=== PATIENT | female | born 1980 | race Caucasian/White ===

== ENCOUNTER 2017-02-03 23:40 | Inpatient (IN) | payer OTHER ==
--- NOTE | 2017-02-04 01:34 | PDOC ---
History of Present Illness - General Chief Complaint: Pain Stated Complaint: UPPER ABDOMINAL PAIN Time Seen by Provider: 02/04/17 01:31 History Source: Patient Exam Limitations: Intoxication - History of Present Illness Initial Comments: 02/04/17 02:02 Patient is a 36 yo female with history of multiple abdominal surgeries including gastric bypass, appendicitis and presenting with acute intoxication, nausea, vomiting and abdominal pain for an unknown length of time. Patient is a poor historian and endorses drinking multiple drinks this evening. She is c/o diffuse abdominal pain primarily in the epigastric and right upper and lower quadrants. Patient denies fever, chills, diarrhea, constipation. Last BM was yesterday. PCP: Dr. Manny Santacruz Past History - Past Medical History Allergies/Adverse Reactions: Allergies Allergy/AdvReac Type Severity Reaction Status Date / Time No Known Allergies Allergy Verified 02/03/17 23:44 Home Medications: Ambulatory Orders Multivitamin [One Daily] 1 each PO DAILY 02/04/17 Docusate Sodium [Colace -] 100 mg PO TID #60 tab 02/08/17 Folic Acid - 1 mg PO DAILY #30 tablet 02/08/17 Oxycodone HCl 5 mg PO BID #10 tablet MDD 2 tabls 02/08/17 Oxycodone HCl [Roxicodone -] 5 mg PO Q4H PRN #7 tablet MDD 2 tablets 02/08/17 Pantoprazole Sodium [Protonix -] 40 mg PO DAILY #30 tab 02/08/17 Thiamine HCl [Vitamin B1 -] 100 mg PO DAILY #30 tablet 02/08/17 GI Disorders: Yes (ACID REFLUX) - Surgical History Abdominal Surgery: Yes (GASTIC BYPASS-02/22/13) Appendectomy: Yes - Reproductive History (#): 7 Para: 8 Spontaneous : 0 - Suicide/Smoking/Psychosocial Hx Smoking Status: No Smoking History: Current every day smoker Have you smoked in the past 12 months: Yes Number of Cigarettes Smoked Daily: 2 Information on smoking cessation initiated: No Hx Alcohol Use: No Review of Systems - Review of Systems Able to Perform ROS?: Yes (Limited d/t intoxication) Comments:: 02/04/17 02:23 Denies fever, chills Denies shortness of breath Denies chest pain Endorses abdominal pain, nausea, vomiting; denies diarrhea constipation Is the patient limited Spanish proficient: No *Physical Exam - Vital Signs Last Vital Signs Temp Pulse Resp BP Pulse Ox 97.9 F 92 H 18 140/104 99 02/03/17 23:41 02/03/17 23:41 02/03/17 23:41 02/03/17 23:41 02/03/17 23:41 - Physical Exam Comments: 02/04/17 02:28 GENERAL: AAOx3, obese, intoxicates and smelling of EtOH, NAD HEAD: NCAT EYES: PERRLA, EOMI, conjunctiva injected ENT: hearing grossly normal, nares patent, no nasal discharge, no congestion, dry oral mucosa NECK: supple, normal ROM, no LAD RESP: speaking in full sentences, symmetrical chest expansion, no respiratory distress, lungs CTAB HEART: RRR, normal S1-S2, no MRG ABDOMEN: soft, ttp epigastric/RUQ/RLQ, no guarding, no rebound. EXTREMITIES: Moving all extremities, normal ROM, strength 5/5, normal sensation intact. NEUROLOGICAL: CN II-XII grossly intact, slurred speech, normal gait, no focal sensorimotor deficits SKIN: warm, dry, normal turgor, no rashes or lesions noted. ED Treatment Course - LABORATORY CBC & Chemistry Diagram: 02/08/17 06:05 02/08/17 06:05 - RADIOLOGY Radiograph Interpretation: CT/ABDOMEN PELVIS CT WITH CONTR HISTORY PROVIDED: Abdominal pain and vomiting. Sequential axial images were obtained from the domes of the diaphragms through the symphysis pubis following the administration of both oral and intravenous contrast material. The lung bases are clear. The patient is S/P gastric sleeve procedure. The liver is normal size. It is markedly hypodense in texture consistent with diffuse fatty infiltration. No mass lesions are noted within the liver. The spleen, pancreas and adrenal glands demonstrate no significant abnormalities. There is prominence of the renal pelves and proximal ureters bilaterally with no obvious obstruction identified. There is no evidence of bowel obstruction, however, there are mild edematous changes within the central mesentery with clumping of small bowel loops anteriorly. A surgical suture line is also noted in this location and these changes could be postoperative in nature. Clinical correlation and follow-up is advised. There is no evidence of intra-abdominal or retroperitoneal lymphadenopathy or fluid collections. Examination of the pelvis demonstrates changes within the left adnexa. There is trace amount of free pelvic fluid noted as well. No pelvic masses are identified. There is no evidence of acute bony abnormalities. IMPRESSION: 1. Extensive diffuse fatty infiltration of the liver. 2. Prominent renal pelves and proximal ureters without obvious obstruction. 3. S/P gastric sleeve procedure with small bowel anastomosis also noted. Mild mesenteric edema is seen with clumping of small bowel loops anteriorly. No obvious bowel obstruction is present. Clinical correlation and follow-up recommended. 4. Cystic changes left adnexa with free pelvic fluid. Please see above discussion. Medical Decision Making - Medical Decision Making 02/04/17 02:11 36 yo F with history of gastric bypass surgery and abdominal pain Ddx is pancreatitis, biliary colic, cholecystitis, gastritis, abdominal strictures, bowel obstruction Plan: Pain management Fluids Evaluate with basic labs, Mg, lipase, HCG Consider CT to r.o obstruction 02/04/17 03:49 Labs reviewed. Significant for for elevated lipase and LFT's consistent with pancreatitis CMP Sodium 144 mmol/L (136-145) 02/04/17 02:08 Potassium 3.2 mmol/L (3.5-5.1) L 02/04/17 02:08 Chloride 108 mmol/L (98-107) H 02/04/17 02:08 Carbon Dioxide 25 mmol/L (21-32) 02/04/17 02:08 Anion Gap 11 (8-16) 02/04/17 02:08 BUN 7 mg/dL (7-18) 02/04/17 02:08 Creatinine 0.7 mg/dL (0.55-1.02) D 02/04/17 02:08 Creat Clearance w eGFR > 60 (>60) 02/04/17 02:08 Random Glucose 84 mg/dL (74-106) 02/04/17 02:08 Calcium 7.9 mg/dL (8.5-10.1) L 02/04/17 02:08 Total Bilirubin 0.9 mg/dL (0.2-1.0) D 02/04/17 02:08 AST 284 U/L (15-37) H D 02/04/17 02:08 ALT 179 U/L (12-78) H D 02/04/17 02:08 Alkaline Phosphatase 231 U/L (45-117) H D 02/04/17 02:08 Total Protein 6.9 g/dl (6.4-8.2) 02/04/17 02:08 Albumin 3.4 g/dl (3.4-5.0) 02/04/17 02:08 Lipase 487 U/L (73-393) H 02/04/17 02:08 02/04/17 05:14 CT Abdomen/Pelvic shows fatty liver and moderate degree of nonspecific mesenteric edema without evidence of venous thrombosis or bowel inflammation. No obvious obstruction. Patient with mild pancreatitis, nausea and vomiting and intoxication, needs obs admission 02/04/17 05:[address] Khan who admits for Dr. Manny Santacruz. She requested patient be admitted to hospitalist. 02/04/17 06:02 Per hospitalist, admitted to [facility] under [facility] *DC/Admit/Observation/Transfer Diagnosis at time of Disposition: Intoxication Pancreatitis Qualifiers: Chronicity: acute Pancreatitis type: alcohol induced Acute pancreatitis complication: unspecified Qualified Code(s): K85.20 - Alcohol induced acute pancreatitis without necrosis or infection Vomiting Qualifiers: Vomiting type: unspecified Vomiting Intractability: unspecified Nausea presence : with nausea Qualified Code(s): R11.2 - Nausea with vomiting, unspecified - Discharge Dispostion Disposition: HOME Condition at time of disposition: Improved Admit: Yes - Prescriptions - Referrals
[2017-02-04] MEDS ORDERED: ONDANSETRON 4 MG/2 ML VIAL IVPUSH ONE (01:54)
[2017-02-04] MEDS ORDERED: FAMOTIDINE 20 MG/50 ML IVPB 50 ML IVPB ONE ×2 (01:54→02:16)
[2017-02-04] MEDS ORDERED: SODIUM CHLORIDE 0.9% 1000 ML INFUS.BAG IV ONE ×2 (01:55→03:48)
[2017-02-04] MEDS ORDERED: ONDANSETRON 4 MG/2 ML VIAL ONE (02:16)
[2017-02-04 02:37] LABS: BASOPHIL 0.5 % (0-2.0); EOSINOPHIL 1.3 % (0-4.5); MCHC 30.2 g/dl (32.0-36.0); MEAN CELL VOLUME 66.3 fl (80-96); MEAN PLT VOLUME 9.1 fl (7.5-11.1); NEUTROPHILS 65.9 % (42.8-82.8); PLATELET COUNT 251 K/MM3 (134-434); RDW 20.5 % (11.6-15.6); WHITE BLOOD COUNT 5.3 K/mm3 (4.0-10.0)
[2017-02-04 03:01] LABS: URINE APPEARANCE CLEAR; URINE BILIRUBIN NEGATIVE (NEGATIVE); URINE BLOOD NEGATIVE (NEGATIVE); URINE COLOR LTYELLOW; URINE GLUCOSE (UA) NEGATIVE (NEGATIVE); URINE KETONE NEGATIVE (NEGATIVE); URINE LEUK ESTERASE NEGATIVE (NEGATIVE); URINE NITRITE NEGATIVE (NEGATIVE); URINE PROTEIN NEGATIVE (NEGATIVE); URINE UROBILINOGEN NEGATIVE mg/dL (0.2-1.0)
[2017-02-04 03:15] LABS: ALBUMIN 3.4 g/dl (3.4-5.0); ALK PHOS 231 U/L (45-117); ANION GAP 11 (8-16); BILIRUBIN,TOTAL 0.9 mg/dL (0.2-1.0); CALCIUM 7.9 mg/dL (8.5-10.1); CO2 25 mmol/L (21-32); CREATININE 0.7 mg/dL (0.55-1.02); GLUCOSE,RANDOM 84 mg/dL (74-106); SGOT/AST 284 U/L (15-37); SGPT/ALT 179 U/L (12-78); TOT PROT 6.9 g/dl (6.4-8.2)
[2017-02-04 03:16] LABS: URINE MARIJUANA THC NEGATIVE ng/ml (CUTOFF=50)
[2017-02-04 05:17] LABS: PLATELET ESTIMATE ADEQUATE (NORMAL)
[2017-02-04 05:18] LABS: ANISOCYTOSIS 1+; HYPOCHROMIA 2+; MACROCYTOSIS 1+; MICROCYTOSIS 1+
[2017-02-04] MEDS ORDERED: morphine CARPU-JECT 2 MG/1 ML DISP.SYRIN IVPUSH ONE (05:33)
[2017-02-04] MEDS ORDERED: SODIUM CHLORIDE 1,000 ML IV STA (05:58)
--- NOTE | 2017-02-04 06:05 | PDOC ---
Attending Attestation - Resident Resident Name: Wilfrid Ruiz - ED Attending Attestation I have performed the following: I have examined & evaluated the patient, The case was reviewed & discussed with the resident, I agree w/resident's findings & plan, Exceptions are as noted - HPI HPI: 02/04/17 06:02 36 yo F with h/o gastric bypass, here wtih c/o etoh intox, vague abd pain n/v. states pain epigastric no radiation. has had two episodes nonbloody nonbilious emesis. no mod factors. reports etoh today drinnking bicardi. denies daily etoh use or other drug use. no change to stool. no urinary complaints. - Physicial Exam PE: 02/04/17 06:02 awake, intoxicated. perrl. dry mucous membranes. lungs clear bilat. heart rrr no mrg. abd soft mild epigastric, ruq ttp. no revound or guarding. no cva tendernss. nuero awake but drowsy, slurred speech. - Medical Decision Making 02/04/17 06:03 differential etoh intox, gastritis pancreatitis cholelithiaisis cholecystitis. plan ivf labs antiemetics. pain control ct a/p r/o obstruciton due to gastric surgery in past. 02/04/17 06:04 d/w kg ( covering for [facility]), hasn't seen pt in over year. told to admit to hospitalist. noted mild pancreatitis. ct a/p unremarkable.
[2017-02-04] MEDS ORDERED: morphine CARPU-JECT 2 MG/1 ML DISP.SYRIN ONE ×3 (06:47→14:10)
[2017-02-04] MEDS ORDERED: POTASSIUM CHLORIDE TABS 20 MEQ TABLET.ER (FP) PO ONE (07:00)
[2017-02-04 10:18] LABS: BASOPHIL 0.8 % (0-2.0); EOSINOPHIL 1.8 % (0-4.5); MCHC 29.3 g/dl (32.0-36.0); MEAN PLT VOLUME 8.7 fl (7.5-11.1); NEUTROPHILS 53.1 % (42.8-82.8); PLATELET COUNT 221 K/MM3 (134-434); RDW 21.2 % (11.6-15.6); WHITE BLOOD COUNT 4.8 K/mm3 (4.0-10.0)
[2017-02-04 10:20] LABS: MCH 19.6 pg (25.7-33.7)
[2017-02-04] MEDS ORDERED: FOLIC ACID INJECTION - 1 MG, THIAMINE HCL 100 MG, MULTIVIT INJECTION ADULT 10 ML in SOD... IVPB ONE (10:45)
[2017-02-04 10:47] LABS: ALBUMIN 2.8 g/dl (3.4-5.0); ANION GAP 5 (8-16); CALCIUM 7.4 mg/dL (8.5-10.1); CO2 27 mmol/L (21-32); GLUCOSE,RANDOM 64 mg/dL (74-106)
[2017-02-04 10:52] LABS: ALK PHOS 198 U/L (45-117); BILIRUBIN,TOTAL 0.7 mg/dL (0.2-1.0); CREATININE 0.5 mg/dL (0.55-1.02); SGPT/ALT 212 U/L (12-78); TOT PROT 6.1 g/dl (6.4-8.2)
[2017-02-04 10:57] VITALS: BMI 27.7
[2017-02-04 11:00] LABS: SGOT/AST 507 U/L (15-37)
[2017-02-04] MEDS: morphine CARPU-JECT 2 MG/1 ML DISP.SYRIN IVPUSH PRN ×4 (11:13→21:46)
--- NOTE | 2017-02-04 12:17 | HP ---
CHIEF COMPLAINT: abdominal pain/nausea/vomiting PCP: Manny Santacruz MD HISTORY OF PRESENT ILLNESS: Patient is a 36 year old female with a significant past medical history of gastric bypass (in 2013 @ [place]), appendicitis and . She presented to the ED with complaints of acute alcohol intoxication, abdominal pain, nausea and vomiting for a few days (unable to quantify when symptoms started). Patient is a poor historian and endorses drinking multiple drinks this evening. She is c/o diffuse abdominal pain primarily in the epigastric and right upper and lower quadrants. States the pain is a 8/10 and and describes the pain as "stabbing, cramping" pain. Patient denies fever, chills, diarrhea, constipation. Last BM was yesterday. She appears intoxicated and withdrawn on my exam. States she drinks every other day but could not quantify the amount she drinks but drinks Vodka often. She denies any symptoms of withdrawal, denies any anxiety, agitation, headache, tremors denies hx of seizures. Denies suicidal ideation or hallucinations. ER course was notable for: (1) appears intoxicated on exam, +alcohol odor (2) hmg 7.7/26.2, vitals stable (3) ast 505 alt 212, Lipase 487 (4) ETOH tox 290.2 (5) CIWA score 4, low score: continue to monitor CIWA q6 and PRN Recent Travel: denies PAST MEDICAL HISTORY: gastric bypass, appendicitis, c section PAST SURGICAL HISTORY: Social History: Smoking: denies Alcohol: Patient states she drinks vodka every other day. Drugs: denies Family History: Allergies No Known Allergies Allergy (Verified 02/03/17 23:44) HOME MEDICATIONS: Home Medications Medication Instructions Recorded Multivitamin [One Daily] 1 each PO DAILY 02/04/17 REVIEW OF SYSTEMS CONSTITUTIONAL: Absent: fever, chills, diaphoresis, generalized weakness, malaise, loss of appetite, weight change HEENT: Absent: rhinorrhea, nasal congestion, throat pain, throat swelling, difficulty swallowing, mouth swelling, ear pain, eye pain, visual changes CARDIOVASCULAR: Absent: chest pain, syncope, palpitations, irregular heart rate, lightheadedness , peripheral edema RESPIRATORY: Absent: cough, shortness of breath, dyspnea with exertion, orthopnea, wheezing, stridor, hemoptysis GASTROINTESTINAL: Absent: abdominal pain, abdominal distension, nausea, vomiting, diarrhea, constipation, melena, hematochezia GENITOURINARY: Absent: dysuria, frequency, urgency, hesitancy, hematuria, flank pain, genital pain MUSCULOSKELETAL: Absent: myalgia, arthralgia, joint swelling, back pain, neck pain SKIN: Absent: rash, itching, pallor HEMATOLOGIC/IMMUNOLOGIC: Absent: easy bleeding, easy bruising, lymphadenopathy, frequent infections ENDOCRINE: Absent: unexplained weight gain, unexplained weight loss, heat intolerance, cold intolerance NEUROLOGIC: Absent: headache, focal weakness or paresthesias, dizziness, unsteady gait, seizure, mental status changes, bladder or bowel incontinence PSYCHIATRIC: Absent: suicidal or homicidal ideation, hallucinations. PHYSICAL EXAMINATION Vital Signs - 24 hr 02/04/17 02/04/17 07:02 09:31 Pulse Rate [ 98 H 54 L Apical] Respiratory 18 18 Rate Blood Pressure 158/84 134/73 [Left Arm] O2 Sat by Pulse 100 100 Oximetry (%) GENERAL: Awake, alert, and fully oriented, in no acute distress. HEAD: Normal with no signs of trauma. EYES: Pupils equal, round and reactive to light, extraocular movements intact, sclera anicteric, conjunctiva clear. No lid lag. EARS, NOSE, THROAT: Ears normal, nares patent, oropharynx clear without exudates. Moist mucous membranes. NECK: Normal range of motion, supple without lymphadenopathy, JVD, or masses. LUNGS: Breath sounds equal, clear to auscultation bilaterally. No wheezes, and no crackles. No accessory muscle use. HEART: Regular rate and rhythm, normal S1 and S2 without murmur, rub or gallop. ABDOMEN: Soft, +tender on ruq, not distended, normoactive bowel sounds, + RUQ guarding, no rebound, no masses, last BM yesterday MUSCULOSKELETAL: Normal range of motion at all joints. No bony deformities or tenderness. No CVA tenderness. UPPER EXTREMITIES: 2+ pulses, warm, well-perfused. No cyanosis. No clubbing. No peripheral edema. LOWER EXTREMITIES: 2+ pulses, warm, well-perfused. No calf tenderness. No peripheral edema. NEUROLOGICAL: Cranial nerves II-XII intact. Normal speech. Normal gait. PSYCHIATRIC: Appears acutely intoxicated, withdrawn, guarded SKIN: Bilteral lower ext scattered bruising, unclear etiology, denies trauma, no edema Laboratory Results - last 24 hr 02/04/17 02/04/17 02/04/17 10:10 10:10 10:10 WBC 4.8 RBC 3.91 Hgb 7.7 L Hct 26.2 L MCV 67.0 L MCH 19.6 L MCHC 29.3 L RDW 21.2 H Plt Count 221 MPV 8.7 Neutrophils % 53.1 Lymphocytes % 38.9 D Monocytes % 5.4 Eosinophils % 1.8 Basophils % 0.8 Sodium 145 Potassium 3.7 Chloride 113 H Carbon Dioxide 27 Anion Gap 5 L BUN 5 L D Creatinine 0.5 L D Creat Clearance w eGFR > 60 Random Glucose 64 L D Calcium 7.4 L Magnesium 1.8 Total Bilirubin 0.7 D AST 507 H D ALT 212 H Alkaline Phosphatase 198 H Total Protein 6.1 L Albumin 2.8 L ASSESSMENT/PLAN: Patient is a 36 year old female with a significant past medical history of gastric bypass (2013 @ [place]), appendicitis and . She presented to the ED with complaints of acute alcohol intoxication, abdominal pain, nausea and vomiting for a few days (unable to quantify when symptoms started). Patient is a poor historian and endorses drinking multiple drinks this evening. She is c/o diffuse abdominal pain primarily in the epigastric and right upper and lower quadrants. States the pain is a 8/10 and and describes the pain as "stabbing, cramping" pain. Patient denies fever, chills, diarrhea, constipation. Last BM was yesterday. She appears intoxicated and withdrawn on my exam. States she drinks every other day but could not quantify the amount she drinks but drinks Vodka often. She denies any symptoms of withdrawal, denies any anxiety, agitation, headache, tremors denies hx of seizures. Denies suicidal ideation or hallucinations. GI: Abdominal Pain/Nausea/Vomiting - acute A/P: Abdominal CT/Pelvis with contrast shows: (1) extensive diffuse fatty infiltration of the liver, (2) Prominent renal pelves andproximal ureters without obvious obstruction (3) s/p gastric sleeve procedure with small bowel anastomosis also noted. Mild mesenteric edema is seen with clumping of small bowel loops anteriorly. No obvious bowel obstruction is present. (4) cystic changes left adnexa with free pelvic fluid. Will give IVF/clear liquid diet and monitor n/v Zofran SL as needed for nausea/vomiting Consider GI consult if worsening liver enzymes or worsening abdominal pain Elevated AST/ALT - acute A/P: Ast 505 alt @12, Lipase 487 AST/ALT not this elevated on previously admissions She is also intoxicated in the ED with etoh tox 290 Will give IVF, banana bag x 1 repeat labs in a.m. Abdominal CT shows extensive diffuse fatty inf. of liver Psyche: Acute alcohol intoxication/ETOH tox 290 A/P: Low CIWA score on my exam Monitor for signs of withdrawal and may need Libirum Will give PRN dose now Hematology: Acute anemia A/P: Likely secondary to ETOH abuse Monitor in the abstinence of alcohol F.E.N. Fluids: NS @ 100 x 24 hours Electrolytes: monitor in a.m. Nutrition: clears Disposition: Monitor patient on OBS. Full code. Visit type - Emergency Visit Emergency Visit: Yes ED Registration Date: 02/04/17 Care time: The patient presented to the Emergency Department on the above date and was hospitalized for further evaluation of their emergent condition. - New Patient This patient is new to me today: Yes Date on this admission: 02/04/17 - Critical Care Critical Care patient: No
[2017-02-04] MEDS ORDERED: ONDANSETRON *ODT* 4 MG TABLET SL PRN (14:47)
[2017-02-04] MEDS: SODIUM CHLORIDE 1,000 ML IV SCH (16:45)
[2017-02-04] MEDS ORDERED: chlordiazePOXIDE HCL 25 MG CAPSULE PO PRN (20:59)
--- NOTE | 2017-02-04 21:09 | CONSULT ---
Consult Detox [facility] Reason for Current Admission/Consult: Alcohol detox Referred by:: Ewa Wells NP - History History of Present Illness: 36 y/o woman with a long hx. of alcoholism is admitted because of diffuse abdominal pain resulting from pancreatitis lipase 487 & BAL 290.2. - History Source History Provided By: Medical Record - Alcohol/Substance Use Hx Alcohol Use: Yes - Current Drug/Alcohol Use Alcohol Route: Oral Frequency: Daily Amount used: Vodka 1/2- 1 pint Age of first use: 19 Date of Last Use: 02/04/17 - Past Medical History ...LMP: 12/27/16 - Significant Medical Findings: Laboratory Tests 02/04/17 02/04/17 02/04/17 02:08 02:08 02:08 WBC 5.3 D RBC 4.07 D Hgb 8.1 L D Hct 26.9 L D MCV 66.3 L MCH 20.0 L MCHC 30.2 L RDW 20.5 H D Plt Count 251 MPV 9.1 Neutrophils % 65.9 Lymphocytes % 27.2 Monocytes % 5.1 Eosinophils % 1.3 Basophils % 0.5 Hypochromia 2+ Platelet Estimate Adequate Anisocytosis 1+ Microcytosis 1+ Macrocytosis 1+ Sodium 144 Potassium 3.2 L Chloride 108 H Carbon Dioxide 25 Anion Gap 11 BUN 7 Creatinine 0.7 D Creat Clearance w eGFR > 60 Random Glucose 84 Calcium 7.9 L Phosphorus Magnesium Total Bilirubin 0.9 D AST 284 H D ALT 179 H D Alkaline Phosphatase 231 H D Total Protein 6.9 Albumin 3.4 Lipase 487 H Urine Color Urine Appearance Urine pH Ur Specific [place] Urine Protein Urine Glucose (UA) Urine Ketones Urine Blood Urine Nitrite Urine Bilirubin Urine Urobilinogen Urine HCG, Qual Opiates Screen Methadone Screen Barbiturate Screen Phencyclidine Screen Ur Amphetamines Screen MDMA (Ecstasy) Screen Benzodiazepines Screen Cocaine Screen U Marijuana (THC) Screen Alcohol, Quantitative 290.2 H* 02/04/17 02/04/17 02/04/17 02:10 02:10 02:10 WBC RBC Hgb Hct MCV MCH MCHC RDW Plt Count MPV Neutrophils % Lymphocytes % Monocytes % Eosinophils % Basophils % Hypochromia Platelet Estimate Anisocytosis Microcytosis Macrocytosis Sodium Potassium Chloride Carbon Dioxide Anion Gap BUN Creatinine Creat Clearance w eGFR Random Glucose Calcium Phosphorus Magnesium Total Bilirubin AST ALT Alkaline Phosphatase Total Protein Albumin Lipase Urine Color Ltyellow Urine Appearance Clear Urine pH 6.0 Ur Specific [place] 1.010 Urine Protein Negative Urine Glucose (UA) Negative Urine Ketones Negative Urine Blood Negative Urine Nitrite Negative Urine Bilirubin Negative Urine Urobilinogen Negative Urine HCG, Qual Negative Opiates Screen Negative Methadone Screen Negative Barbiturate Screen Negative Phencyclidine Screen Negative Ur Amphetamines Screen Negative MDMA (Ecstasy) Screen Negative Benzodiazepines Screen Negative Cocaine Screen Negative U Marijuana (THC) Screen Negative Alcohol, Quantitative 02/04/17 02/04/17 02/04/17 10:10 10:10 10:10 WBC 4.8 RBC 3.91 Hgb 7.7 L Hct 26.2 L MCV 67.0 L MCH 19.6 L MCHC 29.3 L RDW 21.2 H Plt Count 221 MPV 8.7 Neutrophils % 53.1 Lymphocytes % 38.9 D Monocytes % 5.4 Eosinophils % 1.8 Basophils % 0.8 Hypochromia Platelet Estimate Anisocytosis Microcytosis Macrocytosis Sodium 145 Potassium 3.7 Chloride 113 H Carbon Dioxide 27 Anion Gap 5 L BUN 5 L D Creatinine 0.5 L D Creat Clearance w eGFR > 60 Random Glucose 64 L D Calcium 7.4 L Phosphorus Magnesium 1.8 Total Bilirubin 0.7 D AST 507 H D ALT 212 H Alkaline Phosphatase 198 H Total Protein 6.1 L Albumin 2.8 L Lipase Urine Color Urine Appearance Urine pH Ur Specific [place] Urine Protein Urine Glucose (UA) Urine Ketones Urine Blood Urine Nitrite Urine Bilirubin Urine Urobilinogen Urine HCG, Qual Opiates Screen Methadone Screen Barbiturate Screen Phencyclidine Screen Ur Amphetamines Screen MDMA (Ecstasy) Screen Benzodiazepines Screen Cocaine Screen U Marijuana (THC) Screen Alcohol, Quantitative 02/05/17 02/05/17 02/05/17 06:00 06:00 06:00 WBC 4.4 RBC 3.88 Hgb 7.7 L Hct 26.1 L MCV 67.2 L MCH 19.7 L MCHC 29.3 L RDW 20.7 H Plt Count 184 MPV 8.8 Neutrophils % Lymphocytes % Monocytes % Eosinophils % Basophils % Hypochromia Platelet Estimate Anisocytosis Microcytosis Macrocytosis Sodium 141 Potassium 3.4 L Chloride 110 H Carbon Dioxide 26 Anion Gap 5 L BUN 5 L Creatinine 0.5 L Creat Clearance w eGFR > 60 Random Glucose 57 L Calcium 7.7 L Phosphorus 3.1 Magnesium 1.5 L Total Bilirubin 1.3 H D AST 231 H D ALT 146 H D Alkaline Phosphatase 183 H Total Protein 5.6 L Albumin 2.6 L Lipase 178 Urine Color Urine Appearance Urine pH Ur Specific [place] Urine Protein Urine Glucose (UA) Urine Ketones Urine Blood Urine Nitrite Urine Bilirubin Urine Urobilinogen Urine HCG, Qual Opiates Screen Methadone Screen Barbiturate Screen Phencyclidine Screen Ur Amphetamines Screen MDMA (Ecstasy) Screen Benzodiazepines Screen Cocaine Screen U Marijuana (THC) Screen Alcohol, Quantitative CIWA Score - CIWA Score Nausea/Vomitin Muscle Tremors: 4-Moderate,w/Arms Extend Anxiety: 4-Mod. Anxious/Guarded Agitation: 4-Moderately Restless Paroxysmal Sweats: 3 Orientation: 0-Oriented Tacttile Disturbances: 0-None Auditory Disturbances: 0-None Visual Disturbances: 0-None Headache: 0-None Present CIWA-Ar Total Score: 18 Assessment Plan - Plan Plan: Detox with Librium - Medication Detox Regimen/Protocol: Librium
[2017-02-04] MEDS: chlordiazePOXIDE HCL 25 MG CAPSULE PO SCH (23:06)
[2017-02-05] MEDS: SODIUM CHLORIDE 1,000 ML IV SCH ×2 (01:15→10:23)
[2017-02-05] MEDS: morphine CARPU-JECT 2 MG/1 ML DISP.SYRIN IVPUSH PRN ×4 (02:37→14:56)
[2017-02-05] MEDS: chlordiazePOXIDE HCL 25 MG CAPSULE PO SCH ×4 (06:13→23:06)
[2017-02-05 07:29] LABS: MCHC 29.3 g/dl (32.0-36.0); MEAN CELL VOLUME 67.2 fl (80-96); MEAN PLT VOLUME 8.8 fl (7.5-11.1); PLATELET COUNT 184 K/MM3 (134-434); RDW 20.7 % (11.6-15.6); WHITE BLOOD COUNT 4.4 K/mm3 (4.0-10.0)
[2017-02-05 07:36] LABS: MCH 19.7 pg (25.7-33.7)
[2017-02-05 07:55] LABS: ALBUMIN 2.6 g/dl (3.4-5.0); ANION GAP 5 (8-16); CALCIUM 7.7 mg/dL (8.5-10.1); CO2 26 mmol/L (21-32); GLUCOSE,RANDOM 57 mg/dL (74-106); MAGNESIUM 1.5 mg/dL (1.8-2.4)
[2017-02-05 07:59] LABS: ALK PHOS 183 U/L (45-117); BILIRUBIN,TOTAL 1.3 mg/dL (0.2-1.0); CREATININE 0.5 mg/dL (0.55-1.02); PHOSPHOROUS 3.1 mg/dL (2.5-4.9); SGOT/AST 231 U/L (15-37); SGPT/ALT 146 U/L (12-78); TOT PROT 5.6 g/dl (6.4-8.2)
[2017-02-05] MEDS: FOLIC ACID 1 MG TABLET (FP) PO SCH (10:18)
[2017-02-05] MEDS: THIAMINE HCL 100 MG TABLET (FP) PO SCH (10:18)
[2017-02-05] MEDS ORDERED: LACTATED RINGERS SOLUTION 1,000 ML IV SCH (13:30)
[2017-02-05] MEDS ORDERED: POTASSIUM CHLORIDE ORAL LIQUID 20 MEQ/15 ML PO ONE (14:00)
[2017-02-05] MEDS ORDERED: MAGNESIUM SULF 50% (8.12 MEQ/2 ML-1 GM VIAL) IVPB ONE (14:00)
--- NOTE | 2017-02-05 16:03 | PN ---
Physical Exam: SUBJECTIVE: Patient seen and examined. she reports small yellowish vomitus this AM, none since. She has r sided quadrant pain OBJECTIVE: Vital Signs Period Temp Pulse Resp BP Sys/East Pulse Ox Last 24 Hr 98.2 F 66 20 139/92 PE Neuro: alert, awake, cn 2-12intact Pulm: CTAB CV: s1 s2 rrr no mrg Abd: RUQ tenderness refers to R flank and groin abd soft Ext: no le edema noted, warm Active Medications Generic Name Dose Route Start Last Admin Trade Name Freq PRN Reason Stop Dose Admin Chlordiazepoxide HCl 25 mg 02/04/17 20:59 Librium - PO 02/07/17 20:58 Q4H PRN WITHDRAWAL(CONT SUBST) Chlordiazepoxide HCl 50 mg 02/04/17 23:00 02/05/17 10:19 Librium - PO 02/05/17 17:01 50 mg [id number] LISSY Administration Chlordiazepoxide HCl 25 mg 02/05/17 23:00 Librium - PO 02/06/17 17:01 [id number] Chlordiazepoxide HCl 15 mg 02/06/17 23:00 Librium - PO 02/07/17 17:01 [id number] LISSY Folic Acid 1 mg 02/05/17 10:00 02/05/17 10:18 Folic Acid - PO 1 mg DAILY LISSY Administration Lactated Ringer's 1,000 mls @ 125 mls/hr 02/05/17 13:30 02/05/17 14:54 Lactated Ringers Solution IV 02/05/17 21:29 125 mls/hr ASDIR LISSY Administration Morphine Sulfate 2 mg 02/04/17 10:24 02/05/17 14:56 Morphine Injection - IVPUSH 2 mg Q4H PRN Administration PAIN Ondansetron HCl 4 mg 02/04/17 14:47 Zofran Odt - SL Q8H PRN NAUSEA Thiamine HCl 100 mg 02/05/17 10:00 02/05/17 10:18 Vitamin B1 - PO 100 mg DAILY LISSY Administration Imaging: - CTAP: extensive diffuse fatty infiltration of the liver, (2) Prominent renal pelves and proximal ureters without obvious obstruction (3) s/p gastric sleeve procedure with small bowel anastomosis also noted. Mild mesenteric edema is seen with clumping of small bowel loops anteriorly. No obvious bowel obstruction is present. (4) cystic changes left adnexa with free pelvic fluid. Assessment: 36 year old female with pmhx gastric bypass (2013 @ [facility]), appendicitis and , ETOH abuse admitted with acute abdominal pain, n.v. Plan: 1. Elevated LFT's - Unclear if passing stones, CTAP and abd US negative for stones, or obstruction , however GB is thickened - LFT's down trended today - Advance to full liquids - Surgery consulted 2. ETOH abuse - Librium taper - Folic Acid daily - Thaiamine daily 3. ? pancreatitis - Lipase improved - Give 1L LR today x1 4. Anemia - Likely of chronic disease - Trend CBC Visit type - Emergency Visit Emergency Visit: Yes ED Registration Date: 02/05/17 Care time: The patient presented to the Emergency Department on the above date and was hospitalized for further evaluation of their emergent condition. - New Patient This patient is new to me today: Yes Date on this admission: 02/05/17 - Critical Care Critical Care patient: No
[2017-02-05] MEDS ORDERED: PNEUMOC 13-VAL CONJ-DIP CRM/PF 0.5 ML DISP.SYRIN IM ONE (18:36)
[2017-02-05] MEDS ORDERED: FLU VACCINE QUAD 60 MCG/0.5 ML (MDV 17-18) IM ONE (18:36)
--- NOTE | 2017-02-05 22:50 | CONSULT ---
- Consultation REQUESTING PROVIDER: Lori BLINDMAKER CONSULT REQUEST: We have been asked to surgically evaluate this patient for management of nausea; vomiting; abdominal pain. PCP:Dia Sandoval HISTORY OF PRESENT ILLNESS: CTSP for above c/o's; chart reviewed; previous admissions reviewed; patient admitted w/ ETOH intoxication; she has a h/o GBP; # dilatations; appendectomy among others; she has a h/o MRSA skin infection in the past. She states pain is in her right back; upper right thigh. PMHx: none PSHx: as above Home Medications Medication Instructions Recorded Multivitamin [One Daily] 1 each PO DAILY 02/04/17 Allergies Allergy/AdvReac Type Severity Reaction Status Date / Time No Known Allergies Allergy Verified 02/03/17 23:44 . PHYSICAL EXAM: GENERAL: Awake, alert, and fully oriented, in no acute distress; minimally cooperative HEAD: Normal with no signs of trauma. EYES: sclera anicteric, conjunctiva clear. ABDOMEN: Soft, nontender, not distended, , no guarding, no rebound, no masses. No organomegaly. Healed port sites; no hernias. MUSCULOSKELETAL: Normal ROM at all joints. No bony deformities or tenderness. No CVA tenderness. UPPER EXTREMITIES: 2+ pulses, warm, well-perfused. No cyanosis. Cap refill <2 seconds. No peripheral edema. LOWER EXTREMITIES: 2+ pulses, warm, well-perfused. No calf tenderness. No peripheral edema. NEUROLOGICAL: Normal speech, gait normal. PSYCH: Cooperative. Good eye contact. Appropriate mood and affect. SKIN: Warm, dry, normal turgor, no rashes or lesions noted. Vital Signs Temperature 98.3 F 02/05/17 19:04 Pulse Rate 110 H 02/05/17 19:04 Respiratory Rate 20 02/05/17 21:00 Blood Pressure 129/74 02/05/17 19:04 O2 Sat by Pulse Oximetry (%) 96 02/05/17 21:00 Lab Results WBC 4.4 K/mm3 (4.0-10.0) 02/05/17 06:00 RBC 3.88 M/mm3 (3.60-5.2) 02/05/17 06:00 Hgb 7.7 GM/dL (10.7-15.3) L 02/05/17 06:00 Hct 26.1 % (32.4-45.2) L 02/05/17 06:00 MCV 67.2 fl (80-96) L 02/05/17 06:00 MCHC 29.3 g/dl (32.0-36.0) L 02/05/17 06:00 RDW 20.7 % (11.6-15.6) H 02/05/17 06:00 Plt Count 184 K/MM3 (134-434) 02/05/17 06:00 Sodium 141 mmol/L (136-145) 02/05/17 06:00 Potassium 3.4 mmol/L (3.5-5.1) L 02/05/17 06:00 Chloride 110 mmol/L (98-107) H 02/05/17 06:00 Carbon Dioxide 26 mmol/L (21-32) 02/05/17 06:00 Anion Gap 5 (8-16) L 02/05/17 06:00 BUN 5 mg/dL (7-18) L 02/05/17 06:00 Creatinine 0.5 mg/dL (0.55-1.02) L 02/05/17 06:00 Random Glucose 57 mg/dL (74-106) L 02/05/17 06:00 Calcium 7.7 mg/dL (8.5-10.1) L 02/05/17 06:00 CT; US Labs reviewed IMP: abdominal pain most likely of origin of ETOH intox; previous GBP surgery and not from biliary tract and medical liver disease PLAN: Continue to trend LFT's; GI evaluation. Arnoldo Wallace MD FACS Visit type - Case Type Case Type: ED Admission - Emergency Emergency Visit: Yes ED Registration Date: 02/05/17 Care time: The patient presented to the Emergency Department on the above date and was hospitalized for further evaluation of their emergent condition. - New patient This patient is new to me today: Yes Date on this admission: 02/05/17 - Critical Care Critical Care patient: No
[2017-02-06] MEDS: morphine CARPU-JECT 2 MG/1 ML DISP.SYRIN IVPUSH PRN ×3 (06:46→22:46)
[2017-02-06] MEDS: chlordiazePOXIDE HCL 25 MG CAPSULE PO SCH ×3 (06:46→17:22)
[2017-02-06 07:20] LABS: BASOPHIL 0.8 % (0-2.0); EOSINOPHIL 2.1 % (0-4.5); MCHC 29.7 g/dl (32.0-36.0); MEAN CELL VOLUME 66.8 fl (80-96); MEAN PLT VOLUME 8.7 fl (7.5-11.1); NEUTROPHILS 65.5 % (42.8-82.8); PLATELET COUNT 198 K/MM3 (134-434); RDW 20.9 % (11.6-15.6); WHITE BLOOD COUNT 4.4 K/mm3 (4.0-10.0)
[2017-02-06 07:29] LABS: MCH 19.8 pg (25.7-33.7)
[2017-02-06 07:50] LABS: ALBUMIN 2.4 g/dl (3.4-5.0); ANION GAP 5 (8-16); CO2 28 mmol/L (21-32); GLUCOSE,RANDOM 68 mg/dL (74-106); MAGNESIUM 2.1 mg/dL (1.8-2.4); PHOSPHOROUS 3.2 mg/dL (2.5-4.9); SGOT/AST 217 U/L (15-37)
[2017-02-06 07:52] LABS: ALK PHOS 186 U/L (45-117); BILIRUBIN,TOTAL 1.4 mg/dL (0.2-1.0); CREATININE 0.4 mg/dL (0.55-1.02); SGPT/ALT 128 U/L (12-78); TOT PROT 5.2 g/dl (6.4-8.2)
[2017-02-06 08:00] LABS: INR 1.03 (0.82-1.09); PROTHROMBIN TIME (PATIENT) 11.3 SEC (9.98-11.88)
[2017-02-06] MEDS: FOLIC ACID 1 MG TABLET (FP) PO SCH (09:33)
[2017-02-06] MEDS: THIAMINE HCL 100 MG TABLET (FP) PO SCH (09:33)
--- NOTE | 2017-02-06 14:23 | CONSULT ---
Consultation: REQUESTING PROVIDER: CONSULT REQUEST: We have been asked to medically evaluate this patient for ( specify). HISTORY OF PRESENT ILLNESS: REVIEW OF SYSTEMS: CONSTITUTIONAL: Absent: fever, chills, diaphoresis, generalized weakness, malaise, loss of appetite, weight change HEENT: Absent: rhinorrhea, nasal congestion, throat pain, throat swelling, difficulty swallowing, mouth swelling, ear pain, eye pain, visual changes CARDIOVASCULAR: Absent: chest pain, syncope, palpitations, irregular heart rate, lightheadedness , peripheral edema RESPIRATORY: Absent: cough, shortness of breath, dyspnea with exertion, orthopnea, wheezing, stridor, hemoptysis GASTROINTESTINAL: Absent: abdominal pain, abdominal distension, nausea, vomiting, diarrhea, constipation, melena, hematochezia GENITOURINARY: Absent: dysuria, frequency, urgency, hesitancy, hematuria, flank pain, genital pain MUSCULOSKELETAL: Absent: myalgia, arthralgia, joint swelling, back pain, neck pain SKIN: Absent: rash, itching, pallor HEMATOLOGIC/IMMUNOLOGIC: Absent: easy bleeding, easy bruising, lymphadenopathy, frequent infections ENDOCRINE: Absent: unexplained weight gain, unexplained weight loss, heat intolerance, cold intolerance NEUROLOGIC: Absent: headache, focal weakness or paresthesias, dizziness, unsteady gait, seizure, mental status changes, bladder or bowel incontinence PSYCHIATRIC: Absent: anxiety, depression, suicidal or homicidal ideation, hallucinations. PHYSICAL EXAMINATION Vital Signs - 24 hr 02/05/17 02/05/17 02/05/17 19:04 21:00 23:00 Temperature 98.3 F 98.5 F Pulse Rate 110 H 88 Respiratory 20 20 20 Rate Blood Pressure 129/74 132/70 O2 Sat by Pulse 96 Oximetry (%) 02/06/17 02/06/17 06:00 08:46 Temperature 98 F 98.3 F Pulse Rate 79 72 Respiratory 20 18 Rate Blood Pressure 113/73 119/65 O2 Sat by Pulse Oximetry (%) GENERAL: Awake, alert, and fully oriented, in no acute distress. HEAD: Normal with no signs of trauma. EYES: Pupils equal, round and reactive to light, extraocular movements intact, sclera anicteric, conjunctiva clear. No lid lag. EARS, NOSE, THROAT: Ears normal, nares patent, oropharynx clear without exudates. Moist mucous membranes. NECK: Normal range of motion, supple without lymphadenopathy, JVD, or masses. LUNGS: Breath sounds equal, clear to auscultation bilaterally. No wheezes, and no crackles. No accessory muscle use. HEART: Regular rate and rhythm, normal S1 and S2 without murmur, rub or gallop. ABDOMEN: Soft, nontender, not distended, normoactive bowel sounds, no guarding, no rebound, no masses. No hepatomegaly or splenomegaly. MUSCULOSKELETAL: Normal range of motion at all joints. No bony deformities or tenderness. No CVA tenderness. UPPER EXTREMITIES: 2+ pulses, warm, well-perfused. No cyanosis. No clubbing. Cap refill <2 seconds. No peripheral edema. LOWER EXTREMITIES: 2+ pulses, warm, well-perfused. No calf tenderness. No peripheral edema. NEUROLOGICAL: Cranial nerves II-XII intact. Normal speech. Normal gait. PSYCHIATRIC: Cooperative. Good eye contact. Appropriate mood and affect. SKIN: Warm, dry, normal turgor, no rashes or lesions noted. Laboratory Results - last 24 hr 02/06/17 02/06/17 02/06/17 06:00 06:00 06:00 WBC 4.4 RBC 3.66 Hgb 7.3 L Hct 24.4 L MCV 66.8 L MCH 19.8 L MCHC 29.7 L RDW 20.9 H Plt Count 198 MPV 8.7 Neutrophils % 65.5 D Lymphocytes % 25.8 D Monocytes % 5.8 Eosinophils % 2.1 Basophils % 0.8 PT with INR 11.30 INR 1.03 Sodium 142 Potassium 3.8 Chloride 109 H Carbon Dioxide 28 Anion Gap 5 L BUN 3 L D Creatinine 0.4 L Creat Clearance w eGFR > 60 Random Glucose 68 L Calcium 8.0 L Phosphorus 3.2 Magnesium 2.1 D Total Bilirubin 1.4 H AST 217 H ALT 128 H Alkaline Phosphatase 186 H Total Protein 5.2 L Albumin 2.4 L Active Medications Generic Name Dose Route Start Last Admin Trade Name Freq PRN Reason Stop Dose Admin Chlordiazepoxide HCl 25 mg 02/04/17 20:59 Librium - PO 02/07/17 20:58 Q4H PRN WITHDRAWAL(CONT SUBST) Chlordiazepoxide HCl 25 mg 02/05/17 23:00 02/06/17 11:29 Librium - PO 02/06/17 17:01 25 mg [id number] LISSY Administration Chlordiazepoxide HCl 15 mg 02/06/17 23:00 Librium - PO 02/07/17 17:01 [id number] LISSY Folic Acid 1 mg 02/05/17 10:00 02/06/17 09:33 Folic Acid - PO 1 mg DAILY LISSY Administration Morphine Sulfate 2 mg 02/04/17 10:24 02/06/17 06:46 Morphine Injection - IVPUSH 2 mg Q4H PRN Administration PAIN Ondansetron HCl 4 mg 02/04/17 14:47 Zofran Odt - SL Q8H PRN NAUSEA Oxycodone HCl 5 mg 02/06/17 13:28 Roxicodone - PO Q4H PRN PAIN Thiamine HCl 100 mg 02/05/17 10:00 02/06/17 09:33 Vitamin B1 - PO 100 mg DAILY LISSY Administration ASSESSMENT/PLAN: Dispo: We will continue to follow the patient. Thank you for this consultative opportunity.
[2017-02-06] MEDS: oxyCODONE HCL 5 MG TABLET PO PRN (14:54)
--- NOTE | 2017-02-06 14:59 | CONSULT ---
Consult Consult Specialty:: GI Referred by:: Dia Sandoval Reason for Consultation:: persistent abdominal pain - History of Present Illness Chief Complaint: persistent abdominal pain History of Present Illness: Generalized, with RUQ emphasis, abdominal, 5/10, radiating to the back pain of few weeks duration. Worse in the last few days. Associated with nausea, one episode of non-bilious vomiting. No fever, chils, jaundice, altered bowels, melena, hematochezia. No obvious aggravating, or alleviating factors. Reports lack of appetite. Denies GERD, dysphagia. On admission RUQ US noted to have fatty liver, mild hepatitis with cholestasis with thikened BG, low albumin, however no stone, CBD dilation, or pancreatic abnormality on CT. History recent ETOH. HCG negative. 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 No: Ascites, Cancer, Diverticulitis, Diverticulosis, Esophageal Varices, GI Bleed, Hiatal Hernia, Inflamatory Bowel Disease, Peptic Ulcer Disease Hepatobiliary: Yes: Other (unknown hepaitis status). No: Cirrhosis, Cholelithiasis, Cholecystitis, Choledocholithiasis Renal/: No: Renal Failure, Renal Inusuff, Renal Calculi ...LMP: 12/27/16 ...: No (negative HCG on this admission ) Heme/Onc: Yes: Anemia. No: Bleeding Disorder, Thrombocytopenia Infectious Disease: Yes: MRSA (history of) - Past Surgical History Past Surgical History: Yes: Appendectomy, Bariatric Surgery, - Alcohol/Substance Use Hx Alcohol Use: Yes - Smoking History Smoking history: Current every day smoker Have you smoked in the past 12 months: Yes Aproximately how many cigarettes per day: 2 - Social History ADL: Independent Home Medications - Allergies Allergies/Adverse Reactions: Allergies Allergy/AdvReac Type Severity Reaction Status Date / Time No Known Allergies Allergy Verified 02/03/17 23:44 - Home Medications Home Medications: Ambulatory Orders Multivitamin [One Daily] 1 each PO DAILY 02/04/17 Family Disease History - Family Disease History Family History: Unremarkable Review of Systems Findings/Remarks: Chart reviewed, ROS negative unless indicated - Review of Systems Gastrointestinal: reports: Other (See HPI) Integumentary: reports: Erythema (facial), Pruritis (facial) Physical Exam Vital Signs: Vital Signs Temperature 98.3 F 02/06/17 08:46 Pulse Rate 72 02/06/17 08:46 Respiratory Rate 18 02/06/17 08:46 Blood Pressure 119/65 02/06/17 08:46 O2 Sat by Pulse Oximetry (%) 99 02/06/17 09:00 Constitutional: Yes: Well Nourished, Anxious, Mild Distress Eyes: Yes: Conjunctiva Clear. No: Sclera Icterus HENT: Yes: Atraumatic Neck: Yes: Supple Cardiovascular: Yes: Regular Rate and Rhythm Respiratory: Yes: CTA Bilaterally Gastrointestinal: Yes: Normal Bowel Sounds, Soft, Tenderness, Tenderness, Epigastrium, Vomiting. No: Abdomen, Obese, Ascites, Distention, Palpable Mass, Pulsatile Mass, Tenderness, Rebound Musculoskeletal: No: Joint Stiffness, Joint Swelling Integumentary: Yes: Erythema (facial) Neurological: Yes: Alert, Oriented. No: Aphasia, Asterixis, Confusion, Dysarthria, Lethargy Psychiatric: Yes: Alert, Oriented. No: Agitated Labs: Abnormal Lab Results 02/06/17 02/06/17 06:00 06:00 Hgb 7.3 L Hct 24.4 L MCV 66.8 L MCH 19.8 L MCHC 29.7 L RDW 20.9 H Chloride 109 H Anion Gap 5 L BUN 3 L D Creatinine 0.4 L Random Glucose 68 L Calcium 8.0 L Total Bilirubin 1.4 H AST 217 H ALT 128 H Alkaline Phosphatase 186 H Total Protein 5.2 L Albumin 2.4 L Laboratory Tests 02/04/17 02/04/17 02/04/17 02:08 02:08 02:08 WBC 5.3 D RBC 4.07 D Hgb 8.1 L D Hct 26.9 L D MCV 66.3 L MCH 20.0 L MCHC 30.2 L RDW 20.5 H D Plt Count 251 MPV 9.1 Neutrophils % 65.9 Lymphocytes % 27.2 Monocytes % 5.1 Eosinophils % 1.3 Basophils % 0.5 Hypochromia 2+ Platelet Estimate Adequate Anisocytosis 1+ Microcytosis 1+ Macrocytosis 1+ PT with INR INR Sodium 144 Potassium 3.2 L Chloride 108 H Carbon Dioxide 25 Anion Gap 11 BUN 7 Creatinine 0.7 D Creat Clearance w eGFR > 60 Random Glucose 84 Calcium 7.9 L Phosphorus Magnesium Total Bilirubin 0.9 D AST 284 H D ALT 179 H D Alkaline Phosphatase 231 H D Total Protein 6.9 Albumin 3.4 Lipase 487 H Urine Color Urine Appearance Urine pH Ur Specific [place] Urine Protein Urine Glucose (UA) Urine Ketones Urine Blood Urine Nitrite Urine Bilirubin Urine Urobilinogen Urine HCG, Qual Opiates Screen Methadone Screen Barbiturate Screen Phencyclidine Screen Ur Amphetamines Screen MDMA (Ecstasy) Screen Benzodiazepines Screen Cocaine Screen U Marijuana (THC) Screen Alcohol, Quantitative 290.2 H* 02/04/17 02/04/17 02/04/17 02:10 02:10 02:10 WBC RBC Hgb Hct MCV MCH MCHC RDW Plt Count MPV Neutrophils % Lymphocytes % Monocytes % Eosinophils % Basophils % Hypochromia Platelet Estimate Anisocytosis Microcytosis Macrocytosis PT with INR INR Sodium Potassium Chloride Carbon Dioxide Anion Gap BUN Creatinine Creat Clearance w eGFR Random Glucose Calcium Phosphorus Magnesium Total Bilirubin AST ALT Alkaline Phosphatase Total Protein Albumin Lipase Urine Color Ltyellow Urine Appearance Clear Urine pH 6.0 Ur Specific [place] 1.010 Urine Protein Negative Urine Glucose (UA) Negative Urine Ketones Negative Urine Blood Negative Urine Nitrite Negative Urine Bilirubin Negative Urine Urobilinogen Negative Urine HCG, Qual Negative Opiates Screen Negative Methadone Screen Negative Barbiturate Screen Negative Phencyclidine Screen Negative Ur Amphetamines Screen Negative MDMA (Ecstasy) Screen Negative Benzodiazepines Screen Negative Cocaine Screen Negative U Marijuana (THC) Screen Negative Alcohol, Quantitative 02/04/17 02/04/17 02/04/17 10:10 10:10 10:10 WBC 4.8 RBC 3.91 Hgb 7.7 L Hct 26.2 L MCV 67.0 L MCH 19.6 L MCHC 29.3 L RDW 21.2 H Plt Count 221 MPV 8.7 Neutrophils % 53.1 Lymphocytes % 38.9 D Monocytes % 5.4 Eosinophils % 1.8 Basophils % 0.8 Hypochromia Platelet Estimate Anisocytosis Microcytosis Macrocytosis PT with INR INR Sodium 145 Potassium 3.7 Chloride 113 H Carbon Dioxide 27 Anion Gap 5 L BUN 5 L D Creatinine 0.5 L D Creat Clearance w eGFR > 60 Random Glucose 64 L D Calcium 7.4 L Phosphorus Magnesium 1.8 Total Bilirubin 0.7 D AST 507 H D ALT 212 H Alkaline Phosphatase 198 H Total Protein 6.1 L Albumin 2.8 L Lipase Urine Color Urine Appearance Urine pH Ur Specific [place] Urine Protein Urine Glucose (UA) Urine Ketones Urine Blood Urine Nitrite Urine Bilirubin Urine Urobilinogen Urine HCG, Qual Opiates Screen Methadone Screen Barbiturate Screen Phencyclidine Screen Ur Amphetamines Screen MDMA (Ecstasy) Screen Benzodiazepines Screen Cocaine Screen U Marijuana (THC) Screen Alcohol, Quantitative 02/05/17 02/05/17 02/05/17 06:00 06:00 06:00 WBC 4.4 RBC 3.88 Hgb 7.7 L Hct 26.1 L MCV 67.2 L MCH 19.7 L MCHC 29.3 L RDW 20.7 H Plt Count 184 MPV 8.8 Neutrophils % Lymphocytes % Monocytes % Eosinophils % Basophils % Hypochromia Platelet Estimate Anisocytosis Microcytosis Macrocytosis PT with INR INR Sodium 141 Potassium 3.4 L Chloride 110 H Carbon Dioxide 26 Anion Gap 5 L BUN 5 L Creatinine 0.5 L Creat Clearance w eGFR > 60 Random Glucose 57 L Calcium 7.7 L Phosphorus 3.1 Magnesium 1.5 L Total Bilirubin 1.3 H D AST 231 H D ALT 146 H D Alkaline Phosphatase 183 H Total Protein 5.6 L Albumin 2.6 L Lipase 178 Urine Color Urine Appearance Urine pH Ur Specific [place] Urine Protein Urine Glucose (UA) Urine Ketones Urine Blood Urine Nitrite Urine Bilirubin Urine Urobilinogen Urine HCG, Qual Opiates Screen Methadone Screen Barbiturate Screen Phencyclidine Screen Ur Amphetamines Screen MDMA (Ecstasy) Screen Benzodiazepines Screen Cocaine Screen U Marijuana (THC) Screen Alcohol, Quantitative 02/06/17 02/06/17 02/06/17 06:00 06:00 06:00 WBC 4.4 RBC 3.66 Hgb 7.3 L Hct 24.4 L MCV 66.8 L MCH 19.8 L MCHC 29.7 L RDW 20.9 H Plt Count 198 MPV 8.7 Neutrophils % 65.5 D Lymphocytes % 25.8 D Monocytes % 5.8 Eosinophils % 2.1 Basophils % 0.8 Hypochromia Platelet Estimate Anisocytosis Microcytosis Macrocytosis PT with INR 11.30 INR 1.03 Sodium 142 Potassium 3.8 Chloride 109 H Carbon Dioxide 28 Anion Gap 5 L BUN 3 L D Creatinine 0.4 L Creat Clearance w eGFR > 60 Random Glucose 68 L Calcium 8.0 L Phosphorus 3.2 Magnesium 2.1 D Total Bilirubin 1.4 H AST 217 H ALT 128 H Alkaline Phosphatase 186 H Total Protein 5.2 L Albumin 2.4 L Lipase Urine Color Urine Appearance Urine pH Ur Specific [place] Urine Protein Urine Glucose (UA) Urine Ketones Urine Blood Urine Nitrite Urine Bilirubin Urine Urobilinogen Urine HCG, Qual Opiates Screen Methadone Screen Barbiturate Screen Phencyclidine Screen Ur Amphetamines Screen MDMA (Ecstasy) Screen Benzodiazepines Screen Cocaine Screen U Marijuana (THC) Screen Alcohol, Quantitative Vital Signs (72 hours) 02/03/17 02/04/17 02/04/17 23:41 00:12 03:10 Temperature 97.9 F 98.5 F Pulse Rate 92 H Pulse Rate [ 90 96 H Apical] Respiratory 18 18 15 Rate Blood Pressure 140/104 Blood Pressure 140/104 145/76 [Left Arm] O2 Sat by Pulse 99 99 Oximetry (%) 02/04/17 02/04/17 02/04/17 07:02 09:31 14:31 Temperature Pulse Rate Pulse Rate [ 98 H 54 L 58 L Apical] Respiratory 18 18 18 Rate Blood Pressure Blood Pressure 158/84 134/73 134/89 [Left Arm] O2 Sat by Pulse 100 100 97 Oximetry (%) 02/04/17 02/04/17 02/04/17 16:00 21:00 21:48 Temperature 98.4 F 97.4 F L Pulse Rate 60 82 Pulse Rate [ Apical] Respiratory 20 20 20 Rate Blood Pressure 130/74 123/79 Blood Pressure [Left Arm] O2 Sat by Pulse 97 Oximetry (%) 02/05/17 02/05/17 02/05/17 05:15 06:10 09:09 Temperature 97.5 F L 98.1 F Pulse Rate 61 60 Pulse Rate [ Apical] Respiratory 20 20 16 Rate Blood Pressure 136/83 134/78 Blood Pressure [Left Arm] O2 Sat by Pulse 97 Oximetry (%) 02/05/17 02/05/17 02/05/17 10:45 13:35 19:04 Temperature 98.2 F 98.3 F Pulse Rate 66 110 H Pulse Rate [ Apical] Respiratory 20 20 Rate Blood Pressure 139/92 129/74 Blood Pressure [Left Arm] O2 Sat by Pulse 95 Oximetry (%) 02/05/17 02/05/17 02/06/17 21:00 23:00 06:00 Temperature 98.5 F 98 F Pulse Rate 88 79 Pulse Rate [ Apical] Respiratory 20 20 20 Rate Blood Pressure 132/70 113/73 Blood Pressure [Left Arm] O2 Sat by Pulse 96 Oximetry (%) 02/06/17 02/06/17 08:46 09:00 Temperature 98.3 F Pulse Rate 72 Pulse Rate [ Apical] Respiratory 18 Rate Blood Pressure 119/65 Blood Pressure [Left Arm] O2 Sat by Pulse 99 Oximetry (%) Home Medications Medication Instructions Recorded Multivitamin [One Daily] 1 each PO DAILY 02/04/17 Current Medications Generic Name Dose Route Start Last Admin Trade Name Freq PRN Reason Stop Dose Admin Chlordiazepoxide HCl 25 mg 02/04/17 20:59 Librium - PO 02/07/17 20:58 Q4H PRN WITHDRAWAL(CONT SUBST) Chlordiazepoxide HCl 25 mg 02/05/17 23:00 02/06/17 11:29 Librium - PO 02/06/17 17:01 25 mg [id number] LISSY Administration Chlordiazepoxide HCl 15 mg 02/06/17 23:00 Librium - PO 02/07/17 17:01 [id number] LISSY Folic Acid 1 mg 02/05/17 10:00 02/06/17 09:33 Folic Acid - PO 1 mg DAILY LISSY Administration Morphine Sulfate 2 mg 02/04/17 10:24 02/06/17 06:46 Morphine Injection - IVPUSH 2 mg Q4H PRN Administration PAIN Ondansetron HCl 4 mg 02/04/17 14:47 Zofran Odt - SL Q8H PRN NAUSEA Oxycodone HCl 5 mg 02/06/17 13:28 02/06/17 14:54 Roxicodone - PO 5 mg Q4H PRN Administration PAIN Thiamine HCl 100 mg 02/05/17 10:00 02/06/17 09:33 Vitamin B1 - PO 100 mg DAILY LISSY Administration Vital Signs (72 hours) 02/03/17 02/04/17 02/04/17 23:41 00:12 03:10 Temperature 97.9 F 98.5 F Pulse Rate 92 H Pulse Rate [ 90 96 H Apical] Respiratory 18 18 15 Rate Blood Pressure 140/104 Blood Pressure 140/104 145/76 [Left Arm] O2 Sat by Pulse 99 99 Oximetry (%) 02/04/17 02/04/17 02/04/17 07:02 09:31 14:31 Temperature Pulse Rate Pulse Rate [ 98 H 54 L 58 L Apical] Respiratory 18 18 18 Rate Blood Pressure Blood Pressure 158/84 134/73 134/89 [Left Arm] O2 Sat by Pulse 100 100 97 Oximetry (%) 02/04/17 02/04/17 02/04/17 16:00 21:00 21:48 Temperature 98.4 F 97.4 F L Pulse Rate 60 82 Pulse Rate [ Apical] Respiratory 20 20 20 Rate Blood Pressure 130/74 123/79 Blood Pressure [Left Arm] O2 Sat by Pulse 97 Oximetry (%) 02/05/17 02/05/17 02/05/17 05:15 06:10 09:09 Temperature 97.5 F L 98.1 F Pulse Rate 61 60 Pulse Rate [ Apical] Respiratory 20 20 16 Rate Blood Pressure 136/83 134/78 Blood Pressure [Left Arm] O2 Sat by Pulse 97 Oximetry (%) 02/05/17 02/05/17 02/05/17 10:45 13:35 19:04 Temperature 98.2 F 98.3 F Pulse Rate 66 110 H Pulse Rate [ Apical] Respiratory 20 20 Rate Blood Pressure 139/92 129/74 Blood Pressure [Left Arm] O2 Sat by Pulse 95 Oximetry (%) 02/05/17 02/05/17 02/06/17 21:00 23:00 06:00 Temperature 98.5 F 98 F Pulse Rate 88 79 Pulse Rate [ Apical] Respiratory 20 20 20 Rate Blood Pressure 132/70 113/73 Blood Pressure [Left Arm] O2 Sat by Pulse 96 Oximetry (%) 02/06/17 02/06/17 08:46 09:00 Temperature 98.3 F Pulse Rate 72 Pulse Rate [ Apical] Respiratory 18 Rate Blood Pressure 119/65 Blood Pressure [Left Arm] O2 Sat by Pulse 99 Oximetry (%) All Active Problems Intoxication (Acute) Pancreatitis (Acute) Vomiting (Acute) Knee pain, right (Acute) Sunburn (Acute) Imaging - Results Cat Scan: Report Reviewed (See HPI) Ultrasound: Report Reviewed Problem List - Problems (1) Microcytic hypochromic anemia Code(s): D50.9 - IRON DEFICIENCY ANEMIA, UNSPECIFIED (2) Generalized abdominal pain Code(s): R10.84 - GENERALIZED ABDOMINAL PAIN (3) RUQ abdominal pain Code(s): R10.11 - RIGHT UPPER QUADRANT PAIN (4) Alcoholic liver disorder Code(s): K70.9 - ALCOHOLIC LIVER DISEASE, UNSPECIFIED Assessment/Plan Abdminal pain in setting of recent ETOH use, hepatitis with mild cholestasis and normal lipase. 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 No history of chronic NSADS use PUD. Microcytic, hypochromic anemia, not consistent with chromic ETOH. R/O upper GI blood loss i.e marginal ulcer, ETOH gastritis Agree with current management. Continue to monitor transaminases, ALP, bilirubun while inpatient Clear liquid diet as tolerated Consider a PPI (i.e. pantoprazole 40 mg PO qAM) ETOH effects on liver, pancreas discussed with the patient EGD tomorrow to assess for significant ETOH/other gastritis, marginal ulcer, persistent abdominal pain. if MRSA positive, should be the last case of the day. Above discussed with the patient, referring doctor and covering nurse Visit type - Emergency Visit Emergency Visit: No - New Patient This patient is new to me today: Yes Date on this admission: 02/06/17 (consultation) - Critical Care Critical Care patient: No
--- NOTE | 2017-02-06 16:59 | PN ---
Physical Exam: SUBJECTIVE: Patient seen and examined. RUQ tenderness unchanged, morphine only numbs pain. No vomiting today OBJECTIVE: Vital Signs Period Temp Pulse Resp BP Sys/East Pulse Ox Last 24 Hr 98 F-98.5 F 72-110 18-20 113-139/65-82 96-99 PE Neuro: alert, awake, cn 2-12intact Pulm: CTAB CV: s1 s2 rrr no mrg Abd: RUQ tenderness refers to R flank and groin abd soft Ext: no le edema noted, warm Laboratory Results - last 24 hr 02/06/17 02/06/17 02/06/17 06:00 06:00 06:00 WBC 4.4 RBC 3.66 Hgb 7.3 L Hct 24.4 L MCV 66.8 L MCH 19.8 L MCHC 29.7 L RDW 20.9 H Plt Count 198 MPV 8.7 Neutrophils % 65.5 D Lymphocytes % 25.8 D Monocytes % 5.8 Eosinophils % 2.1 Basophils % 0.8 PT with INR 11.30 INR 1.03 Sodium 142 Potassium 3.8 Chloride 109 H Carbon Dioxide 28 Anion Gap 5 L BUN 3 L D Creatinine 0.4 L Creat Clearance w eGFR > 60 Random Glucose 68 L Calcium 8.0 L Phosphorus 3.2 Magnesium 2.1 D Total Bilirubin 1.4 H AST 217 H ALT 128 H Alkaline Phosphatase 186 H Total Protein 5.2 L Albumin 2.4 L Active Medications Generic Name Dose Route Start Last Admin Trade Name Freq PRN Reason Stop Dose Admin Chlordiazepoxide HCl 25 mg 02/04/17 20:59 Librium - PO 02/07/17 20:58 Q4H PRN WITHDRAWAL(CONT SUBST) Chlordiazepoxide HCl 25 mg 02/05/17 23:00 02/06/17 11:29 Librium - PO 02/06/17 17:01 25 mg [id number] LISSY Administration Chlordiazepoxide HCl 15 mg 02/06/17 23:00 Librium - PO 02/07/17 17:01 [id number] LISSY Folic Acid 1 mg 02/05/17 10:00 02/06/17 09:33 Folic Acid - PO 1 mg DAILY LISSY Administration Sodium Chloride 1,000 mls @ 83 mls/hr 02/06/17 15:45 Normal Saline - IV ASDIR LISSY Morphine Sulfate 2 mg 02/04/17 10:24 02/06/17 06:46 Morphine Injection - IVPUSH 2 mg Q4H PRN Administration PAIN Ondansetron HCl 4 mg 02/04/17 14:47 Zofran Odt - SL Q8H PRN NAUSEA Oxycodone HCl 5 mg 02/06/17 13:28 02/06/17 14:54 Roxicodone - PO 5 mg Q4H PRN Administration PAIN Pantoprazole Sodium 40 mg 02/06/17 15:45 Protonix - PO DAILY LISSY Thiamine HCl 100 mg 02/05/17 10:00 02/06/17 09:33 Vitamin B1 - PO 100 mg DAILY LISSY Administration Imaging: - CTAP: extensive diffuse fatty infiltration of the liver, (2) Prominent renal pelves and proximal ureters without obvious obstruction (3) s/p gastric sleeve procedure with small bowel anastomosis also noted. Mild mesenteric edema is seen with clumping of small bowel loops anteriorly. No obvious bowel obstruction is present. (4) cystic changes left adnexa with free pelvic fluid. Assessment: 36 year old female with pmhx gastric bypass (2013 @ [place]), appendicitis and , ETOH abuse admitted with acute abdominal pain, n.v. Plan: 1. Elevated LFT's/RUQ pain - EGD tomorrow assess for other gastritis, ulcer, d/t persistent abdominal pain and no stones - Protonix 40mg daily - NPO after midnight - Appreciate GI consult 2. ETOH abuse - Librium taper - Folic Acid daily - Thiamine daily 3. ? pancreatitis - Improved - Continue IVF 4. Anemia - Likely of chronic disease - Hgb decrease, if continues will transfuse for hgb <7 Visit type - Emergency Visit Emergency Visit: Yes ED Registration Date: 02/05/17 Care time: The patient presented to the Emergency Department on the above date and was hospitalized for further evaluation of their emergent condition. - New Patient This patient is new to me today: No - Critical Care Critical Care patient: No
[2017-02-06] MEDS: PANTOPRAZOLE 40 MG TABLET (FP) PO SCH (17:24)
[2017-02-06] MEDS: SODIUM CHLORIDE 1,000 ML IV SCH (17:32)
[2017-02-06] MEDS: chlordiazePOXIDE 5 MG CAPSULE PO SCH (22:46)
[2017-02-07] MEDS: oxyCODONE HCL 5 MG TABLET PO PRN ×2 (03:25→22:40)
[2017-02-07] MEDS: morphine CARPU-JECT 2 MG/1 ML DISP.SYRIN IVPUSH PRN ×4 (03:32→19:53)
[2017-02-07] MEDS: chlordiazePOXIDE 5 MG CAPSULE PO SCH ×3 (06:21→17:45)
[2017-02-07] MEDS: SODIUM CHLORIDE 1,000 ML IV SCH ×3 (06:26→19:52)
--- NOTE | 2017-02-07 07:23 | PN ---
Progress Note, Physician - Current Medication List Current Medications: Active Medications Chlordiazepoxide HCl (Librium -) 25 mg PO Q4H PRN PRN Reason: WITHDRAWAL(CONT SUBST) Stop: 02/07/17 20:58 Chlordiazepoxide HCl (Librium -) 15 mg PO [id number] [facility] Stop: 02/07/17 17:01 Last Admin: 02/07/17 06:21 Dose: 15 mg Folic Acid (Folic Acid -) 1 mg PO DAILY [facility] Last Admin: 02/06/17 09:33 Dose: 1 mg Sodium Chloride (Normal Saline -) 1,000 mls @ 83 mls/hr IV ASDIR [facility] Last Admin: 02/07/17 06:26 Dose: 83 mls/hr Morphine Sulfate (Morphine Injection -) 2 mg IVPUSH Q4H PRN PRN Reason: PAIN Last Admin: 02/07/17 03:32 Dose: 2 mg Ondansetron HCl (Zofran Odt -) 4 mg SL Q8H PRN PRN Reason: NAUSEA Oxycodone HCl (Roxicodone -) 5 mg PO Q4H PRN PRN Reason: PAIN Last Admin: 02/06/17 14:54 Dose: 5 mg Pantoprazole Sodium (Protonix -) 40 mg PO DAILY [facility] Last Admin: 02/06/17 17:24 Dose: 40 mg Thiamine HCl (Vitamin B1 -) 100 mg PO DAILY [facility] Last Admin: 02/06/17 09:33 Dose: 100 mg - Objective Vital Signs: Vital Signs Temperature 98.4 F 02/07/17 05:30 Pulse Rate 65 02/07/17 05:30 Respiratory Rate 20 02/07/17 05:30 Blood Pressure 108/60 02/07/17 05:30 O2 Sat by Pulse Oximetry (%) 98 02/06/17 20:53 Constitutional: Yes: No Distress, Calm Eyes: Yes: Conjunctiva Clear Gastrointestinal: Yes: Normal Bowel Sounds, Soft, Tenderness. No: Ascites, Distention, Tenderness, Rebound, Vomiting Labs: CBC, BMP Active Orders 24 hr Category Date Time Status NPO after midnight [DT] Diet 02/07/17 00:01 Active CBC [COMPLETE BLOOD COUNT] Routine Lab 02/07/17 06:00 Ordered COMP METABOLIC PANEL Routine Lab 02/07/17 06:00 Ordered Chlordiazepoxide [Librium -] Medication 02/06/17 23:00 Active 15 mg PO [id number] Oxycodone HCl [Roxicodone -] Medication 02/06/17 13:28 Active 5 mg PO Q4H PRN Pantoprazole Sodium [Protonix -] Medication 02/06/17 15:45 Active 40 mg PO DAILY Sodium Chloride [Normal Saline -] 1,000 ml Medication 02/06/17 15:45 Active IV ASDIR INR, PTT INR 1.03 (0.82-1.09) 02/06/17 06:00 Abnormal Lab Results 02/06/17 02/06/17 06:00 06:00 Hgb 7.3 L Hct 24.4 L MCV 66.8 L MCH 19.8 L MCHC 29.7 L RDW 20.9 H Chloride 109 H Anion Gap 5 L BUN 3 L D Creatinine 0.4 L Random Glucose 68 L Calcium 8.0 L Total Bilirubin 1.4 H AST 217 H ALT 128 H Alkaline Phosphatase 186 H Total Protein 5.2 L Albumin 2.4 L Problem List - Problems (1) Microcytic hypochromic anemia Code(s): D50.9 - IRON DEFICIENCY ANEMIA, UNSPECIFIED (2) Generalized abdominal pain Code(s): R10.84 - GENERALIZED ABDOMINAL PAIN (3) RUQ abdominal pain Code(s): R10.11 - RIGHT UPPER QUADRANT PAIN (4) Alcoholic liver disorder Code(s): K70.9 - ALCOHOLIC LIVER DISEASE, UNSPECIFIED Impression/Plan Impression/Plan: No events overnight. Continues to have the same symptoms. Ambulatory. NPO for EGD today. MRSA lab pending Visit type - Emergency Visit Emergency Visit: No - New Patient This patient is new to me today: No - Critical Care Critical Care patient: No
[2017-02-07 07:33] LABS: MCHC 29.9 g/dl (32.0-36.0); MEAN PLT VOLUME 8.7 fl (7.5-11.1); PLATELET COUNT 190 K/MM3 (134-434); RDW 20.6 % (11.6-15.6); WHITE BLOOD COUNT 4.7 K/mm3 (4.0-10.0)
[2017-02-07 07:52] LABS: ALBUMIN 2.5 g/dl (3.4-5.0); ANION GAP 7 (8-16); CALCIUM 8.1 mg/dL (8.5-10.1); CO2 28 mmol/L (21-32); GLUCOSE,RANDOM 68 mg/dL (74-106)
[2017-02-07 07:58] LABS: ALK PHOS 189 U/L (45-117); BILIRUBIN,TOTAL 1.3 mg/dL (0.2-1.0); CREATININE 0.6 mg/dL (0.55-1.02); SGOT/AST 153 U/L (15-37); SGPT/ALT 115 U/L (12-78); TOT PROT 5.2 g/dl (6.4-8.2)
[2017-02-07] MEDS: PANTOPRAZOLE 40 MG TABLET (FP) PO SCH (09:12)
[2017-02-07] MEDS: FOLIC ACID 1 MG TABLET (FP) PO SCH (09:12)
[2017-02-07] MEDS: THIAMINE HCL 100 MG TABLET (FP) PO SCH (09:13)
--- NOTE | 2017-02-07 10:21 | PN ---
Physical Exam: SUBJECTIVE: Patient seen and examined. Her pain/discomfort is unchanged, shes not having back pain. Instructed pt to get oob and ambulate in room EKG: Sinus ciera OBJECTIVE: Vital Signs Period Temp Pulse Resp BP Sys/East Pulse Ox Last 24 Hr 97.8 F-98.4 F 65-73 20-20 108-139/60-82 98 PE Neuro: alert, awake, cn 2-12intact Pulm: CTAB CV: s1 s2 rrr no mrg Abd: RUQ tenderness refers to R flank and groin Ext: warm, no le edema Laboratory Results - last 24 hr 02/07/17 02/07/17 06:00 06:00 WBC 4.7 RBC 3.64 Hgb 7.3 L Hct 24.4 L MCV 67.0 L MCH 20.0 L MCHC 29.9 L RDW 20.6 H Plt Count 190 MPV 8.7 Sodium 143 Potassium 3.7 Chloride 108 H Carbon Dioxide 28 Anion Gap 7 L BUN 2 L* D Creatinine 0.6 D Creat Clearance w eGFR > 60 Random Glucose 68 L Calcium 8.1 L Total Bilirubin 1.3 H AST 153 H D ALT 115 H Alkaline Phosphatase 189 H Total Protein 5.2 L Albumin 2.5 L Active Medications Generic Name Dose Route Start Last Admin Trade Name Freq PRN Reason Stop Dose Admin Chlordiazepoxide HCl 25 mg 02/04/17 20:59 Librium - PO 02/07/17 20:58 Q4H PRN WITHDRAWAL(CONT SUBST) Chlordiazepoxide HCl 15 mg 02/06/17 23:00 02/07/17 06:21 Librium - PO 02/07/17 17:01 15 mg [id number] LISSY Administration Folic Acid 1 mg 02/05/17 10:00 02/07/17 09:12 Folic Acid - PO Not Given DAILY LISSY Sodium Chloride 1,000 mls @ 83 mls/hr 02/06/17 15:45 02/07/17 06:26 Normal Saline - IV 83 mls/hr ASDIR LISSY Administration Morphine Sulfate 2 mg 02/04/17 10:24 02/07/17 09:32 Morphine Injection - IVPUSH 2 mg Q4H PRN Administration PAIN Ondansetron HCl 4 mg 02/04/17 14:47 Zofran Odt - SL Q8H PRN NAUSEA Oxycodone HCl 5 mg 02/06/17 13:28 02/06/17 14:54 Roxicodone - PO 5 mg Q4H PRN Administration PAIN Pantoprazole Sodium 40 mg 02/06/17 15:45 02/07/17 09:12 Protonix - PO Not Given DAILY LISSY Thiamine HCl 100 mg 02/05/17 10:00 02/07/17 09:13 Vitamin B1 - PO Not Given DAILY LISSY Assessment: 36 year old female with pmhx gastric bypass (2013 @ [place]), appendicitis and , ETOH abuse admitted with acute abdominal pain, n.v. Plan: 1. Elevated LFT's/RUQ pain - EGD today assess for other gastritis, marginal ulcer - Protonix 40mg daily - NPO, resume clears following procedure 2. ETOH abuse - Librium taper completes tomorrow - Folic Acid daily - Thiamine daily 3. ? pancreatitis - Improved - Continue IVF 4. Anemia - Likely of chronic disease - Currently, asymptomatic - Hgb unchanged, if continues will transfuse for hgb <7 Visit type - Emergency Visit Emergency Visit: Yes ED Registration Date: 02/05/17 Care time: The patient presented to the Emergency Department on the above date and was hospitalized for further evaluation of their emergent condition. - New Patient This patient is new to me today: No - Critical Care Critical Care patient: No
[2017-02-07] MEDS ORDERED: PROPOFOL 20 ML ONE ×2 (10:32)
[2017-02-08] MEDS: oxyCODONE HCL 5 MG TABLET PO PRN ×2 (04:00→09:08)
[2017-02-08 06:59] LABS: MCHC 29.3 g/dl (32.0-36.0); MEAN CELL VOLUME 67.6 fl (80-96); MEAN PLT VOLUME 8.5 fl (7.5-11.1); PLATELET COUNT 197 K/MM3 (134-434); RDW 20.7 % (11.6-15.6); WHITE BLOOD COUNT 5.9 K/mm3 (4.0-10.0)
[2017-02-08 07:10] LABS: MCH 19.8 pg (25.7-33.7)
[2017-02-08 07:32] LABS: ALBUMIN 2.4 g/dl (3.4-5.0); ALK PHOS 164 U/L (45-117); ANION GAP 4 (8-16); BILIRUBIN,TOTAL 1.1 mg/dL (0.2-1.0); CO2 30 mmol/L (21-32); CREATININE 0.5 mg/dL (0.55-1.02); GLUCOSE,RANDOM 66 mg/dL (74-106); SGOT/AST 95 U/L (15-37); SGPT/ALT 89 U/L (12-78); TOT PROT 5.2 g/dl (6.4-8.2)
[2017-02-08] MEDS ORDERED: PNEUMOC 13-VAL CONJ-DIP CRM/PF 0.5 ML DISP.SYRIN IM ONE (08:00)
[2017-02-08] MEDS ORDERED: FLU VACCINE QUAD 60 MCG/0.5 ML (MDV 17-18) IM ONE (09:00)
[2017-02-08] MEDS: SODIUM CHLORIDE 1,000 ML IV SCH (09:07)
[2017-02-08] MEDS: FOLIC ACID 1 MG TABLET (FP) PO SCH (09:08)
[2017-02-08] MEDS: THIAMINE HCL 100 MG TABLET (FP) PO SCH (09:08)
[2017-02-08] MEDS: PANTOPRAZOLE 40 MG TABLET (FP) PO SCH (09:09)
--- NOTE | 2017-02-08 09:48 | EKG ---
Test Reason : Blood Pressure : / mmHG Vent. Rate : 050 BPM Atrial Rate : 050 BPM P-R Int : 138 ms QRS Dur : 082 ms QT Int : 480 ms P-R-T Axes : 031 003 022 degrees QTc Int : 437 ms SINUS BRADYCARDIA OTHERWISE NORMAL ECG WHEN COMPARED WITH ECG OF 08-MAR-2013 10:01, NO SIGNIFICANT CHANGE WAS FOUND Confirmed by MD CAM, RACHEL (2012) on 02/08/2017 9:47:51 AM Referred By: Confirmed By:RACHEL LEVY MD
[2017-02-08 10:48] VITALS: BP 102/58; PULSE 82; TEMP 97.7
--- NOTE | 2017-02-08 11:03 | PN ---
Physical Exam: SUBJECTIVE: Patient seen and examined OBJECTIVE: Vital Signs Period Temp Pulse Resp BP Sys/East Pulse Ox Last 24 Hr 97.6 F-98.5 F 54-92 12-20 102-133/58-92 99-100 GENERAL: The patient is awake, alert, and fully oriented, in no acute distress. HEAD: Normal with no signs of trauma. EYES: PERRL, extraocular movements intact, sclera anicteric, conjunctiva clear. No ptosis. ENT: Ears normal, nares patent, oropharynx clear without exudates, moist mucous membranes. NECK: Trachea midline, full range of motion, supple. LUNGS: Breath sounds equal, clear to auscultation bilaterally, no wheezes, no crackles, no accessory muscle use. HEART: Regular rate and rhythm, S1, S2 without murmur, rub or gallop. ABDOMEN: Soft, nontender, nondistended, normoactive bowel sounds, no guarding, no rebound, no hepatosplenomegaly, no masses. EXTREMITIES: 2+ pulses, warm, well-perfused, no edema. NEUROLOGICAL: Cranial nerves II through XII grossly intact. Normal speech, gait not observed. PSYCH: Normal mood, normal affect. SKIN: Warm, dry, normal turgor, no rashes or lesions noted Laboratory Results - last 24 hr 02/08/17 02/08/17 06:05 06:05 WBC 5.9 RBC 3.66 Hgb 7.3 L Hct 24.7 L MCV 67.6 L MCH 19.8 L MCHC 29.3 L RDW 20.7 H Plt Count 197 MPV 8.5 Sodium 142 Potassium 3.5 Chloride 108 H Carbon Dioxide 30 Anion Gap 4 L BUN 3 L D Creatinine 0.5 L Creat Clearance w eGFR > 60 Random Glucose 66 L Calcium 8.0 L Total Bilirubin 1.1 H AST 95 H D ALT 89 H D Alkaline Phosphatase 164 H Total Protein 5.2 L Albumin 2.4 L Active Medications Generic Name Dose Route Start Last Admin Trade Name Freq PRN Reason Stop Dose Admin Folic Acid 1 mg 02/05/17 10:00 02/08/17 09:08 Folic Acid - PO 1 mg DAILY LISSY Administration Sodium Chloride 1,000 mls @ 83 mls/hr 02/06/17 15:45 02/08/17 09:07 Normal Saline - IV 83 mls/hr ASDIR LISSY Administration Morphine Sulfate 2 mg 02/04/17 10:24 02/07/17 19:53 Morphine Injection - IVPUSH 2 mg Q4H PRN Administration PAIN Ondansetron HCl 4 mg 02/04/17 14:47 Zofran Odt - SL Q8H PRN NAUSEA Oxycodone HCl 5 mg 02/06/17 13:28 02/08/17 09:08 Roxicodone - PO 5 mg Q4H PRN Administration PAIN Pantoprazole Sodium 40 mg 02/06/17 15:45 02/08/17 09:09 Protonix - PO 40 mg DAILY LISSY Administration Thiamine HCl 100 mg 02/05/17 10:00 02/08/17 09:08 Vitamin B1 - PO 100 mg DAILY LISSY Administration ASSESSMENT/PLAN:
--- NOTE | 2017-02-08 11:04 | DS ---
Physical Exam: SUBJECTIVE: Patient seen and examined. She has intermittent right sided pain abdominal pain. OBJECTIVE: Outpatient follow up for alcohol abuse, patient thinking about options. Encouraged her to seek abstinence of alcohol. She is an agreement and may consider [facility]. Vital Signs Period Temp Pulse Resp BP Sys/East Pulse Ox Last 24 Hr 97.6 F-98.5 F 54-92 12-20 102-133/58-92 99-100 PHYSICAL EXAM GENERAL: The patient is awake, alert, and fully oriented, in no acute distress. HEAD: Normal with no signs of trauma. EYES: PERRL, extraocular movements intact, sclera anicteric, conjunctiva clear. ENT: Ears normal, nares patent, oropharynx clear without exudates, moist mucous membranes. NECK: Trachea midline, full range of motion, supple. LUNGS: Breath sounds equal, clear to auscultation bilaterally, no wheezes, no crackles, no accessory muscle use. HEART: Regular rate and rhythm, S1, S2 without murmur, rub or gallop. ABDOMEN: Soft, nontender, nondistended, normoactive bowel sounds, no guarding, no rebound, no hepatosplenomegaly, no masses. EXTREMITIES: 2+ pulses, warm, well-perfused, no edema. NEUROLOGICAL: Cranial nerves II through XII grossly intact. Normal speech, gait not observed. PSYCH: Normal mood, normal affect. SKIN: Warm, dry, normal turgor, no rashes or lesions noted. LABS Laboratory Results - last 24 hr 02/08/17 02/08/17 06:05 06:05 WBC 5.9 RBC 3.66 Hgb 7.3 L Hct 24.7 L MCV 67.6 L MCH 19.8 L MCHC 29.3 L RDW 20.7 H Plt Count 197 MPV 8.5 Sodium 142 Potassium 3.5 Chloride 108 H Carbon Dioxide 30 Anion Gap 4 L BUN 3 L D Creatinine 0.5 L Creat Clearance w eGFR > 60 Random Glucose 66 L Calcium 8.0 L Total Bilirubin 1.1 H AST 95 H D ALT 89 H D Alkaline Phosphatase 164 H Total Protein 5.2 L Albumin 2.4 L HOSPITAL COURSE: Date of Admission:02/05/17 Date of Discharge: 02/08/17 Patient is a 36 year old female with a significant past medical history of gastric bypass (in 2013 @ [place]), appendicitis and . She presented to the ED with complaints of acute alcohol intoxication, abdominal pain, nausea and vomiting for a few days (unable to quantify when symptoms started). In ED she c/o of diffuse abdominal pain primarily in the epigastric and right upper and lower quadrants. In the ED she was noted to be intoxicated with an alcohol level of 290. EGD 02/07/2017: Gastroesophageal refuls in distal esophagus and in the gastroesophagel junction, s/p gastric sleeve. GI: Abdominal Pain/Nausea/Vomiting - now resolved A/P: Abdominal CT/Pelvis with contrast shows: (1) extensive diffuse fatty infiltration of the liver, (2) Prominent renal pelves andproximal ureters without obvious obstruction (3) s/p gastric sleeve procedure with small bowel anastomosis also noted. Mild mesenteric edema is seen with clumping of small bowel loops anteriorly. No obvious bowel obstruction is present. (4) cystic changes left adnexa with free pelvic fluid. Tolerating regular diet, has intermittent pain ruq pain relieved with mobility: also constipated, will start stool softner/laxative EGD as noted above Protonix 40mg daily Elevated AST/ALT/RUQ pain - improving A/P: Ast 505 alt @12, Lipase [address] shows extensive diffuse fatty inf. of liver Now trending down to her baseline Psyche: Acute alcohol intoxication/ETOH tox 290 - now resolved A/P: Finished Librium taper today Patient to follow up with either AA or [facility] for continued abstinence. I spoke to patient about the importance of abstinence, she states she has multiple stressors at home, but will seek outside help for alcohol abstinence. Folic and thiamine daily Hematology: Acute anemia A/P: Likely secondary to ETOH abuse Monitor in the abstinence of alcohol Repeat CBC as an outpatient Disposition: Discharge patient home with PCP follow up for CBC/CMP repeat. Full code. Minutes to complete discharge: 60 Discharge Summary Reason For Visit: PANCREATITIS VOMITING INTOX Current Active Problems Alcoholic liver disorder (Acute) Cholestasis (Acute) Generalized abdominal pain (Acute) Intoxication (Acute) Microcytic hypochromic anemia (Acute) Pancreatitis (Acute) RUQ abdominal pain (Acute) Transaminitis (Acute) Vomiting (Acute) Condition: Improved - Instructions Diet, Activity, Other Instructions: Mrs. Ornelas: Please take your new medications as prescribed. You must continue to abstain for consuming alcohol. Please see Dr. Santacruz within 1 week after discharge. You were seen by Dr. Storm Gamboa (Application Chemist) who performed a biopsy. Please see him within 2 weeks after discharge for results of the biopsy. Please take over the counter colace (stool softner) or a laxative if you continue to experience constipation. Consider outpatient alcohol anonymous at [address] [place] [address] as discussed. [facility] [phone] Referrals: Storm Gamboa MD [Staff Physician] - 2 Weeks Manny Santacruz MD [Primary Care Provider] - 1 Week Jarrett Rodney MD [Staff Physician] - Disposition: HOME - Home Medications Comprehensive Discharge Medication List: Ambulatory Orders Multivitamin [One Daily] 1 each PO DAILY 02/04/17 Oxycodone HCl [Roxicodone -] 5 mg PO Q4H PRN #7 tablet MDD 2 tablets 02/08/17 This patient is new to me today: No Emergency Visit: Yes ED Registration Date: 02/05/17 Care time: The patient presented to the Emergency Department on the above date and was hospitalized for further evaluation of their emergent condition. Critical Care patient: No - Discharge Referral Referred to [facility] Med P.[facility].: No
[2017-02-08] MEDS ORDERED: oxyCODONE HCL 5 MG TABLET PO ONE (12:03)
[2017-02-08] MEDS ORDERED: DOCUSATE SODIUM 100 MG CAPSULE (FP) PO SCH (14:00)
--- NOTE | 2017-02-10 12:31 | PATH ---
Surgical Pathology Report Patient Name: PHOEBE STARK [facility]. Rec. #: [id number] /Age/Gender: 1980 (Age: 36) / F Account: [id number] Location: [address] [place] [address]/[facility] Taken: 02/07/2017 Received: 02/07/2017 Reported: 02/10/2017 Physicians: Storm Gamboa M.D. Specimen(s) Received BX GASTRIC BODY Clinical History Abdominal pain, iron deficiency anemia, status post gastric bypass Abdominal pain Final Diagnosis STOMACH, BODY, BIOPSY: GASTRIC FUNDIC MUCOSA WITH FOCAL LAMINA PROPRIA FIBROSIS SUGGESTIVE OF HEALED ULCER, AND MILD CHRONIC GASTRITIS. IMMUNOSTAIN FOR H. PYLORI IS NEGATIVE. Electronically Signed Raul Crain M.D. Gross Description Received in formalin, labeled "biopsy gastric body" are 2 espinoza, irregular portions of soft tissue measuring 0.2 and 0.4 cm. in greatest dimension. The specimens are submitted in toto in one cassette. /02/07/201702/07/2017
--- NOTE | 2017-02-20 16:03 | PROC ---
Endoscopy Procedure Endoscopy procedure completed. Please see scanned procedure report.
== END 2017-02-08 14:45 | disposition home or self-care (01) | DRG 391 ==
LOC: JER 23:40 → JERBED 02-04 06:15 → J7W 02-04 16:22 → OBSVTOIN 02-05 12:20 → J7W 02-07 18:15 → J5S 02-07 21:23
PROVIDERS: ADMIT Internal Medicine; ATTEND Nurse Practitioner Family
PROC: HZ2ZZZZ Detoxification Services for Substance Abuse Treatment (ICD-10-PCS; 2017-02-05)
PROC: 0DB68ZX Excision of Stomach, Via Natural or Artificial Opening Endoscopic, Diagnostic (ICD-10-PCS; principal; 2017-02-07 11:00)
DX: K21.9 Gastro-esophageal reflux disease without esophagitis (principal); K85.90 Acute pancreatitis without necrosis or infection, unspecified; K70.9 Alcoholic liver disease, unspecified; R10.11 Right upper quadrant pain; D50.9 Iron deficiency anemia, unspecified; F10.129 Alcohol abuse with intoxication, unspecified; K76.0 Fatty (change of) liver, not elsewhere classified; F17.210 Nicotine dependence, cigarettes, uncomplicated; E83.42 Hypomagnesemia; E87.6 Hypokalemia; K29.50 Unspecified chronic gastritis without bleeding
CPT/HCPCS: 36415; 74177-TC; 76700-TC; 80053; 80307; 81003; 83690; 83735; 84100; 84703; 85025; 85027; 85610; 87081; 88305-TC; 90670; 90688; 93005; 93010; 99283-25; G0008; G0009; G0378

== ENCOUNTER 2018-06-23 06:25 | Inpatient (IN) | payer OTHER ==
[2018-06-23] MEDS ORDERED: ELECTROLYTE-148 SOLN 500 ML IV ONE (09:59)
[2018-06-23] MEDS ORDERED: CITRIC ACID/SODIUM CITRATE 30 ML UNIT-DOSE CUP PO ONE (09:59)
--- NOTE | 2018-06-23 10:07 | HP ---
Past Medical History - Admission Chief Complaint: Previous in labor History of Present Illness: 37 yo @ 37 weeks gestation, EDC 07/15/18 with previous , presents c/o contractions pain. Upon admission she was 5cm dilated. She opts for repeat and permanent sterilization. History Source: Patient Limitations to Obtaining History: No Limitations - Past Medical History Gastrointestinal: Yes: Constipation, GERD (prio to gastric sleeve in 2012), Pancreatitis. No: Ascites, Cancer, Diverticulitis, Diverticulosis, Esophageal Varices, GI Bleed, Hiatal Hernia, Inflamatory Bowel Disease, Peptic Ulcer Disease Hepatobiliary: Yes: Other (unknown hepaitis status). No: Cirrhosis, Cholelithiasis, Cholecystitis, Choledocholithiasis ...: 8 ...Para: 8 ...Term: 6 ...: 1 ...Spon : 0 ...Induced : 0 ...EDC by [facility]: 07/15/18 Heme/Onc: Yes: Anemia. No: Bleeding Disorder, Thrombocytopenia Infectious Disease: Yes: MRSA (history of) - Past Surgical History Past Surgical History: Yes: Appendectomy, Bariatric Surgery, Hx Myomectomy: No Hx Transabdominal Cerclage: No - Smoking History Smoking history: Current every day smoker Have you smoked in the past 12 months: Yes Aproximately how many cigarettes per day: 2 - Alcohol/Substance Use Hx Alcohol Use: Yes - Social History ADL: Independent History of Recent Travel: No Home Medications - Allergies Allergies/Adverse Reactions: Allergies Allergy/AdvReac Type Severity Reaction Status Date / Time No Known Allergies Allergy Verified 06/23/18 06:37 - Home Medications Home Medications: Ambulatory Orders Vit 108/Iron/Folic AC [ One Tablet] 1 tab PO DAILY 05/25/18 Ferralet 90 Tablet 1 tab PO DAILY 06/20/18 Family Disease History - Family Disease History Family History: Unremarkable Review of Systems - Review of Systems Constitutional: reports: No Symptoms Eyes: reports: No Symptoms HENT: reports: No Symptoms Neck: reports: No Symptoms Cardiovascular: reports: No Symptoms Respiratory: reports: No Symptoms Gastrointestinal: reports: No Symptoms Genitourinary: reports: Pain Breasts: reports: No Symptoms Reported Musculoskeletal: reports: No Symptoms Integumentary: reports: No Symptoms Neurological: reports: No Symptoms Endocrine: reports: No Symptoms Hematology/Lymphatic: reports: No Symptoms Psychiatric: reports: No Symptoms Pain Intensity: 6 Physical Exam - Maternity Vital Signs: Vital Signs Temperature 98.0 F 06/23/18 06:47 Pulse Rate 61 06/23/18 06:47 Respiratory Rate 20 06/23/18 06:47 Blood Pressure 107/66 06/23/18 06:47 O2 Sat by Pulse Oximetry (%) Constitutional: Yes: Well Nourished Eyes: Yes: Conjunctiva Clear HENT: Yes: Atraumatic Neck: Yes: Supple Cardiovascular: Yes: Regular Rate and Rhythm Lungs: Clear to auscultation Breast(s): Yes: WNL - Abdominal Exam/OB Number of Fetuses: Single Presentation: Vertex Contractions: Yes Regularity: Irregular - Vaginal Exam/OB Dilatation (cm): 5 Effacement (%): 80 Station: -1 - Physical Exam ...Motor Strength: WNL Psychiatric: Yes: Alert, Oriented Problem List - Problems (1) Previous section complicating , antepartum condition or complication Code(s): O34.219 - MATERNAL CARE FOR UNSP TYPE SCAR FROM PREVIOUS DEL (2) Multiparity Code(s): Z64.1 - PROBLEMS RELATED TO MULTIPARITY Assessment/Plan Previous in labor Grand multiparity Pre op for repeat and BTL Consent signed Anesthesia to see patient
[2018-06-23 10:11] VITALS: BMI 32.2
[2018-06-23] MEDS ORDERED: ONDANSETRON 4 MG/2 ML VIAL IVPUSH PRN (10:26)
[2018-06-23] MEDS ORDERED: morphine SULFATE/Preservative Free 0.5 MG/ML (1cc Syringe) EP ONE (10:26)
[2018-06-23] MEDS ORDERED: morphine SULFATE/Preservative Free 0.5 MG/ML (1cc Syringe) ONE (10:40)
[2018-06-23] MEDS ORDERED: ceFAZolin SODIUM 1 GM VIAL ONE (10:40)
[2018-06-23 10:59] LABS: BASO % 0.5 % (0-2.0); EOS % 0.3 % (0-4.5); HEMATOCRIT 26.4 % (32.4-45.2); HEMOGLOBIN 8.4 GM/dL (10.7-15.3); LYMPH % 15.4 % (8-40); MCHC 31.9 g/dl (32.0-36.0); MEAN PLT VOLUME 8.4 fl (7.5-11.1); MONO % 5.2 % (3.8-10.2); NEUT % 78.6 % (42.8-82.8); PLATELET COUNT 255 K/MM3 (134-434); RBC 3.82 M/mm3 (3.60-5.2); RDW 20.2 % (11.6-15.6); WHITE BLOOD COUNT 8.6 K/mm3 (4.0-10.0)
[2018-06-23 11:13] LABS: INR 0.84 (0.83-1.09); PROTHROMBIN TIME (PATIENT) 9.9 SEC (9.7-13.0)
[2018-06-23 11:16] LABS: ACTIVATED PTT 26.7 SECONDS (25.2-36.5)
[2018-06-23 11:29] LABS: ANION GAP 5 MMOL/L (8-16); BLOOD UREA NITROGEN 9 mg/dL (7-18); CALCIUM 8.1 mg/dL (8.5-10.1); CHLORIDE 107 mmol/L (98-107); CO2 28 mmol/L (21-32); CREATININE 0.6 mg/dL (0.55-1.3); GLUCOSE,RANDOM 63 mg/dL (74-106); POTASSIUM 3.7 mmol/L (3.5-5.1); SODIUM 139 mmol/L (136-145)
[2018-06-23] MEDS ORDERED: OXYTOCIN 10 UNITS/ML VIAL ONE (11:35)
[2018-06-23] MEDS ORDERED: OXYTOCIN 20 UNITS in 0.9% NS 20 UNIT/1,000 ML INFUS.BAG IV ONE ×2 (11:38→12:49)
[2018-06-23] MEDS ORDERED: MIDAZOLAM HCL 2 MG/2 ML SINGLE DOSE VIAL ONE (11:56)
[2018-06-23 12:11] LABS: ANISOCYTOSIS 1+
[2018-06-23] MEDS ORDERED: IBUPROFEN 600 MG TABLET (FP) PO PRN (12:14)
[2018-06-23] MEDS ORDERED: METHYLERGONOVINE MALEATE 0.2 MG/1 ML AMP IM PRN (12:14)
--- NOTE | 2018-06-23 12:18 | OP ---
Operative Note - Note: Operative Date: 06/23/18 Pre-Operative Diagnosis: Previous in labor/Multiparity Operation: Repeat Low Transverse Findings: SGA baby in vertex position Surgeon: Anum Encinas Paper Cleaner: Clari Espinoza Anesthesia: Spinal Specimens Removed: Placenta / Portion of tubes Estimated Blood Loss (mls): 700
[2018-06-23] MEDS: OXYTOCIN 20 UNITS in 0.9% NS 20 UNIT/1,000 ML INFUS.BAG IV SCH ×2 (14:01→21:45)
[2018-06-23] MEDS ORDERED: IBUPROFEN 800 MG/8 ML IJ IVPB ONE ×2 (14:15→14:43)
[2018-06-23] MEDS ORDERED: ACETAMINOPHEN 1000 MG/100 ML VIAL (NON FORMULARY) IVPB ONE (15:03)
[2018-06-23 17:17] LABS: BASO % 0.3 % (0-2.0); EOS % 0.5 % (0-4.5); HEMATOCRIT 22.7 % (32.4-45.2); LYMPH % 14.4 % (8-40); MCH 21.4 pg (25.7-33.7); MCHC 30.6 g/dl (32.0-36.0); MEAN CELL VOLUME 69.7 fl (80-96); MEAN PLT VOLUME 8.1 fl (7.5-11.1); MONO % 4.6 % (3.8-10.2); NEUT % 80.2 % (42.8-82.8); PLATELET COUNT 229 K/MM3 (134-434); RBC 3.26 M/mm3 (3.60-5.2); RDW 20.4 % (11.6-15.6); WHITE BLOOD COUNT 9.2 K/mm3 (4.0-10.0)
--- NOTE | 2018-06-23 17:39 | SURG ---
Surgery Telecom Specialist Note Telecom Specialist: Clari Espinoza PA-C Date of Service: 06/23/18 Diagnosis: Previous in labor/Multiparity Procedure: Repeat Low Transverse I was present for the entirety of the operative procedure. For further detail, please refer to operative report. Visit type - Case Type Case Type: Scheduled - Emergency Emergency Visit: No - New patient This patient is new to me today: Yes Date on this admission: 06/23/18
[2018-06-23] MEDS: FERROUS SO4 325 MG TABLET (FP) PO SCH (17:55)
[2018-06-23] MEDS: ACETAMINOPHEN 1000 MG/100 ML VIAL (NON FORMULARY) IVPB PRN (20:08)
--- NOTE | 2018-06-24 05:52 | PN ---
Post Note - Post Date of Delivery: 06/23/18 Post Day: 1 Vital Signs: Vital Signs - 24 hr 06/23/18 06/23/18 06/23/18 06:47 09:40 12:45 Temperature 98.0 F 98.4 F 97.4 F L Pulse Rate 57 L 72 Pulse Rate [ 61 Pulse Oximetry] Respiratory 20 18 16 Rate Blood Pressure 110/57 L 99/46 L Blood Pressure 107/66 [Left Upper Arm ] O2 Sat by Pulse 100 Oximetry (%) 06/23/18 06/23/18 06/23/18 13:00 13:15 13:30 Temperature Pulse Rate 67 57 L 59 L Pulse Rate [ Pulse Oximetry] Respiratory 18 18 18 Rate Blood Pressure 96/55 L 101/51 L 98/59 L Blood Pressure [Left Upper Arm ] O2 Sat by Pulse 100 100 100 Oximetry (%) 06/23/18 06/23/18 06/23/18 15:20 16:00 17:55 Temperature 97.4 F L 97.4 F L Pulse Rate 53 L 73 Pulse Rate [ Pulse Oximetry] Respiratory 18 18 20 Rate Blood Pressure 108/65 106/65 Blood Pressure [Left Upper Arm ] O2 Sat by Pulse Oximetry (%) 06/23/18 06/23/18 20:00 21:00 Temperature 97.3 F L Pulse Rate 79 Pulse Rate [ Pulse Oximetry] Respiratory 18 18 Rate Blood Pressure 107/50 L Blood Pressure [Left Upper Arm ] O2 Sat by Pulse Oximetry (%) Labs: Laboratory Results - last 24 hr 06/23/18 06/23/18 06/23/18 10:08 10:08 10:08 WBC 8.6 RBC 3.82 Hgb 8.4 L Hct 26.4 L MCV 69.0 L MCH 22.0 L D MCHC 31.9 L RDW 20.2 H Plt Count 255 D MPV 8.4 Absolute Neuts (auto) 6.8 Neutrophils % 78.6 Lymphocytes % 15.4 D Monocytes % 5.2 Eosinophils % 0.3 D Basophils % 0.5 Nucleated RBC % 0 Hypochromia 1+ Polychromasia 1+ Anisocytosis 1+ Microcytosis 1+ PT with INR 9.90 INR 0.84 PTT (Actin FS) 26.7 Sodium 139 Potassium 3.7 Chloride 107 Carbon Dioxide 28 Anion Gap 5 L BUN 9 Creatinine 0.6 Creat Clearance w eGFR > 60 Random Glucose 63 L Calcium 8.1 L RPR Titer Blood Type Antibody Screen Antibody Identification Antigen Identification Crossmatch 06/23/18 06/23/18 06/23/18 10:08 10:08 16:30 WBC 9.2 RBC 3.26 L Hgb 7.0 L Hct 22.7 L MCV 69.7 L MCH 21.4 L MCHC 30.6 L RDW 20.4 H Plt Count 229 MPV 8.1 Absolute Neuts (auto) 7.4 Neutrophils % 80.2 Lymphocytes % 14.4 Monocytes % 4.6 Eosinophils % 0.5 Basophils % 0.3 Nucleated RBC % 0 Hypochromia Polychromasia Anisocytosis Microcytosis PT with INR INR PTT (Actin FS) Sodium Potassium Chloride Carbon Dioxide Anion Gap BUN Creatinine Creat Clearance w eGFR Random Glucose Calcium RPR Titer Nonreactive Blood Type O NEGATIVE Antibody Screen Positive Antibody Identification Adig Antigen Identification No Result Required. Crossmatch See Detail - Subjective Subjective: No Complaints - Objective Afebrile: Yes Breast: Not engorged Abdomen: Soft, Non-tender, Other (Incision no drainage) Uterus: Fundus firm Vagina: Scant lochia Extremities: Non-tender - Assessment/Plan (1) Status post repeat low transverse section Assessment: Other (POD 1 Repeat CS) Plan: Routine Care
[2018-06-24] MEDS: ACETAMINOPHEN 1000 MG/100 ML VIAL (NON FORMULARY) IVPB PRN (06:00)
[2018-06-24] MEDS: FERROUS SO4 325 MG TABLET (FP) PO SCH ×2 (07:14→17:25)
[2018-06-24 07:39] LABS: BASO % 0.2 % (0-2.0); EOS % 0.5 % (0-4.5); HEMATOCRIT 16.7 % (32.4-45.2); LYMPH % 9.3 % (8-40); MCH 22.3 pg (25.7-33.7); MEAN CELL VOLUME 69.6 fl (80-96); MONO % 5.8 % (3.8-10.2); NEUT % 84.2 % (42.8-82.8); PLATELET COUNT 206 K/MM3 (134-434); RDW 20.2 % (11.6-15.6); WHITE BLOOD COUNT 10.2 K/mm3 (4.0-10.0)
[2018-06-24 07:46] LABS: HEMOGLOBIN 5.4 GM/dL (10.7-15.3)
[2018-06-24] MEDS: PRENATAL VITAMINS W/ FOLIC ACID TABLET (FP) PO SCH (09:49)
[2018-06-24] MEDS ORDERED: DIPHTH,PERTUSS(ACELL),TET 0.5 ML DISP.SYRIN IM ONE (10:00)
[2018-06-24] MEDS ORDERED: FLU VACCINE QUAD 60 MCG/0.5 ML (MDV 18-19) IM ONE (10:00)
[2018-06-24] MEDS ORDERED: BISACODYL 10 MG SUPP.RECT RC PRN (12:14)
[2018-06-24] MEDS: SIMETHICONE 80 MG TAB.CHEW (FP) PO PRN ×3 (13:28→22:19)
[2018-06-24] MEDS: oxyCODONE HCL 5 MG TABLET PO PRN ×3 (13:29→22:19)
[2018-06-24] MEDS: ACETAMINOPHEN 325 MG TABLET (FP) PO PRN ×3 (13:30→22:18)
--- NOTE | 2018-06-24 13:35 | PN ---
Progress Note (short form) - Note Progress Note: Pt day 1 s/p c/section with spinal and duramorph. Pt currently being transfused PRBC for pre-existing anemia. No NICOLE, back pain, incisional pain well tolerated. No anesthetic issues/complications noted.
[2018-06-24] MEDS ORDERED: oxyCODONE HCL 5 MG TABLET PO ONE (16:50)
--- NOTE | 2018-06-24 16:51 | CONSULT ---
Consultation: REQUESTING PROVIDER: Dr. Encinas CONSULT REQUEST: We have been asked to medically evaluate this patient for ( chest pain). HISTORY OF PRESENT ILLNESS: Patient is a 37 year old female, @ 37 weeks gestation came in with contractions. Her NELSON was 07/15/18. Patient underwent yesterday (06/23/18 ). Labs today was significant for symptomatic anemia H/H 5.4/16.7 from 12/07 yesterday. She was given 2 units of PRBC. Since patient was complaining of chest pain since morning hospitalist consult was requested for evaluation of chest pain. As per the patient, she started having chest pain since 10 am this morning, located centrally then diffusely, non radiating, sharp pain, 7/10 in intensity, intermittent, aggravated on deep inspiration and pain on palpation. CP started prior to blood transfusion Denies shortness of breath, palpitations, cough. Also reports to have headache since this morning with dizziness but no tingling , numbness, any focal neurological deficits. No abdominal pain,nausea or vomiting. Minimal per vaginal bleeding. Can walk to the bathroom without shortness of breath. Past Medical History: Hypertension during (pt reports she wasn't given any medication, no hx of preeclampsia or eclampsia), anemia requiring Blood transfusion in the past. Allergies: NKDA Surgical Hx: 1 c-sec 7 yrs ago, Appendectomy 3 yrs ago, Gastric bypass surgery in 9 yrs ago Medications: None Social history: Lives at home with kids. Has 9 children, the smallest one is 7 yrs old. Smoking: Denies. Passive smoking Alcohol: Last drink 9 months ago. Pt states she drinks alcohol occasionally. 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 Travel: Denies REVIEW OF SYSTEMS: CONSTITUTIONAL: Absent: fever, chills, diaphoresis, generalized weakness, malaise, loss of appetite, weight change HEENT: Absent: rhinorrhea, nasal congestion, throat pain, throat swelling, difficulty swallowing, mouth swelling, ear pain, eye pain, visual changes CARDIOVASCULAR: Present: Chest pain Absent: syncope, palpitations, irregular heart rate, lightheadedness, peripheral edema RESPIRATORY: Absent: cough, shortness of breath, dyspnea with exertion, orthopnea, wheezing, stridor, hemoptysis GASTROINTESTINAL: Absent: abdominal pain, abdominal distension, nausea, vomiting, diarrhea, constipation, melena, hematochezia GENITOURINARY: Absent: dysuria, frequency, urgency, hesitancy, hematuria, flank pain, genital pain MUSCULOSKELETAL: Absent: myalgia, arthralgia, joint swelling, back pain, neck pain SKIN: Absent: rash, itching, pallor HEMATOLOGIC/IMMUNOLOGIC: Absent: easy bleeding, easy bruising, lymphadenopathy, frequent infections ENDOCRINE: Absent: unexplained weight gain, unexplained weight loss, heat intolerance, cold intolerance NEUROLOGIC: Absent: headache, focal weakness or paresthesias, dizziness, unsteady gait, seizure, mental status changes, bladder or bowel incontinence PSYCHIATRIC: Absent: anxiety, depression, suicidal or homicidal ideation, hallucinations. PHYSICAL EXAMINATION Vital Signs - 24 hr 06/23/18 06/23/18 06/23/18 17:55 20:00 21:00 Temperature 97.4 F L 97.3 F L Pulse Rate 73 79 Respiratory 20 18 18 Rate Blood Pressure 106/65 107/50 L 06/24/18 06/24/18 06/24/18 00:00 02:00 04:00 Temperature 97.9 F Pulse Rate 80 Respiratory 18 18 18 Rate Blood Pressure 106/60 06/24/18 06/24/18 06/24/18 06:00 08:00 08:33 Temperature 98.0 F Pulse Rate 83 Respiratory 18 20 20 Rate Blood Pressure 106/62 06/24/18 06/24/18 06/24/18 08:36 09:57 12:00 Temperature 97.9 F Pulse Rate 74 Respiratory 20 20 20 Rate Blood Pressure 110/59 L 06/24/18 13:32 Temperature 98.1 F Pulse Rate 81 Respiratory 20 Rate Blood Pressure 141/56 L GENERAL: Young female, lying in bed comfortably, Awake, alert, and fully oriented, in no acute distress. EYES: EOM intact, pallor ++, no icterus. EARS, NOSE, THROAT: Dry mucous membranes. NECK: Supple. No JVD. LUNGS: B/L clear lungs, no added sounds. HEART: Regular rate and rhythm, normal S1 and S2 without murmur. CHEST: Pain on palpation ABDOMEN: Surgical site-no active bleeding, area looks clean and dry, Soft, tenderness around the surgical site, BS +. MUSCULOSKELETAL: Normal range of motion at all joints. No bony deformities or tenderness. No CVA tenderness. LOWER EXTREMITIES: No peripheral edema. NEUROLOGICAL: No facial droop.Normal speech. Gait not observed. PSYCHIATRIC: Cooperative. Good eye contact. Appropriate mood and affect. SKIN: Warm, dry, normal turgor, no rashes or lesions noted. Laboratory Results - last 24 hr 06/23/18 06/23/18 06/23/18 10:08 16:30 16:30 WBC 9.2 RBC 3.26 L Hgb 7.0 L Hct 22.7 L MCV 69.7 L MCH 21.4 L MCHC 30.6 L RDW 20.4 H Plt Count 229 MPV 8.1 Absolute Neuts (auto) 7.4 Neutrophils % 80.2 Lymphocytes % 14.4 Monocytes % 4.6 Eosinophils % 0.5 Basophils % 0.3 Nucleated RBC % 0 Blood Type O NEGATIVE Antibody Screen Positive Antibody Identification Adig Screen Negative Baby's Blood Type O positive Crossmatch See Detail See Detail Unit Expiration Date [id number] 06/24/18 06:30 WBC 10.2 H RBC 2.40 L Hgb 5.4 L* Hct 16.7 L D MCV 69.6 L MCH 22.3 L MCHC 32.0 RDW 20.2 H Plt Count 206 MPV 8.0 Absolute Neuts (auto) 8.6 H Neutrophils % 84.2 H Lymphocytes % 9.3 D Monocytes % 5.8 Eosinophils % 0.5 Basophils % 0.2 Nucleated RBC % 0 Blood Type Antibody Screen Antibody Identification Screen Baby's Blood Type Crossmatch Unit Expiration Date Active Medications Generic Name Dose Route Start Last Admin Trade Name Freq PRN Reason Stop Dose Admin Acetaminophen 650 mg 06/23/18 10:26 06/24/18 13:30 Tylenol - PO 650 mg Q4H PRN Administration PAIN LEVEL 1-3 Acetaminophen 1,000 mg 06/23/18 16:10 06/24/18 06:00 Ofirmev Injection - IVPB 1,000 mg Q6H PRN Administration PAIN LEVEL 1 - 3 Bisacodyl 10 mg 06/24/18 12:14 Dulcolax Suppository - RC PRN PRN CONSTIPATION Diphenhydramine HCl 25 mg 06/23/18 10:26 Benadryl Injection - IVPUSH Q4H PRN Pruritis Diphtheria/Tetanus/Acell Pertussis 0.5 ml 06/25/18 10:00 Boostrix - IM 06/25/18 10:01 .ONCE ONE Ferrous Sulfate 325 mg 06/23/18 17:30 06/24/18 07:14 Feosol - PO Not Given BIDWM LISSY Oxytocin/Sodium Chloride 20 unit in 1,000 mls @ 125 mls/hr 06/23/18 12:15 10/04 21:45 Normal Saline+20 Units Oxytocin - IV 125 mls/hr ASDIR LISSY Administration Influenza Virus Vaccine Quadrival 60 mcg 06/25/18 10:00 Fluarix Quad 0217-1560 Syringe IM 06/25/18 10:01 .ONCE ONE Methylergonovine Maleate 0.2 mg 06/23/18 12:14 Methergine Injection - IM Q4H PRN Excessive Bleeding (L&D) Ondansetron HCl 4 mg 06/23/18 10:26 Zofran Injection IVPUSH Q4H PRN NAUSEA Oxycodone HCl 5 mg 06/23/18 12:14 06/24/18 13:29 Roxicodone - PO 5 mg Q4H PRN Administration PAIN LEVEL 4 - 6 Multivit/Folic Acid/Iron 1 tab 06/24/18 10:00 06/24/18 09:49 Vitamins (Sjr) - PO Not Given DAILY [facility] Simethicone 80 mg 06/23/18 12:14 06/24/18 13:28 Mylicon - PO 80 mg Q4H PRN Administration GAS ASSESSMENT/PLAN: Patient is a 37 year old female, @ 37 weeks gestation, NELSON was 07/15/18, came in with contractions underwent 06/23/18 now complaining of chest pain # Chest pain-likely musculoskeletal c/o sharp chest pain, 7/10 in intensity, non radiating, aggravated on deep inspiration and pain upon palpation. Stat EKG was done: NSR, HR 81 bpm, Qtc 462 Continue tylenol, stat 10mg of oxycodone given. Avoid NSAID in the setting of anemia. D/C Motrin Stat Troponin ordered to r/o ACS. Repeat troponin @ 11:00 pm today. Low suspicion for ACS. Consider CXR if she continues to have chest pain due to concern for TRALI. Low suspicion for TRALI (sat 99 % @ RA) # Symptomatic microcytic anemia H/H 5.4/16.7 from 12/07 (06/23/18) Received 2 units of PRBC today. Stat CBC ordered. If Hb is < 7gm/dl will order another unit of PRBC If she bleeds heavily per vagina, will order stat unit of PRBC. Needs Iron studies as outpatient (it will be not accurate if ordered now as she already received blood transfusion) Will recommend taking Iron supplements with bowel regimen # s/p c section-POD 1 EBL 700 mls. Care as per Ob Pain control # Headache No neurological symptoms Continue tylenol prn. # FEN IV NS + 20 U of oxytocin, as per OB Electrolytes WNL NPO, advance diet as per OB # Prophylaxis For DVT: Early ambulation For GI: not indicated # Code Status: Full Code # Dispo: Continue to monitor in [facility]. Illness, Investigation and plan of care explained to the patient. She verbalized understanding. Case seen and discussed with Dr. Guadarrama. Dispo: We will continue to follow the patient. Thank you for this consultative opportunity. Visit type - Emergency Visit Emergency Visit: Yes ED Registration Date: 06/23/18 Care time: The patient presented to the Emergency Department on the above date and was hospitalized for further evaluation of their emergent condition. - New Patient This patient is new to me today: Yes Date on this admission: 06/23/18 - Critical Care Critical Care patient: No
--- NOTE | 2018-06-24 17:03 | PN ---
Teaching Attending Note Name of Resident: Becca Silva ATTENDING PHYSICIAN STATEMENT I saw and evaluated the patient. I reviewed the resident's note and discussed the case with the resident. I agree with the resident's findings and plan as documented. SUBJECTIVE:consult called for CP 37yo F with PMH ETOH abuse presented to the hospital yesterday in active labor and was performed. pt developed CP at 1000. states its was across the entire chest, exacerbated with inspiration. does not radiate, has some dizzyness on ambulation. some relief with oxycodone. symptoms started prior to blood transfusion being initiated and has persisted all day. has not worsened. only scant vaginal bleeding. last drink was when she found out she was 8 months ago. denies smoking. no significant cardiac disease in the family. denies SOB, fever, chills, N/V/C?D, blurred vision, numbness/tingling. has had multiple transfusions in the past. unknown if iron studies or reason for anemia was worked up. OBJECTIVE: Last Vital Signs Temp Pulse Resp BP Pulse Ox 98.1 F 81 20 141/56 L 100 06/24/18 13:32 06/24/18 13:32 06/24/18 13:32 06/24/18 13:32 06/23/18 13:30 General NAD HEENT pale conjuctiva, dry oral mucosa CV S1 s2 RRR no murmur/rub/gallop +chest wall tenderness Lungs CTA B/L no wheezing/rales/rhonchi abdomen soft. slight tenderness at surgical incision. low tranverse incision with steri-strips. no active bleeding. good approximation. ASSESSMENT AND PLAN: 37yo F with PMH ETOH abuse admitted after repeat with medical consult placed for CP 1. CP- likely symptomatic anemia vs musculoskeltal although can not r/o ACS. low suspicion for TRALI as not hypoxic (98% on RA) and symptoms started prior to transfusion. also would need to consider PE given hypercoag state and likely reduce mobility over the past few months however there is no hemoptysis or tachycardia. will check stat EKG, CBC and troponins Q6H. will give oxycodone for pain. avoid NSAID use with anemia. should have anemia workup done as outpatient patient care to be resumed by primary, Dr Khan, in the morning
[2018-06-24 17:44] LABS: HEMATOCRIT 23.9 % (32.4-45.2); HEMOGLOBIN 7.8 GM/dL (10.7-15.3); MCH 24.7 pg (25.7-33.7); MCHC 32.7 g/dl (32.0-36.0); MEAN CELL VOLUME 75.5 fl (80-96); MEAN PLT VOLUME 8.1 fl (7.5-11.1); PLATELET COUNT 230 K/MM3 (134-434); RBC 3.16 M/mm3 (3.60-5.2); RDW 25.4 % (11.6-15.6); WHITE BLOOD COUNT 11.2 K/mm3 (4.0-10.0)
[2018-06-24 23:26] LABS: HEMATOCRIT 24.9 % (32.4-45.2); HEMOGLOBIN 8.2 GM/dL (10.7-15.3); MCH 24.6 pg (25.7-33.7); MCHC 33.2 g/dl (32.0-36.0); MEAN CELL VOLUME 74.3 fl (80-96); MEAN PLT VOLUME 7.9 fl (7.5-11.1); PLATELET COUNT 275 K/MM3 (134-434); RBC 3.35 M/mm3 (3.60-5.2); RDW 24.8 % (11.6-15.6); WHITE BLOOD COUNT 14.9 K/mm3 (4.0-10.0)
[2018-06-24] MEDS: OXYTOCIN 20 UNITS in 0.9% NS 20 UNIT/1,000 ML INFUS.BAG IV SCH (23:36)
[2018-06-25] MEDS: oxyCODONE HCL 5 MG TABLET PO PRN ×4 (03:02→20:03)
[2018-06-25] MEDS: ACETAMINOPHEN 325 MG TABLET (FP) PO PRN ×4 (03:02→20:02)
[2018-06-25] MEDS: SIMETHICONE 80 MG TAB.CHEW (FP) PO PRN ×4 (03:03→20:02)
--- NOTE | 2018-06-25 05:58 | PN ---
Post Progress Note - Subjective Subjective: Pt see/evaluated, feeling abdominal cramping strong like "contractions." still have right sided shoulder pain. no nausea/vomiting/fever Type of Delivery: Repeat C/S Vital Signs: Vital Signs Temperature 98.5 F 06/24/18 22:00 Pulse Rate 84 06/24/18 22:00 Respiratory Rate 18 06/24/18 22:00 Blood Pressure 120/58 L 06/24/18 22:00 O2 Sat by Pulse Oximetry (%) 100 06/23/18 13:30 Breast Exam: Yes: Soft Uterus: Yes: Fundus Firm, Other (diffused abdominal tenderness upon deep palpation) Incision: Yes: Sutures intact Abdomen/GI: Yes: Abdomen soft, Tender, Passing flatus Lochia, amount: Small Extremities: Yes: Calves non-tender Perineum: Yes: Intact Activity: Ambulating - Labs Labs: CBC WBC 14.9 K/mm3 (4.0-10.0) H 06/24/18 23:15 RBC 3.35 M/mm3 (3.60-5.2) L 06/24/18 23:15 Hgb 8.2 GM/dL (10.7-15.3) L 06/24/18 23:15 Hct 24.9 % (32.4-45.2) L 06/24/18 23:15 MCV 74.3 fl (80-96) L 06/24/18 23:15 MCH 24.6 pg (25.7-33.7) L 06/24/18 23:15 MCHC 33.2 g/dl (32.0-36.0) 06/24/18 23:15 RDW 24.8 % (11.6-15.6) H 06/24/18 23:15 Plt Count 275 K/MM3 (134-434) 06/24/18 23:15 MPV 7.9 fl (7.5-11.1) 06/24/18 23:15 Absolute Neuts (auto) 8.6 K/mm3 (1.5-8.0) H 06/24/18 06:30 Neutrophils % 84.2 % (42.8-82.8) H 06/24/18 06:30 Lymphocytes % 9.3 % (8-40) D 06/24/18 06:30 Monocytes % 5.8 % (3.8-10.2) 06/24/18 06:30 Eosinophils % 0.5 % (0-4.5) 06/24/18 06:30 Basophils % 0.2 % (0-2.0) 06/24/18 06:30 Nucleated RBC % 0 % (0-0) 06/24/18 06:30 Hypochromia 1+ 06/23/18 10:08 Polychromasia 1+ 06/23/18 10:08 Anisocytosis 1+ 06/23/18 10:08 Microcytosis 1+ 06/23/18 10:08 Problem List - Problems (1) delivery delivered Code(s): O82 - ENCOUNTER FOR DELIVERY WITHOUT INDICATION Assessment/Plan 37 y/o POD#2 s/p delivery c/o right sided chest/shoulder pain, stable, seen by medicine, workup so far negative abdominal cramping, no specific fundal tenderness and no fever but will watch out for signs of endometritis - IV caldolor ordered encourage ambulation regular diet
[2018-06-25] MEDS ORDERED: IBUPROFEN 800 MG/8 ML IJ IVPB ONE (06:45)
[2018-06-25] MEDS: FERROUS SO4 325 MG TABLET (FP) PO SCH ×2 (08:20→18:25)
[2018-06-25] MEDS ORDERED: DIPHTH,PERTUSS(ACELL),TET 0.5 ML DISP.SYRIN IM ONE ×2 (10:00→13:30)
[2018-06-25] MEDS: PRENATAL VITAMINS W/ FOLIC ACID TABLET (FP) PO SCH (10:25)
[2018-06-26] MEDS: ACETAMINOPHEN 325 MG TABLET (FP) PO PRN ×5 (00:15→22:46)
[2018-06-26] MEDS: oxyCODONE HCL 5 MG TABLET PO PRN ×5 (00:16→22:47)
[2018-06-26 06:15] LABS: BASO % 0.4 % (0-2.0); EOS % 1.6 % (0-4.5); HEMATOCRIT 22.9 % (32.4-45.2); HEMOGLOBIN 7.7 GM/dL (10.7-15.3); LYMPH % 14.6 % (8-40); MCH 25.9 pg (25.7-33.7); MCHC 33.9 g/dl (32.0-36.0); MEAN CELL VOLUME 76.5 fl (80-96); MEAN PLT VOLUME 7.6 fl (7.5-11.1); NEUT % 76.4 % (42.8-82.8); PLATELET COUNT 245 K/MM3 (134-434); RBC 2.99 M/mm3 (3.60-5.2); RDW 25.7 % (11.6-15.6); WHITE BLOOD COUNT 9.4 K/mm3 (4.0-10.0)
[2018-06-26] MEDS: SIMETHICONE 80 MG TAB.CHEW (FP) PO PRN ×2 (07:06→13:14)
[2018-06-26] MEDS: FERROUS SO4 325 MG TABLET (FP) PO SCH (07:06)
[2018-06-26] MEDS: PRENATAL VITAMINS W/ FOLIC ACID TABLET (FP) PO SCH (10:54)
--- NOTE | 2018-06-26 10:58 | PN ---
Physical Exam: SUBJECTIVE: Patient seen and examined this AM. She states she is overall feeling better. She is still having some chest discomfort worse with movement and deep inspiration which is reproducible to palpation. States the most relief she has gotten was from the IV caldalor. OBJECTIVE: Vital Signs Period Temp Pulse Resp BP Sys/East Pulse Ox Last 24 Hr 98.3 F-98.6 F 78-84 20-20 112-130/78-84 GENERAL: A&O, no acute distress HEAD: Normocephalic, atraumatic. EYES: no scleral icterus EARS, NOSE, THROAT: Moist mucous membranes. LUNGS: CTA b/l, no crackles or wheezes HEART: Regular rate and rhythm, normal S1 and S2 without murmur MUSCULOSKELETAL: Tender to palpation in right shoulder, chest wall, and left shoulder EXTREMITIES: warm, well-perfused. No peripheral edema. NEUROLOGICAL: Cranial nerves II-XII grossly intact. Normal speech. Laboratory Results - last 24 hr 06/23/18 06/23/18 06/26/18 10:08 16:30 05:56 WBC 9.4 RBC 2.99 L Hgb 7.7 L Hct 22.9 L MCV 76.5 L MCH 25.9 MCHC 33.9 RDW 25.7 H Plt Count 245 MPV 7.6 Absolute Neuts (auto) 7.2 Neutrophils % 76.4 Lymphocytes % 14.6 D Monocytes % 7.0 Eosinophils % 1.6 D Basophils % 0.4 Nucleated RBC % 0 Blood Type O NEGATIVE Antibody Screen Positive Antibody Identification Adig Crossmatch See Detail See Detail Active Medications Generic Name Dose Route Start Last Admin Trade Name Freq PRN Reason Stop Dose Admin Acetaminophen 650 mg 06/23/18 10:26 06/26/18 07:05 Tylenol - PO 650 mg Q4H PRN Administration PAIN LEVEL 1-3 Bisacodyl 10 mg 06/24/18 12:14 Dulcolax Suppository - RC PRN PRN CONSTIPATION Diphenhydramine HCl 25 mg 06/23/18 10:26 Benadryl Injection - IVPUSH Q4H PRN Pruritis Ferrous Sulfate 325 mg 06/23/18 17:30 06/26/18 07:06 Feosol - PO 325 mg BIDWM LISSY Administration Oxytocin/Sodium Chloride 20 unit in 1,000 mls @ 125 mls/hr 06/23/18 12:15 11/04 23:36 Normal Saline+20 Units Oxytocin - IV Not Given ASDIR LISSY Methylergonovine Maleate 0.2 mg 06/23/18 12:14 Methergine Injection - IM Q4H PRN Excessive Bleeding (L&D) Oxycodone HCl 5 mg 06/23/18 12:14 06/26/18 07:05 Roxicodone - PO 5 mg Q4H PRN Administration PAIN LEVEL 4 - 6 Multivit/Folic Acid/Iron 1 tab 06/24/18 10:00 06/25/18 10:25 Vitamins (Sjr) - PO 1 tab DAILY LISSY Administration Simethicone 80 mg 06/23/18 12:14 06/26/18 07:06 Mylicon - PO 80 mg Q4H PRN Administration GAS ASSESSMENT/PLAN: 37 year old female, @ 37 weeks gestation, NELSON was 07/15/18, came in with contractions underwent 06/23/18, medicine consulted due to complaining of chest pain with Hgb 5.4 Symptomatic Anemia vs Musculoskeletal chest pain -H/H 5.4/16.7 with hx prior transfusion dependent anemia -s/p 3 units PRBCs, H/H stable -Troponin negative, EKG without any concerning ST/Twave changes -Recommend trend H/H until discharge and CBC within 1 week of discharge -Pain at this point likely MSK in origin as it is reproducible and improves with NSAIDs -Would continue NSAIDs as per OB recs s/p -stable, as per OB DVT Prophylaxis -Early Ambulation FEN -Fluids: NS + 20 units Oxytocin @ 125 cc/hr -Electrolytes: No electrolyte abnormalities, BMP in AM -Nutrition: Regular Diet Disposition Will sign off for now, thank you for this consultative opportunity, please recall Medicine Service as needed Visit type - Emergency Visit Emergency Visit: No - New Patient This patient is new to me today: Yes Date on this admission: 06/26/18 - Critical Care Critical Care patient: No
--- NOTE | 2018-06-26 11:38 | PN ---
Teaching Attending Note Name of Resident: Gui Flynn ATTENDING PHYSICIAN STATEMENT I saw and evaluated the patient. I reviewed the resident's note and discussed the case with the resident. I agree with the resident's findings and plan as documented. SUBJECTIVE:c/o CP worse on inspiration. pain has been constant since it first started on friday. felt warm last night but had her temp taken at that time and no fever. no other assoc symptoms. has not changed in nature at all. denies cough, chills, N/V/C/D, dysuria OBJECTIVE: Last Vital Signs Temp Pulse Resp BP Pulse Ox 98.6 F 78 20 112/84 100 06/25/18 21:34 06/25/18 21:34 06/25/18 21:34 06/25/18 21:34 06/23/18 13:30 General NAD CV S1 s2 RRR no murmur/rub/gallop +chest wall tenderness Lungs CTA B/L no wheezing/rales/rhonchi ASSESSMENT AND PLAN: 37yo F with PMH ETOH abuse admitted after repeat with medical consult placed for CP 1. CP- likely symptomatic anemia vs musculoskeltal although can not r/o ACS. EKG and cardiac markers neg x2. low suspicion for ACS due to persisting for > 48H. pt is concerned that there is no relief at this point. counselled her that that muscular injuries may take some time to improve. will obtain CXR to r/o any developing infiltrate or pathology that can be related to her pain. cont pain management. avoid NSAID use with anemia. 2. microcytic anemia- s/p 4 units PRBC this hospital stay. likely due to previous gastric bypass. likely has poor absorption of oral iron at this time and will give venofer while hospitalized. will need close monitoring of hgb.
[2018-06-26] MEDS ORDERED: IRON SUCROSE INJECTION 200 MG in SODIUM CHLORIDE 90 ML IVPB ONE (12:07)
--- NOTE | 2018-06-26 13:26 | EKG ---
Test Reason : Blood Pressure : / mmHG Vent. Rate : 081 BPM Atrial Rate : 081 BPM P-R Int : 144 ms QRS Dur : 086 ms QT Int : 398 ms P-R-T Axes : 037 -01 030 degrees QTc Int : 462 ms NORMAL SINUS RHYTHM NORMAL ECG WHEN COMPARED WITH ECG OF 07-FEB-2017 10:13, VENT. RATE HAS INCREASED BY 31 BPM Confirmed by ANNIE ORTIZ MD ([id number]) on 06/26/2018 1:26:32 PM Referred By: Confirmed By:ANNIE ORTIZ MD
--- NOTE | 2018-06-26 15:43 | PN ---
Progress Note (short form) - Note Progress Note: Patient seen and evaluated, c/o chest pain. She was seen by hospitalist. She's status post 4 units of blood transfusion. Hgb is still low. Consider neoplasm screening as outpatient. Problem List - Problems (1) Previous section complicating , antepartum condition or complication Code(s): O34.219 - MATERNAL CARE FOR UNSP TYPE SCAR FROM PREVIOUS DEL (2) Multiparity Code(s): Z64.1 - PROBLEMS RELATED TO MULTIPARITY (3) Severe anemia Code(s): D64.9 - ANEMIA, UNSPECIFIED
[2018-06-27] MEDS: oxyCODONE HCL 5 MG TABLET PO PRN ×2 (02:28→09:03)
[2018-06-27] MEDS: ACETAMINOPHEN 325 MG TABLET (FP) PO PRN ×3 (02:28→13:28)
[2018-06-27] MEDS ORDERED: IRON SUCROSE INJECTION 200 MG in SODIUM CHLORIDE 90 ML IVPB ONE (08:00)
[2018-06-27 09:00] LABS: HEMATOCRIT 23.7 % (32.4-45.2); HEMOGLOBIN 7.8 GM/dL (10.7-15.3); MCH 25.6 pg (25.7-33.7); MCHC 33.1 g/dl (32.0-36.0); MEAN CELL VOLUME 77.2 fl (80-96); MEAN PLT VOLUME 7.7 fl (7.5-11.1); PLATELET COUNT 268 K/MM3 (134-434); RBC 3.07 M/mm3 (3.60-5.2); RDW 25.8 % (11.6-15.6); WHITE BLOOD COUNT 6.8 K/mm3 (4.0-10.0)
[2018-06-27 10:09] VITALS: BP 127/78; PULSE 65; TEMP 97.7
--- NOTE | 2018-06-27 10:56 | HOSP ---
Subjective - Review of Symptoms Subjective: pt remains to have chest discomfort worse on movement and deep inspiration. no cough or hemoptysis reveived a total of 4 units PRBC and CBC now stable Recommendations - CP likely muscular and should improve with time if it persists should follow up with PMD for further workup -iron def anemia- received venofer x2 doses here. would cont iron supplementation however unsure how helpful due to previous gastric bypass and ability to absorb. Should follow up with PMD next week for repeat CBC to monitor Hgb and consider further iron IV transfusions as outpatient. should have anemia workup done to determine etiology and exclude malignancy -obesity- lifestyle modifications Thank you for the consult. please re-consult as needed Physical Examination Vital Signs: Vital Signs Temperature 97.7 F 06/27/18 10:00 Pulse Rate 65 06/27/18 10:00 Respiratory Rate 20 06/27/18 10:00 Blood Pressure 127/78 06/27/18 10:00 O2 Sat by Pulse Oximetry (%) 100 06/23/18 13:30 Labs: CBC, BMP 06/27/18 08:00 06/23/18 10:08
--- NOTE | 2018-06-27 11:09 | DS ---
Physical Exam-COURT WORKER Vital Signs: Vital Signs Temperature 97.7 F 06/27/18 10:00 Pulse Rate 65 06/27/18 10:00 Respiratory Rate 20 06/27/18 10:00 Blood Pressure 127/78 06/27/18 10:00 O2 Sat by Pulse Oximetry (%) 100 06/23/18 13:30 Constitutional: Yes: No Distress HENT: Yes: Atraumatic Neck: Yes: Trachea Midline Cardiovascular: Yes: Regular Rate and Rhythm Respiratory: No: Accessory Muscle Use, Rales, SOB, SOB on Exertion, Tachypnea, Wheezes Gastrointestinal: Yes: Normal Bowel Sounds External Genitalia: Yes: Normal Vaginal Exam: Yes: Normal Cervix: Yes: Normal Uterus: Yes: Firm Wound/Incision: Yes: Clean/Dry, Steri Strips (in place) Neurological: Yes: Alert, Oriented ...Motor Strength: WNL Psychiatric: Yes: Alert, Oriented Labs: CBC, BMP 06/27/18 08:00 06/23/18 10:08 Delivery - Delivery Type of Anesthesia: Spinal Episiotomy/Laceration: None EBL (cc): 700 Delivery, Single - Stages of Labor Date 1st Stage Initiatied: 06/23/18 Time 1st Stage Initiated: 01:00 Date of Delivery: 06/23/18 Time of Delivery: 11:35 Time Placenta Delivered: 11:36 - Condition of Mobile Application Architect/Food And Beverage Attendant Present: [place]: Albert Perez Infant Gender: Male Weight: 4 lb 7 oz Position: Left, OT Total Hours ROM (Hrs/Mins): 2MIN - 1 Minute Total Score: 9 5 Minutes Total Score: 9 - Feeding Plan Initial Plan: Elected not to breastfeed exclusively throughout hospitalization Discharge Summary Reason For Visit: Current Active Problems delivery delivered (Acute) Multiparity (Acute) Previous section complicating , antepartum condition or complication (Acute) Severe anemia (Acute) Status post repeat low transverse section (Acute) Procedures: Principal: Repeat Low Transverse / Tubal ligation Hospital Course: Patient admitted for post op care. She received blood transfusion for severe anemia. A CXR showed evidence of a small pneumothorax. Condition: Good - Instructions Diet, Activity, Other Instructions: Regular diet No driving, no lifting x 4 weeks. F/U with MD in one week Disposition: HOME - Home Medications Comprehensive Discharge Medication List: Ambulatory Orders Vit 108/Iron/Folic AC [ One Tablet] 1 tab PO DAILY 05/25/18 Ferralet 90 Tablet 1 tab PO DAILY 06/20/18
--- NOTE | 2018-07-03 17:23 | PATH ---
Surgical Pathology Report Patient Name: [facility]. Rec. #: [id number] /Age/Gender: 1980 (Age: 37) / F Account: [id number] Location: [facility] OBS/ACCOUNTS RECEIVABLE ADMINISTRATOR Taken: 06/23/2018 Received: 06/24/2018 Reported: 07/03/2018 Physicians: Anum Encinas M.D. Specimen(s) Received A: PLACENTA B: PORTION OF RIGHT FALLOPIAN TUBE C: PORTION OF LEFT FALLOPIAN TUBE Clinical History , term 6, 1, living 9 , , 1999 (twins), , 2010 at 28 weeks Final Diagnosis A. PLACENTA, SECTION: 303 G THIRD TRIMESTER PLACENTA WITH TRIVASCULAR UMBILICAL CORD AND UNREMARKABLE PLACENTAL MEMBRANES. B. FALLOPIAN TUBE, RIGHT, PARTIAL EXCISION: FULL LUMINAL PORTION OF UNREMARKABLE FALLOPIAN TUBE. C. FALLOPIAN TUBE, LEFT, PARTIAL EXCISION: FULL LUMINAL PORTION OF UNREMARKABLE FALLOPIAN TUBE. Electronically Signed Mariaa Mckeon M.D. Gross Description A. The specimen is received fresh labeled placenta and is a 303 gram, 12.0 x 12.0 x 2.7 cm. placenta with attached membranes and umbilical cord. The attached membranes are espinoza, translucent with focal opacities and insert marginally. The umbilical cord measures 27 cm. in length and averages 1 cm. in diameter. The cord inserts centrally. No true knots or strictures are identified. Cut surface of the umbilical cord reveals 3 vessels. The surface is mayer blue with moderate fibrin deposition and appropriate caliber vessel. The maternal surface is red-brown with focal defects. Sectioning reveals red-brown, spongy parenchyma. No lesions are identified. Slater Apprentice sections are submitted in three cassettes as follows: 1- membrane rolls and umbilical cord; 2-3- full thickness sections of placenta. B. Received in formalin labeled "right portion of fallopian tube," is a 1.5 cm in length portion of fallopian tube. No fimbria are present. The outer surface is espinoza-cowart and smooth. Sectioning reveals an unremarkable lumen. Slater Apprentice sections are submitted in one cassette. C. Received in formalin labeled "left portion of fallopian tube," is a 1.7 cm in length portion of fallopian tube. No fimbria are present. The outer surface is espinoza-cowart and smooth. Sectioning reveals an unremarkable lumen. Slater Apprentice sections are submitted in one cassette. 07/02/201807/02/2018
== END 2018-06-27 14:30 | disposition home or self-care (01) | DRG 784 ==
LOC: JDEL 06:25 → JLDR 09:40 → J3W 15:21
PROVIDERS: ADMIT Obstetrics & Gynecology; ATTEND Obstetrics & Gynecology
PROC: 10D00Z1 Extraction of Products of Conception, Low, Open Approach (ICD-10-PCS; principal; 2018-06-23)
PROC: 0UB70ZZ Excision of Bilateral Fallopian Tubes, Open Approach (ICD-10-PCS; 2018-06-23)
PROC: 3E0334Z Introduction of Serum, Toxoid and Vaccine into Peripheral Vein, Percutaneous Approach (ICD-10-PCS; 2018-06-24)
PROC: 30233N1 Transfusion of Nonautologous Red Blood Cells into Peripheral Vein, Percutaneous Approach (ICD-10-PCS; 2018-06-24)
DX: O34.211 Maternal care for low transverse scar from previous cesarean delivery (principal); D62 Acute posthemorrhagic anemia; N85.8 Other specified noninflammatory disorders of uterus; O99.02 Anemia complicating childbirth; D64.9 Anemia, unspecified; O26.893 Other specified pregnancy related conditions, third trimester; Z3A.37 37 weeks gestation of pregnancy; R07.9 Chest pain, unspecified; Z30.2 Encounter for sterilization; Z29.13 Encounter for prophylactic Rho(D) immune globulin; Z37.0 Single live birth
CPT/HCPCS: 36415; 36430; 36511; 71046-TC-FY; 80048; 84484; 85025; 85027; 85461; 85610; 85730; 86593; 86850; 86870; 86900; 86901; 86902; 86922; 86999; 88302-TC; 88307-TC; 90686; 90688; 90715; 93005; 93010; 94010; G0008; J0131; J1756; P9038; P9058

== ENCOUNTER 2018-11-11 11:28 | Inpatient (IN) | payer OTHER ==
[2018-11-11 12:46] LABS: BASO % 0.3 % (0-2.0); EOS % 0.2 % (0-4.5); HEMATOCRIT 33.4 % (32.4-45.2); HEMOGLOBIN 11.4 GM/dL (10.7-15.3); LYMPH % 5.3 % (8-40); MCH 36.3 pg (25.7-33.7); MEAN CELL VOLUME 106.8 fl (80-96); MEAN PLT VOLUME 9.4 fl (7.5-11.1); MONO % 4.9 % (3.8-10.2); NEUT % 89.3 % (42.8-82.8); PLATELET COUNT 242 K/MM3 (134-434); RBC 3.13 M/mm3 (3.60-5.2); RDW 14.9 % (11.6-15.6); WHITE BLOOD COUNT 10.6 K/mm3 (4.0-10.0)
[2018-11-11 13:05] LABS: HYALINE CASTS 68 /lpf (0-8); PH,URINE 5.5 (5.0-8.0); URINE APPEARANCE CLOUDY; URINE BACTERIA 6464.4 /hpf (NEGATIVE); URINE BILIRUBIN 3+ (NEGATIVE); URINE COLOR DK YELLOW; URINE GLUCOSE (UA) NEGATIVE (NEGATIVE); URINE KETONE TRACE (NEGATIVE); URINE LEUK ESTERASE 2+ (NEGATIVE); URINE NITRITE POSITIVE (NEGATIVE); URINE PROTEIN 1+ (NEGATIVE); URINE WBC 48 /hpf (0-5)
[2018-11-11 13:06] LABS: HCG,QUALITATIVE URINE Negative
[2018-11-11 13:16] LABS: INR 1.89 (0.83-1.09); PROTHROMBIN TIME (PATIENT) 22.4 SEC (9.7-13.0)
[2018-11-11 13:28] LABS: URINE RBC 36.6 /hpf (0-4); YEAST NONE SEEN (NEGATIVE)
[2018-11-11] MEDS ORDERED: SODIUM CHLORIDE 1,000 ML IV STA ×2 (13:33→19:07)
[2018-11-11] MEDS ORDERED: morphine CARPU-JECT 4 MG/1 ML DISP.SYRIN IVPUSH ONE ×2 (13:33→22:05)
[2018-11-11] MEDS ORDERED: morphine SULFATE 4 MG/ML VIAL ONE ×2 (13:35→22:32)
[2018-11-11 13:38] LABS: ALBUMIN 2.4 g/dl (3.4-5.0); BILIRUBIN,TOTAL 9.5 mg/dL (0.2-1); BLOOD UREA NITROGEN 4.3 mg/dL (7-18); CALCIUM 8.4 mg/dL (8.5-10.1); CREATININE 1.2 mg/dL (0.55-1.3); POTASSIUM 3.3 mmol/L (3.5-5.1); TOT PROT 6.6 g/dl (6.4-8.2)
[2018-11-11 13:39] LABS: ANISOCYTOSIS 1+; MACROCYTOSIS 1+; PLATELET ESTIMATE NORMAL; TARGET CELLS 1+
--- NOTE | 2018-11-11 14:17 | PDOC ---
Documentation entered by Lesvia Perez SCRIBE, acting as scribe for Valeria Flores MD. Valeria Flores MD: This documentation has been prepared by the Ana amaya Adrianna, SCRIBE, under my direction and personally reviewed by me in its entirety. I confirm that the documentation accurately reflects all work, treatment, procedures, and medical decision making performed by me. History of Present Illness - General Chief Complaint: Jaundice Stated Complaint: BODY ACHES / BLOODY STOOL History Source: Patient Exam Limitations: No Limitations - History of Present Illness Initial Comments: The patient is a 38 year old female, with a significant PMH of liver inflammation and kidney infection, gastric bypass, appendicitis, prior admission for EtOH intoxication, acute anemia, and gastroesophageal reflux, who presents to the ED for evaluation of abdominal pain for 3 days. Patient notes that her pain began in the right upper quadrant , and had progressively traveled diffusely throughout her abdomen, bilateral flanks, and right side of the low back. She notes the pain is constant in nature, which she rates as a 10/ 10 and is exacerbated with positional changes. She endorses 2 episodes of NBNB nausea and vomit, with decreased PO intake. Patient additionally notes multiple episodes of bloody, loose stool, and states she sees everything as orange. She reports associated chest pain and shortness of breath. Denies fever, chills, rash, recent travel, or consumption of outside food. Allergies: NKA, NKDA Surgical History: 2 C-sections, appendectomy, gastric bypass Social History: prior admission for EtOH intoxication, former smoker Family history: Colon cancer on both mother and fathers side PCP: Dr. Manny Santacruz 11/11/18 14:00 Past History - Past Medical History Allergies/Adverse Reactions: Allergies Allergy/AdvReac Type Severity Reaction Status Date / Time No Known Allergies Allergy Verified 11/11/18 11:36 Home Medications: Ambulatory Orders NK [No Known Home Medication] 11/11/18 COPD: No - Immunization History Immunization Up to Date: Yes - Suicide/Smoking/Psychosocial Hx Smoking History: Never smoked Information on smoking cessation initiated: No Hx Alcohol Use: No Drug/Substance Use Hx: No Review of Systems - Review of Systems Comments:: GENERAL/CONSTITUTIONAL: No fever or chills. No weakness. HEAD, EYES, EARS, NOSE AND THROAT: +Seeing everything in orange. No ear pain or discharge. No sore throat. CARDIOVASCULAR: +Chest pain. +Shortness of breath. RESPIRATORY: No cough, wheezing, or hemoptysis. GASTROINTESTINAL: +Nausea. +2 episodes of NBNB vomit. +Multiple episodes of loose, bloody stool. +Decreased PO intake. No constipation. GENITOURINARY: No dysuria, frequency, or change in urination. ABDOMINAL: +RUQ pain. +Diffuse abdominal pain. MUSCULOSKELETAL: +Bilateral flank pain. +Right-sided low back pain. No joint or muscle swelling. No neck pain. SKIN: No rash NEUROLOGIC: No headache, vertigo, loss of consciousness, or change in strength/ sensation. ENDOCRINE: No increased thirst. No abnormal weight change. HEMATOLOGIC/LYMPHATIC: No anemia, easy bleeding, or history of blood clots. ALLERGIC/IMMUNOLOGIC: No hives or skin allergy. 11/11/18 14:01 *Physical Exam - Vital Signs Last Vital Signs Temp Pulse Resp BP Pulse Ox 99.8 F H 121 H 19 91/56 L 100 11/11/18 11:36 11/11/18 11:36 11/11/18 11:36 11/11/18 11:36 11/11/18 11:36 - Physical Exam Comments: GENERAL: +Jaundice. Awake, alert, and oriented. HEAD: Normal with no signs of trauma. EYES: +Scleral icterus. PERRLA, EOMI. ENT: +Dry mucous membranes. Ears normal, nares patent, oropharynx clear without exudates. NECK: Normal range of motion, supple without lymphadenopathy, JVD, or masses. LUNGS: Breath sounds equal, clear to auscultation bilaterally. No wheezes, and no crackles. HEART:Regular rate and rhythm, normal S1 and S2 without murmur, rub or gallop. ABDOMEN: +Diffuse abdominal tenderness to palpation with voluntary guarding. Soft, normoactive bowel sounds. No rebound. No masses palpable. No fluid wave palpable. RECTAL: +Greenish, non-bloody stool. No external hemorrhoids. EXTREMITIES: Normal range of motion, no edema. No clubbing or cyanosis. No erythema, or tenderness. NEUROLOGICAL: Cranial nerves II through XII grossly intact. Normal speech. No focal neurological deficits. MUSCULOSKELETAL: Back non-tender to palpation, no CVA tenderness SKIN: +Jaundice. +Erythematous rash on cheeks. Warm, Dry, normal turgor, no lesions noted. 11/11/18 14:18 ED Treatment Course - LABORATORY CBC & Chemistry Diagram: 11/11/18 12:34 11/11/18 12:36 - ADDITIONAL ORDERS Additional order review: Laboratory Results 11/11/18 11/11/18 11/11/18 12:45 12:36 12:34 PT with INR INR Sodium 141 Potassium 3.3 L Chloride 106 Carbon Dioxide 26 Anion Gap 10 BUN 4.3 L Creatinine 1.2 Est GFR (CKD-EPI)AfAm 65.93 Est GFR (CKD-EPI)NonAf 56.88 Random Glucose 50 L Calcium 8.4 L Total Bilirubin 9.5 H AST 111 H ALT 47 Alkaline Phosphatase 152 H Total Protein 6.6 Albumin 2.4 L Lipase 60 L Urine Color Dk yellow Urine Appearance Cloudy Urine pH 5.5 Ur Specific [place] 1.019 Urine Protein 1+ H Urine Glucose (UA) Negative Urine Ketones Trace H Urine Blood 3+ H Urine Nitrite Positive H Urine Bilirubin 3+ H Urine Urobilinogen 2.0 H Ur Leukocyte Esterase 2+ H Urine WBC (Auto) 48 Urine RBC (Auto) 36.6 Urine Casts (Auto) 68 U Pathogenic Cast Auto None seen U Epithel Cells (Auto) 2.0 Urine Bacteria (Auto) 6464.4 Urine Yeast (Auto) None seen Urine HCG, Qual Negative Blood Type O NEGATIVE Antibody Screen Negative 11/11/18 12:34 PT with INR 22.40 H INR 1.89 H Sodium Potassium Chloride Carbon Dioxide Anion Gap BUN Creatinine Est GFR (CKD-EPI)AfAm Est GFR (CKD-EPI)NonAf Random Glucose Calcium Total Bilirubin AST ALT Alkaline Phosphatase Total Protein Albumin Lipase Urine Color Urine Appearance Urine pH Ur Specific [place] Urine Protein Urine Glucose (UA) Urine Ketones Urine Blood Urine Nitrite Urine Bilirubin Urine Urobilinogen Ur Leukocyte Esterase Urine WBC (Auto) Urine RBC (Auto) Urine Casts (Auto) U Pathogenic Cast Auto U Epithel Cells (Auto) Urine Bacteria (Auto) Urine Yeast (Auto) Urine HCG, Qual Blood Type Antibody Screen 11/11/18 12:34 RBC 3.13 L MCV 106.8 H MCHC 34.0 RDW 14.9 MPV 9.4 Neutrophils % 89.3 H Lymphocytes % 5.3 L Monocytes % 4.9 Eosinophils % 0.2 Basophils % 0.3 - RADIOLOGY Radiology Studies Ordered: Category Date Time Status ABDOMEN & PELVIS CT WITH CONTR [CT] Stat CT Scan 11/11/18 13:32 Ordered ABDOMEN US -LIMITED [US] Stat Ultrasound 11/11/18 13:32 Ordered Radiograph Interpretation: EXAM#: TYPE/EXAM: RESULT: [id number] US/ABDOMEN US -LIMITED HISTORY PROVIDED: Right upper quadrant pain and jaundice. IMPRESSION: 1. Thick-walled gallbladder with no evidence of cholelithiasis. If acute cholecystitis is suspected , a follow-up HIDA scan is recommended. 2. Hepatomegaly with diffuse fatty infiltration of the liver. Please see above discussion. Reported By: Kit Amador MD 11/11/18 15:19 11/11/18 16:00 - Medications Given in the ED: ED Medications Discontinued Medications Generic Name Dose Route Start Last Admin Trade Name Freq PRN Reason Stop Dose Admin Morphine Sulfate 4 mg 11/11/18 13:33 11/11/18 13:43 Morphine Injection - IVPUSH 11/11/18 13:34 4 mg ONCE ONE Administration - Consult/PCP Case discussed with consulting physician: Janae Khan (18:51pm- paged Dr. Khan) Consult Reason/Comments: 19:00pm- spoke with Dr. Khan Medical Decision Making - Medical Decision Making 11/11/18 14:16 EKG - NSR rate of 113 bpm, axis nml, intervals nml, no st elevation or depression, t waves flattened 11/11/18 14:53 Laboratory Tests 11/11/18 11/11/18 11/11/18 12:34 12:34 12:36 WBC 10.6 H Hgb 11.4 Hct 33.4 Plt Count 242 INR 1.89 H Sodium 141 Potassium 3.3 L Chloride 106 Carbon Dioxide 26 BUN 4.3 L Creatinine 1.2 Random Glucose 50 L Lactic Acid AST 111 H ALT 47 Lipase 60 L Urine Nitrite Ur Leukocyte Esterase Urine WBC (Auto) Urine RBC (Auto) Urine Bacteria (Auto) Urine HCG, Qual 11/11/18 11/11/18 12:45 13:40 WBC Hgb Hct Plt Count INR Sodium Potassium Chloride Carbon Dioxide BUN Creatinine Random Glucose Lactic Acid 2.9 H* AST ALT Lipase Urine Nitrite Positive H Ur Leukocyte Esterase 2+ H Urine WBC (Auto) 48 Urine RBC (Auto) 36.6 Urine Bacteria (Auto) 6464.4 Urine HCG, Qual Negative Evidence of UTI Slight elevation with AST Awaiting CT abd pelvis Gentle hydration Morphine for pain Given LFTs are wnl, will give Tylenol for fever 11/11/18 16:31 CT still pending because IR procedure 11/11/18 18:27 Pt still has not had her CT scan at this point 11/11/18 18:[address] Rodrigez Pt has diffuse colitis No GB pathology Diffuse fatty infiltration Will add Flagyl Call initially placed to Dr Aguirre It is actually Dr Santacruz patient Will call Dr Khan *DC/Admit/Observation/Transfer Diagnosis at time of Disposition: Biliary colic, Cholecystitis, Colitis - Discharge Dispostion Condition at time of disposition: Stable Decision to Admit order: Yes - Referrals Referrals: Manny Santacruz MD [Primary Care Provider] - - Patient Instructions - Post Discharge Activity
[2018-11-11] MEDS ORDERED: PIPERACILLIN/TAZOB 4.5 GM 4.5 GM in DEXTROSE 5%-WATER 100 ML IVPB ONE (15:53)
--- NOTE | 2018-11-11 21:31 | HP ---
Admitting History and Physical - Admission History of Present Illness: The patient is a 38 year old female, with a significant PMH of etoh abuse(prior admission for EtOH intoxication), anemia, and gastroesophageal reflux. Pt presented to the ER evaluation of abdominal pain for 3 days. Patient notes that her pain began in the right upper quadrant , and had progressively traveled diffusely throughout her abdomen, bilateral flanks, and right side of the low back. She notes the pain is constant in nature, which she rates as a 10/10 and is exacerbated with positional changes. She endorses 2 episodes of NBNB nausea and vomit, with decreased PO intake. Patient additionally notes multiple episodes of bloody, loose stool, and states she sees everything as orange. - Past Medical History Gastrointestinal: Yes: GERD Heme/Onc: Yes: Anemia Psych: Yes: Other (Etoh abuse) - Past Surgical History Past Surgical History: Yes: Appendectomy, Additional Past Surgical History: Gastric sleeve - Smoking History Smoking history: Never smoked - Alcohol/Substance Use Hx Alcohol Use: No Home Medications - Allergies Allergies/Adverse Reactions: Allergies Allergy/AdvReac Type Severity Reaction Status Date / Time No Known Allergies Allergy Verified 06/23/18 10:12 - Home Medications Home Medications: Ambulatory Orders Mv-Mn/Iron/FA/Herbal/Digestive [ One Tablet] 1 tab PO DAILY 05/25/18 Family Disease History - Family Disease History Family History: Unremarkable Review of Systems - Review of Systems Constitutional: reports: Loss of Appetite, Weakness Eyes: reports: Recent Change in Vision HENT: reports: No Symptoms Neck: reports: No Symptoms Cardiovascular: reports: No Symptoms Respiratory: reports: No Symptoms Gastrointestinal: reports: Abdominal Pain, Constipation ( +), Dysphagia Physical Examination Vital Signs: Vital Signs Temperature 98.3 F 11/11/18 19:20 Pulse Rate 111 H 11/11/18 19:20 Respiratory Rate 20 11/11/18 19:20 Blood Pressure 105/65 11/11/18 19:20 O2 Sat by Pulse Oximetry (%) 98 11/11/18 19:20 Labs: CBC, BMP 11/11/18 12:34 11/11/18 12:36 Problem List - Problems (1) Abdominal pain Assessment/Plan: ?Due to colitis vs alcoholic hepatitis IV antribxs Monitor labs Cont IVF GI/surgical consutls Code(s): R10.9 - UNSPECIFIED ABDOMINAL PAIN (2) Anemia Assessment/Plan: Due to chronic dz Follow labs Code(s): D64.9 - ANEMIA, UNSPECIFIED (3) Hyperbilirubinemia Code(s): E80.6 - OTHER DISORDERS OF BILIRUBIN METABOLISM (4) S/P gastric bypass Code(s): Z98.84 - BARIATRIC SURGERY STATUS (5) Alcoholic liver disorder Code(s): K70.9 - ALCOHOLIC LIVER DISEASE, UNSPECIFIED
[2018-11-12] MEDS ORDERED: ONDANSETRON 4 MG/2 ML VIAL IVPUSH PRN (02:26)
[2018-11-12] MEDS ORDERED: DEXTROSE 5%-0.45% SALINE 1,000 ML IV SCH (02:30)
[2018-11-12] MEDS ORDERED: morphine SULFATE 4 MG/ML VIAL ONE (03:12)
[2018-11-12] MEDS: morphine SULFATE 4 MG/ML VIAL IVPUSH PRN ×5 (03:20→22:31)
[2018-11-12 05:51] LABS: BASO % 0.2 % (0-2.0); EOS % 0.4 % (0-4.5); HEMATOCRIT 26.3 % (32.4-45.2); HEMOGLOBIN 8.8 GM/dL (10.7-15.3); LYMPH % 14.4 % (8-40); MCH 35.7 pg (25.7-33.7); MCHC 33.4 g/dl (32.0-36.0); MEAN CELL VOLUME 106.9 fl (80-96); MEAN PLT VOLUME 9.4 fl (7.5-11.1); PLATELET COUNT 173 K/MM3 (134-434); RBC 2.46 M/mm3 (3.60-5.2); RDW 15.5 % (11.6-15.6); WHITE BLOOD COUNT 8.9 K/mm3 (4.0-10.0)
[2018-11-12] MEDS ORDERED: MORPHINE SULFATE 2 MG/ML VIAL ONE (06:05)
[2018-11-12] MEDS ORDERED: morphine CARPU-JECT 2 MG/1 ML DISP.SYRIN IVPUSH ONE (06:07)
[2018-11-12 06:23] LABS: ALBUMIN 1.8 g/dl (3.4-5.0); BILIRUBIN,TOTAL 7.4 mg/dL (0.2-1); BLOOD UREA NITROGEN 4.9 mg/dL (7-18); CALCIUM 7.2 mg/dL (8.5-10.1); CREATININE 1.3 mg/dL (0.55-1.3); TOT PROT 5.3 g/dl (6.4-8.2)
[2018-11-12 06:34] LABS: POTASSIUM 2.9 mmol/L (3.5-5.1)
[2018-11-12] MEDS ORDERED: POTASSIUM CHLORIDE ORAL LIQUID 20 MEQ/15 ML PO ONE (06:36)
[2018-11-12] MEDS ORDERED: POTASSIUM CHLORIDE 20 MEQ PREMIX IVPB 100 ML IVPB ONE (06:38)
[2018-11-12] MEDS ORDERED: SODIUM CHLORIDE 0.9% 500 ML INFUS.BAG IV ONE (06:39)
[2018-11-12] MEDS ORDERED: KCL 10 MEQ IVPB 20 MEQ/200 ML INFUS.BAG IVPB ONE (06:55)
[2018-11-12] MEDS ORDERED: PIPERACILLIN/TAZOBACTAM 3.375 GM VIAL IVPB ONE ×3 (08:56→16:53)
[2018-11-12] MEDS ORDERED: DEXTROSE 5%-WATER - 50 ML IVPB ONE ×2 (08:57→16:53)
--- NOTE | 2018-11-12 09:07 | CON.GI ---
Consult Consult Specialty:: GI Referred by:: Dr Khan Reason for Consultation:: Colitis, Jaundice, elevated bili - History of Present Illness History of Present Illness: Patient is a 38 y/o female that presented with complaints of abdominal pain accompanied with nauasea/vomiting and bloody diarrhea. Patient states that on Friday she developed epigastric pain accompanied with nausea and vomiting. Later in the day she developed bloody diarrhea with night awakening and chills. Denies recent travel or antibiotic use. CT scan shows acute colitis with probable involvement of terminal ileum, small amount of RUQ mesenteric edema, small to moderate amount of lower pelvic free fluid, mild to moderate gallbladder overdistention, marked diffuse hepatic steatosis, splenomegaly. Labs in ER show elevated Bili 7.4 and Stool OB positive. - History Source History Provided By: Patient Limitations to Obtaining History: No Limitations - Past Medical History Gastrointestinal: Yes: GERD - Past Surgical History Past Surgical History: Yes: Bariatric Surgery - Alcohol/Substance Use Hx Alcohol Use: No - Smoking History Smoking history: Never smoked - Social History ADL: Independent History of Recent Travel: No Home Medications - Allergies Allergies/Adverse Reactions: Allergies Allergy/AdvReac Type Severity Reaction Status Date / Time No Known Allergies Allergy Verified 11/11/18 11:36 - Home Medications Home Medications: Ambulatory Orders NK [No Known Home Medication] 11/11/18 Family Disease History - Family Disease History Family Disease History: CA: Grandparent (both grandparents) Review of Systems - Review of Systems Constitutional: reports: Weakness Eyes: reports: No Symptoms HENT: reports: No Symptoms Neck: reports: No Symptoms Cardiovascular: reports: No Symptoms Respiratory: reports: No Symptoms Gastrointestinal: reports: Abdominal Pain, Diarrhea, Dysphagia, Nausea, Rectal Bleeding Genitourinary: reports: No Symptoms Breasts: reports: No Symptoms Reported Musculoskeletal: reports: No Symptoms Integumentary: reports: No Symptoms Neurological: reports: No Symptoms Endocrine: reports: No Symptoms Hematology/Lymphatic: reports: No Symptoms Psychiatric: reports: No Symptoms Physical Exam-GI Vital Signs: Vital Signs Temperature 98.9 F 11/12/18 06:51 Pulse Rate 95 H 11/12/18 06:51 Respiratory Rate 18 11/12/18 06:51 Blood Pressure 101/61 11/12/18 06:51 O2 Sat by Pulse Oximetry (%) 98 11/12/18 06:51 Constitutional: Yes: No Distress, Calm Eyes: Yes: Other (jaundice sclera) HENT: Yes: Atraumatic Cardiovascular: Yes: Regular Rate and Rhythm Respiratory: Yes: Regular, CTA Bilaterally Gastrointestinal Inspection: Yes: WNL. No: Ascites, Distention, Hernia, Scars, Other ...Auscultate: Yes: Normoactive Bowel Sounds. No: Hyperactive Bowel Sounds, Hypoactive Bowel Sounds, No Bowel Sounds, Other ...Palpate: Yes: Soft, Tenderness (diffuse). No: Firm/Rigid, Guarding, Hepatomegaly, Mass, Pulsatile Mass, Splenomegaly, Tenderness, Epigastium, Tenderness, Rebound, Other ...Percussion: Yes: Tympanitic. No: Dullness, Fluid Wave, Other Neurological: Yes: Alert, Oriented Psychiatric: Yes: Alert, Oriented Labs: CBC, BMP 11/12/18 05:00 11/12/18 05:00 INR, PTT INR 1.89 (0.83-1.09) H 11/11/18 12:34 Active Medications Generic Name Dose Route Start Last Admin Trade Name Freq PRN Reason Stop Dose Admin Heparin Sodium (Porcine) 5,000 unit 11/12/18 10:00 Heparin - SQ BID LISSY Dextrose/Sodium Chloride 1,000 mls @ 75 mls/hr 11/12/18 02:30 11/12/18 03:21 D5-1/2ns - IV 75 mls/hr ASDIR LISSY Administration Metronidazole 500 mg in 100 mls @ 100 mls/hr 11/12/18 10:00 Flagyl 500mg Premixed Ivpb - IVPB Q8H-IV LISSY Piperacillin Sod/Tazobactam 50 mls @ 100 mls/hr 11/12/18 10:00 Sod 3.375 gm/ Dextrose IVPB 11/12/18 18:29 Q8H-IV LISSY Protocol Piperacillin Sod/Tazobactam 50 mls @ 100 mls/hr 11/13/18 02:00 Sod 3.375 gm/ Dextrose IVPB Q8H-IV LISSY Protocol Morphine Sulfate 4 mg 11/12/18 02:25 11/12/18 03:20 Morphine Sulfate IVPUSH 4 mg Q6H PRN Administration PAIN LEVEL 6-10 Ondansetron HCl 4 mg 11/12/18 02:26 Zofran Injection IVPUSH Q6H PRN NAUSEA AND/OR VOMITING Imaging - Results Cat Scan: Report Reviewed Ultrasound: Report Reviewed Problem List - Problems (1) Biliary colic Code(s): K80.50 - CALCULUS OF BILE DUCT W/O CHOLANGITIS OR CHOLECYST W/O OBST (2) Cholecystitis Code(s): K81.9 - CHOLECYSTITIS, UNSPECIFIED (3) Colitis Code(s): K52.9 - NONINFECTIVE GASTROENTERITIS AND COLITIS, UNSPECIFIED
[2018-11-12] MEDS ORDERED: PIPERACILLIN/TAZOB 3.375 GM 3.375 GM in DEXTROSE 5%-WATER - 50 ML IVPB SCH (10:00)
[2018-11-12] MEDS ORDERED: HEPARIN NA (PORCINE) 5,000 UNITS/ML 1ML VIAL SQ SCH (10:00)
[2018-11-12 11:29] VITALS: BMI 28.4
--- NOTE | 2018-11-12 12:50 | CON.ID ---
Consult Consult Specialty:: infectious diseases Referred by:: Reason for Consultation:: bloody dirrhoea,uti,abd pain,colitis - History of Present Illness Chief Complaint: abd pain History of Present Illness: 38yo F with h/o morbid obesity s/p lap gastric bypass 2012 ; GERD, endoscopic dilations for stricture after bypass; h/o heavy alcohol use and pancreatitis in past, currently drinks "on weekend," last on Friday, s/p and tubal ligation in Jun 2018; h/o appendectomy, tonsillectomy, also previous c/s; admitted to medicine through ER last night with diffuse abdominal pain beginning over , associated with bloody diarrhea that started Friday ( menses started on Friday after that), nausea and vomiting that occurs intermittently, , Diarrheal blood was bright red with wiping. Now is dark red, but still having bloody diarrhea in hospital. Fecal occult blood was positive in ER. She was noted to be jaundiced with abdominal pain and tenderness. patient currently feels veryweak also on work up patient was found to ahve uti and colitis on the ct scan - History Source History Provided By: Patient Limitations to Obtaining History: No Limitations - Past Medical History Gastrointestinal: Yes: GERD ...LMP: 11/08/18 ...: No - Past Surgical History Past Surgical History: Yes: Bariatric Surgery - Alcohol/Substance Use Hx Alcohol Use: No - Smoking History Smoking history: Never smoked Have you smoked in the past 12 months: No - Social History ADL: Independent History of Recent Travel: No Home Medications - Allergies Allergies/Adverse Reactions: Allergies Allergy/AdvReac Type Severity Reaction Status Date / Time No Known Allergies Allergy Verified 06/23/18 10:12 - Home Medications Home Medications: Ambulatory Orders Mv-Mn/Iron/FA/Herbal/Digestive [ One Tablet] 1 tab PO DAILY 05/25/18 Family Disease History - Family Disease History Family Disease History: CA: Grandparent (both grandparents) Review of Systems - Review of Systems Constitutional: reports: Weakness Eyes: reports: No Symptoms HENT: reports: No Symptoms Neck: reports: No Symptoms Cardiovascular: reports: No Symptoms Respiratory: reports: SOB, SOB on Exertion Gastrointestinal: reports: Abdominal Pain, Nausea, Rectal Bleeding Genitourinary: reports: Dysuria Musculoskeletal: reports: No Symptoms Integumentary: reports: No Symptoms Neurological: reports: No Symptoms Endocrine: reports: No Symptoms Hematology/Lymphatic: reports: No Symptoms Psychiatric: reports: No Symptoms Physical Exam Vital Signs: Vital Signs Temperature 98.9 F 11/12/18 06:51 Pulse Rate 95 H 11/12/18 06:51 Respiratory Rate 18 11/12/18 06:51 Blood Pressure 101/61 11/12/18 06:51 O2 Sat by Pulse Oximetry (%) 98 11/12/18 06:51 Constitutional: Yes: Well Nourished, Mild Distress Eyes: Yes: Conjunctiva Clear HENT: Yes: Atraumatic, Normocephalic Neck: Yes: Supple, Trachea Midline Cardiovascular: Yes: Regular Rate and Rhythm Respiratory: Yes: Regular, CTA Bilaterally Gastrointestinal: Yes: Normal Bowel Sounds, Soft, Tenderness ...Rectal Exam: Yes: Guaiac Positive Renal/: No: CVA Tenderness - Left, CVA Tenderness - Right Musculoskeletal: Yes: WNL Extremities: Yes: WNL Neurological: Yes: Alert, Oriented Psychiatric: Yes: Alert, Oriented Labs: CBC, BMP 11/12/18 05:00 11/12/18 05:00 Imaging - Results Chest X-ray: Report Reviewed, Image Reviewed Cat Scan: Report Reviewed, Image Reviewed Assessment/Plan Problem List - Problems (1) Generalized abdominal pain Code(s): R10.84 - GENERALIZED ABDOMINAL PAIN (2) Rectal bleeding Code(s): K62.5 - HEMORRHAGE OF ANUS AND RECTUM (3) Colitis Code(s): K52.9 - NONINFECTIVE GASTROENTERITIS AND COLITIS, UNSPECIFIED (4) Bloody diarrhea Code(s): R19.7 - DIARRHEA, UNSPECIFIED (5) Hyperbilirubinemia Code(s): E80.6 - OTHER DISORDERS OF BILIRUBIN METABOLISM (6) Alcoholic liver disorder Code(s): K70.9 - ALCOHOLIC LIVER DISEASE, UNSPECIFIED (7) Microcytic hypochromic anemia Code(s): D50.9 - IRON DEFICIENCY ANEMIA, UNSPECIFIED (8) S/P gastric bypass Code(s): Z98.84 - BARIATRIC SURGERY STATUS patients colitis is quite disffuse r/o infectious vs ischemic also uti patients bilirubin high,cause lfts not bad though plan will start on abx hydration surgery gi monitor for blled follow labs
[2018-11-12] MEDS: D5-1/2NS+20 MEQ KCL - 20 MEQ/1,000 ML INFUS.BAG IV SCH ×2 (16:58→22:29)
--- NOTE | 2018-11-12 17:05 | PN ---
Progress Note (short form) - Note Progress Note: patient seen this afternoon, still with abdominal pain despite morphine abd: diffuse tenderness, no masses, no rebound A> abdominal pain r/o acute cholecystitis Alcohol liver disease-- elevated T. bili, normal CBD R> continue antibiotics await surgical consultation Problem List - Problems (1) Biliary colic Code(s): K80.50 - CALCULUS OF BILE DUCT W/O CHOLANGITIS OR CHOLECYST W/O OBST (2) Cholecystitis Code(s): K81.9 - CHOLECYSTITIS, UNSPECIFIED (3) Colitis Code(s): K52.9 - NONINFECTIVE GASTROENTERITIS AND COLITIS, UNSPECIFIED
--- NOTE | 2018-11-12 17:31 | CONSULT ---
Consult Consult Specialty:: General Surgery Referred by:: Trent Khan Reason for Consultation:: colitis, jaundice, abd pain, bloody diarrhea - History of Present Illness Chief Complaint: abdominal pain, bloody diarrhea, N/V, "seeing orange," yellow eyes/skin History of Present Illness: 38yo F with h/o morbid obesity s/p lap gastric bypass 2012 (Dr. Liu, [facility] per old [facility] records), lost 213 lbs; GERD, endoscopic dilations for stricture after bypass; h/o heavy alcohol use and pancreatitis in past, currently drinks "on weekends," last on Friday, vodka; s/p and tubal ligation in Jun 2018; h/o appendectomy, tonsillectomy, also previous c/s; admitted to medicine through ER last night with diffuse abdominal pain beginning over , associated with bloody diarrhea that started Friday ( menses started on Friday after that), nausea and vomiting that occurs intermittently, yellow color to her eyes and skin for about the last week, some dizziness/weakness in the last few days, and an episode few days ago of visual loss lasting about 5 minutes during which she could see only "small balls moving around"/floaters, and since then has been seeing the color orange when she looks at anything. She also notes intermittent headaches (does not treat), chest pain (comes and goes on its own), SOB (feeling like she can't catch her breath or breathe deeply), on ROS. Diarrheal blood was bright red with wiping. Now is dark red, but still having bloody diarrhea in hospital. Fecal occult blood was positive in ER. She was noted to be jaundiced with abdominal pain and tenderness. In the ER, labs were significant for wbc 10.6, bili 9.5 with mildly elevated AST and alk phos, BUN/Cr 4.3/1.2, K 3.3, Hb 11, + UA, INR 1.89, lactate 2.9. US showed no gallstones or ductal dilation. CT showed pancolitis, including terminal ileum, less prominent after splenic flexure but including descending and sigmoid with thickened bowel garcia and some mesenteric edema without obstruction or diverticulitis. Chest CTA showed no PE and mild atelectasis. GI and Surgery were asked to assess. She is seen and examined in bed. She c/o pain, and that the medicine is not lasting well. AM labs showed lactate to 3.2, BUN/Cr up slightly, Hb down to 8.8 , wbc down to normal, bili down to 7.4, and urine culture is growing GN organism. She has had fluids and Zosyn/Flagyl. She is NPO. She reports having been at [facility] for 4 days in August or September, during which she had upper endoscopy, but has never had a colonoscopy. She avoids NSAIDs because of the gastric bypass. She indicates that her menses are not particularly heavy, and she currently has her period. - History Source History Provided By: Patient, Medical Record Limitations to Obtaining History: No Limitations - Past Medical History Gastrointestinal: Yes: GERD, Other (h/o morbid obesity - lost 213 lbs after lap gastric bypass 2012) ...LMP: 11/08/18 (started Friday) ...: No ...: 8 ...Para: 9 Heme/Onc: Yes: Anemia Psych: Yes: Other (heavy weekend EtOH drinker) - Past Surgical History Past Surgical History: Yes: Appendectomy, Bariatric Surgery (laparoscopic gastric bypass [facility] 02/28), (x2, last 07/07), Tonsillectomy, Tubal Ligation (done with last 07/07), Upper Endoscopy (last couple months ago at [facility] as inpatient, has had dilations). No: Colonoscopy - Alcohol/Substance Use Hx Alcohol Use: Yes (drinks on weekends, last on Sat - shared 2 lg bottles vodka with 4 others) History of Substance Use: reports: None - Smoking History Smoking history: Former smoker Have you smoked in the past 12 months: No If you are a former smoker, when did you quit?: none in about a year, was a social smoker only - Social History ADL: Independent History of Recent Travel: No Home Medications - Allergies Allergies/Adverse Reactions: Allergies Allergy/AdvReac Type Severity Reaction Status Date / Time No Known Allergies Allergy Verified 06/23/18 10:12 - Home Medications Home Medications: Ambulatory Orders Mv-Mn/Iron/FA/Herbal/Digestive [ One Tablet] 1 tab PO DAILY 05/25/18 Home Medications (free text): pt avoids NSAIDs because of gastric bypass Family Disease History - Family Disease History Family Disease History: Diabetes: Father (HTN, prostate CA dx 6m ago, he is 61) , Mother (HTN, HLD), CA: Grandparent (both grandparents), Other: Father, Mother Other Family History: mother's side with breast and colon CA; father's side with lupus Review of Systems - Review of Systems Constitutional: reports: Chills, Weakness. denies: Fever Eyes: reports: Floaters, Recent Change in Vision, Other (few days ago - had episode when everything "went black" though eyes were open, for ~5 minutes, except "little balls moving around," and since then she has been seeing orange when looking at things) HENT: denies: Difficult Swallowing, Throat Pain Neck: denies: Swollen Glands, Tenderness Cardiovascular: reports: Chest Pain. denies: Palpitations Respiratory: reports: SOB. denies: Cough Gastrointestinal: reports: Abdominal Pain (with hpi), Diarrhea (bloody since Friday), Nausea, Rectal Bleeding, Vomiting. denies: Constipation, Vomiting Blood Genitourinary: denies: Burning, Dysuria Musculoskeletal: denies: Back Pain, Joint Pain Integumentary: reports: Change in Color (yellow to eyes and skin for about a week). denies: Rash Neurological: reports: Dizziness (last few days), Headache Psychiatric: denies: Anxiety, Depression Physical Exam Vital Signs: Vital Signs Temperature 97.5 F L 11/12/18 13:21 Pulse Rate 93 H 11/12/18 13:21 Respiratory Rate 20 11/12/18 13:21 Blood Pressure 121/60 11/12/18 13:21 O2 Sat by Pulse Oximetry (%) 98 11/12/18 06:51 Constitutional: Yes: Well Nourished, Calm, Mild Distress (in pain) Eyes: Yes: EOM Intact, Sclera Icterus HENT: Yes: Atraumatic, Normocephalic Neck: Yes: Supple, Trachea Midline Cardiovascular: Yes: Tachycardia. No: Pulse Irregular Respiratory: Yes: Regular, CTA Bilaterally, Other (cannot take very deep breath ?secondary to pain, feels like she can't catch her breath well). No: On Nasal O2 Gastrointestinal: Yes: Normal Bowel Sounds, Soft, Tenderness (diffuse), Tenderness, Epigastrium, Other (well-healed Pfannenstiel, short RLQ, and laparoscopic scars). No: Distention, Tenderness, Rebound ...Rectal Exam: Yes: Deferred Renal/: Yes: CVA Tenderness - Left, CVA Tenderness - Right (right more than left), Menses Present (per pt - not excessively heavy per pt) Musculoskeletal: No: Joint Stiffness, Joint Swelling Extremities: No: Cool, Cyanosis Edema: No Peripheral Pulses WNL: Yes Integumentary: Yes: Jaundice (mild - more visible in sclera, subtle in skin), Tattoos, Other (some redness to cheeks/face). No: Rash Neurological: Yes: Alert, Oriented Psychiatric: Yes: Alert, Oriented Labs: CBC, BMP 11/12/18 05:00 11/12/18 05:00 CMP Sodium 140 mmol/L (136-145) 11/12/18 05:00 Potassium 2.9 mmol/L (3.5-5.1) L* 11/12/18 05:00 Chloride 106 mmol/L (98-107) 11/12/18 05:00 Carbon Dioxide 26 mmol/L (21-32) 11/12/18 05:00 Anion Gap 8 MMOL/L (8-16) 11/12/18 05:00 BUN 4.9 mg/dL (7-18) L 11/12/18 05:00 Creatinine 1.3 mg/dL (0.55-1.3) 11/12/18 05:00 Est GFR (CKD-EPI)AfAm 59.85 11/12/18 05:00 Est GFR (CKD-EPI)NonAf 51.64 11/12/18 05:00 Random Glucose 110 mg/dL (74-106) H 11/12/18 05:00 Lactic Acid 3.2 mmol/L (0.4-2.0) H* 11/12/18 06:00 Calcium 7.2 mg/dL (8.5-10.1) L 11/12/18 05:00 Total Bilirubin 7.4 mg/dL (0.2-1) H D 11/12/18 05:00 AST 87 U/L (15-37) H 11/12/18 05:00 ALT 37 U/L (13-61) 11/12/18 05:00 Alkaline Phosphatase 114 U/L (45-117) 11/12/18 05:00 Total Protein 5.3 g/dl (6.4-8.2) L 11/12/18 05:00 Albumin 1.8 g/dl (3.4-5.0) L 11/12/18 05:00 Lipase 60 U/L (73-393) L 11/11/18 12:36 INR, PTT INR 1.89 (0.83-1.09) H 11/11/18 12:34 Urine Test Results Urine Color Dk yellow 11/11/18 12:45 Urine Appearance Cloudy 11/11/18 12:45 Urine pH 5.5 (5.0-8.0) 11/11/18 12:45 Ur Specific [place] 1.019 (1.010-1.035) 11/11/18 12:45 Urine Protein 1+ (NEGATIVE) H 11/11/18 12:45 Urine Glucose (UA) Negative (NEGATIVE) 11/11/18 12:45 Urine Ketones Trace (NEGATIVE) H 11/11/18 12:45 Urine Blood 3+ (NEGATIVE) H 11/11/18 12:45 Urine Nitrite Positive (NEGATIVE) H 11/11/18 12:45 Urine Bilirubin 3+ (NEGATIVE) H 11/11/18 12:45 Ur Leukocyte Esterase 2+ (NEGATIVE) H 11/11/18 12:45 Microbiology 11/11/18 12:45 Urine Culture - Preliminary Urine - Urine Clean Catch Non Lactose Fermenting Gnb bili down from 9.5 in ER, alk phos was 152 BUN/Cr was 4.3/1.2 - up a little H/H dropped from wbc was 10.6 K down from 3.3 INR was normal in Jun 2018 Imaging - Results Cat Scan: Report Reviewed (chest CTA also done - no PE, some basal discoid atelectasis), Image Reviewed (images reviewed - enlarged liver and spleen, gallbladder without stones, wall thickening throughout colon, more prominent from TI to splenic flexure, s/p gastric bypass, no free air, no obstruction) Ultrasound: Report Reviewed (no gallstones, cbd 0.51 cm, mildly distended gallbladder with mild wall thickening, no pericholecystic fluid) Problem List - Problems (1) Generalized abdominal pain Code(s): R10.84 - GENERALIZED ABDOMINAL PAIN (2) Rectal bleeding Code(s): K62.5 - HEMORRHAGE OF ANUS AND RECTUM (3) Colitis Code(s): K52.9 - NONINFECTIVE GASTROENTERITIS AND COLITIS, UNSPECIFIED (4) Bloody diarrhea Code(s): R19.7 - DIARRHEA, UNSPECIFIED (5) Hyperbilirubinemia Code(s): E80.6 - OTHER DISORDERS OF BILIRUBIN METABOLISM (6) Alcoholic liver disorder Code(s): K70.9 - ALCOHOLIC LIVER DISEASE, UNSPECIFIED (7) Microcytic hypochromic anemia Code(s): D50.9 - IRON DEFICIENCY ANEMIA, UNSPECIFIED (8) S/P gastric bypass Code(s): Z98.84 - BARIATRIC SURGERY STATUS Assessment/Plan admitted to medicine NPO/IVF increase IV hydration - will give bolus now and add K+ to fluids trend labs - add hep panel, [facility], FOB was positive will order MRCP with contrast - need to r/o occult malignancy given high bilirubin and anemia alcohol likely contributing to liver abnormalities, but unclear how it would be related to colitis and bloody diarrhea also, anemia changed from microcytic to macrocytic INR elevated ?ischemic colitis related to dehydration? pancolitis from IBD? infectious? appreciate GI input - will need colonoscopy at some point recommend obtaining records from [facility] inpatient stay few months ago and upper endoscopy done then s/p gastric bypass at [facility] 2013 significant weight loss h/o endoscopic dilations no gallstones - not cholecystitis or choledocholithiasis pt does have h/o pancreatitis in past - could have distal cbd stricture/ sclerosis? will f/u MRI imaging pain control prn - increase frequency of meds repeat labs tonight and in am also with UTI, f/u culture antibiotics per ID discussed with Dr. Khan no acute general surgical issues at this time will follow up with you
[2018-11-12] MEDS ORDERED: LACTATED RINGERS SOLUTION 1000 ML INFUS.BAG IV ONE (17:55)
[2018-11-12] MEDS ORDERED: LACTATED RINGERS SOLUTION 1,000 ML IV ONE (18:00)
[2018-11-12] MEDS: PIPERACILLIN/TAZOB 3.375 GM 3.375 GM in DEXTROSE 5%-WATER - 50 ML IVPB SCH (18:09)
[2018-11-12 20:20] LABS: ALBUMIN 1.8 g/dl (3.4-5.0); BILIRUBIN,TOTAL 6.8 mg/dL (0.2-1); BLOOD UREA NITROGEN 4.4 mg/dL (7-18); CALCIUM 7.3 mg/dL (8.5-10.1); POTASSIUM 3.1 mmol/L (3.5-5.1); TOT PROT 5.2 g/dl (6.4-8.2)
[2018-11-12] MEDS: HEPARIN NA (PORCINE) 5,000 UNITS/ML 1ML VIAL SQ SCH (21:53)
--- NOTE | 2018-11-12 22:33 | PN ---
Progress Note, Physician History of Present Illness: Pt still having bloody diarrhea - Current Medication List Current Medications: Active Medications Heparin Sodium (Porcine) (Heparin -) 5,000 unit SQ TID LISSY Last Admin: 11/12/18 21:53 Dose: Not Given Metronidazole (Flagyl 500mg Premixed Ivpb -) 500 mg in 100 mls @ 100 mls/hr IVPB Q8H-IV LISSY Last Admin: 11/12/18 16:59 Dose: 100 mls/hr Piperacillin Sod/Tazobactam (Sod 3.375 gm/ Dextrose) 50 mls @ 100 mls/hr IVPB Q8H-IV LISSY; Protocol Last Admin: 11/12/18 18:09 Dose: 100 mls/hr Potassium Chloride/Dextrose/Sod Cl (D5-1/2ns+20 Meq Kcl -) 20 meq in 1,000 mls @ 100 mls/hr IV ASDIR LISSY Last Admin: 11/12/18 16:58 Dose: 100 mls/hr Morphine Sulfate (Morphine Sulfate) 4 mg IVPUSH Q4H PRN PRN Reason: PAIN LEVEL 6-10 Last Admin: 11/12/18 18:32 Dose: 4 mg Ondansetron HCl (Zofran Injection) 4 mg IVPUSH Q6H PRN PRN Reason: NAUSEA AND/OR VOMITING - Objective Vital Signs: Vital Signs Temperature 98.2 F 11/12/18 18:56 Pulse Rate 95 H 11/12/18 18:56 Respiratory Rate 20 11/12/18 18:56 Blood Pressure 98/60 11/12/18 18:56 O2 Sat by Pulse Oximetry (%) 98 11/12/18 06:51 Eyes: Yes: Sclera Icterus Neck: Yes: WNL, Supple Cardiovascular: Yes: WNL, Regular Rate and Rhythm Respiratory: Yes: WNL, Regular, CTA Bilaterally, Other Gastrointestinal: Yes: Normal Bowel Sounds, Other (Generalized tenderness (-) guarding/rebound) Labs: CBC, BMP 11/12/18 05:00 11/12/18 19:40 INR, PTT INR 1.89 (0.83-1.09) H 11/11/18 12:34 Problem List - Problems (1) Abdominal pain Assessment/Plan: ?Due to colitis vs hepatitis Cont IV antribxs GI/Surgery consults noted Bili is slightly decreasing Cont IVF Replace K+ and monitor NPO Code(s): R10.9 - UNSPECIFIED ABDOMINAL PAIN (2) Colitis Assessment/Plan: Cont IV antibxs Check stool studies Code(s): K52.9 - NONINFECTIVE GASTROENTERITIS AND COLITIS, UNSPECIFIED (3) Hyperbilirubinemia Code(s): E80.6 - OTHER DISORDERS OF BILIRUBIN METABOLISM (4) S/P gastric bypass Code(s): Z98.84 - BARIATRIC SURGERY STATUS (5) Anemia Assessment/Plan: ?Dilutional Monitor H/H Code(s): D64.9 - ANEMIA, UNSPECIFIED
[2018-11-12] MEDS: KCL 10 MEQ IVPB 10 MEQ/100 ML INFUS.BAG IVPB SCH (23:54)
[2018-11-13] MEDS ORDERED: PIPERACILLIN/TAZOBACTAM 3.375 GM VIAL IVPB ONE ×3 (01:11→17:02)
[2018-11-13] MEDS ORDERED: DEXTROSE 5%-WATER - 50 ML IVPB ONE ×3 (01:11→17:03)
[2018-11-13] MEDS: KCL 10 MEQ IVPB 10 MEQ/100 ML INFUS.BAG IVPB SCH ×4 (01:28→20:32)
[2018-11-13] MEDS ORDERED: PIPERACILLIN/TAZOB 3.375 GM 3.375 GM in DEXTROSE 5%-WATER - 50 ML IVPB SCH (02:00)
[2018-11-13] MEDS: morphine SULFATE 4 MG/ML VIAL IVPUSH PRN ×8 (02:27→23:55)
[2018-11-13] MEDS: PIPERACILLIN/TAZOB 3.375 GM 3.375 GM in DEXTROSE 5%-WATER - 50 ML IVPB SCH ×3 (02:28→17:14)
[2018-11-13] MEDS: HEPARIN NA (PORCINE) 5,000 UNITS/ML 1ML VIAL SQ SCH ×3 (05:27→22:13)
--- NOTE | 2018-11-13 07:29 | PN ---
Progress Note, Physician History of Present Illness: GI FOLLOW UP NOTE Patient examined and case discussed with Dr Sosa Patient continue to complain of diffuse abdominal pain. States having 3 episodes of bloody diarrhea and rectal bleeding yesterday. MRCP done and official results pending. AM labs pending including tumor markers and hepatitis panel. - Current Medication List Current Medications: Active Medications Heparin Sodium (Porcine) (Heparin -) 5,000 unit SQ TID LISSY Last Admin: 11/13/18 05:27 Dose: Not Given Metronidazole (Flagyl 500mg Premixed Ivpb -) 500 mg in 100 mls @ 100 mls/hr IVPB Q8H-IV LISSY Last Admin: 11/13/18 02:55 Dose: 100 mls/hr Piperacillin Sod/Tazobactam (Sod 3.375 gm/ Dextrose) 50 mls @ 100 mls/hr IVPB Q8H-IV LISSY; Protocol Last Admin: 11/13/18 02:28 Dose: 100 mls/hr Potassium Chloride/Dextrose/Sod Cl (D5-1/2ns+20 Meq Kcl -) 20 meq in 1,000 mls @ 100 mls/hr IV ASDIR LISSY Last Admin: 11/12/18 22:29 Dose: 100 mls/hr Morphine Sulfate (Morphine Sulfate) 4 mg IVPUSH Q4H PRN PRN Reason: PAIN LEVEL 6-10 Last Admin: 11/13/18 06:07 Dose: 4 mg Ondansetron HCl (Zofran Injection) 4 mg IVPUSH Q6H PRN PRN Reason: NAUSEA AND/OR VOMITING - Objective Vital Signs: Vital Signs Temperature 98.2 F 11/13/18 05:02 Pulse Rate 92 H 11/13/18 05:02 Respiratory Rate 20 11/13/18 05:02 Blood Pressure 109/69 11/13/18 05:02 O2 Sat by Pulse Oximetry (%) 99 11/12/18 21:00 Constitutional: Yes: No Distress, Anxious Eyes: Yes: Conjunctiva Clear HENT: Yes: Atraumatic Cardiovascular: Yes: Regular Rate and Rhythm Respiratory: Yes: Regular, CTA Bilaterally Gastrointestinal: Yes: Normal Bowel Sounds, Soft, Tenderness (diffuse) Neurological: Yes: Alert, Oriented Psychiatric: Yes: Alert, Oriented Labs: CBC, BMP 11/12/18 05:00 11/12/18 19:40 INR, PTT INR 1.89 (0.83-1.09) H 11/11/18 12:34 Microbiology 11/11/18 12:45 Urine - Urine Clean Catch Urine Culture - Preliminary Non Lactose Fermenting Gnb Problem List - Problems (1) Abdominal pain Assessment/Plan: -NPO -IV hydration -Zosyn and Flagyl -MRCP results pending -Surgical recommendations appreciated -tumor markers and Hepatitis panel pending Code(s): R10.9 - UNSPECIFIED ABDOMINAL PAIN (2) Anemia Assessment/Plan: -monitor Hg daily -yesterday Hg 8.8 -transfuse for Hg <8.0 -Stool OB positive Code(s): D64.9 - ANEMIA, UNSPECIFIED (3) Bloody diarrhea Assessment/Plan: -Stool OB positive -monitor Hg daily -transfuse for Hg <8.0 Code(s): R19.7 - DIARRHEA, UNSPECIFIED (4) Hyperbilirubinemia Assessment/Plan: -Bili 6.8 -pending Hepatitis panel Code(s): E80.6 - OTHER DISORDERS OF BILIRUBIN METABOLISM
[2018-11-13 07:58] LABS: BASO % 0.8 % (0-2.0); EOS % 0.6 % (0-4.5); HEMATOCRIT 24.2 % (32.4-45.2); LYMPH % 14.6 % (8-40); MCH 35.3 pg (25.7-33.7); MCHC 33.1 g/dl (32.0-36.0); MEAN CELL VOLUME 106.5 fl (80-96); MEAN PLT VOLUME 9.3 fl (7.5-11.1); MONO % 7.7 % (3.8-10.2); NEUT % 76.3 % (42.8-82.8); RBC 2.27 M/mm3 (3.60-5.2); RDW 15.1 % (11.6-15.6); WHITE BLOOD COUNT 6.4 K/mm3 (4.0-10.0)
[2018-11-13 08:17] LABS: INR 2.19 (0.83-1.09)
[2018-11-13 08:20] LABS: ACTIVATED PTT 46.6 SECONDS (25.2-36.5)
[2018-11-13 08:25] LABS: PLATELET COUNT 148 K/MM3 (134-434)
[2018-11-13 08:33] LABS: ALBUMIN 1.7 g/dl (3.4-5.0); BILIRUBIN,DIRECT 5.1 mg/dL (0.0-0.2); BILIRUBIN,TOTAL 6.7 mg/dL (0.2-1); BLOOD UREA NITROGEN 3.7 mg/dL (7-18); CALCIUM 7.2 mg/dL (8.5-10.1); CREATININE 0.8 mg/dL (0.55-1.3); POTASSIUM 3.4 mmol/L (3.5-5.1)
--- NOTE | 2018-11-13 08:33 | PN ---
Progress Note, Physician History of Present Illness: starting to feel hungry still c/o of abd pain bili on repeat had slightly decreased patient got mrcp done - Current Medication List Current Medications: Active Medications Heparin Sodium (Porcine) (Heparin -) 5,000 unit SQ TID LISSY Last Admin: 11/13/18 05:27 Dose: Not Given Metronidazole (Flagyl 500mg Premixed Ivpb -) 500 mg in 100 mls @ 100 mls/hr IVPB Q8H-IV LISSY Last Admin: 11/13/18 02:55 Dose: 100 mls/hr Piperacillin Sod/Tazobactam (Sod 3.375 gm/ Dextrose) 50 mls @ 100 mls/hr IVPB Q8H-IV LISSY; Protocol Last Admin: 11/13/18 02:28 Dose: 100 mls/hr Potassium Chloride/Dextrose/Sod Cl (D5-1/2ns+20 Meq Kcl -) 20 meq in 1,000 mls @ 100 mls/hr IV ASDIR LISSY Last Admin: 11/12/18 22:29 Dose: 100 mls/hr Morphine Sulfate (Morphine Sulfate) 4 mg IVPUSH Q4H PRN PRN Reason: PAIN LEVEL 6-10 Last Admin: 11/13/18 06:07 Dose: 4 mg Ondansetron HCl (Zofran Injection) 4 mg IVPUSH Q6H PRN PRN Reason: NAUSEA AND/OR VOMITING - Objective Vital Signs: Vital Signs Temperature 98.2 F 11/13/18 05:02 Pulse Rate 92 H 11/13/18 05:02 Respiratory Rate 20 11/13/18 05:02 Blood Pressure 109/69 11/13/18 05:02 O2 Sat by Pulse Oximetry (%) 99 11/12/18 21:00 Constitutional: Yes: Calm, Mild Distress Cardiovascular: Yes: Regular Rate and Rhythm Respiratory: Yes: Regular, CTA Bilaterally Gastrointestinal: Yes: Normal Bowel Sounds, Soft Musculoskeletal: Yes: WNL Extremities: Yes: WNL Neurological: Yes: Alert, Oriented Psychiatric: Yes: Alert, Oriented Labs: CBC, BMP 11/13/18 06:20 INR, PTT INR 2.19 (0.83-1.09) H 11/13/18 06:20 Assessment/Plan Problem List - Problems (1) Generalized abdominal pain Code(s): R10.84 - GENERALIZED ABDOMINAL PAIN (2) Rectal bleeding Code(s): K62.5 - HEMORRHAGE OF ANUS AND RECTUM (3) Colitis Code(s): K52.9 - NONINFECTIVE GASTROENTERITIS AND COLITIS, UNSPECIFIED (4) Bloody diarrhea Code(s): R19.7 - DIARRHEA, UNSPECIFIED (5) Hyperbilirubinemia Code(s): E80.6 - OTHER DISORDERS OF BILIRUBIN METABOLISM (6) Alcoholic liver disorder Code(s): K70.9 - ALCOHOLIC LIVER DISEASE, UNSPECIFIED (7) Microcytic hypochromic anemia Code(s): D50.9 - IRON DEFICIENCY ANEMIA, UNSPECIFIED (8) S/P gastric bypass Code(s): Z98.84 - BARIATRIC SURGERY STATUS patients colitis is quite disffuse r/o infectious vs ischemic also uti patients bilirubin high,cause lfts not bad though plan continue abx await todays labs hydration rest as per the team await for mrcp results await for identification of the bacteria
--- NOTE | 2018-11-13 16:47 | PN.GI ---
GI Progress Note Subjective: still with moderate to severe abdominal pain, MRI--normal CBD, d/w with Dr Brian no evidence acute cholecystitis s/p gastric bypass lost 213 lbs, WBC 5000, - Objective Vital Signs: Vital Signs Temperature 98.1 F 11/13/18 13:30 Pulse Rate 96 H 11/13/18 13:30 Respiratory Rate 18 11/13/18 13:30 Blood Pressure 123/88 11/13/18 13:30 O2 Sat by Pulse Oximetry (%) 99 11/13/18 09:00 Constitutional: Well Nourished Eyes: Yes: Conjunctiva Clear HENT: Yes: Atraumatic, Tonsillar Exudate Cardiovascular: Yes: Regular Rate and Rhythm Respiratory: Yes: CTA Bilaterally ...Palpate: Yes: Soft, Tenderness (--diffuse). No: Firm/Rigid, Guarding, Hepatomegaly, Mass, Pulsatile Mass, Splenomegaly Labs: CBC, BMP 11/13/18 06:20 11/13/18 06:20 INR, PTT INR 2.19 (0.83-1.09) H 11/13/18 06:20 Problem List - Problems (1) Colitis Assessment/Plan: Abdominal pain is persistent doubt if this all from acute colitis,possibly patient has underlying mesenteric ischemia, marginal ulcer R> Pantoprazole 40mg bid IV hydration continue antibiotics surgical follow -up Code(s): K52.9 - NONINFECTIVE GASTROENTERITIS AND COLITIS, UNSPECIFIED
--- NOTE | 2018-11-13 16:48 | PN ---
Progress Note, Physician History of Present Illness: Patient with pancolitis, possibly low-flow state vs infectious or IBD? Also with hyperbilirubinemia, likely secondary to alcoholic liver disease. MRCP done - hepatomegaly and splenomegaly with probably splenorenal shunting LUQ and possible early portal hypertension. No gallstones, no ductal dilation or stones. Pancreas unremarkable with no ductal dilation. She is NPO on fluids with Zosyn/Flagyl for the colitis. She is seen and examined in bed, with Dr. Sosa also present. She reports pain is better enough with morphine to be able to move and get up, but not really better overall - pain is about the same. Still having bloody diarrhea. INR is higher today, PTT also elevated. Bili coming down, mostly direct; BUN/Cr down also. WBC normal. No fevers. Lactate 1.7 last night. - Current Medication List Current Medications: Active Medications Heparin Sodium (Porcine) (Heparin -) 5,000 unit SQ TID LISSY Last Admin: 11/13/18 13:38 Dose: 5,000 unit Metronidazole (Flagyl 500mg Premixed Ivpb -) 500 mg in 100 mls @ 100 mls/hr IVPB Q8H-IV LISSY Last Admin: 11/13/18 09:57 Dose: 100 mls/hr Piperacillin Sod/Tazobactam (Sod 3.375 gm/ Dextrose) 50 mls @ 100 mls/hr IVPB Q8H-IV LISSY; Protocol Last Admin: 11/13/18 09:58 Dose: 100 mls/hr Potassium Chloride/Dextrose/Sod Cl (D5-1/2ns+20 Meq Kcl -) 20 meq in 1,000 mls @ 100 mls/hr IV ASDIR LSISY Last Admin: 11/12/18 22:29 Dose: 100 mls/hr Morphine Sulfate (Morphine Sulfate) 4 mg IVPUSH Q3H PRN PRN Reason: PAIN LEVEL 6-10 Ondansetron HCl (Zofran Injection) 4 mg IVPUSH Q6H PRN PRN Reason: NAUSEA AND/OR VOMITING - Objective Vital Signs: Vital Signs Temperature 98.1 F 11/13/18 13:30 Pulse Rate 96 H 11/13/18 13:30 Respiratory Rate 18 11/13/18 13:30 Blood Pressure 123/88 11/13/18 13:30 O2 Sat by Pulse Oximetry (%) 99 11/13/18 09:00 Constitutional: Yes: Well Nourished, No Distress, Calm Eyes: Yes: EOM Intact, Sclera Icterus HENT: Yes: Atraumatic, Normocephalic Gastrointestinal: Yes: Soft, Hypoactive Bowel Sounds, Tenderness (diffusely, little less at umbilicus, no rebound), Tenderness, Epigastrium. No: Distention Genitourinary: Yes: Menses Present Musculoskeletal: Yes: Back Pain Extremities: No: Cool, Cyanosis Integumentary: Yes: Jaundice (improving), Tattoos. No: Rash Neurological: Yes: Alert, Oriented Labs: CBC, BMP 11/13/18 06:20 11/13/18 06:20 INR, PTT INR 2.19 (0.83-1.09) H 11/13/18 06:20 PTT 46.6 CMP Sodium 141 mmol/L (136-145) 11/13/18 06:20 Potassium 3.4 mmol/L (3.5-5.1) L 11/13/18 06:20 Chloride 110 mmol/L (98-107) H 11/13/18 06:20 Carbon Dioxide 26 mmol/L (21-32) 11/13/18 06:20 Anion Gap 6 MMOL/L (8-16) L 11/13/18 06:20 BUN 3.7 mg/dL (7-18) L 11/13/18 06:20 Creatinine 0.8 mg/dL (0.55-1.3) 11/13/18 06:20 Est GFR (CKD-EPI)AfAm 107.64 11/13/18 06:20 Est GFR (CKD-EPI)NonAf 92.87 11/13/18 06:20 Random Glucose 64 mg/dL (74-106) L 11/13/18 06:20 Lactic Acid 1.7 mmol/L (0.4-2.0) 11/12/18 19:40 Calcium 7.2 mg/dL (8.5-10.1) L 11/13/18 06:20 Total Bilirubin 6.7 mg/dL (0.2-1) H 11/13/18 06:20 Direct Bilirubin 5.1 mg/dL (0.0-0.2) H 11/13/18 06:20 AST 92 U/L (15-37) H 11/13/18 06:20 ALT 35 U/L (13-61) 11/13/18 06:20 Alkaline Phosphatase 102 U/L (45-117) 11/13/18 06:20 Total Protein 5.0 g/dl (6.4-8.2) L 11/13/18 06:20 Albumin 1.7 g/dl (3.4-5.0) L 11/13/18 06:20 Lipase 60 U/L (73-393) L 11/11/18 12:36 Microbiology 11/13/18 01:30 Gram Stain - Final Stool 11/11/18 12:45 Urine Culture - Final Urine - Urine Clean Catch Escherichia Coli stool GS with no PMNs - ....Imaging MRI: Report Reviewed, Image Reviewed (images reviewed - very large liver, large spleen, no gallstones, cbd without stones or dilation) Problem List - Problems (1) Generalized abdominal pain Code(s): R10.84 - GENERALIZED ABDOMINAL PAIN (2) Rectal bleeding Code(s): K62.5 - HEMORRHAGE OF ANUS AND RECTUM (3) Colitis Code(s): K52.9 - NONINFECTIVE GASTROENTERITIS AND COLITIS, UNSPECIFIED (4) Bloody diarrhea Code(s): R19.7 - DIARRHEA, UNSPECIFIED (5) Hyperbilirubinemia Code(s): E80.6 - OTHER DISORDERS OF BILIRUBIN METABOLISM (6) Alcoholic liver disorder Code(s): K70.9 - ALCOHOLIC LIVER DISEASE, UNSPECIFIED (7) Microcytic hypochromic anemia Code(s): D50.9 - IRON DEFICIENCY ANEMIA, UNSPECIFIED (8) S/P gastric bypass Code(s): Z98.84 - BARIATRIC SURGERY STATUS Assessment/Plan admitted to medicine continue NPO/IVF until pain and tenderness resolve maintain good hydration still with bloody diarrhea, no N/V replete lytes prn trend labs INR and PTT elevated - continue to monitor pain control improved with morphine q3h prn encourage OOB, ambulation as able also with UTI, cx with E. coli antibiotics per ID stool studies pending no gallstones - not cholecystitis or choledocholithiasis pt does have h/o pancreatitis in past MRI without evidence of pancreatic or biliary pathology ?ischemic colitis related to low-flow state? pancolitis from IBD? infectious? appreciate GI input - will need colonoscopy at some point after recovery recommend obtaining records from [facility] inpatient stay few months ago and upper endoscopy done then s/p gastric bypass at [facility] 2013 significant weight loss h/o endoscopic dilations discussed with Dr. Sosa no acute general surgical issues at this time will follow along with you
--- NOTE | 2018-11-13 18:16 | PN ---
Progress Note (short form) - Note Progress Note: Patient seen and examined 38 year old presents with diffuse abdominal pain, nausea, emesis, bloody diarrhea, hematest positive stool. CT compatible with colitis ,hepatosplenomegaly with portal hypertension and splenorenal varices. Abnormal LFT's, with elevation of bilirubin and elevation of INR. On antibiotics, NPO. E. coli UTI. Has had gastric bypass 9 years earlier, and has had transfusion therapy in past but denies iron or B-12 therapy. Anemia likely multifactorial Hematest positive stool- component of blood loss Acute and chronic disease (colitis, UTI) H/o week-end binge drinking ? additional component of increased sequestrtion with hypersplenism, portal hypertension s/p gastric bypass with possible B-12 deficiency and /or Fe++ deficiency Elevation of INR - NPO, Liver disease, and antibiotic therapy Plan Vitamin K - low dose to help correct INR Check B-12 Fe++, and folate levels After levels obtained , begin treatment with B-12, and Venofer.
[2018-11-13] MEDS ORDERED: PHYTONADIONE 10 MG/1 ML AMP SQ ONE (18:20)
[2018-11-13] MEDS: D5-1/2NS+20 MEQ KCL - 20 MEQ/1,000 ML INFUS.BAG IV SCH (20:33)
--- NOTE | 2018-11-13 21:13 | PN ---
Progress Note, Physician History of Present Illness: No new complaints - Current Medication List Current Medications: Active Medications Heparin Sodium (Porcine) (Heparin -) 5,000 unit SQ TID LISSY Last Admin: 11/13/18 13:38 Dose: 5,000 unit Metronidazole (Flagyl 500mg Premixed Ivpb -) 500 mg in 100 mls @ 100 mls/hr IVPB Q8H-IV [facility] Last Admin: 11/13/18 17:09 Dose: 100 mls/hr Piperacillin Sod/Tazobactam (Sod 3.375 gm/ Dextrose) 50 mls @ 100 mls/hr IVPB Q8H-IV [facility]; Protocol Last Admin: 11/13/18 17:14 Dose: 100 mls/hr Potassium Chloride/Dextrose/Sod Cl (D5-1/2ns+20 Meq Kcl -) 20 meq in 1,000 mls @ 100 mls/hr IV ASDIR LISSY Last Admin: 11/13/18 20:33 Dose: 100 mls/hr Morphine Sulfate (Morphine Sulfate) 4 mg IVPUSH Q3H PRN PRN Reason: PAIN LEVEL 6-10 Last Admin: 11/13/18 20:27 Dose: 4 mg Ondansetron HCl (Zofran Injection) 4 mg IVPUSH Q6H PRN PRN Reason: NAUSEA AND/OR VOMITING Pantoprazole Sodium (Protonix Iv) 40 mg IVPUSH BID LISSY - Objective Vital Signs: Vital Signs Temperature 97.4 F L 11/13/18 18:25 Pulse Rate 92 H 11/13/18 18:25 Respiratory Rate 18 11/13/18 18:25 Blood Pressure 116/67 11/13/18 18:25 O2 Sat by Pulse Oximetry (%) 99 11/13/18 09:00 Neck: Yes: WNL, Supple Cardiovascular: Yes: WNL, Regular Rate and Rhythm Respiratory: Yes: WNL, Regular, CTA Bilaterally Gastrointestinal: Yes: Normal Bowel Sounds, Soft, Other (Tenderness on palpation ) Labs: CBC, BMP 11/13/18 06:20 11/13/18 06:20 INR, PTT INR 2.19 (0.83-1.09) H 11/13/18 06:20 Problem List - Problems (1) Abdominal pain Code(s): R10.9 - UNSPECIFIED ABDOMINAL PAIN (2) Colitis Code(s): K52.9 - NONINFECTIVE GASTROENTERITIS AND COLITIS, UNSPECIFIED (3) Hyperbilirubinemia Code(s): E80.6 - OTHER DISORDERS OF BILIRUBIN METABOLISM (4) S/P gastric bypass Code(s): Z98.84 - BARIATRIC SURGERY STATUS (5) Anemia Code(s): D64.9 - ANEMIA, UNSPECIFIED
[2018-11-13] MEDS ORDERED: PT OWN MED DRAWER 7, Y5N ONE (21:51)
[2018-11-13] MEDS ORDERED: PANTOPRAZOLE SODIUM 40 MG in SODIUM CHLORIDE 100 ML IVPB SCH (22:00)
[2018-11-13] MEDS: PANTOPRAZOLE SODIUM 40 MG VIAL IVPUSH SCH (22:14)
--- NOTE | 2018-11-14 01:01 | CONS ---
DATE OF CONSULTATION: 11/13/2018 HISTORY OF PRESENT ILLNESS: The patient is a 38-year-old female presented with severe abdominal pain associated with nausea, vomiting, and bloody diarrhea. The patient has been evaluated in the hospital and the question of colitis has been raised. Question of mesenteric ischemia likewise has been erased. Patient has had abnormalities of liver function tests including elevation of bilirubin. Patient is being evaluated for a macrocytic anemia. SOCIAL HISTORY: The patient is not but has 9 children. She is not working. She is a nonsmoker. She is a weekend drinker and will drink several bottles with her friends on the weekends. She will not quantitate it for me. She denies illicit drugs. The patient denies industrial exposures or intoxicants. FAMILY HISTORY: Includes a father with prostate cancer as well as hypertension. Mother with hypertension. MEDICATION: Medicines on admission included multivitamins. No recent travel. ALLERGIES: No known allergies. REVIEW OF SYSTEMS: Patient has bifrontal headaches, blurry vision, no epistaxis, some dysphagia with early satiety, short of breath with difficulty taking deep inspirations. No chest pain. Patient never had a mammogram. Severe abdominal pain, nausea, vomiting, blood diarrhea with Hematest positive stools. Patient with frequent urinary tract infections. Weakness of the lower extremities and a feeling of numbness and sleepiness like when your arms fall asleep; that is the way the patient describes it to her legs. PAST MEDICAL HISTORY: The patient denies hypertension, cholesterolemia, diabetes, hepatitis, gallbladder problems, stroke, [place], thyroid disease, gout, TB. SURGICAL HISTORY: The patient has 2 C-sections, has a history of appendectomy, has a history of gastric bypass surgery 9 years earlier. The patient has never taken B12 or iron therapy. Patient has required transfusions in the past. CURRENT PHYSICAL EXAMINATION: VITAL SIGNS: Blood pressure 123/88, pulse 96, temperature 98.1, respiratory rate 18. HEENT: The patient is icteric. The pupils are small, they are reactive. The oropharynx is without mucositis or pharyngitis. There is a small posterior left neck node, otherwise no cervical, supraclavicular, or axillary nodes. LUNGS: Poor inspiratory effort. CARDIAC: RSR. BREAST: No dominant masses. ABDOMEN: Tender, and patient would not allow any significant examination of her abdomen. EXTREMITIES: No significant edema. SKIN: Multiple tattoos. LABORATORY: Currently 141 sodium, potassium 3.4, chloride 110, CO2 of 26, BUN 3.7, creatinine 0.8. Initial lactate 3.2, calcium 7.2, bilirubin 7.4 to 6.7, direct 5.1, AST 92, ALT 35, alkaline phosphatase 102, albumin 1.7, protein 5.0. Tumor markers pending. INR 2.19, PTT 46. Chemistries: As aforementioned. CBC initially WBC 10.6, currently 6.4. Initial hematocrit 33, currently 24. MCV 106, MCH 36, platelets 242 now down to 148. 76 polycytes, currently 14 lymphocytes. Urine with bilirubin, leukocyte esterase, 1+ proteinuria. Stool for occult blood positive. Serologies pending. E. coli urinary tract infection. CT reviewed MR CT reviewed with hepatosplenomegaly with severe fatty infiltration versus hepatocellular disease with portal hypertension as manifested by splenorenal varices, third spacing suggested by subcutaneous and mesenteric edema and trace perihepatic and perisplenic fluid, distended gallbladder no stones with wall thickening, pericholecystic fluid seen, edema of the right colon. Chest CT scan, no evidence of pulmonary embolism, left basilar discoid atelectasis. Abdominal CT, splenomegaly status post gastric surgery, diffuse hepatic steatosis, mild to moderate gallbladder overdistention, acute colitis with thickening involving the colon from the level of the cecum through the splenic flexure, less involvement of the descending and sigmoid diverticula, small amount of mesenteric edema in the right upper quadrant and lower pelvic areas. CURRENT MEDICINE: Zofran, Flagyl, piperacillin, heparin, morphine, Protonix, IVs. IMPRESSION: A 38-year-old female who presented with abdominal pain, Hemoccult positive stools, picture compatible with colitis, picture compatible with possible mesenteric ischemia. With hepatosplenomegaly and signs of portal hypertension with splenorenal varices. Abnormalities of liver function tests and elevation of bilirubin, elevation of PTT. Anemia likely multifactorial, current chronic disease with colitis. The patient has a history of gastric bypass and has never had B12 or iron therapy. Will obtain levels and based upon the results empiric therapy with both B12 and IV iron therapy. In view of elevation of INR, patient not eating, abnormalities of liver function, will give vitamin K as well. LAUREN DELACRUZ M.D. [id number]
[2018-11-14] MEDS ORDERED: PIPERACILLIN/TAZOBACTAM 3.375 GM VIAL IVPB ONE ×3 (02:11→17:06)
[2018-11-14] MEDS ORDERED: DEXTROSE 5%-WATER - 50 ML IVPB ONE ×3 (02:11→17:06)
[2018-11-14] MEDS: PIPERACILLIN/TAZOB 3.375 GM 3.375 GM in DEXTROSE 5%-WATER - 50 ML IVPB SCH ×3 (02:22→17:17)
[2018-11-14] MEDS ORDERED: PT OWN MED DRAWER 7, Y5N ONE ×4 (03:23→20:46)
[2018-11-14 04:12] LABS: CARCINOEMBRYONIC ANTIGEN 5.5 ng/mL (0.0-4.7)
[2018-11-14] MEDS: HEPARIN NA (PORCINE) 5,000 UNITS/ML 1ML VIAL SQ SCH ×3 (05:41→21:09)
[2018-11-14] MEDS: morphine SULFATE 4 MG/ML VIAL IVPUSH PRN ×4 (05:42→21:08)
[2018-11-14 07:30] LABS: BASO % 0.6 % (0-2.0); EOS % 0.6 % (0-4.5); HEMATOCRIT 25.5 % (32.4-45.2); HEMOGLOBIN 8.5 GM/dL (10.7-15.3); MCH 35.9 pg (25.7-33.7); MCHC 33.4 g/dl (32.0-36.0); MEAN CELL VOLUME 107.6 fl (80-96); MONO % 7.1 % (3.8-10.2); NEUT % 76.7 % (42.8-82.8); PLATELET COUNT 150 K/MM3 (134-434); RBC 2.37 M/mm3 (3.60-5.2); RDW 14.9 % (11.6-15.6); RETICULOCYTES 2.91 % (0.5-1.5); WHITE BLOOD COUNT 5.9 K/mm3 (4.0-10.0)
[2018-11-14 07:53] LABS: INR 2.2 (0.83-1.09); PROTHROMBIN TIME (PATIENT) 26.2 SEC (9.7-13.0)
[2018-11-14 07:56] LABS: ACTIVATED PTT 45.8 SECONDS (25.2-36.5)
[2018-11-14 07:59] LABS: ALBUMIN 1.8 g/dl (3.4-5.0); CALCIUM 7.4 mg/dL (8.5-10.1); CREATININE 0.7 mg/dL (0.55-1.3); MAGNESIUM 1.9 mg/dL (1.8-2.4); POTASSIUM 3.6 mmol/L (3.5-5.1); TOT PROT 5.3 g/dl (6.4-8.2)
[2018-11-14 09:11] LABS: BLOOD UREA NITROGEN 2.4 mg/dL (7-18)
[2018-11-14] MEDS: PANTOPRAZOLE SODIUM 40 MG VIAL IVPUSH SCH ×2 (10:32→21:08)
--- NOTE | 2018-11-14 12:37 | PN ---
Progress Note, Physician History of Present Illness: improving abd pain better - Current Medication List Current Medications: Active Medications Heparin Sodium (Porcine) (Heparin -) 5,000 unit SQ TID LISSY Last Admin: 11/14/18 05:41 Dose: Not Given Metronidazole (Flagyl 500mg Premixed Ivpb -) 500 mg in 100 mls @ 100 mls/hr IVPB Q8H-IV LISSY Last Admin: 11/14/18 10:31 Dose: 100 mls/hr Piperacillin Sod/Tazobactam (Sod 3.375 gm/ Dextrose) 50 mls @ 100 mls/hr IVPB Q8H-IV LISSY; Protocol Last Admin: 11/14/18 10:29 Dose: 100 mls/hr Potassium Chloride/Dextrose/Sod Cl (D5-1/2ns+20 Meq Kcl -) 20 meq in 1,000 mls @ 100 mls/hr IV ASDIR LISSY Last Admin: 11/13/18 20:33 Dose: 100 mls/hr Morphine Sulfate (Morphine Sulfate) 4 mg IVPUSH Q3H PRN PRN Reason: PAIN LEVEL 6-10 Last Admin: 11/14/18 12:05 Dose: 4 mg Ondansetron HCl (Zofran Injection) 4 mg IVPUSH Q6H PRN PRN Reason: NAUSEA AND/OR VOMITING Pantoprazole Sodium (Protonix Iv) 40 mg IVPUSH BID [facility] Last Admin: 11/14/18 10:32 Dose: 40 mg - Objective Vital Signs: Vital Signs Temperature 98.1 F 11/14/18 06:14 Pulse Rate 83 11/14/18 06:14 Respiratory Rate 18 11/14/18 06:14 Blood Pressure 96/45 L 11/14/18 06:14 O2 Sat by Pulse Oximetry (%) 100 11/13/18 21:00 Constitutional: Yes: Calm, Mild Distress Cardiovascular: Yes: S1, S2 Respiratory: Yes: Regular, CTA Bilaterally Musculoskeletal: Yes: WNL Extremities: Yes: WNL Neurological: Yes: Alert, Oriented Psychiatric: Yes: Alert, Oriented Labs: CBC, BMP 11/14/18 05:59 11/14/18 05:59 INR, PTT INR 2.20 (0.83-1.09) H 11/14/18 05:59 Assessment/Plan Problem List - Problems (1) Generalized abdominal pain Code(s): R10.84 - GENERALIZED ABDOMINAL PAIN (2) Rectal bleeding Code(s): K62.5 - HEMORRHAGE OF ANUS AND RECTUM (3) Colitis Code(s): K52.9 - NONINFECTIVE GASTROENTERITIS AND COLITIS, UNSPECIFIED (4) Bloody diarrhea Code(s): R19.7 - DIARRHEA, UNSPECIFIED (5) Hyperbilirubinemia Code(s): E80.6 - OTHER DISORDERS OF BILIRUBIN METABOLISM (6) Alcoholic liver disorder Code(s): K70.9 - ALCOHOLIC LIVER DISEASE, UNSPECIFIED (7) Microcytic hypochromic anemia Code(s): D50.9 - IRON DEFICIENCY ANEMIA, UNSPECIFIED (8) S/P gastric bypass Code(s): Z98.84 - BARIATRIC SURGERY STATUS patients colitis is quite disffuse r/o infectious vs ischemic also uti patients bilirubin high,cause lfts not bad though plan continue current mgmt continue monitoring fn abd pain rest as per the team
--- NOTE | 2018-11-14 13:09 | PN ---
Progress Note, Physician History of Present Illness: Patient with pancolitis, possibly low-flow state vs infectious or IBD? Also with hyperbilirubinemia, likely secondary to alcoholic liver disease. MRCP done - hepatomegaly and splenomegaly with probable splenorenal shunting LUQ and early portal hypertension. No gallstones, no ductal dilation or stones. Pancreas unremarkable with no ductal dilation. She is NPO on fluids with Zosyn/ Flagyl for the colitis and UTI (E. coli). She is seen and examined in bed. She reports pain is about the same. Last BM was watery with few small brown balls, no black, no blood. INR and PTT still elevated. Bili 7 today. Pt c/o headache, low energy, did walk a little bit. Would like something to help sleep. - Current Medication List Current Medications: Active Medications Heparin Sodium (Porcine) (Heparin -) 5,000 unit SQ TID [facility] Last Admin: 11/14/18 05:41 Dose: Not Given Metronidazole (Flagyl 500mg Premixed Ivpb -) 500 mg in 100 mls @ 100 mls/hr IVPB Q8H-IV LISSY Last Admin: 11/14/18 10:31 Dose: 100 mls/hr Piperacillin Sod/Tazobactam (Sod 3.375 gm/ Dextrose) 50 mls @ 100 mls/hr IVPB Q8H-IV LISSY; Protocol Last Admin: 11/14/18 10:29 Dose: 100 mls/hr Potassium Chloride/Dextrose/Sod Cl (D5-1/2ns+20 Meq Kcl -) 20 meq in 1,000 mls @ 100 mls/hr IV ASDIR LISSY Last Admin: 11/13/18 20:33 Dose: 100 mls/hr Morphine Sulfate (Morphine Sulfate) 4 mg IVPUSH Q3H PRN PRN Reason: PAIN LEVEL 6-10 Last Admin: 11/14/18 12:05 Dose: 4 mg Ondansetron HCl (Zofran Injection) 4 mg IVPUSH Q6H PRN PRN Reason: NAUSEA AND/OR VOMITING Pantoprazole Sodium (Protonix Iv) 40 mg IVPUSH BID LISSY Last Admin: 11/14/18 10:32 Dose: 40 mg - Objective Vital Signs: Vital Signs Temperature 98.1 F 11/14/18 06:14 Pulse Rate 83 11/14/18 06:14 Respiratory Rate 18 11/14/18 06:14 Blood Pressure 96/45 L 11/14/18 06:14 O2 Sat by Pulse Oximetry (%) 100 11/13/18 21:00 Constitutional: Yes: Well Nourished, No Distress, Calm Eyes: Yes: EOM Intact, Sclera Icterus HENT: Yes: Atraumatic, Normocephalic Gastrointestinal: Yes: Soft, Distention (mild), Tenderness (diffuse, slightly less in lower aspects), Tenderness, Epigastrium. No: Tenderness, Rebound Extremities: No: Cool, Cyanosis Integumentary: Yes: Jaundice (mild), Tattoos. No: Rash Neurological: Yes: Alert, Oriented Labs: CBC, BMP 11/14/18 05:59 11/14/18 05:59 INR, PTT INR 2.20 (0.83-1.09) H 11/14/18 05:59 PTT 45.8 CMP Sodium 142 mmol/L (136-145) 11/14/18 05:59 Potassium 3.6 mmol/L (3.5-5.1) 11/14/18 05:59 Chloride 109 mmol/L (98-107) H 11/14/18 05:59 Carbon Dioxide 27 mmol/L (21-32) 11/14/18 05:59 Anion Gap 6 MMOL/L (8-16) L 11/14/18 05:59 BUN 2.4 mg/dL (7-18) L* 11/14/18 05:59 Creatinine 0.7 mg/dL (0.55-1.3) 11/14/18 05:59 Est GFR (CKD-EPI)AfAm 126.49 11/14/18 05:59 Est GFR (CKD-EPI)NonAf 109.14 11/14/18 05:59 Random Glucose 78 mg/dL (74-106) 11/14/18 05:59 Lactic Acid 1.7 mmol/L (0.4-2.0) 11/12/18 19:40 Calcium 7.4 mg/dL (8.5-10.1) L 11/14/18 05:59 Phosphorus 2.0 mg/dL (2.5-4.9) L 11/14/18 05:59 Magnesium 1.9 mg/dL (1.8-2.4) 11/14/18 05:59 Ferritin 226.4 ng/ml (8-388) 11/14/18 05:59 Total Bilirubin 7.0 mg/dL (0.2-1) H 11/14/18 05:59 Direct Bilirubin 5.1 mg/dL (0.0-0.2) H 11/13/18 06:20 AST 105 U/L (15-37) H 11/14/18 05:59 ALT 38 U/L (13-61) 11/14/18 05:59 Alkaline Phosphatase 102 U/L (45-117) 11/14/18 05:59 LD Total 136 U/L (84-246) 11/14/18 05:59 Total Protein 5.3 g/dl (6.4-8.2) L 11/14/18 05:59 Albumin 1.8 g/dl (3.4-5.0) L 11/14/18 05:59 Lipase 60 U/L (73-393) L 11/11/18 12:36 Tumor Marker AFP 1.8 ng/ml (0.0-8.3) 11/12/18 19:40 Carcinoembryonic Ag 5.5 ng/mL (0.0-4.7) H 11/12/18 19:40 CA 19-9 Antigen 54 U/mL (0-35) H 11/12/18 19:40 Vitamin B12 3787 pg/ml (193-986) H 11/14/18 05:59 Serum Folate 3 ng/mL (3.1-17.5) L 11/14/18 05:59 CEA, Ca19-9 mildly elevated - could be secondary to acute inflammation K, Phos little low AST still up a bit BUN/Cr normal Hb stable Problem List - Problems (1) Generalized abdominal pain Code(s): R10.84 - GENERALIZED ABDOMINAL PAIN (2) Rectal bleeding Code(s): K62.5 - HEMORRHAGE OF ANUS AND RECTUM (3) Colitis Code(s): K52.9 - NONINFECTIVE GASTROENTERITIS AND COLITIS, UNSPECIFIED (4) Bloody diarrhea Code(s): R19.7 - DIARRHEA, UNSPECIFIED (5) Hyperbilirubinemia Code(s): E80.6 - OTHER DISORDERS OF BILIRUBIN METABOLISM (6) Alcoholic liver disorder Code(s): K70.9 - ALCOHOLIC LIVER DISEASE, UNSPECIFIED (7) Microcytic hypochromic anemia Code(s): D50.9 - IRON DEFICIENCY ANEMIA, UNSPECIFIED (8) S/P gastric bypass Code(s): Z98.84 - BARIATRIC SURGERY STATUS Assessment/Plan admitted to medicine continue NPO/IVF until pain and tenderness resolve maintain good hydration - rechecking VS/BP now - 110/90 bloody diarrhea resolving, tenderness slightly less but still diffusely present replete lytes trend labs INR and PTT elevated, hematology consult noted pain control prn encourage OOB, ambulation as able also with UTI, cx with E. coli antibiotics per ID, discussed with Dr. Herrera on floor stool studies pending - yeast in one culture no gallstones - not cholecystitis or choledocholithiasis pt does have h/o pancreatitis in past MRI without evidence of pancreatic or biliary pathology ?ischemic colitis related to low-flow state? pancolitis from IBD? infectious? GI input noted - will need colonoscopy at some point after recovery recommend obtaining records from [place]'s inpatient stay few months ago and upper endoscopy done then s/p gastric bypass at [facility] 2013 significant weight loss h/o endoscopic dilations no acute general surgical issues no indication for operative intervention will follow peripherally - please call with any questions
--- NOTE | 2018-11-14 15:26 | PN.GI ---
GI Progress Note Subjective: Covering for Dr. Sosa who resumes care 11/16: patient states "feeling the same" States that diarrhea stopped last night Describes her alcohol consumption as from "fri-friday every week". Describes the consumption during thise days as upwards of 10+ drinks - Objective Vital Signs: Vital Signs Temperature 97.8 F 11/14/18 13:56 Pulse Rate 90 11/14/18 13:56 Respiratory Rate 20 11/14/18 13:56 Blood Pressure 131/77 11/14/18 13:56 O2 Sat by Pulse Oximetry (%) 100 11/13/18 21:00 Constitutional: Calm Eyes: Yes: Sclera Icterus Cardiovascular: Yes: Regular Rate and Rhythm. No: Murmur Gastrointestinal Inspection: No: Distention ...Auscultate: Yes: Normoactive Bowel Sounds ...Palpate: Yes: Hepatomegaly, Soft, Tenderness (diffuse TTP) Neurological: Yes: Alert, Oriented. No: Asterixis Labs: CBC, BMP 11/14/18 05:59 11/14/18 05:59 INR, PTT INR 2.20 (0.83-1.09) H 11/14/18 05:59 Laboratory Tests 11/12/18 11/13/18 19:40 01:30 Hepatitis A Ab Total Pending Hep Bs Antigen Pending Hep Bs Antibody Pending Hep B Core Total Ab Pending Hep B Core IgM Ab Pending Hepatitis Be Antibody Pending Hepatitis Be Antigen Pending Hep C Ab Diagnostic <0.1 O & P Permanent Slide Pending Laboratory Tests 11/11/18 11/13/18 11/14/18 12:34 06:20 05:59 INR 1.89 H 2.19 H 2.20 H Microbiology 11/13/18 01:30 Stool Escherichia coli 0157 Culture - Final NO GROWTH OF VIBRIO SPECIES OBTAINED NO GROWTH OF E COLI 0157 OBTAINED 11/13/18 01:30 Stool Salmonella/Shigella Culture - Preliminary 11/13/18 01:30 Stool Yersinia Culture - Preliminary Yeast Like Organism NO ENTERIC PATHOGENS, 24 HOURS, ON PRIMARY PLATES Laboratory Tests 11/14/18 05:59 Serum Folate 3 L Problem List - Problems (1) Jaundice Assessment/Plan: Suspect acute (suspect alcoholic hepatitis) on chronic liver disease.Likely both secondary to alcohol abuse. Alternate etiologies of liver disease still need to be excluded. I have ordered repeat CT scan of the abdomen and pelvis with PO contrast to reassess abnormal appearing bowel. While leukocytosis has improved, she continues to complain of severe, diffuse abdominal pain. Hepatitis serologies are pending Monitor mental status for development of hepatic encephalopathy, daily LFTs / coags Code(s): R17 - UNSPECIFIED JAUNDICE
[2018-11-14] MEDS ORDERED: POTASSIUM PHOSPHATE 15 MM in DEXTROSE 5%-WATER - 250 ML IVPB ONE (16:45)
[2018-11-14] MEDS: D5-1/2NS+20 MEQ KCL - 20 MEQ/1,000 ML INFUS.BAG IV SCH (17:18)
[2018-11-14] MEDS: FOLIC ACID 1 MG TABLET (FP) PO SCH (17:21)
--- NOTE | 2018-11-14 17:27 | PN ---
Progress Note, Physician History of Present Illness: Denies bleeding. Continues to have abdominal pain. - Current Medication List Current Medications: Active Medications Folic Acid (Folic Acid -) 1 mg PO DAILY [facility] Last Admin: 11/14/18 17:21 Dose: 1 mg Heparin Sodium (Porcine) (Heparin -) 5,000 unit SQ TID [facility] Last Admin: 11/14/18 15:35 Dose: Not Given Metronidazole (Flagyl 500mg Premixed Ivpb -) 500 mg in 100 mls @ 100 mls/hr IVPB Q8H-IV [facility] Last Admin: 11/14/18 17:16 Dose: 100 mls/hr Piperacillin Sod/Tazobactam (Sod 3.375 gm/ Dextrose) 50 mls @ 100 mls/hr IVPB Q8H-IV [facility]; Protocol Last Admin: 11/14/18 17:17 Dose: 100 mls/hr Potassium Chloride/Dextrose/Sod Cl (D5-1/2ns+20 Meq Kcl -) 20 meq in 1,000 mls @ 100 mls/hr IV ASDIR [facility] Last Admin: 11/14/18 17:18 Dose: Not Given Potassium Phosphate 15 mm/ (Dextrose) 255 mls @ 62.5 mls/hr IVPB ONCE ONE Stop: 11/14/18 20:49 Morphine Sulfate (Morphine Sulfate) 4 mg IVPUSH Q3H PRN PRN Reason: PAIN LEVEL 6-10 Last Admin: 11/14/18 12:05 Dose: 4 mg Ondansetron HCl (Zofran Injection) 4 mg IVPUSH Q6H PRN PRN Reason: NAUSEA AND/OR VOMITING Pantoprazole Sodium (Protonix Iv) 40 mg IVPUSH BID [facility] Last Admin: 11/14/18 10:32 Dose: 40 mg - Objective Vital Signs: Vital Signs Temperature 97.8 F 11/14/18 13:56 Pulse Rate 90 11/14/18 13:56 Respiratory Rate 20 11/14/18 13:56 Blood Pressure 131/77 11/14/18 13:56 O2 Sat by Pulse Oximetry (%) 100 11/14/18 09:00 Constitutional: Yes: No Distress Eyes: Yes: Sclera Icterus Cardiovascular: Yes: Regular Rate and Rhythm Respiratory: Yes: Regular, CTA Bilaterally Gastrointestinal: Yes: Other (declines abd exam due to pain) Edema: No Labs: CBC, BMP 11/14/18 05:59 11/14/18 05:59 INR, PTT INR 2.20 (0.83-1.09) H 11/14/18 05:59 Assessment/Plan 38F with hx gastric bypass 9 years ago and heavy etoh use presented with diffuse abdominal pain, vomiting, and bloody diarrhea. Found to have colitis, HSM with portal hypertension and splenorenal varices, direct bilirubinemia. Hematology consulted for macrocytic anemia. Rest of CBC normal. Also with prolonged PT/PTT. W/u so far with high b12, normal ferritin (other iron studies pending) low folate, LDH normal. Anemia likely 2/2 acute blood loss. Also with folate deficiency. Awaiting rest of iron studies Please start folic acid 1 mg daily. Vit K 5 mg IV for possible component of vit K deficiency though coagulopathy is probably primarily of liver disease.
--- NOTE | 2018-11-14 23:39 | PN ---
Progress Note, Physician History of Present Illness: Pt still complains of pain but denies any further bloody diarrhea - Current Medication List Current Medications: Active Medications Folic Acid (Folic Acid -) 1 mg PO DAILY [facility] Last Admin: 11/14/18 17:21 Dose: 1 mg Heparin Sodium (Porcine) (Heparin -) 5,000 unit SQ TID [facility] Last Admin: 11/14/18 21:09 Dose: 5,000 unit Metronidazole (Flagyl 500mg Premixed Ivpb -) 500 mg in 100 mls @ 100 mls/hr IVPB Q8H-IV [facility] Last Admin: 11/14/18 17:16 Dose: 100 mls/hr Piperacillin Sod/Tazobactam (Sod 3.375 gm/ Dextrose) 50 mls @ 100 mls/hr IVPB Q8H-IV [facility]; Protocol Last Admin: 11/14/18 17:17 Dose: 100 mls/hr Potassium Chloride/Dextrose/Sod Cl (D5-1/2ns+20 Meq Kcl -) 20 meq in 1,000 mls @ 100 mls/hr IV ASDIR [facility] Last Admin: 11/14/18 17:18 Dose: Not Given Morphine Sulfate (Morphine Sulfate) 4 mg IVPUSH Q3H PRN PRN Reason: PAIN LEVEL 6-10 Last Admin: 11/14/18 21:08 Dose: 4 mg Ondansetron HCl (Zofran Injection) 4 mg IVPUSH Q6H PRN PRN Reason: NAUSEA AND/OR VOMITING Pantoprazole Sodium (Protonix Iv) 40 mg IVPUSH BID [facility] Last Admin: 11/14/18 21:08 Dose: 40 mg - Objective Vital Signs: Vital Signs Temperature 98.2 F 11/14/18 22:00 Pulse Rate 85 11/14/18 22:00 Respiratory Rate 17 11/14/18 22:00 Blood Pressure 99/70 11/14/18 22:00 O2 Sat by Pulse Oximetry (%) 100 11/14/18 09:00 Neck: Yes: WNL, Supple Cardiovascular: Yes: WNL, Regular Rate and Rhythm Respiratory: Yes: WNL, Regular, CTA Bilaterally Gastrointestinal: Yes: Normal Bowel Sounds, Soft, Other (Generalized tenderness (-) guarding/rebound) Labs: CBC, BMP 11/14/18 05:59 11/14/18 05:59 INR, PTT INR 2.20 (0.83-1.09) H 11/14/18 05:59 Problem List - Problems (1) Abdominal pain Code(s): R10.9 - UNSPECIFIED ABDOMINAL PAIN (2) Colitis Code(s): K52.9 - NONINFECTIVE GASTROENTERITIS AND COLITIS, UNSPECIFIED (3) Hyperbilirubinemia Code(s): E80.6 - OTHER DISORDERS OF BILIRUBIN METABOLISM (4) S/P gastric bypass Code(s): Z98.84 - BARIATRIC SURGERY STATUS (5) Anemia Code(s): D64.9 - ANEMIA, UNSPECIFIED
[2018-11-15] MEDS ORDERED: DEXTROSE 5%-WATER - 50 ML IVPB ONE ×3 (00:33→16:41)
[2018-11-15] MEDS ORDERED: PIPERACILLIN/TAZOBACTAM 3.375 GM VIAL IVPB ONE ×3 (00:33→16:40)
[2018-11-15] MEDS: morphine SULFATE 4 MG/ML VIAL IVPUSH PRN ×6 (00:47→20:42)
[2018-11-15] MEDS: PIPERACILLIN/TAZOB 3.375 GM 3.375 GM in DEXTROSE 5%-WATER - 50 ML IVPB SCH ×3 (01:05→17:26)
[2018-11-15] MEDS: HEPARIN NA (PORCINE) 5,000 UNITS/ML 1ML VIAL SQ SCH ×3 (06:07→21:02)
[2018-11-15 07:08] LABS: SERUM IRON SATURATION 64 % (15-55); TOTAL IRON BINDING CAPACITY 74 ug/dL (250-450)
[2018-11-15 11:06] LABS: HEP B CORE AB, TOT Positive (Negative)
[2018-11-15] MEDS: PANTOPRAZOLE SODIUM 40 MG VIAL IVPUSH SCH ×2 (11:29→21:02)
[2018-11-15] MEDS: FOLIC ACID 1 MG TABLET (FP) PO SCH (11:30)
--- NOTE | 2018-11-15 19:50 | PN ---
Progress Note, Physician History of Present Illness: Endorses continued abdominal pain. No bleeding. Brown loose BM today. - Current Medication List Current Medications: Active Medications Folic Acid (Folic Acid -) 1 mg PO DAILY [facility] Last Admin: 11/15/18 11:30 Dose: 1 mg Heparin Sodium (Porcine) (Heparin -) 5,000 unit SQ TID [facility] Last Admin: 11/15/18 16:22 Dose: 5,000 unit Metronidazole (Flagyl 500mg Premixed Ivpb -) 500 mg in 100 mls @ 100 mls/hr IVPB Q8H-IV [facility] Last Admin: 11/15/18 17:27 Dose: 100 mls/hr Piperacillin Sod/Tazobactam (Sod 3.375 gm/ Dextrose) 50 mls @ 100 mls/hr IVPB Q8H-IV [facility]; Protocol Last Admin: 11/15/18 17:26 Dose: 100 mls/hr Potassium Chloride/Dextrose/Sod Cl (D5-1/2ns+20 Meq Kcl -) 20 meq in 1,000 mls @ 100 mls/hr IV ASDIR [facility] Last Admin: 11/14/18 17:18 Dose: Not Given Morphine Sulfate (Morphine Sulfate) 4 mg IVPUSH Q3H PRN PRN Reason: PAIN LEVEL 6-10 Last Admin: 11/15/18 16:26 Dose: 4 mg Ondansetron HCl (Zofran Injection) 4 mg IVPUSH Q6H PRN PRN Reason: NAUSEA AND/OR VOMITING Pantoprazole Sodium (Protonix Iv) 40 mg IVPUSH BID [facility] Last Admin: 11/15/18 11:29 Dose: 40 mg - Objective Vital Signs: Vital Signs Temperature 98.9 F 11/15/18 17:28 Pulse Rate 87 11/15/18 17:28 Respiratory Rate 18 11/15/18 17:28 Blood Pressure 104/56 L 11/15/18 17:28 O2 Sat by Pulse Oximetry (%) 100 11/15/18 09:00 Constitutional: Yes: No Distress, Calm Eyes: Yes: Sclera Icterus Cardiovascular: Yes: Regular Rate and Rhythm Respiratory: Yes: Regular, CTA Bilaterally Gastrointestinal: Yes: Other (declines) Peripheral Pulses WNL: No Labs: CBC, BMP 11/14/18 05:59 11/14/18 05:59 INR, PTT INR 2.20 (0.83-1.09) H 11/14/18 05:59 Assessment/Plan 38F with hx gastric bypass 9 years ago and heavy etoh use presented with diffuse abdominal pain, vomiting, and bloody diarrhea. Found to have colitis, HSM with portal hypertension and splenorenal varices, direct bilirubinemia. Hematology consulted for macrocytic anemia. Rest of CBC normal. Also with prolonged PT/PTT. W/u so far with high b12, normal ferritin (other iron studies pending) low folate, LDH normal. Anemia likely 2/2 acute blood loss. Also with folate deficiency. Started on folic acid s/p Vit K 5 mg on 11/13 with no improvement in coags so far, likely primarily liver disese
[2018-11-15] MEDS: D5-1/2NS+20 MEQ KCL - 20 MEQ/1,000 ML INFUS.BAG IV SCH (21:01)
--- NOTE | 2018-11-15 22:27 | PN ---
Progress Note, Physician History of Present Illness: Pt still complains of pain but denies any further bloody diarrhea - Current Medication List Current Medications: Active Medications Folic Acid (Folic Acid -) 1 mg PO DAILY [facility] Last Admin: 11/15/18 11:30 Dose: 1 mg Heparin Sodium (Porcine) (Heparin -) 5,000 unit SQ TID [facility] Last Admin: 11/15/18 21:02 Dose: 5,000 unit Metronidazole (Flagyl 500mg Premixed Ivpb -) 500 mg in 100 mls @ 100 mls/hr IVPB Q8H-IV [facility] Last Admin: 11/15/18 17:27 Dose: 100 mls/hr Piperacillin Sod/Tazobactam (Sod 3.375 gm/ Dextrose) 50 mls @ 100 mls/hr IVPB Q8H-IV [facility]; Protocol Last Admin: 11/15/18 17:26 Dose: 100 mls/hr Potassium Chloride/Dextrose/Sod Cl (D5-1/2ns+20 Meq Kcl -) 20 meq in 1,000 mls @ 100 mls/hr IV ASDIR [facility] Last Admin: 11/15/18 21:01 Dose: 100 mls/hr Morphine Sulfate (Morphine Sulfate) 4 mg IVPUSH Q3H PRN PRN Reason: PAIN LEVEL 6-10 Last Admin: 11/15/18 20:42 Dose: 4 mg Ondansetron HCl (Zofran Injection) 4 mg IVPUSH Q6H PRN PRN Reason: NAUSEA AND/OR VOMITING Pantoprazole Sodium (Protonix Iv) 40 mg IVPUSH BID [facility] Last Admin: 11/15/18 21:02 Dose: 40 mg - Objective Vital Signs: Vital Signs Temperature 98.9 F 11/15/18 17:28 Pulse Rate 87 11/15/18 17:28 Respiratory Rate 18 11/15/18 17:28 Blood Pressure 104/56 L 11/15/18 17:28 O2 Sat by Pulse Oximetry (%) 100 11/15/18 09:00 Cardiovascular: Yes: WNL, Regular Rate and Rhythm Respiratory: Yes: WNL, Regular, CTA Bilaterally Gastrointestinal: Yes: Normal Bowel Sounds, Soft, Other (minimal generalized tenderness (-) guarding/rebound) Extremities: Yes: WNL Edema: No Labs: CBC, BMP 11/14/18 05:59 11/14/18 05:59 INR, PTT INR 2.20 (0.83-1.09) H 11/14/18 05:59 Problem List - Problems (1) Abdominal pain Assessment/Plan: ?Due to colitis vs alcoholic hepatitis Repeat ct scan abd continues to show colitis/ascites/hepatomegaly Slight increase in Bili to 7 Cont clear liquid diet Cont IV antribxs Monitor labs Cont IVF Code(s): R10.9 - UNSPECIFIED ABDOMINAL PAIN (2) Colitis Assessment/Plan: Cont IV antibxs Stool studies remain negative Code(s): K52.9 - NONINFECTIVE GASTROENTERITIS AND COLITIS, UNSPECIFIED (3) Hyperbilirubinemia Code(s): E80.6 - OTHER DISORDERS OF BILIRUBIN METABOLISM (4) Anemia Assessment/Plan: ?Dilutional Monitor H/H Code(s): D64.9 - ANEMIA, UNSPECIFIED (5) S/P gastric bypass Code(s): Z98.84 - BARIATRIC SURGERY STATUS
[2018-11-16] MEDS ORDERED: PIPERACILLIN/TAZOBACTAM 3.375 GM VIAL IVPB ONE ×3 (00:51→17:03)
[2018-11-16] MEDS ORDERED: DEXTROSE 5%-WATER - 50 ML IVPB ONE ×3 (00:51→17:03)
[2018-11-16] MEDS: morphine SULFATE 4 MG/ML VIAL IVPUSH PRN ×6 (00:53→22:21)
[2018-11-16] MEDS: PIPERACILLIN/TAZOB 3.375 GM 3.375 GM in DEXTROSE 5%-WATER - 50 ML IVPB SCH ×3 (01:10→18:28)
[2018-11-16] MEDS: HEPARIN NA (PORCINE) 5,000 UNITS/ML 1ML VIAL SQ SCH ×3 (05:15→21:27)
[2018-11-16 07:55] LABS: BASO % 0.8 % (0-2.0); EOS % 0.4 % (0-4.5); HEMATOCRIT 24.5 % (32.4-45.2); HEMOGLOBIN 8.2 GM/dL (10.7-15.3); LYMPH % 13.3 % (8-40); MCH 36.2 pg (25.7-33.7); MCHC 33.6 g/dl (32.0-36.0); MEAN CELL VOLUME 107.8 fl (80-96); MEAN PLT VOLUME 8.6 fl (7.5-11.1); MONO % 8.6 % (3.8-10.2); NEUT % 76.9 % (42.8-82.8); PLATELET COUNT 164 K/MM3 (134-434); RBC 2.28 M/mm3 (3.60-5.2); RDW 15.3 % (11.6-15.6)
--- NOTE | 2018-11-16 08:17 | PN ---
Progress Note, Physician History of Present Illness: abd pain main issues no blood - Current Medication List Current Medications: Active Medications Folic Acid (Folic Acid -) 1 mg PO DAILY [facility] Last Admin: 11/15/18 11:30 Dose: 1 mg Heparin Sodium (Porcine) (Heparin -) 5,000 unit SQ TID [facility] Last Admin: 11/16/18 05:15 Dose: 5,000 unit Metronidazole (Flagyl 500mg Premixed Ivpb -) 500 mg in 100 mls @ 100 mls/hr IVPB Q8H-IV [facility] Last Admin: 11/16/18 02:01 Dose: 100 mls/hr Piperacillin Sod/Tazobactam (Sod 3.375 gm/ Dextrose) 50 mls @ 100 mls/hr IVPB Q8H-IV [facility]; Protocol Last Admin: 11/16/18 01:10 Dose: 100 mls/hr Potassium Chloride/Dextrose/Sod Cl (D5-1/2ns+20 Meq Kcl -) 20 meq in 1,000 mls @ 100 mls/hr IV ASDIR [facility] Last Admin: 11/15/18 21:01 Dose: 100 mls/hr Morphine Sulfate (Morphine Sulfate) 4 mg IVPUSH Q4H PRN PRN Reason: pain Last Admin: 11/16/18 05:15 Dose: 4 mg Ondansetron HCl (Zofran Injection) 4 mg IVPUSH Q6H PRN PRN Reason: NAUSEA AND/OR VOMITING Pantoprazole Sodium (Protonix Iv) 40 mg IVPUSH BID [facility] Last Admin: 11/15/18 21:02 Dose: 40 mg - Objective Vital Signs: Vital Signs Temperature 98.1 F 11/16/18 05:07 Pulse Rate 100 H 11/16/18 05:07 Respiratory Rate 18 11/16/18 05:07 Blood Pressure 107/65 11/16/18 05:07 O2 Sat by Pulse Oximetry (%) 100 11/15/18 21:00 Constitutional: Yes: Calm, Mild Distress Cardiovascular: Yes: Regular Rate and Rhythm Respiratory: Yes: Regular, CTA Bilaterally Gastrointestinal: Yes: Normal Bowel Sounds, Soft, Tenderness Musculoskeletal: Yes: WNL Extremities: Yes: WNL Neurological: Yes: Alert, Oriented Psychiatric: Yes: Alert, Oriented Labs: INR, PTT INR 2.20 (0.83-1.09) H 11/14/18 05:59 - ....Imaging Cat Scan: Report Reviewed, Image Reviewed MRI: Report Reviewed, Image Reviewed Assessment/Plan Problem List - Problems (1) Generalized abdominal pain Code(s): R10.84 - GENERALIZED ABDOMINAL PAIN (2) Rectal bleeding Code(s): K62.5 - HEMORRHAGE OF ANUS AND RECTUM (3) Colitis Code(s): K52.9 - NONINFECTIVE GASTROENTERITIS AND COLITIS, UNSPECIFIED (4) Bloody diarrhea Code(s): R19.7 - DIARRHEA, UNSPECIFIED (5) Hyperbilirubinemia Code(s): E80.6 - OTHER DISORDERS OF BILIRUBIN METABOLISM (6) Alcoholic liver disorder Code(s): K70.9 - ALCOHOLIC LIVER DISEASE, UNSPECIFIED (7) Microcytic hypochromic anemia Code(s): D50.9 - IRON DEFICIENCY ANEMIA, UNSPECIFIED (8) S/P gastric bypass Code(s): Z98.84 - BARIATRIC SURGERY STATUS patients colitis is quite disffuse r/o infectious vs ischemic also uti patients bilirubin high,cause lfts not bad though plan continue abx final plan awaited mrcp and repeat ct scan result noted
[2018-11-16 08:41] LABS: ALBUMIN 1.7 g/dl (3.4-5.0); BILIRUBIN,TOTAL 8.2 mg/dL (0.2-1); CALCIUM 7.5 mg/dL (8.5-10.1); CREATININE 0.8 mg/dL (0.55-1.3); POTASSIUM 3.7 mmol/L (3.5-5.1); TOT PROT 5.4 g/dl (6.4-8.2)
[2018-11-16 08:52] LABS: BLOOD UREA NITROGEN 1.1 mg/dL (7-18)
[2018-11-16] MEDS: FOLIC ACID 1 MG TABLET (FP) PO SCH (09:24)
[2018-11-16] MEDS: PANTOPRAZOLE SODIUM 40 MG VIAL IVPUSH SCH ×2 (09:25→21:27)
--- NOTE | 2018-11-16 09:34 | PN ---
Progress Note, Physician History of Present Illness: GI FOLLOW UP NOTE Patient examined and case discussed with Dr Sosa Patient continue to complain of diffuse abdominal pain. She states diarrhea has resolved, denies rectal bleeding, blood in stool or melena. CT scan shows abnormal transverse and right colon compatible with colitis, enlarged liver with fatty infiltrates and or diffuse hepatocellular disease. Noted with elevated tumor markers, CEA 5.5 and CA 19-9 54. Patient states last endoscopy was 8-9 years ago at [facility], she reports no findings polyps or ulcers. She says it was done after her Bariatric surgery due to post-op complications which she described as her "stomach closing up". Bariatric surgery done by Dr Cm [phone] at [facility]. Family history of colon CA with her paternal grandmother, denies having colonoscopy performed before. - Current Medication List Current Medications: Active Medications Folic Acid (Folic Acid -) 1 mg PO DAILY [facility] Last Admin: 11/15/18 11:30 Dose: 1 mg Heparin Sodium (Porcine) (Heparin -) 5,000 unit SQ TID [facility] Last Admin: 11/16/18 05:15 Dose: 5,000 unit Metronidazole (Flagyl 500mg Premixed Ivpb -) 500 mg in 100 mls @ 100 mls/hr IVPB Q8H-IV [facility] Last Admin: 11/16/18 02:01 Dose: 100 mls/hr Piperacillin Sod/Tazobactam (Sod 3.375 gm/ Dextrose) 50 mls @ 100 mls/hr IVPB Q8H-IV [facility]; Protocol Last Admin: 11/16/18 01:10 Dose: 100 mls/hr Potassium Chloride/Dextrose/Sod Cl (D5-1/2ns+20 Meq Kcl -) 20 meq in 1,000 mls @ 100 mls/hr IV ASDIR [facility] Last Admin: 11/15/18 21:01 Dose: 100 mls/hr Morphine Sulfate (Morphine Sulfate) 4 mg IVPUSH Q4H PRN PRN Reason: pain Last Admin: 11/16/18 05:15 Dose: 4 mg Ondansetron HCl (Zofran Injection) 4 mg IVPUSH Q6H PRN PRN Reason: NAUSEA AND/OR VOMITING Pantoprazole Sodium (Protonix Iv) 40 mg IVPUSH BID [facility] Last Admin: 11/15/18 21:02 Dose: 40 mg - Objective Vital Signs: Vital Signs Temperature 98.1 F 11/16/18 05:07 Pulse Rate 100 H 11/16/18 05:07 Respiratory Rate 18 11/16/18 05:07 Blood Pressure 107/65 11/16/18 05:07 O2 Sat by Pulse Oximetry (%) 100 11/15/18 21:00 Constitutional: Yes: No Distress, Calm Eyes: Yes: Other (jaundice sclera) HENT: Yes: Atraumatic Cardiovascular: Yes: Regular Rate and Rhythm Respiratory: Yes: Regular, CTA Bilaterally Gastrointestinal: Yes: Soft, Hypoactive Bowel Sounds, Tenderness (diffuse) Neurological: Yes: Alert, Oriented Psychiatric: Yes: Alert, Oriented Labs: CBC, BMP 11/16/18 07:06 11/16/18 07:06 INR, PTT INR 2.20 (0.83-1.09) H 11/14/18 05:59 Problem List - Problems (1) Abdominal pain Assessment/Plan: -2/2 Mesenteric ischemia -IV hydration -Zosyn and Flagyl -MRCP results show hepatospenomegaly with severe fatty infiltration vs hepatocellular disease with signs of portal hypertension suggested by early splenorenal varices, 3rd spacing suggests subcutaneous and mesenteric edema and trace perihepatic and perisplenic free fluid -Surgical recommendations appreciated -tumor markers elevated -Colonoscopy to be done when abdominal pain resolves -chronic liver work up as outpatient Code(s): R10.9 - UNSPECIFIED ABDOMINAL PAIN (2) Anemia Assessment/Plan: -monitor Hg daily -yesterday Hg 8.8 -transfuse for Hg <8.0 -Stool OB positive Code(s): D64.9 - ANEMIA, UNSPECIFIED (3) Bloody diarrhea Assessment/Plan: -Stool OB positive -monitor Hg daily -transfuse for Hg <8.0 Code(s): R19.7 - DIARRHEA, UNSPECIFIED (4) Hyperbilirubinemia Assessment/Plan: -Bili 7.0 -Hepatitis panel reviewed Code(s): E80.6 - OTHER DISORDERS OF BILIRUBIN METABOLISM
[2018-11-16 10:19] LABS: ANISOCYTOSIS 1+; MACROCYTOSIS 1+; PLATELET ESTIMATE NORMAL
--- NOTE | 2018-11-16 17:19 | PN ---
Physical Exam: SUBJECTIVE: Patient seen and examined. Still complains of abdominal pain. CT with abnormal transverse and right colon compatible with colitis, enlarged liver with fatty infiltrates and or diffuse hepatocellular disease. OBJECTIVE: Vital Signs Period Temp Pulse Resp BP Sys/East Pulse Ox Last 24 Hr 97.9 F-98.9 F 87-138 18-18 104-117/56-78 99-100 Constitutional: Yes: No Distress, Calm Eyes: Yes: Other (jaundice sclera) HENT: Yes: Atraumatic Cardiovascular: Yes: Regular Rate and Rhythm Respiratory: Yes: Regular, CTA Bilaterally Gastrointestinal: Yes: Soft, Hypoactive Bowel Sounds, Tenderness (diffuse) Neurological: Yes: Alert, Oriented Psychiatric: Yes: Alert, Oriented Laboratory Results - last 24 hr 11/16/18 11/16/18 07:06 07:06 WBC 7.0 RBC 2.28 L Hgb 8.2 L Hct 24.5 L MCV 107.8 H MCH 36.2 H MCHC 33.6 RDW 15.3 Plt Count 164 MPV 8.6 Absolute Neuts (auto) 5.4 Neutrophils % 76.9 Lymphocytes % 13.3 Monocytes % 8.6 Eosinophils % 0.4 Basophils % 0.8 Nucleated RBC % 0 Hypochromia 0 Platelet Estimate Normal Polychromasia 1+ Poikilocytosis 0 Anisocytosis 1+ Microcytosis 0 Macrocytosis 1+ Sodium 138 Potassium 3.7 Chloride 106 Carbon Dioxide 27 Anion Gap 6 L BUN 1.1 L* Creatinine 0.8 Est GFR (CKD-EPI)AfAm 107.64 Est GFR (CKD-EPI)NonAf 92.87 Random Glucose 85 Calcium 7.5 L Ferritin 256.4 Total Bilirubin 8.2 H AST 99 H ALT 40 Alkaline Phosphatase 97 Total Protein 5.4 L Albumin 1.7 L Active Medications Generic Name Dose Route Start Last Admin Trade Name Freq PRN Reason Stop Dose Admin Folic Acid 1 mg 11/14/18 15:45 11/16/18 09:24 Folic Acid - PO 1 mg DAILY [facility] Administration Heparin Sodium (Porcine) 5,000 unit 11/12/18 22:00 11/16/18 13:39 Heparin - SQ 5,000 unit TID [facility] Administration Metronidazole 500 mg in 100 mls @ 100 mls/hr 11/12/18 10:00 11/16/18 11:14 Flagyl 500mg Premixed Ivpb - IVPB 100 mls/hr Q8H-IV [facility] Administration Piperacillin Sod/Tazobactam 50 mls @ 100 mls/hr 11/12/18 18:00 11/16/18 09:24 Sod 3.375 gm/ Dextrose IVPB 100 mls/hr Q8H-IV [facility] Administration Protocol Morphine Sulfate 4 mg 11/15/18 22:35 11/16/18 13:39 Morphine Sulfate IVPUSH 4 mg Q4H PRN Administration pain Ondansetron HCl 4 mg 11/12/18 02:26 Zofran Injection IVPUSH Q6H PRN NAUSEA AND/OR VOMITING Pantoprazole Sodium 40 mg 11/13/18 22:00 11/16/18 09:25 Protonix Iv IVPUSH 40 mg BID [facility] Administration Phytonadione 5 mg 11/16/18 17:15 Aqua Mephyton Injection - SQ 11/18/18 10:01 DAILY [facility] ASSESSMENT/PLAN: Anemia 2/2 Acute blood loss FOBT + Folate Deficiency -S/p Vit K on 11/13 with no improvement in coags likely from liver dz -Give 3 more days of Vit K 5mg sq. -Cont. Folic acid -FU GI reccs Visit type - Emergency Visit Emergency Visit: Yes ED Registration Date: 11/11/18 Care time: The patient presented to the Emergency Department on the above date and was hospitalized for further evaluation of their emergent condition. - New Patient This patient is new to me today: Yes Date on this admission: 11/16/18 - Critical Care Critical Care patient: No
[2018-11-16] MEDS: PHYTONADIONE 10 MG/1 ML AMP SQ SCH (17:42)
--- NOTE | 2018-11-16 18:04 | PN ---
Teaching Attending Note Name of Resident: Hamzah Gomez Case discussed with -- coagulaopathy due to ongoing acute liver disease -- but since patient on broad spectrum antibiotics will give trial of vitamin K Marginally elevated CEA/CA19.9 due to ongoing inflammation of the liver MRCP findings noted -- fatty liver/splenorenal varices/ hepatocellular disease will follow
--- NOTE | 2018-11-16 23:12 | PN ---
Progress Note, Physician History of Present Illness: No new complaints Pt has no appetite and not eating - Current Medication List Current Medications: Active Medications Folic Acid (Folic Acid -) 1 mg PO DAILY [facility] Last Admin: 11/16/18 09:24 Dose: 1 mg Heparin Sodium (Porcine) (Heparin -) 5,000 unit SQ TID [facility] Last Admin: 11/16/18 21:27 Dose: 5,000 unit Metronidazole (Flagyl 500mg Premixed Ivpb -) 500 mg in 100 mls @ 100 mls/hr IVPB Q8H-IV [facility] Last Admin: 11/16/18 17:18 Dose: 100 mls/hr Piperacillin Sod/Tazobactam (Sod 3.375 gm/ Dextrose) 50 mls @ 100 mls/hr IVPB Q8H-IV [facility]; Protocol Last Admin: 11/16/18 18:28 Dose: 100 mls/hr Morphine Sulfate (Morphine Sulfate) 4 mg IVPUSH Q4H PRN PRN Reason: pain Last Admin: 11/16/18 22:21 Dose: 4 mg Ondansetron HCl (Zofran Injection) 4 mg IVPUSH Q6H PRN PRN Reason: NAUSEA AND/OR VOMITING Pantoprazole Sodium (Protonix Iv) 40 mg IVPUSH BID [facility] Last Admin: 11/16/18 21:27 Dose: 40 mg Phytonadione (Aqua Mephyton Injection -) 5 mg SQ DAILY [facility] Stop: 11/18/18 10:01 Last Admin: 11/16/18 17:42 Dose: 5 mg - Objective Vital Signs: Vital Signs Temperature 81 F L 11/16/18 18:00 Pulse Rate 93 H 11/16/18 18:00 Respiratory Rate 18 11/16/18 18:00 Blood Pressure 111/62 11/16/18 18:00 O2 Sat by Pulse Oximetry (%) 99 11/16/18 09:00 Eyes: Yes: Sclera Icterus Neck: Yes: WNL, Supple Cardiovascular: Yes: WNL, Regular Rate and Rhythm Respiratory: Yes: WNL, Regular, CTA Bilaterally Gastrointestinal: Yes: Normal Bowel Sounds, Soft, Other (generalized tenderness (-) guarding/rebound) Labs: CBC, BMP 11/16/18 07:06 11/16/18 07:06 INR, PTT INR 2.20 (0.83-1.09) H 11/14/18 05:59 Problem List - Problems (1) Abdominal pain Assessment/Plan: ?Due to colitis vs alcoholic hepatitis IV antribxs Monitor labs Cont IVF Cont IV antibxs Bili has increased MRI showed hepatomegaly/ascites/hepatocellular dz Code(s): R10.9 - UNSPECIFIED ABDOMINAL PAIN (2) Colitis Assessment/Plan: Cont IV antibxs Stool studies remain negative Code(s): K52.9 - NONINFECTIVE GASTROENTERITIS AND COLITIS, UNSPECIFIED (3) Hyperbilirubinemia Code(s): E80.6 - OTHER DISORDERS OF BILIRUBIN METABOLISM (4) S/P gastric bypass Code(s): Z98.84 - BARIATRIC SURGERY STATUS (5) Anemia Assessment/Plan: ?Dilutional Monitor H/H Code(s): D64.9 - ANEMIA, UNSPECIFIED
[2018-11-17] MEDS ORDERED: PIPERACILLIN/TAZOBACTAM 3.375 GM VIAL IVPB ONE ×3 (00:42→16:28)
[2018-11-17] MEDS ORDERED: DEXTROSE 5%-WATER - 50 ML IVPB ONE ×3 (00:42→16:28)
[2018-11-17] MEDS: PIPERACILLIN/TAZOB 3.375 GM 3.375 GM in DEXTROSE 5%-WATER - 50 ML IVPB SCH ×3 (02:30→17:32)
[2018-11-17] MEDS: morphine SULFATE 4 MG/ML VIAL IVPUSH PRN ×5 (02:30→20:20)
[2018-11-17] MEDS: HEPARIN NA (PORCINE) 5,000 UNITS/ML 1ML VIAL SQ SCH ×3 (06:30→21:40)
[2018-11-17] MEDS ORDERED: ONDANSETRON 4 MG TABLET PO PRN (08:17)
--- NOTE | 2018-11-17 08:28 | PN ---
Progress Note, Physician History of Present Illness: GI FOLLOW UP NOTE Patient examined and case discussed with Dr Sosa Patient continue to complain of diffuse abdominal pain and now RUQ pain is radiating to back. She states haing one episode of loose stool, denies rectal bleeding, blood in stool or melena. Patient had endoscopy performed at [facility] on 09/2015 which showed LA grade A mild reflux esophagitis at [place]. Labs are showing elevated INR and elevated total bili 8.2. Patient states that now she is developing lower extremity edema also. - Current Medication List Current Medications: Active Medications Folic Acid (Folic Acid -) 1 mg PO DAILY [facility] Last Admin: 11/16/18 09:24 Dose: 1 mg Heparin Sodium (Porcine) (Heparin -) 5,000 unit SQ TID [facility] Last Admin: 11/17/18 06:30 Dose: 5,000 unit Metronidazole (Flagyl 500mg Premixed Ivpb -) 500 mg in 100 mls @ 100 mls/hr IVPB Q8H-IV [facility] Last Admin: 11/17/18 03:00 Dose: 100 mls/hr Piperacillin Sod/Tazobactam (Sod 3.375 gm/ Dextrose) 50 mls @ 100 mls/hr IVPB Q8H-IV [facility]; Protocol Last Admin: 11/17/18 02:30 Dose: 100 mls/hr Morphine Sulfate (Morphine Sulfate) 4 mg IVPUSH Q4H PRN PRN Reason: pain Last Admin: 11/17/18 06:29 Dose: 4 mg Ondansetron HCl (Zofran -) 4 mg PO Q8H PRN PRN Reason: NAUSEA AND/OR VOMITING Pantoprazole Sodium (Protonix -) 40 mg PO BID [facility] Phytonadione (Aqua Mephyton Injection -) 5 mg SQ DAILY [facility] Stop: 11/18/18 10:01 Last Admin: 11/16/18 17:42 Dose: 5 mg Spironolactone (Aldactone -) 50 mg PO DAILY [facility] - Objective Vital Signs: Vital Signs Temperature 98 F 11/17/18 05:49 Pulse Rate 80 11/17/18 05:49 Respiratory Rate 18 11/17/18 05:49 Blood Pressure 99/64 11/17/18 05:49 O2 Sat by Pulse Oximetry (%) 99 11/16/18 21:00 Constitutional: Yes: No Distress, Calm Eyes: Yes: Other (jaundice sclera) HENT: Yes: Atraumatic Cardiovascular: Yes: Regular Rate and Rhythm Respiratory: Yes: Regular, CTA Bilaterally Gastrointestinal: Yes: Normal Bowel Sounds, Soft, Tenderness (diffuse but noted to be more tender in upper quadrants) Edema: Yes (B/L lower extremity) Neurological: Yes: Alert, Oriented Psychiatric: Yes: Alert, Oriented Labs: CBC, BMP 11/16/18 07:06 11/16/18 07:06 INR, PTT INR 2.20 (0.83-1.09) H 11/14/18 05:59 Problem List - Problems (1) Abdominal pain Assessment/Plan: -2/2 Mesenteric ischemia -IV hydration -Zosyn and Flagyl -MRCP results show hepatospenomegaly with severe fatty infiltration vs hepatocellular disease with signs of portal hypertension suggested by early splenorenal varices, 3rd spacing suggests subcutaneous and mesenteric edema and trace perihepatic and perisplenic free fluid -Surgical recommendations appreciated -tumor markers elevated -Colonoscopy to be done when abdominal pain resolves -chronic liver work up as outpatient -repeat Abdomen and Pelvic CT scan without contrast Code(s): R10.9 - UNSPECIFIED ABDOMINAL PAIN (2) Anemia Assessment/Plan: -monitor Hg daily -yesterday Hg 8.8 -transfuse for Hg <8.0 -Stool OB positive Code(s): D64.9 - ANEMIA, UNSPECIFIED (3) Bloody diarrhea Assessment/Plan: -Stool OB positive -monitor Hg daily -transfuse for Hg <8.0 Code(s): R19.7 - DIARRHEA, UNSPECIFIED (4) Hyperbilirubinemia Assessment/Plan: -Bili 8.2 -Hepatitis panel reviewed Code(s): E80.6 - OTHER DISORDERS OF BILIRUBIN METABOLISM (5) Alcoholic liver disorder Assessment/Plan: -start on Aldactone 50mg daily -daily weights -ammonia level -AFP 1.8 -ARNIE and Anti-smooth muscle result pending Code(s): K70.9 - ALCOHOLIC LIVER DISEASE, UNSPECIFIED
[2018-11-17 08:40] LABS: INR 2.09 (0.83-1.09); PROTHROMBIN TIME (PATIENT) 24.9 SEC (9.7-13.0)
[2018-11-17 08:42] LABS: BASO % 0.8 % (0-2.0); EOS % 0.2 % (0-4.5); HEMATOCRIT 28.9 % (32.4-45.2); HEMOGLOBIN 9.5 GM/dL (10.7-15.3); LYMPH % 10.6 % (8-40); MCH 35.9 pg (25.7-33.7); MCHC 32.9 g/dl (32.0-36.0); MEAN CELL VOLUME 109.1 fl (80-96); MEAN PLT VOLUME 8.6 fl (7.5-11.1); MONO % 7.9 % (3.8-10.2); NEUT % 80.5 % (42.8-82.8); RBC 2.65 M/mm3 (3.60-5.2); RDW 15.7 % (11.6-15.6); WHITE BLOOD COUNT 8.9 K/mm3 (4.0-10.0)
[2018-11-17 08:43] LABS: ACTIVATED PTT 49.5 SECONDS (25.2-36.5)
[2018-11-17 09:10] LABS: BILIRUBIN,TOTAL 9.9 mg/dL (0.2-1); POTASSIUM 3.6 mmol/L (3.5-5.1); TOT PROT 6.3 g/dl (6.4-8.2)
[2018-11-17 09:20] LABS: BLOOD UREA NITROGEN 1.6 mg/dL (7-18)
[2018-11-17] MEDS: PHYTONADIONE 10 MG/1 ML AMP SQ SCH (09:54)
[2018-11-17] MEDS: FOLIC ACID 1 MG TABLET (FP) PO SCH (09:54)
[2018-11-17] MEDS: PANTOPRAZOLE 40 MG TABLET (FP) PO SCH ×2 (09:54→21:40)
[2018-11-17] MEDS ORDERED: SPIRONOLACTONE 25 MG TABLET (FP) PO SCH (10:00)
[2018-11-17 10:59] LABS: PLATELET ESTIMATE NORMAL
[2018-11-17 11:26] LABS: PLATELET COUNT 186 K/MM3 (134-434)
--- NOTE | 2018-11-17 11:37 | PN ---
Progress Note, Physician History of Present Illness: still with abd pain loose bm - Current Medication List Current Medications: Active Medications Folic Acid (Folic Acid -) 1 mg PO DAILY [facility] Last Admin: 11/17/18 09:54 Dose: 1 mg Heparin Sodium (Porcine) (Heparin -) 5,000 unit SQ TID [facility] Last Admin: 11/17/18 06:30 Dose: 5,000 unit Metronidazole (Flagyl 500mg Premixed Ivpb -) 500 mg in 100 mls @ 100 mls/hr IVPB Q8H-IV [facility] Last Admin: 11/17/18 10:39 Dose: 100 mls/hr Piperacillin Sod/Tazobactam (Sod 3.375 gm/ Dextrose) 50 mls @ 100 mls/hr IVPB Q8H-IV [facility]; Protocol Last Admin: 11/17/18 09:54 Dose: 100 mls/hr Morphine Sulfate (Morphine Sulfate) 4 mg IVPUSH Q4H PRN PRN Reason: pain Last Admin: 11/17/18 11:19 Dose: 4 mg Ondansetron HCl (Zofran -) 4 mg PO Q8H PRN PRN Reason: NAUSEA AND/OR VOMITING Pantoprazole Sodium (Protonix -) 40 mg PO BID [facility] Last Admin: 11/17/18 09:54 Dose: 40 mg Phytonadione (Aqua Mephyton Injection -) 5 mg SQ DAILY [facility] Stop: 11/18/18 10:01 Last Admin: 11/17/18 09:54 Dose: 5 mg Spironolactone (Aldactone -) 50 mg PO DAILY [facility] Last Admin: 11/17/18 09:54 Dose: 50 mg - Objective Vital Signs: Vital Signs Temperature 97.7 F 11/17/18 10:00 Pulse Rate 100 H 11/17/18 10:00 Respiratory Rate 20 11/17/18 10:00 Blood Pressure 114/81 11/17/18 10:00 O2 Sat by Pulse Oximetry (%) 100 11/17/18 09:00 Constitutional: Yes: Calm, Mild Distress Cardiovascular: Yes: Regular Rate and Rhythm Respiratory: Yes: Regular, CTA Bilaterally Gastrointestinal: Yes: Normal Bowel Sounds, Soft Musculoskeletal: Yes: WNL Extremities: Yes: WNL Neurological: Yes: Alert, Oriented Psychiatric: Yes: Alert, Oriented Labs: CBC, BMP 11/17/18 08:10 11/17/18 08:10 INR, PTT INR 2.09 (0.83-1.09) H 11/17/18 08:10 Fibrinogen 175.0 mg/dL (238-498) L 11/17/18 08:10 Assessment/Plan Problem List - Problems (1) Generalized abdominal pain Code(s): R10.84 - GENERALIZED ABDOMINAL PAIN (2) Rectal bleeding Code(s): K62.5 - HEMORRHAGE OF ANUS AND RECTUM (3) Colitis Code(s): K52.9 - NONINFECTIVE GASTROENTERITIS AND COLITIS, UNSPECIFIED (4) Bloody diarrhea Code(s): R19.7 - DIARRHEA, UNSPECIFIED (5) Hyperbilirubinemia Code(s): E80.6 - OTHER DISORDERS OF BILIRUBIN METABOLISM (6) Alcoholic liver disorder Code(s): K70.9 - ALCOHOLIC LIVER DISEASE, UNSPECIFIED (7) Microcytic hypochromic anemia Code(s): D50.9 - IRON DEFICIENCY ANEMIA, UNSPECIFIED (8) S/P gastric bypass Code(s): Z98.84 - BARIATRIC SURGERY STATUS patients colitis is quite disffuse r/o infectious vs ischemic also uti patients bilirubin high,cause lfts not bad though plan continue abx final plan awaited mrcp and repeat ct scan result noted rest as per the team
[2018-11-17] MEDS: PENTOXIFYLLINE 400 MG TABLET.ER PO SCH ×2 (13:43→17:59)
--- NOTE | 2018-11-17 16:01 | CONSULT ---
Consult Consult Specialty:: Nephrology Reason for Consultation:: low bun - History of Present Illness Chief Complaint: abd pain History of Present Illness: Pt is a 38 year old female with pmhx of gastric bypass and liver disease who presents to the ER with abdominal pain. She was found to have colitis. She was also found to have elevated bili. I was called to evaluate her for low bun. She has not been eating and has been on fluids. She complains of lower ext edema. SHe denies dysuria or hematuria. She denies shortness of breath. She is awake and alert. She complains of abd pain. - History Source History Provided By: Patient, Medical Record - Past Medical History Gastrointestinal: Yes: GERD ...LMP: 11/08/18 ...: No Psych: Yes: Other (Etoh abuse) - Past Surgical History Past Surgical History: Yes: Appendectomy, Additional Surgical History: gastric bypass - Alcohol/Substance Use Hx Alcohol Use: No History of Substance Use: reports: None - Smoking History Smoking history: Never smoked Have you smoked in the past 12 months: No If you are a former smoker, when did you quit?: none in about a year, was a social smoker only - Social History ADL: Independent History of Recent Travel: No Home Medications - Allergies Allergies/Adverse Reactions: Allergies Allergy/AdvReac Type Severity Reaction Status Date / Time No Known Allergies Allergy Verified 06/23/18 10:12 - Home Medications Home Medications: Ambulatory Orders Mv-Mn/Iron/FA/Herbal/Digestive [ One Tablet] 1 tab PO DAILY 05/25/18 Family Disease History - Family Disease History Family Disease History: Diabetes: Father (HTN, prostate CA dx 6m ago, he is 61) , Mother (HTN, HLD), CA: Grandparent (both grandparents), Other: Father, Mother Other Family History: mother's side with breast and colon CA; father's side with lupus Review of Systems - Review of Systems Constitutional: reports: Malaise Eyes: reports: No Symptoms HENT: reports: No Symptoms Neck: reports: No Symptoms Cardiovascular: reports: No Symptoms Respiratory: reports: No Symptoms Gastrointestinal: reports: Abdominal Pain Genitourinary: reports: No Symptoms Musculoskeletal: reports: No Symptoms Integumentary: reports: No Symptoms Neurological: reports: No Symptoms Endocrine: reports: No Symptoms Hematology/Lymphatic: reports: No Symptoms Psychiatric: reports: No Symptoms Physical Exam Vital Signs: Vital Signs Temperature 97.7 F 11/17/18 14:48 Pulse Rate 86 11/17/18 14:48 Respiratory Rate 20 11/17/18 14:48 Blood Pressure 96/48 L 11/17/18 14:48 O2 Sat by Pulse Oximetry (%) 100 11/17/18 09:00 Constitutional: Yes: Calm Eyes: Yes: Conjunctiva Clear HENT: Yes: Atraumatic Neck: Yes: Supple Cardiovascular: Yes: S1, S2 Respiratory: Yes: CTA Bilaterally Gastrointestinal: Yes: Normal Bowel Sounds, Soft Renal/: Yes: WNL Musculoskeletal: Yes: WNL Edema: Yes Edema: LLE: 1+, RLE: 1+ Neurological: Yes: Oriented Psychiatric: Yes: Oriented Labs: CBC, BMP 11/17/18 08:10 11/17/18 08:10 Imaging - Results Cat Scan: Report Reviewed Problem List - Problems (1) Malnutrition Code(s): E46 - UNSPECIFIED PROTEIN-CALORIE MALNUTRITION (2) Abdominal pain Code(s): R10.9 - UNSPECIFIED ABDOMINAL PAIN (3) Anemia Code(s): D64.9 - ANEMIA, UNSPECIFIED (4) Colitis Code(s): K52.9 - NONINFECTIVE GASTROENTERITIS AND COLITIS, UNSPECIFIED Assessment/Plan Current Medications Generic Name Dose Route Start Last Admin Trade Name Freq PRN Reason Stop Dose Admin Folic Acid 1 mg 11/14/18 15:45 11/17/18 09:54 Folic Acid - PO 1 mg DAILY [facility] Administration Heparin Sodium (Porcine) 5,000 unit 11/12/18 22:00 11/17/18 13:43 Heparin - SQ 5,000 unit TID [facility] Administration Metronidazole 500 mg in 100 mls @ 100 mls/hr 11/12/18 10:00 11/17/18 10:39 Flagyl 500mg Premixed Ivpb - IVPB 100 mls/hr Q8H-IV [facility] Administration Piperacillin Sod/Tazobactam 50 mls @ 100 mls/hr 11/12/18 18:00 11/17/18 09:54 Sod 3.375 gm/ Dextrose IVPB 100 mls/hr Q8H-IV [facility] Administration Protocol Morphine Sulfate 4 mg 11/15/18 22:35 11/17/18 11:19 Morphine Sulfate IVPUSH 4 mg Q4H PRN Administration pain Ondansetron HCl 4 mg 11/17/18 08:17 Zofran - PO Q8H PRN NAUSEA AND/OR VOMITING Pantoprazole Sodium 40 mg 11/17/18 10:00 11/17/18 09:54 Protonix - PO 40 mg BID [facility] Administration Pentoxifylline 400 mg 11/17/18 12:15 11/17/18 13:43 Trental - PO 400 mg TIDCM [facility] Administration Phytonadione 5 mg 11/16/18 17:15 11/17/18 09:54 Aqua Mephyton Injection - SQ 11/18/18 10:01 5 mg DAILY [facility] Administration Spironolactone 50 mg 11/17/18 10:00 11/17/18 09:54 Aldactone - PO 50 mg DAILY [facility] Administration Impression 1. low bun/malnutrition 2. colitis 3. hx of gastric bypass 4. abd pain 5. elevated bili 6. anemia 7. etoh abuse Plan - pt started on clear, encourage po intake - cont aldactonne - cont to monitor bun - check ua - GI follow up - d/c all fluids
--- NOTE | 2018-11-17 22:42 | PN ---
Progress Note, Physician - Current Medication List Current Medications: Active Medications Folic Acid (Folic Acid -) 1 mg PO DAILY [facility] Last Admin: 11/17/18 09:54 Dose: 1 mg Heparin Sodium (Porcine) (Heparin -) 5,000 unit SQ TID [facility] Last Admin: 11/17/18 21:40 Dose: 5,000 unit Metronidazole (Flagyl 500mg Premixed Ivpb -) 500 mg in 100 mls @ 100 mls/hr IVPB Q8H-IV [facility] Last Admin: 11/17/18 17:59 Dose: 100 mls/hr Piperacillin Sod/Tazobactam (Sod 3.375 gm/ Dextrose) 50 mls @ 100 mls/hr IVPB Q8H-IV [facility]; Protocol Last Admin: 11/17/18 17:32 Dose: 100 mls/hr Morphine Sulfate (Morphine Sulfate) 4 mg IVPUSH Q4H PRN PRN Reason: pain Last Admin: 11/17/18 20:20 Dose: 4 mg Ondansetron HCl (Zofran -) 4 mg PO Q8H PRN PRN Reason: NAUSEA AND/OR VOMITING Last Admin: 11/17/18 17:41 Dose: 4 mg Pantoprazole Sodium (Protonix -) 40 mg PO BID [facility] Last Admin: 11/17/18 21:40 Dose: 40 mg Pentoxifylline (Trental -) 400 mg PO TIDCM [facility] Last Admin: 11/17/18 17:59 Dose: 400 mg Phytonadione (Aqua Mephyton Injection -) 5 mg SQ DAILY [facility] Stop: 11/18/18 10:01 Last Admin: 11/17/18 09:54 Dose: 5 mg Spironolactone (Aldactone -) 50 mg PO DAILY [facility] Last Admin: 11/17/18 09:54 Dose: 50 mg - Objective Vital Signs: Vital Signs Temperature 98.0 F 11/17/18 21:43 Pulse Rate 91 H 11/17/18 21:43 Respiratory Rate 20 11/17/18 21:43 Blood Pressure 127/78 11/17/18 21:43 O2 Sat by Pulse Oximetry (%) 99 11/17/18 21:00 Labs: CBC, BMP 11/17/18 08:10 11/17/18 08:10 INR, PTT INR 2.09 (0.83-1.09) H 11/17/18 08:10 Fibrinogen 175.0 mg/dL (238-498) L 11/17/18 08:10 Problem List - Problems (1) Abdominal pain Code(s): R10.9 - UNSPECIFIED ABDOMINAL PAIN (2) Colitis Code(s): K52.9 - NONINFECTIVE GASTROENTERITIS AND COLITIS, UNSPECIFIED (3) Hyperbilirubinemia Code(s): E80.6 - OTHER DISORDERS OF BILIRUBIN METABOLISM (4) S/P gastric bypass Code(s): Z98.84 - BARIATRIC SURGERY STATUS (5) Anemia Code(s): D64.9 - ANEMIA, UNSPECIFIED
[2018-11-18] MEDS ORDERED: PIPERACILLIN/TAZOBACTAM 3.375 GM VIAL IVPB ONE ×3 (00:32→17:08)
[2018-11-18] MEDS ORDERED: DEXTROSE 5%-WATER - 50 ML IVPB ONE ×3 (00:33→17:08)
[2018-11-18] MEDS: PIPERACILLIN/TAZOB 3.375 GM 3.375 GM in DEXTROSE 5%-WATER - 50 ML IVPB SCH ×3 (00:58→18:07)
[2018-11-18] MEDS: MORPHINE SULFATE 2 MG/ML VIAL IVPUSH PRN ×3 (00:58→16:49)
[2018-11-18] MEDS: HEPARIN NA (PORCINE) 5,000 UNITS/ML 1ML VIAL SQ SCH ×2 (06:21→15:13)
[2018-11-18 06:56] LABS: BASO % 0.4 % (0-2.0); EOS % 0.2 % (0-4.5); HEMATOCRIT 25.1 % (32.4-45.2); HEMOGLOBIN 8.4 GM/dL (10.7-15.3); MCH 35.9 pg (25.7-33.7); MCHC 33.3 g/dl (32.0-36.0); MEAN PLT VOLUME 8.5 fl (7.5-11.1); NEUT % 77.4 % (42.8-82.8); PLATELET COUNT 169 K/MM3 (134-434); RBC 2.33 M/mm3 (3.60-5.2); RDW 16.3 % (11.6-15.6); WHITE BLOOD COUNT 8.3 K/mm3 (4.0-10.0)
[2018-11-18 07:09] LABS: ALBUMIN 1.6 g/dl (3.4-5.0); BILIRUBIN,TOTAL 7.9 mg/dL (0.2-1); CALCIUM 7.8 mg/dL (8.5-10.1); CREATININE 0.8 mg/dL (0.55-1.3); POTASSIUM 3.8 mmol/L (3.5-5.1); TOT PROT 5.4 g/dl (6.4-8.2)
[2018-11-18 07:12] LABS: BLOOD UREA NITROGEN 1.8 mg/dL (7-18)
--- NOTE | 2018-11-18 07:50 | PN ---
Progress Note, Physician History of Present Illness: GI FOLLOW UP NOTE Patient examined and case discussed with Dr Sosa Patient continue to complain of diffuse abdominal pain. Complain of nausea and had 2 episodes of non-bloody diarrhea yesterday. Labs from today show total bili 7.9, no leukocytosis and afebrile. Denies rectal bleeding or melena. Repeat CT results pending. - Current Medication List Current Medications: Active Medications Folic Acid (Folic Acid -) 1 mg PO DAILY [facility] Last Admin: 11/17/18 09:54 Dose: 1 mg Heparin Sodium (Porcine) (Heparin -) 5,000 unit SQ TID [facility] Last Admin: 11/18/18 06:21 Dose: 5,000 unit Metronidazole (Flagyl 500mg Premixed Ivpb -) 500 mg in 100 mls @ 100 mls/hr IVPB Q8H-IV [facility] Last Admin: 11/18/18 01:47 Dose: 100 mls/hr Piperacillin Sod/Tazobactam (Sod 3.375 gm/ Dextrose) 50 mls @ 100 mls/hr IVPB Q8H-IV [facility]; Protocol Last Admin: 11/18/18 00:58 Dose: 100 mls/hr Morphine Sulfate (Morphine Sulfate) 2 mg IVPUSH Q6H PRN PRN Reason: PAIN SCALE 1-5 Last Admin: 11/18/18 06:21 Dose: 2 mg Ondansetron HCl (Zofran -) 4 mg PO Q8H PRN PRN Reason: NAUSEA AND/OR VOMITING Last Admin: 11/17/18 17:41 Dose: 4 mg Pantoprazole Sodium (Protonix -) 40 mg PO BID [facility] Last Admin: 11/17/18 21:40 Dose: 40 mg Pentoxifylline (Trental -) 400 mg PO TIDCM [facility] Last Admin: 11/17/18 17:59 Dose: 400 mg Phytonadione (Aqua Mephyton Injection -) 5 mg SQ DAILY [facility] Stop: 11/18/18 10:01 Last Admin: 11/17/18 09:54 Dose: 5 mg Spironolactone (Aldactone -) 50 mg PO DAILY [facility] Last Admin: 11/17/18 09:54 Dose: 50 mg - Objective Vital Signs: Vital Signs Temperature 97.6 F 11/18/18 05:22 Pulse Rate 70 11/18/18 05:22 Respiratory Rate 20 07/03/19 05:22 Blood Pressure 125/44 L 11/18/18 05:22 O2 Sat by Pulse Oximetry (%) 99 11/17/18 21:00 Constitutional: Yes: No Distress, Calm HENT: Yes: Atraumatic Cardiovascular: Yes: Regular Rate and Rhythm Respiratory: Yes: Regular, CTA Bilaterally Gastrointestinal: Yes: Normal Bowel Sounds, Soft, Hyperactive Bowel Sounds, Tenderness (diffuse) Musculoskeletal: Yes: WNL Extremities: Yes: WNL Edema: Yes Edema: LLE: 1+, RLE: Trace Neurological: Yes: Alert, Oriented Psychiatric: Yes: Alert, Oriented Labs: CBC, BMP 11/18/18 06:20 INR, PTT INR 2.09 (0.83-1.09) H 11/17/18 08:10 Fibrinogen 175.0 mg/dL (238-498) L 11/17/18 08:10 Problem List - Problems (1) Abdominal pain Assessment/Plan: -2/2 Mesenteric ischemia -IV hydration -Zosyn and Flagyl -MRCP results show hepatospenomegaly with severe fatty infiltration vs hepatocellular disease with signs of portal hypertension suggested by early splenorenal varices, 3rd spacing suggests subcutaneous and mesenteric edema and trace perihepatic and perisplenic free fluid -Surgical recommendations appreciated--will reconsult since abdominal pain has not subsided -tumor markers elevated -chronic liver work up as outpatient -repeat Abdomen and Pelvic CT scan without contrast -started on Trental Code(s): R10.9 - UNSPECIFIED ABDOMINAL PAIN (2) Anemia Assessment/Plan: -monitor Hg daily -yesterday Hg 8.4 -transfuse for Hg <8.0 -Stool OB positive Code(s): D64.9 - ANEMIA, UNSPECIFIED (3) Bloody diarrhea Assessment/Plan: -Stool OB positive -monitor Hg daily -transfuse for Hg <8.0 -resolved Code(s): R19.7 - DIARRHEA, UNSPECIFIED (4) Hyperbilirubinemia Assessment/Plan: -Bili 7.9 -Hepatitis panel reviewed Code(s): E80.6 - OTHER DISORDERS OF BILIRUBIN METABOLISM (5) Alcoholic liver disorder Assessment/Plan: -daily weights -ammonia level -AFP 1.8 -ARNIE and Anti-smooth muscle result pending Code(s): K70.9 - ALCOHOLIC LIVER DISEASE, UNSPECIFIED
--- NOTE | 2018-11-18 08:22 | PN ---
Progress Note, Physician History of Present Illness: stable no new issues - Current Medication List Current Medications: Active Medications Folic Acid (Folic Acid -) 1 mg PO DAILY [facility] Last Admin: 11/17/18 09:54 Dose: 1 mg Heparin Sodium (Porcine) (Heparin -) 5,000 unit SQ TID [facility] Last Admin: 11/18/18 06:21 Dose: 5,000 unit Metronidazole (Flagyl 500mg Premixed Ivpb -) 500 mg in 100 mls @ 100 mls/hr IVPB Q8H-IV [facility] Last Admin: 11/18/18 01:47 Dose: 100 mls/hr Piperacillin Sod/Tazobactam (Sod 3.375 gm/ Dextrose) 50 mls @ 100 mls/hr IVPB Q8H-IV [facility]; Protocol Last Admin: 11/18/18 00:58 Dose: 100 mls/hr Morphine Sulfate (Morphine Sulfate) 2 mg IVPUSH Q6H PRN PRN Reason: PAIN SCALE 1-5 Last Admin: 11/18/18 06:21 Dose: 2 mg Ondansetron HCl (Zofran -) 4 mg PO Q8H PRN PRN Reason: NAUSEA AND/OR VOMITING Last Admin: 11/17/18 17:41 Dose: 4 mg Pantoprazole Sodium (Protonix -) 40 mg PO BID [facility] Last Admin: 11/17/18 21:40 Dose: 40 mg Pentoxifylline (Trental -) 400 mg PO TIDCM [facility] Last Admin: 11/17/18 17:59 Dose: 400 mg Phytonadione (Aqua Mephyton Injection -) 5 mg SQ DAILY [facility] Stop: 11/18/18 10:01 Last Admin: 11/17/18 09:54 Dose: 5 mg Spironolactone (Aldactone -) 50 mg PO DAILY [facility] Last Admin: 11/17/18 09:54 Dose: 50 mg - Objective Vital Signs: Vital Signs Temperature 97.6 F 11/18/18 05:22 Pulse Rate 70 11/18/18 05:22 Respiratory Rate 20 11/18/18 05:22 Blood Pressure 125/44 L 11/18/18 05:22 O2 Sat by Pulse Oximetry (%) 99 11/17/18 21:00 Constitutional: Yes: Calm, Mild Distress HENT: Yes: Atraumatic Cardiovascular: Yes: Regular Rate and Rhythm Respiratory: Yes: Regular, CTA Bilaterally Gastrointestinal: Yes: Normal Bowel Sounds, Soft Musculoskeletal: Yes: WNL Extremities: Yes: WNL Neurological: Yes: Alert, Oriented Psychiatric: Yes: Alert, Oriented Labs: CBC, BMP 11/18/18 06:20 11/18/18 06:20 INR, PTT INR 2.09 (0.83-1.09) H 11/17/18 08:10 Fibrinogen 175.0 mg/dL (238-498) L 11/17/18 08:10 Assessment/Plan Problem List - Problems (1) Generalized abdominal pain Code(s): R10.84 - GENERALIZED ABDOMINAL PAIN (2) Rectal bleeding Code(s): K62.5 - HEMORRHAGE OF ANUS AND RECTUM (3) Colitis Code(s): K52.9 - NONINFECTIVE GASTROENTERITIS AND COLITIS, UNSPECIFIED (4) Bloody diarrhea Code(s): R19.7 - DIARRHEA, UNSPECIFIED (5) Hyperbilirubinemia Code(s): E80.6 - OTHER DISORDERS OF BILIRUBIN METABOLISM (6) Alcoholic liver disorder Code(s): K70.9 - ALCOHOLIC LIVER DISEASE, UNSPECIFIED (7) Microcytic hypochromic anemia Code(s): D50.9 - IRON DEFICIENCY ANEMIA, UNSPECIFIED (8) S/P gastric bypass Code(s): Z98.84 - BARIATRIC SURGERY STATUS patients colitis is quite disffuse r/o infectious vs ischemic also uti patients bilirubin high,cause lfts not bad though plan continue abx final plan awaited will have to decide further plan
[2018-11-18] MEDS: PENTOXIFYLLINE 400 MG TABLET.ER PO SCH ×3 (08:39→16:50)
[2018-11-18] MEDS: PHYTONADIONE 10 MG/1 ML AMP SQ SCH (09:48)
[2018-11-18] MEDS: FOLIC ACID 1 MG TABLET (FP) PO SCH (09:48)
[2018-11-18] MEDS: PANTOPRAZOLE 40 MG TABLET (FP) PO SCH (09:48)
[2018-11-18] MEDS ORDERED: traMADol HCL 50 MG TABLET PO ONE (11:30)
--- NOTE | 2018-11-18 12:53 | PN ---
Progress Note, Physician History of Present Illness: Pt seen and examined at bedside. She is awake and appears comfortable. She says that she is starting to eat more. - Current Medication List Current Medications: Active Medications Folic Acid (Folic Acid -) 1 mg PO DAILY [facility] Last Admin: 11/18/18 09:48 Dose: 1 mg Heparin Sodium (Porcine) (Heparin -) 5,000 unit SQ TID [facility] Last Admin: 11/18/18 06:21 Dose: 5,000 unit Metronidazole (Flagyl 500mg Premixed Ivpb -) 500 mg in 100 mls @ 100 mls/hr IVPB Q8H-IV [facility] Last Admin: 11/18/18 10:24 Dose: 100 mls/hr Piperacillin Sod/Tazobactam (Sod 3.375 gm/ Dextrose) 50 mls @ 100 mls/hr IVPB Q8H-IV [facility]; Protocol Last Admin: 11/18/18 09:48 Dose: 100 mls/hr Morphine Sulfate (Morphine Sulfate) 2 mg IVPUSH Q6H PRN PRN Reason: PAIN SCALE 1-5 Last Admin: 11/18/18 06:21 Dose: 2 mg Ondansetron HCl (Zofran -) 4 mg PO Q8H PRN PRN Reason: NAUSEA AND/OR VOMITING Last Admin: 11/17/18 17:41 Dose: 4 mg Pantoprazole Sodium (Protonix -) 40 mg PO BID [facility] Last Admin: 11/18/18 09:48 Dose: 40 mg Pentoxifylline (Trental -) 400 mg PO TIDCM [facility] Last Admin: 11/18/18 11:40 Dose: 400 mg - Objective Vital Signs: Vital Signs Temperature 97.7 F 11/18/18 10:00 Pulse Rate 101 H 11/18/18 10:00 Respiratory Rate 20 11/18/18 10:00 Blood Pressure 114/69 11/18/18 10:00 O2 Sat by Pulse Oximetry (%) 100 11/18/18 09:00 Constitutional: Yes: Calm Eyes: Yes: Conjunctiva Clear HENT: Yes: Atraumatic Neck: Yes: Supple Cardiovascular: Yes: S1, S2 Respiratory: Yes: CTA Bilaterally Gastrointestinal: Yes: Soft Genitourinary: Yes: WNL Musculoskeletal: Yes: WNL Edema: Yes Edema: LLE: Trace, RLE: Trace Integumentary: Yes: Tattoos Neurological: Yes: Oriented Psychiatric: Yes: Oriented Labs: CBC, BMP 11/18/18 06:20 11/18/18 06:20 INR, PTT INR 2.09 (0.83-1.09) H 11/17/18 08:10 Fibrinogen 175.0 mg/dL (238-498) L 11/17/18 08:10 Problem List - Problems (1) Malnutrition Code(s): E46 - UNSPECIFIED PROTEIN-CALORIE MALNUTRITION (2) Abdominal pain Code(s): R10.9 - UNSPECIFIED ABDOMINAL PAIN (3) Anemia Code(s): D64.9 - ANEMIA, UNSPECIFIED (4) Colitis Code(s): K52.9 - NONINFECTIVE GASTROENTERITIS AND COLITIS, UNSPECIFIED Assessment/Plan Current Medications Generic Name Dose Route Start Last Admin Trade Name Freq PRN Reason Stop Dose Admin Folic Acid 1 mg 11/14/18 15:45 11/18/18 09:48 Folic Acid - PO 1 mg DAILY [facility] Administration Heparin Sodium (Porcine) 5,000 unit 11/12/18 22:00 11/18/18 06:21 Heparin - SQ 5,000 unit TID [facility] Administration Metronidazole 500 mg in 100 mls @ 100 mls/hr 11/12/18 10:00 11/18/18 10:24 Flagyl 500mg Premixed Ivpb - IVPB 100 mls/hr Q8H-IV [facility] Administration Piperacillin Sod/Tazobactam 50 mls @ 100 mls/hr 11/12/18 18:00 11/18/18 09:48 Sod 3.375 gm/ Dextrose IVPB 100 mls/hr Q8H-IV [facility] Administration Protocol Morphine Sulfate 2 mg 11/17/18 22:44 11/18/18 06:21 Morphine Sulfate IVPUSH 2 mg Q6H PRN Administration PAIN SCALE 1-5 Ondansetron HCl 4 mg 11/17/18 08:17 11/17/18 17:41 Zofran - PO 4 mg Q8H PRN Administration NAUSEA AND/OR VOMITING Pantoprazole Sodium 40 mg 11/17/18 10:00 11/18/18 09:48 Protonix - PO 40 mg BID [facility] Administration Pentoxifylline 400 mg 11/17/18 12:15 11/18/18 11:40 Trental - PO 400 mg TIDCM [facility] Administration Laboratory Tests 07/03/19 06:20 BUN 1.8 L* Impression 1. low bun/malnutrition 2. colitis 3. hx of gastric bypass 4. abd pain 5. elevated bili 6. anemia 7. etoh abuse Plan - bun is starting to improve - cont to monitor - encourage PO intake - GI follow up for elevated bili - recommend that she stops drinking alcohol - follow up repeat ua
[2018-11-18 13:51] VITALS: TEMP 97.6
[2018-11-18 18:42] VITALS: BP 106/59; PULSE 75
--- NOTE | 2019-01-12 09:38 | EKG ---
Test Reason : Blood Pressure : / mmHG Vent. Rate : 113 BPM Atrial Rate : 113 BPM P-R Int : 124 ms QRS Dur : 072 ms QT Int : 292 ms P-R-T Axes : 035 004 033 degrees QTc Int : 400 ms SINUS TACHYCARDIA CANNOT RULE OUT ANTERIOR INFARCT , AGE UNDETERMINED ABNORMAL ECG NO PREVIOUS ECGS AVAILABLE Confirmed by Jace Zee MD ([id number]) on 01/12/2019 9:38:07 AM Referred By: Confirmed By:Jace Zee MD
== END 2018-11-18 19:50 | disposition short-term general hospital (02) | DRG 433 ==
LOC: SUPCPDRO 11:28 → JER 11:28 → MERGE 16:00 → JERBED 16:00 → J7W 11-12 07:55
PROVIDERS: ADMIT Internal Medicine; ATTEND Internal Medicine
DX: K70.10 Alcoholic hepatitis without ascites (principal); N39.0 Urinary tract infection, site not specified; J98.11 Atelectasis; K62.5 Hemorrhage of anus and rectum; K80.40 Calculus of bile duct with cholecystitis, unspecified, without obstruction; D62 Acute posthemorrhagic anemia; E46 Unspecified protein-calorie malnutrition; K70.9 Alcoholic liver disease, unspecified; Z98.84 Bariatric surgery status; F10.129 Alcohol abuse with intoxication, unspecified; K52.9 Noninfective gastroenteritis and colitis, unspecified; K21.9 Gastro-esophageal reflux disease without esophagitis; Z80.0 Family history of malignant neoplasm of digestive organs; Z87.891 Personal history of nicotine dependence; R21 Rash and other nonspecific skin eruption; K59.00 Constipation, unspecified; D63.8 Anemia in other chronic diseases classified elsewhere; E80.6 Other disorders of bilirubin metabolism; D50.9 Iron deficiency anemia, unspecified; E86.0 Dehydration; R16.2 Hepatomegaly with splenomegaly, not elsewhere classified; B96.29 Other Escherichia coli [E. coli] as the cause of diseases classified elsewhere; I27.20 Pulmonary hypertension, unspecified; I86.8 Varicose veins of other specified sites; Z68.30 Body mass index [BMI] 30.0-30.9, adult; E53.8 Deficiency of other specified B group vitamins; K70.0 Alcoholic fatty liver
CPT/HCPCS: 36415; 71275-TC; 74176-TC; 74177-TC; 74182-TC; 76705-TC; 80053; 81003; 82105; 82140; 82248; 82272; 82378; 82607; 82728; 82746; 83516; 83540; 83550; 83605; 83615; 83690; 83735; 84100; 84703; 85025; 85044; 85384; 85610; 85730; 86038; 86301; 86704; 86706; 86707; 86708; 86709; 86803; 86850; 86900; 86901; 87045; 87046; 87077; 87086; 87177; 87186; 87205; 87209; 87340; 93005; 93010; 99282-25; A9579; J1644; J7030; Q9967

== ENCOUNTER 2019-07-23 10:10 | Inpatient (IN) | payer OTHER ==
[2019-07-23] MEDS ORDERED: ACETAMINOPHEN 1000 MG/100 ML VIAL (NON FORMULARY) IVPB ONE (11:16)
[2019-07-23] MEDS ORDERED: ACETAMINOPHEN INJECTION 100 ML IVPB ONE (11:18)
[2019-07-23] MEDS ORDERED: morphine SULFATE 4 MG/ML VIAL ONE ×2 (11:22→15:47)
[2019-07-23] MEDS ORDERED: morphine CARPU-JECT 4 MG/1 ML DISP.SYRIN IVPUSH ONE ×2 (11:23→15:34)
--- NOTE | 2019-07-23 11:23 | PDOC ---
History of Present Illness - General Chief Complaint: Pain Stated Complaint: ABD. PAIN/ FEVER Time Seen by Provider: 07/23/19 10:47 History Source: Patient Exam Limitations: No Limitations - History of Present Illness Initial Comments: 07/23/19 21:23 38F PMH pancreatitis, cirrhosis, ?renal infection presenting with 3 days of constant pulling-like whole abdominal pain that is worsening. Endorses f/c, nausea, diarrhea, NERI. Endorsing chest tightness. Denies etoh, dysuria. Surg: gastric sleeve - no NSAIDs. Past History - Past Medical History Allergies/Adverse Reactions: Allergies Allergy/AdvReac Type Severity Reaction Status Date / Time No Known Allergies Allergy Verified 06/23/18 10:12 Home Medications: Ambulatory Orders Mv-Mn/Iron/FA/Herbal/Digestive [ One Tablet] 1 tab PO DAILY 05/25/18 Anemia: Yes Asthma: No Cancer: No Cardiac Disorders: Yes CVA: No COPD: No CHF: No Dementia: No Diabetes: No GI Disorders: Yes Disorders: No HTN: No Hypercholesterolemia: No Liver Disease: No Seizures: No Thyroid Disease: No - Surgical History Abdominal Surgery: Yes Appendectomy: Yes Cardiac Surgery: No Cholecystectomy: No Lung Surgery: No Neurologic Surgery: No - Reproductive History (#): 7 Para: 8 Spontaneous : 0 - Immunization History Immunization Up to Date: Yes - Psycho Social/Smoking Cessation Hx Smoking Status: No Smoking History: Never smoked Have you smoked in the past 12 months: No Number of Cigarettes Smoked Daily: 2 If you are a former smoker, when did you quit?: none in about a year, was a so cial smoker only Information on smoking cessation initiated: No 'Breaking Loose' booklet given: 02/04/17 Hx Alcohol Use: No Drug/Substance Use Hx: No Hx Substance Use Treatment: No Review of Systems - Review of Systems Able to Perform ROS?: Yes Comments:: 07/23/19 21:23 CONSTITUTIONAL: endorses F / C HEENT: Denies headache RESP: Denies SOB CARD: endorses chest tightness GI: endorses abd pain; nausea, nbnb diarrhea. Denies bloody stool : Denies dysuria, hematuria SKIN: Denies rashes NEURO: Denies numbness, tingling, weakness MSK: Denies back pain Is the patient limited [place] proficient: No *Physical Exam - Vital Signs Last Vital Signs Temp Pulse Resp BP Pulse Ox 97.8 F 66 16 113/69 100 07/23/19 10:22 07/23/19 10:22 07/23/19 10:22 07/23/19 10:22 07/23/19 10:22 - Physical Exam 07/23/19 21:23 GEN: tearful, uncomfortable. AAOx3. HEENT: NC/AT. left subconjunctival hemorrhage. No facial asymmetry. Normal voice. Supple neck w/ FROM. CV: S1/S2, RRR, no m/r/g LUNG: CTAB, no wheezes, crackles, rales, rhonchi. GI: diffuse TTP w/o guarding, rebound. +RCVAT. Soft, +BS. MSK: No obvious deformities of all extremities. SKIN: Warm, dry, no rashes appreciated. PSYCH: Normal mood and affect. NEURO: Moving all extremities well. ambulates w/ normal gait states from a [employer] ball. Procedures - Additional Procedures Additional Procedures: other Progress: 07/23/19 19:13 diagnostic paracentesis for ascites pt consent for procedure pt placed on slight left lateral decub position area for tap identified under ultrasound guidance -> LLQ area marked and cleaned w/ chloraprep sterile drapes applied local anesthetic applied (1% lidocaine w/ epi) w/ good effect 18G catheter inserted into the marked area with successful draining of straw coloured nonpurulent nonbloody ascitic fluid 120mL of ascitic fluid was removed using two (2) 60mL syringes gauze and bandage applied after catheter was removed. pt tolerated the procedure well. Fluids sent for labs. ED Treatment Course - LABORATORY CBC & Chemistry Diagram: 07/23/19 10:40 07/23/19 10:40 Medical Decision Making - Medical Decision Making 07/23/19 11:22 38F PMH pancreatitis, cirrhosis, ?renal infection c/o 3 days of abdominal pain. diffuse TTP w/o guarding. DDx - colitis, pancreatitis, ascites, renal abscess, pyelonephritis, UTI - labs - ekg - meds - CT 07/23/19 13:33 elavated ALK.Phos elevated T.Bili; AST appear approximately baseline elevated ammonia 07/23/19 15:35 pain persists but was helped by morphine; has returned morphine and NS 07/23/19 16:12 Interval decrease in size of the liver that now appears to be a heterogeneous. Together with splenomegaly, findings are suggestive of liver cirrhosis No discrete hepatic mass is identified. Status post gastric bariatric surgery with suggestion of a tiny hiatus hernia again noted. Large amount of free fluid/ascites in the abdomen and pelvis. There is suggestion of some thickening of the small bowel loops likely due to surrounding ascites without evidence of small bowel obstruction. Nondistention of the colon, cannot rule out thickening of the ascending colon as well as the hepatic flexure. Does the patient have any symptoms suggestive of colitis. Nonvisualization of the appendix L5-S1 mild mainly central and right paracentral disc bulge reaching right S1 nerve root, without gross impingement. Correlate clinically. >> diagnostic paracentesis 07/23/19 16:47 consent obtained for dx paracentesis - patient expresses understanding of pro cedure, risks, benefits, and alternatives; amenable to procedure. 07/23/19 19:17 dx paracentesis complete, see procedure note. fluids sent. signed out to PM team for admission Discharge - Discharge Information Problems reviewed: Yes Clinical Impression/Diagnosis: Ascites Qualifiers: Ascites type: other type Qualified Code(s): R18.8 - Other ascites Condition: Stable - Admission Yes - Follow up/Referral - Patient Discharge Instructions - Post Discharge Activity
[2019-07-23 11:24] LABS: BASO % 0.6 % (0-2.0); EOS % 0.5 % (0-4.5); HEMATOCRIT 33.7 % (32.4-45.2); HEMOGLOBIN 11.4 GM/dL (10.7-15.3); LYMPH % 30.4 % (8-40); MCHC 33.7 g/dl (32.0-36.0); MEAN CELL VOLUME 86.1 fl (80-96); MEAN PLT VOLUME 9.2 fl (7.5-11.1); NEUT % 62.5 % (42.8-82.8); PLATELET COUNT 160 K/MM3 (134-434); RBC 3.92 M/mm3 (3.60-5.2); RDW 23.5 % (11.6-15.6)
[2019-07-23 11:37] LABS: INR 1.44 (0.83-1.09); PROTHROMBIN TIME (PATIENT) 17.1 SEC (9.7-13.0)
[2019-07-23 11:41] LABS: ACTIVATED PTT 26.7 SECONDS (25.2-36.5)
[2019-07-23 12:04] LABS: ALBUMIN 2.5 g/dl (3.4-5.0); ALK PHOS 177 U/L (45-117); ANION GAP 8 MMOL/L (8-16); BILIRUBIN,TOTAL 4.5 mg/dL (0.2-1); BLOOD UREA NITROGEN 7.2 mg/dL (7-18); CALCIUM 8.4 mg/dL (8.5-10.1); CHLORIDE 102 mmol/L (98-107); CO2 27 mmol/L (21-32); GLUCOSE,RANDOM 93 mg/dL (74-106); LIPASE 95 U/L (73-393); MAGNESIUM 1.9 mg/dL (1.8-2.4); POTASSIUM 4.1 mmol/L (3.5-5.1); SGOT/AST 124 U/L (15-37); SGPT/ALT 40 U/L (13-61); SODIUM 136 mmol/L (136-145); TOT PROT 8.7 g/dl (6.4-8.2)
[2019-07-23 13:21] LABS: ANISOCYTOSIS 1+; MACROCYTOSIS 1+; OVALOCYTE 1+; PLATELET ESTIMATE NORMAL; TARGET CELLS 1+
--- NOTE | 2019-07-23 15:10 | PDOC ---
Documentation entered by Gary Coello SCRIBE, acting as scribe for Dale Colbert MD. Dale Colbert MD: This documentation has been prepared by the Mode amaya Nirvannie, SCRIBE, under my direction and personally reviewed by me in its entirety. I confirm that the documentation accurately reflects all work, treatment, procedures, and medical decision making performed by me. Attending Attestation - Resident Resident Name: RoseHomer - ED Attending Attestation I have performed the following: I have examined & evaluated the patient, The case was reviewed & discussed with the resident, I agree w/resident's findings & plan, Exceptions are as noted - HPI HPI: 07/23/19 12:13 CC: abdominal pain with associated nausea, diarrhea, decreased PO intake, and chest tightness HPI: The patient is a 38 year old female, with a significant past medical history of, who presents to the emergency department with 3 days of progressively worsening abdominal pain with associated nausea, diarrhea, decreased PO intake, and chest tightness. He denies any recent fevers or chills. Allergies: NKDA Primary Care Physician: Dr. Johnny Santacruz 07/26/19 14:18 - Physicial Exam PE: 07/23/19 15:04 Vitals: Triage Vital signs reviewed General Appearance: Mild Distress Head: Atraumatic, Chest Wall: Nontender Cardiac: Regular rate and rhythym, no murmurs, no rubs, no gallops, Lungs: Clear to auscultation bilateral, good air movement bilaterally, Abdomen: Diffuse abdominal pain Extremities: Full range of motion to all extremities, no cyanosis, clubbing, or edema Skin: Warm and dry, no rashes or lesions, no rash, no petechiae Neuro: AOX3; cranial Nerves 2-12 grossly intact, strength intact to all extremities, sensation intact to all extremities, gait normal Psych: Normal mood, normal affect - Medical Decision Making 07/23/19 12:13 38 year old female, with a significant past medical history of, who presents to the emergency department with 3 days of progressively worsening abdominal pain with associated nausea, diarrhea, decreased PO intake, and chest tightness. Plan is: Ammonia Serum UA/UC Abdomen and Pelvis CT EKG [facility] Dr. KEMP to follow up results and reasses
[2019-07-23] MEDS ORDERED: SODIUM CHLORIDE 0.9% 500 ML INFUS.BAG IV ONE ×2 (15:34→17:30)
[2019-07-23] MEDS ORDERED: LIDOCAINE 1%/EPI 1:100000 (20 ML MULTI DOSE VIAL) INF ONE (16:20)
[2019-07-23] MEDS ORDERED: LIDOCAINE 1%/EPI 1:100000 (20 ML MULTI DOSE VIAL) ONE (16:45)
[2019-07-23] MEDS ORDERED: CEFTRIAXONE 1 GM in DEXTROSE 5%-WATER - 50 ML IVPB ONE (18:41)
--- NOTE | 2019-07-23 19:06 | PDOC ---
*Physical Exam - Vital Signs Last Vital Signs Temp Pulse Resp BP Pulse Ox 98.0 F 66 18 99/53 L 99 07/23/19 17:23 07/23/19 17:23 07/23/19 14:49 07/23/19 17:23 07/23/19 17:23 ED Treatment Course - LABORATORY CBC & Chemistry Diagram: 07/23/19 10:40 07/23/19 10:40 - ADDITIONAL ORDERS Additional order review: Laboratory Results 07/23/19 07/23/19 07/23/19 10:40 10:40 10:40 PT with INR INR PTT (Actin FS) Sodium 136 Potassium 4.1 Chloride 102 Carbon Dioxide 27 Anion Gap 8 BUN 7.2 Creatinine 1.0 Est GFR (CKD-EPI)AfAm 82.19 Est GFR (CKD-EPI)NonAf 70.91 Random Glucose 93 Calcium 8.4 L Magnesium 1.9 Total Bilirubin 4.5 H AST 124 H ALT 40 Alkaline Phosphatase 177 H Ammonia 51.30 H Creatine Kinase 103 Troponin I < 0.02 Total Protein 8.7 H Albumin 2.5 L Lipase 95 Serum , Qual Negative 07/23/19 10:40 PT with INR 17.10 H INR 1.44 H PTT (Actin FS) 26.7 Sodium Potassium Chloride Carbon Dioxide Anion Gap BUN Creatinine Est GFR (CKD-EPI)AfAm Est GFR (CKD-EPI)NonAf Random Glucose Calcium Magnesium Total Bilirubin AST ALT Alkaline Phosphatase Ammonia Creatine Kinase Troponin I Total Protein Albumin Lipase Serum , Qual 07/23/19 10:40 RBC 3.92 MCV 86.1 MCHC 33.7 RDW 23.5 H MPV 9.2 Neutrophils % 62.5 Lymphocytes % 30.4 D Monocytes % 6.0 Eosinophils % 0.5 D Basophils % 0.6 - Medications Given in the ED: ED Medications Discontinued Medications Generic Name Dose Route Start Last Admin Trade Name Freq PRN Reason Stop Dose Admin Acetaminophen 1,000 mg 07/23/19 11:16 07/23/19 11:33 Ofirmev Injection - IVPB 07/23/19 11:17 Not Given ONCE ONE Lidocaine/Epinephrine 1 ml 07/23/19 16:20 07/23/19 16:40 Xylocaine 1%-Epi 1:100,000 INF 07/23/19 16:21 1 ml ONCE ONE Administration Morphine Sulfate 4 mg 07/23/19 11:23 07/23/19 11:33 Morphine Injection - IVPUSH 07/23/19 11:24 4 mg ONCE ONE Administration Morphine Sulfate 4 mg 07/23/19 15:34 07/23/19 15:55 Morphine Injection - IVPUSH 07/23/19 15:35 4 mg ONCE ONE Administration Sodium Chloride 1,000 ml 07/23/19 15:34 07/23/19 15:55 Normal Saline - IV 07/23/19 15:35 1,000 ml ONCE ONE Administration Sodium Chloride 1,000 ml 07/23/19 17:30 07/23/19 18:22 Normal Saline - IV 07/23/19 17:31 1,000 ml ONCE ONE Administration Medical Decision Making - Medical Decision Making The pt is a 38F w/ a history of pancreatitis, cirrhosis, ascites who presents with generalized abdominal and distention. Pt was found to have ascites s/p dx tap (straw colored fluid) Plan for admission to Dr. Khan's service 07/23/19 19:07 Pt signed out to Dr. Khan Will place GI consult order on-call service, Dr. Ozuna 07/23/19 19:40 Discharge - Discharge Information Problems reviewed: Yes Clinical Impression/Diagnosis: Ascites Qualifiers: Ascites type: other type Qualified Code(s): R18.8 - Other ascites Condition: Stable - Admission Yes - Follow up/Referral Referrals: Benson Santacruz MD [Primary Care Provider] - - Patient Discharge Instructions - Post Discharge Activity
[2019-07-23] MEDS ORDERED: CEFTRIAXONE 1 GM/50 ML BAG ONE (19:17)
[2019-07-23 20:13] LABS: BF WBC & OTHER NUCLEATED CELLS 181 /mm3
[2019-07-23 21:04] LABS: BODY FLUID MACROPHAGES 50 %; BODY FLUID MONOCYTE 6 %
[2019-07-23 21:05] LABS: BODY FLUID MESOTHELIAL 3 %
[2019-07-23 22:26] VITALS: BMI 23.8
[2019-07-23] MEDS: morphine SULFATE 4 MG/ML VIAL IVPUSH PRN (23:35)
[2019-07-24] MEDS: morphine SULFATE 4 MG/ML VIAL IVPUSH PRN ×4 (08:17→23:29)
--- NOTE | 2019-07-24 10:30 | EKG ---
Test Reason : Blood Pressure : / mmHG Vent. Rate : 060 BPM Atrial Rate : 060 BPM P-R Int : 134 ms QRS Dur : 088 ms QT Int : 502 ms P-R-T Axes : 038 017 047 degrees QTc Int : 502 ms NORMAL SINUS RHYTHM WITH SINUS ARRHYTHMIA PROLONGED QT ABNORMAL ECG Confirmed by Jace Zee MD ([id number]) on 07/24/2019 10:30:11 AM Referred By: Confirmed By:Jace Zee MD
--- NOTE | 2019-07-24 15:01 | CON.GI ---
Consult Consult Specialty:: Gastroenterology ( covering the [facility] GI service) Referred by:: Dr Ata Tirado Reason for Consultation:: ascites - History of Present Illness Chief Complaint: abdominal pain History of Present Illness: 38F with Etoh cirrhosis presents with increasing abdominal distension for the past week culminating in abdominal pain with nausea, diarrhea and inability to eat. She is followed by the Liver Transplant Team at [facility], ? Dr. Champion where she had a paracentesis in 03/06. She also had a paracentesis at [facility] in 06/07. She reports that she last drank alcohol in 12/04. She is not sure whether or not she was treated for HBV. She denies IVDA or cocaine usage but has been tattooed. She is s/p gastric bypass in 2012 at [facility] complicated by infection and the need for serial dilations. She last had an EGD here with Dr Gamboa on 02/07/17 which revealed a patent gastric bypass and no varices. She denies ever having had UGI bleeding or encephalopathy but does have intermittent rectal bleeding. She cannot recall whether or not she gerard ever had a colonoscopy. No FH of GI cancer but her GM had cirrhosis. Was hospitalized here 11/04 for similar presentation but acalculous cholecystitis could not be substantiated. Bilirubin was 7. Stopped her alcohol intake after that hospitalization. She has a left eye cont usion that she attributes to being hit by a ball while playing billiards. - History Source History Provided By: Patient Limitations to Obtaining History: Poor Historian - Past Medical History Gastrointestinal: Yes: Other (s/p gastric bypass 2012 [facility] with serial postop dilations) Hepatobiliary: Yes: Cirrhosis (Alcoholic cirrhosis with ascites on [facility] Liver Transplant List), Hepatitis B (status to be determined, has core antibody) ...LMP: 11/08/18 ...: No Infectious Disease: Yes: MRSA (history of) Psych: Yes: Addictions (alcohol), Other (Etoh abuse) - Past Surgical History Past Surgical History: Yes: Appendectomy, Bariatric Surgery (laparoscopic gastric bypass 2012 [place]), , Tubal Ligation, Upper Endoscopy - Alcohol/Substance Use Hx Alcohol Use: Yes (quit 12/04) History of Substance Use: reports: None - Smoking History Smoking history: Former smoker Have you smoked in the past 12 months: No Aproximately how many cigarettes per day: 2 If you are a former smoker, when did you quit?: quit with alcohol 12/04 - Social History Usual Living Arrangement: With Significant Other ADL: Independent Occupation: disabled Place of : [facility] History of Recent Travel: No Home Medications - Allergies Allergies/Adverse Reactions: Allergies Allergy/AdvReac Type Severity Reaction Status Date / Time No Known Allergies Allergy Verified 06/23/18 10:12 - Home Medications Home Medications: Ambulatory Orders Mv-Mn/Iron/FA/Herbal/Digestive [ One Tablet] 1 tab PO DAILY 05/25/18 Family Medical History Family Hx Cancer: Father (prostate cancer) Family Hx Diabetes: Mother, Father Family Hx Gastrointestinal Disorder: Grandmother (paternal) (cirrhosis) Review of Systems - Review of Systems Constitutional: reports: Loss of Appetite Eyes: reports: No Symptoms HENT: reports: No Symptoms Neck: reports: No Symptoms Cardiovascular: reports: No Symptoms Respiratory: reports: Exercise Intolerance Gastrointestinal: reports: Abdominal Pain, Bloating, Diarrhea, Nausea Genitourinary: reports: No Symptoms Physical Exam-GI Vital Signs: Vital Signs Temperature 97.6 F 07/24/19 13:51 Pulse Rate 64 07/24/19 13:51 Respiratory Rate 18 07/24/19 13:51 Blood Pressure 105/33 L 07/24/19 13:51 O2 Sat by Pulse Oximetry (%) 99 07/24/19 09:00 CBC,CMP WBC 6.0 K/mm3 (4.0-10.0) 07/23/19 10:40 RBC 3.92 M/mm3 (3.60-5.2) 07/23/19 10:40 Hgb 11.4 GM/dL (10.7-15.3) 07/23/19 10:40 Hct 33.7 % (32.4-45.2) D 07/23/19 10:40 MCV 86.1 fl (80-96) 07/23/19 10:40 MCH 29.0 pg (25.7-33.7) D 07/23/19 10:40 MCHC 33.7 g/dl (32.0-36.0) 07/23/19 10:40 RDW 23.5 % (11.6-15.6) H 07/23/19 10:40 Plt Count 160 K/MM3 (134-434) 07/23/19 10:40 MPV 9.2 fl (7.5-11.1) 07/23/19 10:40 Absolute Neuts (auto) 3.7 K/mm3 (1.5-8.0) 07/23/19 10:40 Neutrophils % 62.5 % (42.8-82.8) 07/23/19 10:40 Lymphocytes % 30.4 % (8-40) D 07/23/19 10:40 Monocytes % 6.0 % (3.8-10.2) 07/23/19 10:40 Eosinophils % 0.5 % (0-4.5) D 07/23/19 10:40 Basophils % 0.6 % (0-2.0) 07/23/19 10:40 Nucleated RBC % 0 % (0-0) 07/23/19 10:40 Hypochromia 0 07/23/19 10:40 Platelet Estimate Normal 07/23/19 10:40 Polychromasia 1+ 07/23/19 10:40 Poikilocytosis 1+ 07/23/19 10:40 Anisocytosis 1+ 07/23/19 10:40 Microcytosis 0 07/23/19 10:40 Macrocytosis 1+ 07/23/19 10:40 Target Cells 1+ 07/23/19 10:40 Ovalocytes 1+ 07/23/19 10:40 Sodium 136 mmol/L (136-145) 07/23/19 10:40 Potassium 4.1 mmol/L (3.5-5.1) 07/23/19 10:40 Chloride 102 mmol/L (98-107) 07/23/19 10:40 Carbon Dioxide 27 mmol/L (21-32) 07/23/19 10:40 Anion Gap 8 MMOL/L (8-16) 07/23/19 10:40 BUN 7.2 mg/dL (7-18) 07/23/19 10:40 Creatinine 1.0 mg/dL (0.55-1.3) 07/23/19 10:40 Est GFR (CKD-EPI)AfAm 82.19 07/23/19 10:40 Est GFR (CKD-EPI)NonAf 70.91 07/23/19 10:40 Random Glucose 93 mg/dL (74-106) 07/23/19 10:40 Calcium 8.4 mg/dL (8.5-10.1) L 07/23/19 10:40 Magnesium 1.9 mg/dL (1.8-2.4) 07/23/19 10:40 Total Bilirubin 4.5 mg/dL (0.2-1) H 07/23/19 10:40 AST 124 U/L (15-37) H 07/23/19 10:40 ALT 40 U/L (13-61) 07/23/19 10:40 Alkaline Phosphatase 177 U/L (45-117) H 07/23/19 10:40 Ammonia 51.30 umol/L (11-32) H 07/23/19 10:40 Creatine Kinase 103 U/L (26-192) 07/23/19 10:40 Troponin I < 0.02 ng/ml (0.00-0.05) 07/23/19 10:40 Total Protein 8.7 g/dl (6.4-8.2) H 07/23/19 10:40 Albumin 2.5 g/dl (3.4-5.0) L 07/23/19 10:40 Lipase 95 U/L (73-393) 07/23/19 10:40 Serum , Qual Negative 07/23/19 10:40 Current Medications Generic Name Dose Route Start Last Admin Trade Name Denilsonq PRN Reason Stop Dose Admin Morphine Sulfate 4 mg 07/24/19 13:52 07/24/19 14:04 Morphine Sulfate IVPUSH 4 mg Q4H PRN Administration PAIN LEVEL 6-10 Constitutional: Yes: Calm Eyes: Yes: Sclera Icterus, Other (left periorbital ecchymoses and conjunctival blood) HENT: Yes: Atraumatic Neck: Yes: Supple Cardiovascular: Yes: Regular Rate and Rhythm Respiratory: Yes: CTA Bilaterally Gastrointestinal Inspection: Yes: Distention (not tense), Scars (healed Pfannensteil, short RLQ and laparoscopic incisions) ...Auscultate: Yes: Hypoactive Bowel Sounds ...Palpate: Yes: Soft, Tenderness (right epigastrium) ...Percussion: Yes: Tympanitic ...Rectal Exam: Yes: Guaiac Negative (no masses, brown guaiac negative stool), Hemorrhoids/External Extremities: Yes: Other (tattoos) Edema: No Neurological: Yes: Alert, Oriented, Other (no asterixis) Labs: CBC, BMP 07/23/19 10:40 07/23/19 10:40 INR, PTT INR 1.44 (0.83-1.09) H 07/23/19 10:40 Imaging - Results Cat Scan: Report Reviewed ( Final Report CT ABDOMEN & PELVIS CT WITH CONTR Show Printer-Friendly Version Patient Name: Junie Stark : 1980 ID: [id number] Study Date: 23-Jul-2019 13:43 [facility] Name: JUNIE STARK DEPARTMENT OF RADIOLOGY Phys: Homer Rose RESIDENT : 1980 Age: 38 Sex: F [facility] Acct: [id number] Loc: [address] Exam Date: 07/23/19 Status: MANUELA [place] [id number] Unit Number: [id number] EXAM#: TYPE/EXAM: RESULT: [id number] CT/ABDOMEN PELVIS CT WITH CONTR Whole abdominal pain CT scan of the abdomen pelvis following intravenous contrast demonstration 85 cc of Omnipaque 350 was intravenously injected. Coronal and sagittal reformatted images were obtained. Compared to prior CT scan of the abdomen 11/17/2018 There are mild atelectatic changes in the right middle lobe. The rest of the included lower lung appears unremarkable The heart is within normal limits in size The spleen remains enlarged measuring 16.5 cm in AP dimension. The liver now measures 15.5 cm in craniocaudal length with heterogeneous attenuation. However, no discrete cystic or solid mass lesion is identified adequately distended gallbladder without intraluminal stones or wall thickening. Normal size and attenuation of the pancreas slightly prominent vessels again noted the the splenic hilum. Both adrenal glands and both kidneys appear unremarkable. There is no dilatation of the right kidney, a normal variant. The stomach is partially distended limiting evaluation of its wall. Status post bariatric surgery sutures again noted with suggestion of a tiny hiatus hernia again seen. There is a large amount of free fluid/ascites in the abdomen and pelvis. There is no evidence of small bowel obstruction. However, there is suggestion of thickening of the small bowel wall likely due to surrounding ascites. Mild stranding of the mesentery is present. Normal- appearing terminal ileum. Nonvisualization of the appendix. Evaluation of the colonic wall is limited on this examination due to lack of oral contrast admini stration. Thickening of the ascending colon and hepatic flexure could not be excluded. Normal size u terus. Empty urinary bladder. Questionable thickening of the rectosigmoid junction wall, on the righ t. Visualized osseous structures appear intact IMPRESSION: Interval decrease in size of the liver that now appears to be a heterogeneous. Together with splenomegaly, findings are suggestive of liver cirrhosis No discrete hepatic mass is identified. Status post gastric bariatric surgery with suggestion of a tiny hiatus hernia again noted. Large amount of free fluid/ascites in the abdomen and pelvis. There is suggestion of some thickening of the small bowel loops likely due to surrounding ascites without evidence of small bowel obstruction. Nondistention of the colon, cannot rule out thickening of the ascending colon as well as the hepatic flexure. Does the patient have any symptoms suggestive of colitis. Nonvisualization of the appendix L5-S1 mild mainly central and right paracentral disc bulge reaching right S1 nerve root, without gross impingement. Correlate clinically. Reported By: Shine Caraballo MD 07/23/19 1602 Homer Rose RESIDENT Technologist: Aria De La Rosa Transcribed Date/Time: 07/23/19 1602 Continuous Improvement Intern: Shine Caraballo Printed Date/Time: By: Signed by: Shine Caraballo Signed on: 23-Jul-2019 16:02) Problem List - Problems (1) Abdominal pain Code(s): R10.9 - UNSPECIFIED ABDOMINAL PAIN (2) Cirrhosis with alcoholism Code(s): K70.30 - ALCOHOLIC CIRRHOSIS OF LIVER WITHOUT ASCITES (3) Jaundice, hepatocellular Code(s): K76.89 - OTHER SPECIFIED DISEASES OF LIVER (4) History of appendectomy Code(s): Z90.49 - ACQUIRED ABSENCE OF OTHER SPECIFIED PARTS OF DIGESTIVE TRACT (5) Ascites Code(s): R18.8 - OTHER ASCITES Qualifiers: Ascites type: other type Qualified Code(s): R18.8 - Other ascites (6) Rectal bleeding Code(s): K62.5 - HEMORRHAGE OF ANUS AND RECTUM (7) S/P gastric bypass Code(s): Z98.84 - BARIATRIC SURGERY STATUS (8) Status post repeat low transverse section Code(s): Z98.891 - HISTORY OF UTERINE SCAR FROM PREVIOUS SURGERY (9) Splenic varices Code(s): I86.8 - VARICOSE VEINS OF OTHER SPECIFIED SITES Assessment/Plan Impression: - No clear cut etiology for this pain as the paracentesis fluid analysis argues against SBP. Her diarrhea has subsided and imaging does not reveal pancreatitis, GB disease or obstruction. Her colon thickening appears artifactual but will screen stool cultures. Previous imaging reveals perisplenic varices. Her jaundice appears related to her alcoholic cirrhosis and there is no ductal dilation to suggest cholangitis. At this point a viral gastroenteritis remains the most likely etiology but if her pain persists she will need a repeat EGD. - Positive for HBC core but not surface antibody. Will check for viral replication - Gastric bypass history - History of hemorrhoidal bleeding Plan: -- Await ascites cultures -- Stool cultures -- HBV PCR -- PPI empirically -- AFP -- Will start spironolactone and lasix with daily weights
[2019-07-25] MEDS: morphine SULFATE 4 MG/ML VIAL IVPUSH PRN ×2 (04:36→09:33)
[2019-07-25] MEDS: FUROSEMIDE 20 MG TABLET (FP) PO SCH ×2 (05:43→14:25)
[2019-07-25 08:22] LABS: BASO % 0.8 % (0-2.0); EOS % 0.8 % (0-4.5); HEMATOCRIT 31.8 % (32.4-45.2); HEMOGLOBIN 10.7 GM/dL (10.7-15.3); LYMPH % 34.5 % (8-40); MCH 29.2 pg (25.7-33.7); MCHC 33.6 g/dl (32.0-36.0); MEAN CELL VOLUME 86.8 fl (80-96); MEAN PLT VOLUME 8.7 fl (7.5-11.1); MONO % 7.9 % (3.8-10.2); RBC 3.66 M/mm3 (3.60-5.2); RDW 22.9 % (11.6-15.6); WHITE BLOOD COUNT 4.6 K/mm3 (4.0-10.0)
[2019-07-25 08:53] LABS: ALBUMIN 2.2 g/dl (3.4-5.0); BILIRUBIN,DIRECT 1.7 mg/dL (0.0-0.2); BILIRUBIN,TOTAL 3.6 mg/dL (0.2-1); BLOOD UREA NITROGEN 6.6 mg/dL (7-18); CALCIUM 7.7 mg/dL (8.5-10.1); CREATININE 0.8 mg/dL (0.55-1.3); POTASSIUM 3.2 mmol/L (3.5-5.1); TOT PROT 7.1 g/dl (6.4-8.2)
[2019-07-25] MEDS: SPIRONOLACTONE 25 MG TABLET (FP) PO SCH (09:32)
[2019-07-25 10:36] LABS: PLATELET ESTIMATE DECREASED
[2019-07-25 10:48] LABS: PLATELET COUNT 97 K/MM3 (134-434)
--- NOTE | 2019-07-25 12:54 | PN.GI ---
GI Progress Note Subjective: GI NOte: Peritoneal fluid has no growth so far and # of polyps argues against SBP. NO etiology for pain found other than the fact that Junie has not moved her bowels in 5 days. Suspect she has fecal impaction leading to intestinal colic. I explained to her that narcotics will be stopped and Miralax started and that her diet will be advanced - Objective Vital Signs: Vital Signs Temperature 98.0 F 07/25/19 10:00 Pulse Rate 76 07/25/19 10:00 Respiratory Rate 18 07/25/19 10:00 Blood Pressure 107/51 L 07/25/19 10:00 O2 Sat by Pulse Oximetry (%) 99 07/25/19 09:00 Microbiology 01/16/13 18:00 Arm - Left Forearm Gram Stain - Final 01/16/13 18:00 Arm - Left Forearm Wound Culture - Final S Aureus Laboratory Tests 07/23/19 07/23/19 07/23/19 10:40 10:40 10:40 WBC 6.0 Hgb Plt Count 160 PT with INR 17.10 H Potassium Total Bilirubin 4.5 H Direct Bilirubin AST 124 H ALT 40 Alkaline Phosphatase 177 H Ammonia Total Amylase Lipase 95 07/23/19 07/25/19 07/25/19 10:40 07:18 07:18 WBC 4.6 Hgb 10.7 Plt Count PT with INR Potassium 3.2 L Total Bilirubin 3.6 H Direct Bilirubin 1.7 H AST ALT Alkaline Phosphatase Ammonia 51.30 H Total Amylase 63 Lipase 102 Constitutional: Calm Eyes: Yes: Sclera Icterus Gastrointestinal Inspection: Yes: Distention ...Auscultate: Yes: Normoactive Bowel Sounds ...Palpate: Yes: Soft, Other (nontender) ...Percussion: Yes: Tympanitic Labs: CBC, BMP 07/25/19 07:18 07/25/19 07:18 INR, PTT INR 1.44 (0.83-1.09) H 07/23/19 10:40 Assessment/Plan Impression: - Suspect intestinal colicky pain due to fecal impaction. A viral gastroenteritis remains another possible etiology but if her pain persists she will need a repeat EGD. - Jaundice, ascites and perisplenic varices related to her alcoholic cirrhosis. - Positive for HBC core but not surface antibody. Await viral replication asses sment - Gastric bypass history - History of hemorrhoidal bleeding Plan: -- Stop morphine -- Advance diet -- Await final ascites cultures -- Stool cultures not collected as diarrhea vanished -- HBV PCR pending -- PPI empirically -- AFP -- Continue spironolactone and lasix with daily weights The [facility] GI Service will assume care tomorrow Problem List - Problems (1) Gas pain Code(s): R14.1 - GAS PAIN (2) Fecal impaction Code(s): K56.41 - FECAL IMPACTION (3) Abdominal pain Code(s): R10.9 - UNSPECIFIED ABDOMINAL PAIN (4) Cirrhosis with alcoholism Code(s): K70.30 - ALCOHOLIC CIRRHOSIS OF LIVER WITHOUT ASCITES (5) Jaundice, hepatocellular Code(s): K76.89 - OTHER SPECIFIED DISEASES OF LIVER (6) History of appendectomy Code(s): Z90.49 - ACQUIRED ABSENCE OF OTHER SPECIFIED PARTS OF DIGESTIVE TRACT (7) Ascites Code(s): R18.8 - OTHER ASCITES Qualifiers: Ascites type: other type Qualified Code(s): R18.8 - Other ascites (8) Rectal bleeding Code(s): K62.5 - HEMORRHAGE OF ANUS AND RECTUM (9) S/P gastric bypass Code(s): Z98.84 - BARIATRIC SURGERY STATUS (10) Status post repeat low transverse section Code(s): Z98.891 - HISTORY OF UTERINE SCAR FROM PREVIOUS SURGERY (11) Splenic varices Code(s): I86.8 - VARICOSE VEINS OF OTHER SPECIFIED SITES (12) Constipation Code(s): K59.00 - CONSTIPATION, UNSPECIFIED
[2019-07-25] MEDS: KCL 10 MEQ IVPB 10 MEQ/100 ML INFUS.BAG IVPB SCH ×2 (14:25→15:36)
[2019-07-25] MEDS: ACETAMINOPHEN 325 MG TABLET (FP) PO PRN ×2 (14:25→21:50)
--- NOTE | 2019-07-25 14:25 | CON.ID ---
Consult Consult Specialty:: infectious diseases Referred by:: dr velasquez Reason for Consultation:: r/o sbp,abd pain - History of Present Illness Chief Complaint: abd pain History of Present Illness: 38F with Etoh cirrhosis presents with increasing abdominal distension for the past week culminating in abdominal pain with nausea, diarrhea and inability to eat. She is followed by the Liver Transplant Team at [facility], ? Dr. Champion where she had a paracentesis in 03/06. She also had a paracentesis at [facility] in 06/07. She reports that she last drank alcohol in 12/04. She is not sure whether or not she was treated for HBV. She denies IVDA or cocaine usage but has been tattooed. She is s/p gastric bypass in 2012 at [facility] complicated by infection and the need for serial dilations. She last had an EGD here with Dr Gamboa on 02/07/17 which revealed a patent gastric bypass and no varices. She denies ever having had UGI bleeding or encephalopathy but does have intermittent rectal bleeding. She cannot recall whether or not she gerard ever had a colonoscopy. No FH of GI cancer but her GM had cirrhosis. Was hospitalized here 11/04 for similar presentation but acalculous cholecystitis could not be substantiated. Bilirubin was 7. Stopped her alcohol intake after that hospitalization. She has a left eye contusion that she attributes to being hit by a ball while playing billiards. - Past Medical History Gastrointestinal: Yes: Other (s/p gastric bypass 2012 [facility] with serial postop dilations) Hepatobiliary: Yes: Cirrhosis (Alcoholic cirrhosis with ascites on [facility] Liver Transplant List), Hepatitis B (status to be determined, has core antibody) ...LMP: 11/08/18 ...: No Infectious Disease: Yes: MRSA (history of) Psych: Yes: Addictions (alcohol), Other (Etoh abuse) - Past Surgical History Past Surgical History: Yes: Appendectomy, Bariatric Surgery (laparoscopic gastric bypass 2012 [place]), , Tubal Ligation, Upper Endoscopy - Alcohol/Substance Use Hx Alcohol Use: Yes (quit 12/04) History of Substance Use: reports: None - Smoking History Smoking history: Former smoker Have you smoked in the past 12 months: No Aproximately how many cigarettes per day: 2 If you are a former smoker, when did you quit?: quit with alcohol 12/04 - Social History Usual Living Arrangement: With Significant Other ADL: Independent Occupation: disabled History of Recent Travel: No Home Medications - Allergies Allergies/Adverse Reactions: Allergies Allergy/AdvReac Type Severity Reaction Status Date / Time No Known Allergies Allergy Verified 06/23/18 10:12 - Home Medications Home Medications: Ambulatory Orders Mv-Mn/Iron/FA/Herbal/Digestive [ One Tablet] 1 tab PO DAILY 05/25/18 Physical Exam Vital Signs: Vital Signs Temperature 98.2 F 07/25/19 13:38 Pulse Rate 92 H 07/25/19 13:38 Respiratory Rate 18 07/25/19 13:38 Blood Pressure 117/75 07/25/19 13:38 O2 Sat by Pulse Oximetry (%) 99 07/25/19 09:00 Labs: CBC, BMP 07/25/19 07:18 07/25/19 07:18
[2019-07-25] MEDS: oxyCODONE HCL 5 MG TABLET PO PRN ×2 (16:40→21:50)
[2019-07-25] MEDS: POLYETHYLENE GLYCOL 3350 119 GM BTL PO SCH (21:51)
--- NOTE | 2019-07-25 23:44 | PN ---
Progress Note, Physician History of Present Illness: Pt w/ poor appetite - Current Medication List Current Medications: Active Medications Acetaminophen (Tylenol -) 325 mg PO Q6H PRN PRN Reason: PAIN SCALE 1-5 Last Admin: 07/25/19 21:50 Dose: 325 mg Documented by: Acetaminophen (Tylenol -) 325 mg PO Q6H PRN PRN Reason: PAIN SCALE 6-10 Furosemide (Lasix -) 20 mg PO BID@0600,1400 [facility] Last Admin: 07/25/19 14:25 Dose: 20 mg Documented by: Oxycodone HCl (Roxicodone -) 5 mg PO Q6H PRN PRN Reason: PAIN SCALE 6-10 Last Admin: 07/25/19 21:50 Dose: 5 mg Documented by: Polyethylene Glycol (Miralax (For Daily Use) -) 17 gm PO BID [facility] Last Admin: 07/25/19 21:51 Dose: 17 gm Documented by: Spironolactone (Aldactone -) 100 mg PO DAILY [facility] Last Admin: 07/25/19 09:32 Dose: 100 mg Documented by: - Objective Vital Signs: Vital Signs Temperature 98.4 F 07/25/19 21:00 Pulse Rate 78 07/25/19 21:00 Respiratory Rate 18 07/25/19 21:00 Blood Pressure 116/68 07/25/19 21:00 O2 Sat by Pulse Oximetry (%) 99 07/25/19 21:00 Eyes: Yes: Other (Lt conjunctival hemorrhage) Cardiovascular: Yes: WNL, Regular Rate and Rhythm Respiratory: Yes: WNL, Regular, CTA Bilaterally Gastrointestinal: Yes: Ascites, Distention Labs: CBC, BMP 07/25/19 07:18 07/25/19 07:18 INR, PTT INR 1.44 (0.83-1.09) H 07/23/19 10:40 Problem List - Problems (1) Fecal impaction Assessment/Plan: GI consult appreciated Morphine dc'ed Cont miralax Code(s): K56.41 - FECAL IMPACTION (2) Ascites Assessment/Plan: Peritoneal fluid cultures remain negative IV antibxs dc'ed Cont diuresis w/ lasix/spironolactone Code(s): R18.8 - OTHER ASCITES Qualifiers: Ascites type: other type Qualified Code(s): R18.8 - Other ascites (3) Anemia Assessment/Plan: H/H stable Code(s): D64.9 - ANEMIA, UNSPECIFIED (4) Alcoholic cirrhosis Code(s): K70.30 - ALCOHOLIC CIRRHOSIS OF LIVER WITHOUT ASCITES (5) Jaundice Code(s): R17 - UNSPECIFIED JAUNDICE (6) S/P gastric bypass Code(s): Z98.84 - BARIATRIC SURGERY STATUS
[2019-07-26] MEDS: oxyCODONE HCL 5 MG TABLET PO PRN ×2 (03:54→09:46)
[2019-07-26] MEDS: ACETAMINOPHEN 325 MG TABLET (FP) PO PRN ×2 (03:54→09:47)
[2019-07-26] MEDS: FUROSEMIDE 20 MG TABLET (FP) PO SCH ×2 (05:45→14:00)
[2019-07-26 08:33] LABS: EOS % 0.9 % (0-4.5); HEMATOCRIT 28.1 % (32.4-45.2); HEMOGLOBIN 9.4 GM/dL (10.7-15.3); LYMPH % 38.8 % (8-40); MCH 29.1 pg (25.7-33.7); MCHC 33.5 g/dl (32.0-36.0); MEAN CELL VOLUME 86.8 fl (80-96); MONO % 7.8 % (3.8-10.2); NEUT % 51.5 % (42.8-82.8); PLATELET COUNT 83 K/MM3 (134-434); RBC 3.23 M/mm3 (3.60-5.2); RDW 23.4 % (11.6-15.6); WHITE BLOOD COUNT 4.1 K/mm3 (4.0-10.0)
[2019-07-26 08:54] LABS: ALBUMIN 1.9 g/dl (3.4-5.0); BILIRUBIN,TOTAL 2.4 mg/dL (0.2-1); BLOOD UREA NITROGEN 7.4 mg/dL (7-18); CALCIUM 7.4 mg/dL (8.5-10.1); CREATININE 0.8 mg/dL (0.55-1.3); POTASSIUM 3.5 mmol/L (3.5-5.1); TOT PROT 6.5 g/dl (6.4-8.2)
[2019-07-26] MEDS: POLYETHYLENE GLYCOL 3350 119 GM BTL PO SCH ×2 (09:45→21:32)
[2019-07-26] MEDS: SPIRONOLACTONE 25 MG TABLET (FP) PO SCH (09:45)
--- NOTE | 2019-07-26 12:53 | PN ---
Progress Note, Physician History of Present Illness: stable still with some pain all cx reports noted - Current Medication List Current Medications: Active Medications Acetaminophen (Tylenol -) 325 mg PO Q6H PRN PRN Reason: PAIN SCALE 1-5 Last Admin: 07/26/19 03:54 Dose: 325 mg Documented by: Acetaminophen (Tylenol -) 325 mg PO Q6H PRN PRN Reason: PAIN SCALE 6-10 Last Admin: 07/26/19 09:47 Dose: 325 mg Documented by: Furosemide (Lasix -) 20 mg PO BID@0600,1400 [facility] Last Admin: 07/26/19 05:45 Dose: 20 mg Documented by: Oxycodone HCl (Roxicodone -) 5 mg PO Q6H PRN PRN Reason: PAIN SCALE 6-10 Last Admin: 07/26/19 09:46 Dose: 5 mg Documented by: Polyethylene Glycol (Miralax (For Daily Use) -) 17 gm PO BID [facility] Last Admin: 07/26/19 09:45 Dose: 17 gm Documented by: Spironolactone (Aldactone -) 100 mg PO DAILY [facility] Last Admin: 07/26/19 09:45 Dose: 100 mg Documented by: - Objective Vital Signs: Vital Signs Temperature 98.0 F 07/26/19 06:00 Pulse Rate 70 07/26/19 06:00 Respiratory Rate 18 07/26/19 06:00 Blood Pressure 103/66 07/26/19 06:00 O2 Sat by Pulse Oximetry (%) 99 07/25/19 21:00 Constitutional: Yes: Calm, Mild Distress Cardiovascular: Yes: S1, S2 Respiratory: Yes: Regular, CTA Bilaterally Gastrointestinal: Yes: Normal Bowel Sounds, Soft, Ascites Musculoskeletal: Yes: WNL Neurological: Yes: Alert, Oriented Labs: CBC, BMP 07/26/19 07:35 07/26/19 07:35 INR, PTT INR 1.44 (0.83-1.09) H 07/23/19 10:40 Assessment/Plan Problem List - Problems (1) Gas pain Code(s): R14.1 - GAS PAIN (2) Fecal impaction Code(s): K56.41 - FECAL IMPACTION (3) Abdominal pain Code(s): R10.9 - UNSPECIFIED ABDOMINAL PAIN (4) Cirrhosis with alcoholism Code(s): K70.30 - ALCOHOLIC CIRRHOSIS OF LIVER WITHOUT ASCITES (5) Jaundice, hepatocellular Code(s): K76.89 - OTHER SPECIFIED DISEASES OF LIVER (6) History of appendectomy Code(s): Z90.49 - ACQUIRED ABSENCE OF OTHER SPECIFIED PARTS OF DIGESTIVE TRACT (7) Ascites Code(s): R18.8 - OTHER ASCITES Qualifiers: Ascites type: other type Qualified Code(s): R18.8 - Other ascites (8) Rectal bleeding Code(s): K62.5 - HEMORRHAGE OF ANUS AND RECTUM (9) S/P gastric bypass Code(s): Z98.84 - BARIATRIC SURGERY STATUS (10) Status post repeat low transverse section Code(s): Z98.891 - HISTORY OF UTERINE SCAR FROM PREVIOUS SURGERY (11) Splenic varices Code(s): I86.8 - VARICOSE VEINS OF OTHER SPECIFIED SITES (12) Constipation Code(s): K59.00 - CONSTIPATION, UNSPECIFIED plan continue current mgmt no abx cx reports noted rest as per the team
--- NOTE | 2019-07-26 13:41 | PN ---
Progress Note (short form) - Note Progress Note: GI follow up Patient seen and examined Reports abdominal pain and growth of abd girth since she has been here Reports is on spironolactone/lasix 100/40 at home and that helps LE edema but abdominal ascites always recurs Sees fellow Dr. Garrison/attending Dr. Champion - [facility] hepatology Vital Signs Temp 98.0 F 07/26/19 06:00 Pulse 70 07/26/19 06:00 Resp 18 07/26/19 06:00 BP 103/66 07/26/19 06:00 Pulse Ox 99 07/25/19 21:00 NAD L eye subconj hemorrhage Abd soft, diffuse ttp, distended but not tense CBC, BMP 07/26/19 07:35 07/26/19 07:35 Hepatic Panel Total Bilirubin 2.4 mg/dL (0.2-1) H 07/26/19 07:35 Direct Bilirubin 1.7 mg/dL (0.0-0.2) H 07/25/19 07:18 AST 83 U/L (15-37) H 07/26/19 07:35 ALT 29 U/L (13-61) 07/26/19 07:35 Alkaline Phosphatase 130 U/L (45-117) H 07/26/19 07:35 Albumin 1.9 g/dl (3.4-5.0) L 07/26/19 07:35 INR, PTT INR 1.44 (0.83-1.09) H 07/23/19 10:40 Impression: Ascites is likely causing discomfort. Now that negative for SBP, wo uld perform a therapeutic tap. Should follow up with [facility] liver re diuretic management and potentially serial taps Low salt diet
[2019-07-26] MEDS: KETOROLAC TROMETHAMINE 30 MG/1 ML VIAL IVPUSH PRN ×2 (15:43→21:35)
[2019-07-26 17:10] LABS: BODY FLUID ALBUMIN 0.9 g/dL (Not Estab.)
--- NOTE | 2019-07-26 19:26 | PN ---
Progress Note, Physician - Current Medication List Current Medications: Active Medications Acetaminophen (Tylenol -) 325 mg PO Q6H PRN PRN Reason: PAIN SCALE 1-3 Last Admin: 07/26/19 03:54 Dose: 325 mg Documented by: Acetaminophen (Tylenol -) 325 mg PO Q6H PRN PRN Reason: PAIN SCALE 6-10 Last Admin: 07/26/19 09:47 Dose: 325 mg Documented by: Furosemide (Lasix -) 20 mg PO BID@0600,1400 [facility] Last Admin: 07/26/19 14:00 Dose: 20 mg Documented by: Ketorolac Tromethamine (Toradol Injection -) 30 mg IVPUSH Q6H PRN PRN Reason: PAIN 4-6 Stop: 07/31/19 15:30 Last Admin: 07/26/19 15:43 Dose: 30 mg Documented by: Polyethylene Glycol (Miralax (For Daily Use) -) 17 gm PO BID [facility] Last Admin: 07/26/19 09:45 Dose: 17 gm Documented by: Spironolactone (Aldactone -) 100 mg PO DAILY [facility] Last Admin: 07/26/19 09:45 Dose: 100 mg Documented by: - Objective Vital Signs: Vital Signs Temperature 97.6 F 07/26/19 18:53 Pulse Rate 79 07/26/19 18:53 Respiratory Rate 18 07/26/19 18:53 Blood Pressure 104/51 L 07/26/19 18:53 O2 Sat by Pulse Oximetry (%) 99 07/25/19 21:00 Constitutional: Yes: No Distress HENT: Yes: Atraumatic Neck: Yes: Supple Cardiovascular: Yes: Regular Rate and Rhythm Respiratory: Yes: CTA Bilaterally Gastrointestinal: Yes: Ascites, Distention Extremities: Yes: WNL Neurological: Yes: Alert, Oriented Labs: CBC, BMP 07/26/19 07:35 07/26/19 07:35 INR, PTT INR 1.44 (0.83-1.09) H 07/23/19 10:40 Problem List - Problems (1) Alcoholic cirrhosis Code(s): K70.30 - ALCOHOLIC CIRRHOSIS OF LIVER WITHOUT ASCITES (2) Ascites Assessment/Plan: GI NOTE REVIEWED FOR therapeutic tap Code(s): R18.8 - OTHER ASCITES Qualifiers: Ascites type: other type Qualified Code(s): R18.8 - Other ascites (3) S/P gastric bypass Code(s): Z98.84 - BARIATRIC SURGERY STATUS Assessment/Plan COVERING FOR DR HANKS TODAY
[2019-07-27] MEDS: KETOROLAC TROMETHAMINE 30 MG/1 ML VIAL IVPUSH PRN ×4 (03:30→22:23)
[2019-07-27] MEDS: FUROSEMIDE 20 MG TABLET (FP) PO SCH ×2 (05:17→14:43)
[2019-07-27] MEDS: POLYETHYLENE GLYCOL 3350 119 GM BTL PO SCH ×2 (10:14→22:24)
[2019-07-27] MEDS: SPIRONOLACTONE 25 MG TABLET (FP) PO SCH (10:15)
--- NOTE | 2019-07-27 11:44 | PN ---
Progress Note, Physician History of Present Illness: stable no new issues all results noted - Current Medication List Current Medications: Active Medications Acetaminophen (Tylenol -) 325 mg PO Q6H PRN PRN Reason: PAIN SCALE 1-3 Last Admin: 07/26/19 03:54 Dose: 325 mg Documented by: Acetaminophen (Tylenol -) 325 mg PO Q6H PRN PRN Reason: PAIN SCALE 6-10 Last Admin: 07/26/19 09:47 Dose: 325 mg Documented by: Furosemide (Lasix -) 20 mg PO BID@0600,1400 [facility] Last Admin: 07/27/19 05:17 Dose: 20 mg Documented by: Ketorolac Tromethamine (Toradol Injection -) 30 mg IVPUSH Q6H PRN PRN Reason: PAIN 4-6 Stop: 07/31/19 15:30 Last Admin: 07/27/19 10:15 Dose: 30 mg Documented by: Polyethylene Glycol (Miralax (For Daily Use) -) 17 gm PO BID [facility] Last Admin: 07/27/19 10:14 Dose: 17 gm Documented by: Spironolactone (Aldactone -) 100 mg PO DAILY [facility] Last Admin: 07/27/19 10:15 Dose: 100 mg Documented by: - Objective Vital Signs: Vital Signs Temperature 97.7 F 07/27/19 06:17 Pulse Rate 58 L 07/27/19 06:17 Respiratory Rate 17 07/27/19 06:17 Blood Pressure 87/49 L 07/27/19 06:17 O2 Sat by Pulse Oximetry (%) 99 07/26/19 21:00 Constitutional: Yes: No Distress, Calm Cardiovascular: Yes: S1, S2 Respiratory: Yes: Regular, CTA Bilaterally Gastrointestinal: Yes: Normal Bowel Sounds, Soft Musculoskeletal: Yes: WNL Extremities: Yes: WNL Neurological: Yes: Alert, Oriented Psychiatric: Yes: Alert, Oriented Labs: CBC, BMP 07/26/19 07:35 07/26/19 07:35 INR, PTT INR 1.44 (0.83-1.09) H 07/23/19 10:40 Assessment/Plan Problem List - Problems (1) Gas pain Code(s): R14.1 - GAS PAIN (2) Fecal impaction Code(s): K56.41 - FECAL IMPACTION (3) Abdominal pain Code(s): R10.9 - UNSPECIFIED ABDOMINAL PAIN (4) Cirrhosis with alcoholism Code(s): K70.30 - ALCOHOLIC CIRRHOSIS OF LIVER WITHOUT ASCITES (5) Jaundice, hepatocellular Code(s): K76.89 - OTHER SPECIFIED DISEASES OF LIVER (6) History of appendectomy Code(s): Z90.49 - ACQUIRED ABSENCE OF OTHER SPECIFIED PARTS OF DIGESTIVE TRACT (7) Ascites Code(s): R18.8 - OTHER ASCITES Qualifiers: Ascites type: other type Qualified Code(s): R18.8 - Other ascites (8) Rectal bleeding Code(s): K62.5 - HEMORRHAGE OF ANUS AND RECTUM (9) S/P gastric bypass Code(s): Z98.84 - BARIATRIC SURGERY STATUS (10) Status post repeat low transverse section Code(s): Z98.891 - HISTORY OF UTERINE SCAR FROM PREVIOUS SURGERY (11) Splenic varices Code(s): I86.8 - VARICOSE VEINS OF OTHER SPECIFIED SITES (12) Constipation Code(s): K59.00 - CONSTIPATION, UNSPECIFIED all cx results noted no abx continue supportive treatment
[2019-07-27 13:31] LABS: BF WBC & OTHER NUCLEATED CELLS 189 /mm3
--- NOTE | 2019-07-27 15:25 | PN.GI ---
GI Progress Note Subjective: No acute events 5L paracentesis today SAAG 1.6 from initial paracentesis. Total protein from that tap not collected. - Objective Vital Signs: Vital Signs Temperature 97.8 F 07/27/19 14:15 Pulse Rate 81 07/27/19 14:15 Respiratory Rate 18 07/27/19 14:15 Blood Pressure 102/53 L 07/27/19 14:15 O2 Sat by Pulse Oximetry (%) 99 07/26/19 21:00 Constitutional: Calm Eyes: No: Sclera Icterus Cardiovascular: Yes: Regular Rate and Rhythm. No: Murmur Respiratory: Yes: CTA Bilaterally Gastrointestinal Inspection: Yes: Distention ...Auscultate: Yes: Normoactive Bowel Sounds ...Palpate: Yes: Soft. No: Hepatomegaly, Splenomegaly, Tenderness ...Percussion: No: Tympanitic Edema: No (No LE edema) Neurological: Yes: Alert. No: [facility] Labs: CBC, BMP 07/26/19 07:35 07/26/19 07:35 INR, PTT INR 1.44 (0.83-1.09) H 07/23/19 10:40 Problem List - Problems (1) Alcoholic cirrhosis Assessment/Plan: with sequela of recurrent ascites Sees fellow Dr. Garrison/attending Dr. Champion - [facility] States having had EGD 01/04, does not recall the result Advised need for continued follow-up at [facility] for continued management of her volume status / need for serial paracenteses / eventual TIPS evaluation if needed. She states that she believes that she is listed for transplant there. I advised that she clarify this when she follows up there. Lasix 40mg daily, Aldactone 100g daily 2g low sodium diet. Emphasized the need for her to adhere to low sodium diet q 6 month US to screen for HCC Code(s): K70.30 - ALCOHOLIC CIRRHOSIS OF LIVER WITHOUT ASCITES
[2019-07-27 15:31] LABS: BODY FLUID MACROPHAGES 50 %; BODY FLUID MESOTHELIAL 11 %; BODY FLUID MONOCYTE 2 %
--- NOTE | 2019-07-27 20:12 | PN ---
Progress Note, Physician History of Present Illness: stable - Current Medication List Current Medications: Active Medications Acetaminophen (Tylenol -) 325 mg PO Q6H PRN PRN Reason: PAIN SCALE 1-3 Last Admin: 07/26/19 03:54 Dose: 325 mg Documented by: Acetaminophen (Tylenol -) 325 mg PO Q6H PRN PRN Reason: PAIN SCALE 6-10 Last Admin: 07/26/19 09:47 Dose: 325 mg Documented by: Furosemide (Lasix -) 20 mg PO BID@0600,1400 [facility] Last Admin: 07/27/19 14:43 Dose: 20 mg Documented by: Ketorolac Tromethamine (Toradol Injection -) 30 mg IVPUSH Q6H PRN PRN Reason: PAIN 4-6 Stop: 07/31/19 15:30 Last Admin: 07/27/19 15:53 Dose: 30 mg Documented by: Polyethylene Glycol (Miralax (For Daily Use) -) 17 gm PO BID [facility] Last Admin: 07/27/19 10:14 Dose: 17 gm Documented by: Spironolactone (Aldactone -) 100 mg PO DAILY [facility] Last Admin: 07/27/19 10:15 Dose: 100 mg Documented by: - Objective Vital Signs: Vital Signs Temperature 97.9 F 07/27/19 19:35 Pulse Rate 69 07/27/19 19:35 Respiratory Rate 18 07/27/19 14:15 Blood Pressure 103/44 L 07/27/19 19:35 O2 Sat by Pulse Oximetry (%) 99 07/26/19 21:00 Constitutional: Yes: No Distress HENT: Yes: Atraumatic Neck: Yes: Supple Cardiovascular: Yes: Regular Rate and Rhythm Respiratory: Yes: CTA Bilaterally Gastrointestinal: Yes: Normal Bowel Sounds, Ascites (better) Extremities: Yes: WNL Neurological: Yes: Alert, Oriented Labs: CBC, BMP 07/26/19 07:35 07/26/19 07:35 INR, PTT INR 1.44 (0.83-1.09) H 07/23/19 10:40 Problem List - Problems (1) Alcoholic cirrhosis Code(s): K70.30 - ALCOHOLIC CIRRHOSIS OF LIVER WITHOUT ASCITES (2) Ascites Assessment/Plan: s/p paracentesis took out 5 L Code(s): R18.8 - OTHER ASCITES Qualifiers: Ascites type: other type Qualified Code(s): R18.8 - Other ascites (3) S/P gastric bypass Code(s): Z98.84 - BARIATRIC SURGERY STATUS Assessment/Plan COVERING FOR DR HANKS TODAY..d/w her
[2019-07-28] MEDS: KETOROLAC TROMETHAMINE 30 MG/1 ML VIAL IVPUSH PRN ×2 (04:04→09:09)
[2019-07-28] MEDS: FUROSEMIDE 20 MG TABLET (FP) PO SCH ×2 (06:07→14:18)
[2019-07-28 08:43] LABS: BASO % 0.5 % (0-2.0); EOS % 0.4 % (0-4.5); HEMATOCRIT 30.2 % (32.4-45.2); LYMPH % 36.5 % (8-40); MCH 28.9 pg (25.7-33.7); MEAN CELL VOLUME 87.5 fl (80-96); MEAN PLT VOLUME 9.5 fl (7.5-11.1); MONO % 8.1 % (3.8-10.2); NEUT % 54.5 % (42.8-82.8); PLATELET COUNT 93 K/MM3 (134-434); RBC 3.45 M/mm3 (3.60-5.2); WHITE BLOOD COUNT 5.7 K/mm3 (4.0-10.0)
[2019-07-28] MEDS: SPIRONOLACTONE 25 MG TABLET (FP) PO SCH ×2 (09:09→10:11)
[2019-07-28] MEDS: POLYETHYLENE GLYCOL 3350 119 GM BTL PO SCH (09:10)
[2019-07-28 09:24] LABS: BILIRUBIN,TOTAL 2.2 mg/dL (0.2-1); BLOOD UREA NITROGEN 20.9 mg/dL (7-18); CALCIUM 8.3 mg/dL (8.5-10.1); CREATININE 1.3 mg/dL (0.55-1.3); POTASSIUM 3.8 mmol/L (3.5-5.1); TOT PROT 6.6 g/dl (6.4-8.2)
--- NOTE | 2019-07-28 10:16 | PN.GI ---
GI Progress Note Subjective: Pt seen/examined at bedside, feeling better, abdominal pain improving s/p paracentesis yesterday, had 5L removed. Tolerating po, moving bowels had 2 brown bms yesterday, no blood. - Objective Vital Signs: Vital Signs Temperature 98.1 F 07/28/19 07:25 Pulse Rate 68 07/28/19 07:25 Respiratory Rate 18 07/28/19 07:25 Blood Pressure 105/59 L 07/28/19 07:25 O2 Sat by Pulse Oximetry (%) 99 07/27/19 21:00 Constitutional: No Distress, Calm Cardiovascular: Yes: WNL, Regular Rate and Rhythm Respiratory: Yes: WNL, Regular, CTA Bilaterally ...Palpate: Yes: Other (Soft, mildly tender on palpation in upper abdomen, nondistended, no rebound, guarding or rigidity) Edema: No Labs: CBC, BMP 07/28/19 08:03 07/28/19 08:03 INR, PTT INR 1.44 (0.83-1.09) H 07/23/19 10:40 Problem List - Problems (1) Alcoholic cirrhosis Assessment/Plan: 38yo female h/o etoh/cirrhosis, gastric bypass with recurrent ascites s/p paracentesis with 5L removed, no evidence of SBP, SAAG from 3/6 fluid studies >1.1. Follows with Dr. Champion (hepatology) at [facility]. Colonoscopy in 11/2018 at [facility] for diarrhea which was unremarkable, remote possible EGD, not available in [facility] records. MELD 16. -Continue diuretic regimen lasix 40mg/aldactone 100mg daily for now -2g NA diet -Follow up remainder of fluid studies -Repeat PT/INR -Can consider EGD prior to discharge, tentatively tomorrow to assess for varices as does not appear to have been done within the past few years -Emphasized follow up with hepatology team at [facility] - appt scheduled on 09/09/19 (had missed 2/3 appt) however could try to move up appt pending timing discharge -Continue HCC screening with US q6 months Code(s): K70.30 - ALCOHOLIC CIRRHOSIS OF LIVER WITHOUT ASCITES
[2019-07-28 11:11] LABS: ANISOCYTOSIS 2+; MACROCYTOSIS 0; PLATELET ESTIMATE DECREASED; TARGET CELLS 1+
--- NOTE | 2019-07-28 12:19 | PN ---
Progress Note, Physician History of Present Illness: stable post paracentesis feel better - Current Medication List Current Medications: Active Medications Acetaminophen (Tylenol -) 325 mg PO Q6H PRN PRN Reason: PAIN SCALE 1-3 Last Admin: 07/26/19 03:54 Dose: 325 mg Documented by: Acetaminophen (Tylenol -) 325 mg PO Q6H PRN PRN Reason: PAIN SCALE 6-10 Last Admin: 07/26/19 09:47 Dose: 325 mg Documented by: Furosemide (Lasix -) 20 mg PO BID@0600,1400 [facility] Last Admin: 07/28/19 06:07 Dose: 20 mg Documented by: Ketorolac Tromethamine (Toradol Injection -) 30 mg IVPUSH Q6H PRN PRN Reason: PAIN 4-6 Stop: 07/31/19 15:30 Last Admin: 07/28/19 09:09 Dose: 30 mg Documented by: Polyethylene Glycol (Miralax (For Daily Use) -) 17 gm PO BID [facility] Last Admin: 07/28/19 09:10 Dose: 17 gm Documented by: Spironolactone (Aldactone -) 100 mg PO DAILY [facility] Last Admin: 07/28/19 10:11 Dose: Not Given Documented by: - Objective Vital Signs: Vital Signs Temperature 98.0 F 07/28/19 09:00 Pulse Rate 73 07/28/19 09:00 Respiratory Rate 20 07/28/19 09:00 Blood Pressure 98/52 L 07/28/19 09:00 O2 Sat by Pulse Oximetry (%) 95 07/28/19 10:00 Constitutional: Yes: No Distress, Calm Cardiovascular: Yes: S1, S2 Respiratory: Yes: Regular, CTA Bilaterally Gastrointestinal: Yes: Normal Bowel Sounds, Soft, Ascites Musculoskeletal: Yes: WNL Extremities: Yes: WNL Neurological: Yes: Alert, Oriented Psychiatric: Yes: Alert, Oriented Labs: CBC, BMP 07/28/19 08:03 07/28/19 08:03 INR, PTT INR 1.44 (0.83-1.09) H 07/23/19 10:40 Assessment/Plan Problem List - Problems (1) Gas pain Code(s): R14.1 - GAS PAIN (2) Fecal impaction Code(s): K56.41 - FECAL IMPACTION (3) Abdominal pain Code(s): R10.9 - UNSPECIFIED ABDOMINAL PAIN (4) Cirrhosis with alcoholism Code(s): K70.30 - ALCOHOLIC CIRRHOSIS OF LIVER WITHOUT ASCITES (5) Jaundice, hepatocellular Code(s): K76.89 - OTHER SPECIFIED DISEASES OF LIVER (6) History of appendectomy Code(s): Z90.49 - ACQUIRED ABSENCE OF OTHER SPECIFIED PARTS OF DIGESTIVE TRACT (7) Ascites Code(s): R18.8 - OTHER ASCITES Qualifiers: Ascites type: other type Qualified Code(s): R18.8 - Other ascites (8) Rectal bleeding Code(s): K62.5 - HEMORRHAGE OF ANUS AND RECTUM (9) S/P gastric bypass Code(s): Z98.84 - BARIATRIC SURGERY STATUS (10) Status post repeat low transverse section Code(s): Z98.891 - HISTORY OF UTERINE SCAR FROM PREVIOUS SURGERY (11) Splenic varices Code(s): I86.8 - VARICOSE VEINS OF OTHER SPECIFIED SITES (12) Constipation Code(s): K59.00 - CONSTIPATION, UNSPECIFIED await for cx reports rest as per the team continue to monitor
[2019-07-28] MEDS: ACETAMINOPHEN 325 MG TABLET (FP) PO PRN (14:18)
[2019-07-28 14:46] VITALS: BP 107/53; PULSE 70; TEMP 97.8
--- NOTE | 2019-07-28 14:46 | PATH ---
Cytology Non-Gynecological Report Patient Name: PHOEBE STARK Med. Rec. #: [id number] /Age/Gender: 1980 (Age: 38) / F Account: [id number] Location: [address] [place] [address]/[facility] Taken: 07/27/2019 Received: 07/27/2019 Reported: 07/28/2019 Physicians: Michele Lopez M.D. Specimen(s) Received A: ABDOMINAL FLUID B: ABDOMINAL FLUID Clinical History Ascites Final Diagnosis A-B. ABDOMINAL FLUID, PARACENTESIS: SATISFACTORY FOR EVALUATION. NO MALIGNANT CELLS IDENTIFIED. MESOTHELIAL CELLS, MACROPHAGES, AND LYMPHOCYTES PRESENT. Electronically Signed Mariaa Mckeon M.D. Gross Description A. Approximately 50 cc of yellow fluid received fixed in 50% alcohol. One cytofunnel prepared and Pap stained. One cellblock prepared. B. Approximately 5000 cc of stacy fluid received fresh. One cytofunnel prepared and Pap stained. One cellblock prepared.
== END 2019-07-28 15:55 | disposition home or self-care (01) | DRG 433 ==
LOC: JER 10:10 → JERBED 19:39 → J6S 21:35
PROVIDERS: ADMIT Internal Medicine; ATTEND Internal Medicine
PROC: 0W9G3ZX Drainage of Peritoneal Cavity, Percutaneous Approach, Diagnostic (ICD-10-PCS; principal; 2019-07-27)
DX: K70.31 Alcoholic cirrhosis of liver with ascites (principal); R17 Unspecified jaundice; K56.41 Fecal impaction; R16.1 Splenomegaly, not elsewhere classified; D64.9 Anemia, unspecified; Z98.84 Bariatric surgery status; R10.9 Unspecified abdominal pain; K59.00 Constipation, unspecified; K76.89 Other specified diseases of liver
CPT/HCPCS: 36415; 74177-TC; 76942-TC; 80053; 82042; 82105; 82140; 82150; 82248; 82465; 82550; 82945; 83615; 83690; 83735; 83986; 84157; 84478; 84484; 84703; 85025; 85610; 85730; 86140; 87070; 87075; 87102; 87116; 87177; 87205; 87206; 87209; 87210; 87516; 88108; 88305-TC; 89051; 93005; 93010; 99285-25; Q9967

== ENCOUNTER 2019-12-08 16:45 | Inpatient (IN) | payer OTHER ==
[2019-12-08 16:53] VITALS: BMI 22.8
--- NOTE | 2019-12-08 16:54 | PDOC ---
Rapid Medical Evaluation Time Seen by Provider: 12/08/19 16:48 Medical Evaluation: Allergies Allergy/AdvReac Type Severity Reaction Status Date / Time No Known Allergies Allergy Verified 06/23/18 10:12 12/08/19 16:51 I have performed a brief in-person evaluation of this patient. The patient presents with a chief complaint of: Worsening abd pain/distension since yesterday. No n/v/f or acute change in BM. H/o gastric bypass, ?HBV, ETOH cirrhosis, on liver tx list at [facility], gets paracentesis every 2 months, last drained 10/05 at [facility] and states she has been dealing w/ in family and have not f/u with recent drainage Pertinent physical exam findings:chronically ill reyna w/ significant ascites/distension on exam I have ordered the following:labs The patient will proceed to the ED for further evaluation. Discharge Disposition - Diagnosis Abdominal pain Qualifiers: Abdominal location: generalized Qualified Code(s): R10.84 - Generalized abdominal pain Ascites Qualifiers: Ascites type: due to alcoholic hepatitis Qualified Code(s): K70.11 - Alcoholic hepatitis with ascites - Referrals - Patient Instructions - Post Discharge Activity
[2019-12-08] MEDS ORDERED: ACETAMINOPHEN 325 MG TABLET (FP) PO ONE (17:54)
--- NOTE | 2019-12-08 18:03 | PDOC ---
History of Present Illness - General Chief Complaint: Pain Stated Complaint: ABD PAIN Time Seen by Provider: 12/08/19 16:48 - History of Present Illness Initial Comments: Junie Ornelas is a 39 y/o female with PMH significant for hepatic cirrhosis, s/p gastric sleeve, pancreatitis, alcohol use disorder, ascites, presenting toda y with worsening abdominal fullness. Reports that she is on the [facility] liver transplant list. She states that she has had ascites for many years now. States that she does not follow with a GI clinic. Has been going to this ER, [facility] ER, and other ERs for admission and therapeutic paracentesis. Today reports mild difficulty breathing attributed to abdominal fullness. No fever/chills. No chest pain. No abd pain. No back pain. No dysuria/diarrhea. No leg swelling. No nausea/vomiting. No cough. Past History - Medical History Allergies/Adverse Reactions: Allergies Allergy/AdvReac Type Severity Reaction Status Date / Time No Known Allergies Allergy Verified 12/08/19 16:53 Home Medications: Ambulatory Orders Mv-Mn/Iron/FA/Herbal/Digestive [ One Tablet] 1 tab PO DAILY 05/25/18 Furosemide [Lasix] 20 mg PO BID #60 tablet 07/28/19 Polyethylene Glycol 3350 [Miralax 119 gm Btl -] 17 gm PO BID bottle 07/28/19 Polyethylene Glycol 3350 [Miralax 119 gm Btl -] 17 gm PO DAILY #1 bottle 07/28/19 Spironolactone 100 gm MC DAILY #30 powder 07/28/19 Furosemide [Lasix -] 20 mg PO BID@0600,1400 #60 tablet 09/17/19 Spironolactone [Aldactone -] 100 mg PO DAILY #30 tablet 09/17/19 Anemia: Yes Asthma: No Cancer: No Cardiac Disorders: Yes CVA: No COPD: No CHF: No Dementia: No Diabetes: No GI Disorders: Yes Disorders: No HTN: No Hypercholesterolemia: No Liver Disease: Yes (cirrhosis) Seizures: No Thyroid Disease: No - Surgical History Abdominal Surgery: Yes Appendectomy: Yes Cardiac Surgery: No Cholecystectomy: No Gastric Stapling: Yes Lung Surgery: No Neurologic Surgery: No - Reproductive History (#): 7 Para: 8 Spontaneous : 0 - Immunization History Td Vaccination: Yes TDAP Vaccination: Yes Immunization Up to Date: Yes - Psycho-Social/Smoking History Smoking Status: No Smoking History: Never smoked Have you smoked in the past 12 months: No Number of Cigarettes Smoked Daily: 2 If you are a former smoker, when did you quit?: quit with alcohol 12/04 'Breaking Loose' booklet given: 02/04/17 - Substance Abuse Hx (Audit-C & DAST Scrn) How often the patient has a drink containing alcohol: Never Score: In Men: 4 or > Positive; In Women: 3 or > Positive: 0 Screen Result (Pos requires Nsg. Audit-10AR): Negative Abd/GI Specific PMHX - Complaint Specific PMHX GERD: Yes Review of Systems - Review of Systems Comments:: GENERAL/CONSTITUTIONAL: No fever or chills. No weakness._ HEAD, EYES, EARS, NOSE AND THROAT: No change in vision. No change in hearing. No sore throat._ CARDIOVASCULAR: No chest pain. Reports mild difficulty breathing. RESPIRATORY: Denies cough, hemoptysis_ GASTROINTESTINAL: Reports abdominal fullness. No nausea, vomiting, diarrhea or constipation._ GENITOURINARY: No dysuria, frequency, or change in urination._ MUSCULOSKELETAL: No joint or muscle swelling or pain. No neck or back pain._ SKIN: No rash_ NEUROLOGIC: No headache, vertigo, loss of consciousness, or change in strength/sensation._ ENDOCRINE: No increased thirst. No abnormal weight change_ HEMATOLOGIC/LYMPHATIC: No anemia, easy bleeding, or history of blood clots._ ALLERGIC/IMMUNOLOGIC: No hives or skin allergy._ *Physical Exam - Vital Signs Last Vital Signs Temp Pulse Resp BP Pulse Ox 98 F 73 18 110/63 99 12/08/19 16:49 12/08/19 16:49 12/08/19 16:49 12/08/19 16:49 12/08/19 16:49 - Physical Exam GENERAL: Awake, alert, and oriented to person/place/time, in no acute distress_ HEAD: No signs of trauma, normocephalic, atraumatic _ EYES: PERRLA, EOMI, sclera anicteric, conjunctiva clear_ ENT: Hearing grossly normal, nares patent, oropharynx clear without exudates. No uvular deviation. Moist mucosa_ NECK: Normal ROM, supple, no lymphadenopathy, JVD, or masses_ LUNGS: No distress, speaks in full sentences, clear to auscultation bilaterally _ HEART: Regular rate and rhythm, normal S1 and S2, no murmurs appreciated, peripheral pulses normal and equal bilaterally._ ABDOMEN: Soft, distended and fluid filled, non tender. No guarding, no rebound. No masses_ EXTREMITIES: Normal inspection, Normal range of motion, no edema. No clubbing or cyanosis_ NEUROLOGICAL: Cranial nerves II through XII grossly intact. Normal speech, normal gait, no focal sensorimotor deficits _ SKIN: Warm, Dry, normal turgor, no rashes or lesions noted_ ED Treatment Course - LABORATORY CBC & Chemistry Diagram: 12/08/19 18:37 12/08/19 18:37 Medical Decision Making - Medical Decision Making 39F with hx of abdominal ascites and hx of therapeutic paracentesis presenting today with increasing abdominal fullness. Seen here end of August by Dr. Khan. -cbc/cmp -coags -ekg -cxr -ua 12/08/19 18:03 D/w Dr. Khan who accepts the patient for admission. 12/08/19 19:00 Pt s/o to Dr. Barlow pending labs, EKG, CXR, UA. Discharge - Discharge Information Problems reviewed: Yes Clinical Impression/Diagnosis: Abdominal pain Qualifiers: Abdominal location: generalized Qualified Code(s): R10.84 - Generalized abdominal pain Ascites Qualifiers: Ascites type: due to alcoholic hepatitis Qualified Code(s): K70.11 - Alcoholic hepatitis with ascites Condition: Stable - Admission Yes - Follow up/Referral - Patient Discharge Instructions - Post Discharge Activity
--- NOTE | 2019-12-08 18:05 | PDOC ---
Documentation entered by Gary Coello SCRIBE, acting as scribe for Arnoldo Rapp MD. Arnoldo Rapp MD: This documentation has been prepared by the Mode amaya Nirvannie, SCRIBE, under my direction and personally reviewed by me in its entirety. I confirm that the documentation accurately reflects all work, treatment, procedures, and medical decision making performed by me. Attending Attestation - Resident Resident Name: Jace Villasenor - ED Attending Attestation I have performed the following: I have examined & evaluated the patient, The case was reviewed & discussed with the resident, I agree w/resident's findings & plan, Exceptions are as noted - HPI HPI: 12/08/19 17:55 The patient is a 39 year old female with a significant past medical history of alcohol cirrhosis (on transplant list, paracentesis Q2 Months, last drained 10/05) who presents to the ED with 2 days of progressively worsening abdominal distention. Denies F/C. Denies N/V/constipation. Denies any significant pain but endorses discomfort from being so distended. Allergies: NKDA - Physicial Exam PE: 12/08/19 18:14 See resident exam - Medical Decision Making 12/08/19 18:14 39 F with abdominal distention, likely 2/2 reaccumulation of ascites. - Labs - Diagnostic paracentesis - Admit Discharge - Discharge Information Problems reviewed: Yes Clinical Impression/Diagnosis: Abdominal pain Qualifiers: Abdominal location: generalized Qualified Code(s): R10.84 - Generalized abdominal pain Ascites Qualifiers: Ascites type: due to alcoholic hepatitis Qualified Code(s): K70.11 - Alcoholic hepatitis with ascites Condition: Stable Disposition: TRANSFER ACUTE CARE/OTHER HOSP - Follow up/Referral - Patient Discharge Instructions - Post Discharge Activity
[2019-12-08] MEDS ORDERED: ALBUTEROL SO4 2.5/IPRATROPIUM 0.5 INH SOL 3 ML VIAL.NEB. NEB ONE ×2 (18:42→19:40)
[2019-12-08 18:50] LABS: BASO % 0.8 % (0-2.0); EOS % 0.4 % (0-4.5); HEMATOCRIT 31.2 % (32.4-45.2); HEMOGLOBIN 10.1 GM/dL (10.7-15.3); LYMPH % 24.8 % (8-40); MCH 27.7 pg (25.7-33.7); MCHC 32.4 g/dl (32.0-36.0); MEAN CELL VOLUME 85.4 fl (80-96); MEAN PLT VOLUME 8.7 fl (7.5-11.1); MONO % 6.6 % (3.8-10.2); NEUT % 67.4 % (42.8-82.8); PLATELET COUNT 110 K/MM3 (134-434); RBC 3.66 M/mm3 (3.60-5.2); RDW 26.7 % (11.6-15.6); WHITE BLOOD COUNT 5.1 K/mm3 (4.0-10.0)
[2019-12-08 18:56] LABS: EPI CELLS 13 /uL (0-25.1); HYALINE CASTS 0 /uL (0-3.1); PH,URINE 8.5 (5.0-8.0); URINE APPEARANCE CLEAR; URINE BACTERIA 31 /uL (0-1359); URINE BILIRUBIN 2+ (NEGATIVE); URINE COLOR DK YELLOW; URINE GLUCOSE (UA) TRACE (NEGATIVE); URINE KETONE NEGATIVE (NEGATIVE); URINE LEUK ESTERASE NEGATIVE (NEGATIVE); URINE NITRITE NEGATIVE (NEGATIVE); URINE PROTEIN 4+ (NEGATIVE)
[2019-12-08 19:13] LABS: ALBUMIN 2.5 g/dl (3.4-5.0); BILIRUBIN,TOTAL 5.2 mg/dL (0.2-1); BLOOD UREA NITROGEN 8.8 mg/dL (7-18); CREATININE 0.9 mg/dL (0.55-1.3); TOT PROT 7.5 g/dl (6.4-8.2)
[2019-12-08 19:23] LABS: POTASSIUM 2.8 mmol/L (3.5-5.1)
[2019-12-08 20:03] LABS: URINE RBC 559.7 /uL (0-23.9)
[2019-12-08 20:04] LABS: ANISOCYTOSIS 2+; MACROCYTOSIS 2+; YEAST NO SEEN (NEGATIVE)
[2019-12-08 20:05] LABS: PLATELET ESTIMATE DECREASED; ROULEAU 2+
[2019-12-08 20:30] LABS: INR 1.46 (0.83-1.09); PROTHROMBIN TIME (PATIENT) 17.3 SEC (9.7-13.0)
[2019-12-08 20:33] LABS: ACTIVATED PTT 37.4 SECONDS (25.2-36.5)
[2019-12-08] MEDS ORDERED: KCL 10 MEQ IVPB 30 MEQ/300 ML INFUS.BAG IVPB ONE (20:47)
[2019-12-08] MEDS: KCL 10 MEQ IVPB 10 MEQ/100 ML INFUS.BAG IVPB SCH ×3 (21:14→23:06)
[2019-12-08] MEDS ORDERED: traMADol HCL 50 MG TABLET PO ONE (23:30)
[2019-12-08] MEDS ORDERED: traMADol HCL 50 MG TABLET ONE (23:45)
[2019-12-09] MEDS ORDERED: MORPHINE SULFATE 2 MG/ML VIAL IVPUSH ONE ×2 (05:00→09:45)
[2019-12-09] MEDS: FUROSEMIDE 20 MG TABLET (FP) PO SCH ×2 (06:35→14:51)
[2019-12-09 08:32] LABS: BASO % 0.7 % (0-2.0); EOS % 1.2 % (0-4.5); HEMATOCRIT 28.1 % (32.4-45.2); HEMOGLOBIN 9.3 GM/dL (10.7-15.3); LYMPH % 22.3 % (8-40); MCH 28.1 pg (25.7-33.7); MCHC 33.1 g/dl (32.0-36.0); MEAN PLT VOLUME 8.6 fl (7.5-11.1); MONO % 7.2 % (3.8-10.2); NEUT % 68.6 % (42.8-82.8); PLATELET COUNT 96 K/MM3 (134-434); RDW 26.4 % (11.6-15.6); WHITE BLOOD COUNT 5.4 K/mm3 (4.0-10.0)
[2019-12-09 09:03] LABS: ALBUMIN 2.2 g/dl (3.4-5.0); BILIRUBIN,TOTAL 3.5 mg/dL (0.2-1); BLOOD UREA NITROGEN 9.4 mg/dL (7-18); CALCIUM 7.8 mg/dL (8.5-10.1); CREATININE 0.8 mg/dL (0.55-1.3); POTASSIUM 3.3 mmol/L (3.5-5.1); TOT PROT 6.9 g/dl (6.4-8.2)
[2019-12-09] MEDS: HEPARIN NA (PORCINE) 5,000 UNITS/ML 1ML VIAL SQ SCH ×2 (09:30→21:02)
[2019-12-09] MEDS: SPIRONOLACTONE 25 MG TABLET PO SCH (09:43)
[2019-12-09] MEDS: POLYETHYLENE GLYCOL 3350 119 GM BTL PO SCH (10:45)
--- NOTE | 2019-12-09 12:13 | EKG ---
Test Reason : Blood Pressure : / mmHG Vent. Rate : 060 BPM Atrial Rate : 060 BPM P-R Int : 144 ms QRS Dur : 090 ms QT Int : 500 ms P-R-T Axes : 033 -01 024 degrees QTc Int : 500 ms NORMAL SINUS RHYTHM CANNOT RULE OUT ANTERIOR INFARCT , AGE UNDETERMINED PROLONGED QT ABNORMAL ECG WHEN COMPARED WITH ECG OF 15-SEP-2019 20:59, VENT. RATE HAS DECREASED BY 46 BPM Confirmed by ZIGGY CORREA, PARTH ([id number]) on 12/09/2019 12:13:07 PM Referred By: Confirmed By:PARTH TRINH MD
[2019-12-09] MEDS ORDERED: MORPHINE SULFATE 2 MG/ML VIAL IVPUSH PRN (16:25)
--- NOTE | 2019-12-09 16:25 | HP ---
Admitting History and Physical - Admission History of Present Illness: The patient is a 39 year old female with a significant past medical history of alcohol cirrhosis (on transplant list, paracentesis Q2 Months, last drained 10/05) who presents to the ED with 2 days of progressively worsening abdominal distention. Denies F/C. Denies N/V/constipation. Denies any significant pain but endorses discomfort from being so distended. - Past Medical History Gastrointestinal: Yes: Other (s/p gastric bypass 2012 [facility] with serial postop dilations) Hepatobiliary: Yes: Cirrhosis (Alcoholic cirrhosis with ascites on [facility] Liver Transplant List), Hepatitis B (status to be determined, has core antibody) ...LMP: 11/08/18 Heme/Onc: Yes: Anemia Infectious Disease: Yes: MRSA (history of) Psych: Yes: Addictions (alcohol) - Past Surgical History Past Surgical History: Yes: Appendectomy, Bariatric Surgery (laparoscopic lewis talib bypass 2012 [place]), , Tubal Ligation, Upper Endoscopy - Smoking History Smoking history: Never smoked Have you smoked in the past 12 months: No Aproximately how many cigarettes per day: 2 If you are a former smoker, when did you quit?: quit with alcohol 12/04 - Alcohol/Substance Use Hx Alcohol Use: Yes (quit 12/04) History of Substance Use: reports: None - Social History ADL: Independent Occupation: disabled History of Recent Travel: No Home Medications - Allergies Allergies/Adverse Reactions: Allergies Allergy/AdvReac Type Severity Reaction Status Date / Time No Known Allergies Allergy Verified 12/08/19 16:53 - Home Medications Home Medications: Ambulatory Orders Mv-Mn/Iron/FA/Herbal/Digestive [ One Tablet] 1 tab PO DAILY 05/25/18 Furosemide [Lasix] 20 mg PO BID #60 tablet 07/28/19 Polyethylene Glycol 3350 [Miralax 119 gm Btl -] 17 gm PO BID bottle 07/28/19 Polyethylene Glycol 3350 [Miralax 119 gm Btl -] 17 gm PO DAILY #1 bottle 07/28/19 Spironolactone 100 gm MC DAILY #30 powder 07/28/19 Furosemide [Lasix -] 20 mg PO BID@0600,1400 #60 tablet 09/17/19 Spironolactone [Aldactone -] 100 mg PO DAILY #30 tablet 09/17/19 Review of Systems - Review of Systems Constitutional: reports: Loss of Appetite, Malaise Eyes: reports: No Symptoms HENT: reports: No Symptoms Neck: reports: No Symptoms Cardiovascular: reports: No Symptoms Respiratory: reports: No Symptoms Gastrointestinal: reports: Abdominal Pain Genitourinary: reports: No Symptoms Physical Examination Vital Signs: Vital Signs Temperature 98.4 F 12/09/19 14:00 Pulse Rate 67 12/09/19 14:00 Respiratory Rate 12/09/19 14:00 Blood Pressure 106/52 L 12/09/19 14:00 O2 Sat by Pulse Oximetry (%) 99 12/09/19 14:00 Constitutional: Yes: No Distress HENT: Yes: WNL Neck: Yes: WNL, Supple Cardiovascular: Yes: WNL, Regular Rate and Rhythm Respiratory: Yes: WNL, Regular, CTA Bilaterally Gastrointestinal: Yes: Normal Bowel Sounds, Distention Extremities: Yes: WNL Edema: No Neurological: Yes: WNL, Alert, Oriented ...Motor Strength: WNL Labs: CBC, BMP 12/09/19 07:40 12/09/19 07:40 Problem List - Problems (1) Ascites Assessment/Plan: Due to cirrhosis Paracentesis Code(s): R18.8 - OTHER ASCITES Qualifiers: Ascites type: other type Qualified Code(s): R18.8 - Other ascites (2) Alcoholic cirrhosis Assessment/Plan: Long d/w pt about need for close f/u. Pt states that she is followed at [facility] however it is unclear if she is on a transplant list? Code(s): K70.30 - ALCOHOLIC CIRRHOSIS OF LIVER WITHOUT ASCITES Qualifiers: Ascites presence: with ascites Qualified Code(s): K70.31 - Alcoholic cirrhosis of liver with ascites (3) Anemia Code(s): D64.9 - ANEMIA, UNSPECIFIED (4) Hyperbilirubinemia Assessment/Plan: Check labs in am Code(s): E80.6 - OTHER DISORDERS OF BILIRUBIN METABOLISM (5) S/P gastric bypass Code(s): Z98.84 - BARIATRIC SURGERY STATUS
[2019-12-09] MEDS: MORPHINE SULFATE 2 MG/ML VIAL IVPUSH PRN (22:30)
[2019-12-09] MEDS: KCL 10 MEQ IVPB 10 MEQ/100 ML INFUS.BAG IVPB SCH ×2 (22:30→23:26)
[2019-12-10] MEDS: KCL 10 MEQ IVPB 10 MEQ/100 ML INFUS.BAG IVPB SCH (01:21)
[2019-12-10] MEDS: FUROSEMIDE 20 MG TABLET (FP) PO SCH ×2 (06:25→14:11)
[2019-12-10 07:46] LABS: BASO % 0.8 % (0-2.0); EOS % 0.8 % (0-4.5); HEMATOCRIT 28.5 % (32.4-45.2); HEMOGLOBIN 9.2 GM/dL (10.7-15.3); LYMPH % 29.6 % (8-40); MCH 27.5 pg (25.7-33.7); MCHC 32.4 g/dl (32.0-36.0); MEAN CELL VOLUME 84.9 fl (80-96); MEAN PLT VOLUME 8.8 fl (7.5-11.1); MONO % 6.4 % (3.8-10.2); NEUT % 62.4 % (42.8-82.8); PLATELET COUNT 101 K/MM3 (134-434); RBC 3.36 M/mm3 (3.60-5.2); RDW 26.4 % (11.6-15.6); WHITE BLOOD COUNT 5.5 K/mm3 (4.0-10.0)
[2019-12-10 08:17] LABS: BILIRUBIN,TOTAL 3.3 mg/dL (0.2-1); BLOOD UREA NITROGEN 9.2 mg/dL (7-18); CALCIUM 7.5 mg/dL (8.5-10.1); CREATININE 0.8 mg/dL (0.55-1.3); POTASSIUM 3.3 mmol/L (3.5-5.1); TOT PROT 6.3 g/dl (6.4-8.2)
[2019-12-10] MEDS: HEPARIN NA (PORCINE) 5,000 UNITS/ML 1ML VIAL SQ SCH ×2 (09:26→21:01)
[2019-12-10] MEDS: MORPHINE SULFATE 2 MG/ML VIAL IVPUSH PRN ×2 (09:27→17:20)
[2019-12-10] MEDS: SPIRONOLACTONE 25 MG TABLET PO SCH (09:27)
[2019-12-10] MEDS: POLYETHYLENE GLYCOL 3350 119 GM BTL PO SCH (09:35)
[2019-12-10] MEDS ORDERED: POTASSIUM CHLORIDE TABS 20 MEQ TABLET.ER (FP) PO ONE (12:21)
--- NOTE | 2019-12-10 13:00 | PN ---
Progress Note, Physician History of Present Illness: STABLE - Current Medication List Current Medications: Active Medications Furosemide (Lasix -) 20 mg PO BIDLASIX [facility] Last Admin: 12/10/19 06:25 Dose: 20 mg Documented by: Heparin Sodium (Porcine) (Heparin -) 5,000 unit SQ BID [facility] Last Admin: 12/10/19 09:26 Dose: 5,000 unit Documented by: Morphine Sulfate (Morphine Sulfate) 2 mg IVPUSH Q8H PRN PRN Reason: PAIN LEVEL 6-10 Last Admin: 12/10/19 09:27 Dose: 2 mg Documented by: Polyethylene Glycol (Miralax (For Daily Use) -) 17 gm PO DAILY [facility] Last Admin: 12/10/19 09:35 Dose: Not Given Documented by: Spironolactone (Aldactone -) 100 mg PO DAILY [facility] Last Admin: 12/10/19 09:27 Dose: Not Given Documented by: - Objective Vital Signs: Vital Signs Temperature 98.1 F 12/10/19 09:39 Pulse Rate 73 12/10/19 09:39 Respiratory Rate 19 12/10/19 09:39 Blood Pressure 97/50 L 12/10/19 09:39 O2 Sat by Pulse Oximetry (%) 99 12/10/19 09:39 Constitutional: Yes: No Distress HENT: Yes: Atraumatic Neck: Yes: Supple Cardiovascular: Yes: Regular Rate and Rhythm Respiratory: Yes: CTA Bilaterally Gastrointestinal: Yes: Distention Extremities: Yes: WNL Neurological: Yes: Alert, Oriented Labs: CBC, BMP 12/10/19 07:10 12/10/19 07:10 INR, PTT INR 1.46 (0.83-1.09) H 12/08/19 18:37 Problem List - Problems (1) Abdominal pain Code(s): R10.9 - UNSPECIFIED ABDOMINAL PAIN Qualifiers: Abdominal location: generalized Qualified Code(s): R10.84 - Generalized abdominal pain (2) Ascites Assessment/Plan: for paracentesis as per gi patient said she had paracentesis yesterday in ER sbp? npo id consult Code(s): R18.8 - OTHER ASCITES Qualifiers: Ascites type: due to alcoholic hepatitis Qualified Code(s): K70.11 - Alcoholic hepatitis with ascites (3) Alcoholic cirrhosis Assessment/Plan: pt said she stopped drinking long time ago Code(s): K70.30 - ALCOHOLIC CIRRHOSIS OF LIVER WITHOUT ASCITES Qualifiers: Ascites presence: with ascites Qualified Code(s): K70.31 - Alcoholic cirrhosis of liver with ascites (4) Hypokalemia Assessment/Plan: replace fu labs Code(s): E87.6 - HYPOKALEMIA (5) Anemia Code(s): D64.9 - ANEMIA, UNSPECIFIED (6) S/P gastric bypass Code(s): Z98.84 - BARIATRIC SURGERY STATUS Assessment/Plan COVERING FOR DR HANKS TODAY
--- NOTE | 2019-12-10 15:07 | CON.GI ---
Consult Consult Specialty:: GI Referred by:: Dr. Khan Reason for Consultation:: Abdominal pain and ascites - History of Present Illness Chief Complaint: Abdominal pain History of Present Illness: 38F with Etoh cirrhosis presents with increasing abdominal distension for the past few weeks. She is apoor historian and has even worse medical follow-up/ She states that she was last seem at [facility] in September "to have fluid removed". She believes that she has seen a "kidney doctor there and may have seen liver specialist but could not clearly tell me this or give me a name. On past admissions she stated being followed by the Liver Transplant Team at [facility], ? Dr. Champion. She states she had a paracentesis there in 03/06. She also had a paracentesis at [facility] in 06/07. She reports that she last drank alcohol "a while ago". She has been non complaint with diuretic therapy in the past. She is not sure whether or not she was treated for HBV. She denies IVDA or cocaine usage but has been tattooed. She is s/p gastric bypass in 2012 at [facility] complicated by infection and the need for serial dilations. She last had an EGD here with Dr Gamboa on 02/07/17 which revealed a patent gastric bypass and no varices. She believes that she had an EGD at [facility] 01/04 but could not remember the result. She was last at [facility] -10/05 for ascites. At that time, no SBP was noted on paracentesis, had unrevealing (aside from cirrhosis changes) triple phase CT scan A/P for continued abdominal pain , Advised need for continued follow-up at [facility] for continued management of her volume status / need for serial paracenteses / eventual TIPS evaluation if needed. At that time she stated that she believed that she was listed for transplant there, however based in the vague answers she gives regarding follow-up, this is in doubt. She has a doctor on [facility] that she believes is affiliated with [facility], however she cannot pronounce her name, and was last seen by her 07/08. She states that she has been complaint with her diuretic therapy. She denies ever having had upper GI bleeding or encephalopathic. She cannot recall whether or not she gerard ever had a colonoscopy. No FH of GI cancer but her GM had cirrhosis. Was hospitalized here 11/04 for similar presentation but acalculous cholecystitis could not be substantiated. She was admitted yesterday, underwent 4L paracentesis, however fluid studies were not ordered. GI called this afternoon for evaluation. - History Source History Provided By: Patient, Medical Record Limitations to Obtaining History: Poor Historian - Past Medical History Gastrointestinal: Yes: Other (s/p gastric bypass 2012 [facility] with serial postop dilations) Hepatobiliary: Yes: Cirrhosis (Alcoholic cirrhosis with ascites on [facility] Liver Transplant List), Hepatitis B (status to be determined, has core antibody) ...LMP: 11/08/18 Infectious Disease: Yes: MRSA (history of) Psych: Yes: Addictions (alcohol) - Past Surgical History Past Surgical History: Yes: Appendectomy, Bariatric Surgery (laparoscopic gastric bypass 2012 [place]), , Tubal Ligation, Upper Endoscopy - Alcohol/Substance Use Hx Alcohol Use: Yes History of Substance Use: reports: None - Smoking History Smoking history: Never smoked Have you smoked in the past 12 months: No Aproximately how many cigarettes per day: 2 - Social History Usual Living Arrangement: With Significant Other ADL: Independent Occupation: disabled History of Recent Travel: No Home Medications - Allergies Allergies/Adverse Reactions: Allergies Allergy/AdvReac Type Severity Reaction Status Date / Time No Known Allergies Allergy Verified 12/08/19 16:53 - Home Medications Home Medications: Ambulatory Orders Mv-Mn/Iron/FA/Herbal/Digestive [ One Tablet] 1 tab PO DAILY 05/25/18 Furosemide [Lasix] 20 mg PO BID #60 tablet 07/28/19 Polyethylene Glycol 3350 [Miralax 119 gm Btl -] 17 gm PO BID bottle 07/28/19 Polyethylene Glycol 3350 [Miralax 119 gm Btl -] 17 gm PO DAILY #1 bottle 07/28/19 Spironolactone 100 gm MC DAILY #30 powder 07/28/19 Furosemide [Lasix -] 20 mg PO BID@0600,1400 #60 tablet 09/17/19 Spironolactone [Aldactone -] 100 mg PO DAILY #30 tablet 09/17/19 Review of Systems - Review of Systems Constitutional: denies: Chills, Fever Gastrointestinal: reports: Abdominal Pain, Bloating. denies: Constipation, Diarrhea, Dysphagia, Indigestion, Melena, Nausea, Rectal Bleeding, Vomiting, Vomiting Blood Physical Exam-GI Vital Signs: Vital Signs Temperature 98.1 F 12/10/19 09:39 Pulse Rate 85 12/10/19 13:00 Respiratory Rate 19 12/10/19 13:00 Blood Pressure 104/60 12/10/19 13:00 O2 Sat by Pulse Oximetry (%) 99 12/10/19 13:00 Constitutional: Yes: Calm Eyes: No: Sclera Icterus Cardiovascular: Yes: Regular Rate and Rhythm Respiratory: Yes: CTA Bilaterally Gastrointestinal Inspection: Yes: Ascites, Distention (softyly distended) ...Auscultate: Yes: Normoactive Bowel Sounds ...Palpate: Yes: Soft, Tenderness (diffuse tenderness to palpation) ...Percussion: No: Tympanitic Edema: No (No LE edema) Neurological: Yes: Alert. No: Asterixis Labs: CBC, BMP 12/10/19 07:10 12/10/19 07:10 INR, PTT INR 1.46 (0.83-1.09) H 12/08/19 18:37 Hepatic Panel Total Bilirubin 3.3 mg/dL (0.2-1) H 12/10/19 07:10 AST 73 U/L (15-37) H 12/10/19 07:10 ALT 22 U/L (13-61) 12/10/19 07:10 Alkaline Phosphatase 143 U/L (45-117) H 12/10/19 07:10 Albumin 2.0 g/dl (3.4-5.0) L 12/10/19 07:10 Problem List - Problems (1) Abdominal pain Assessment/Plan: Unclear etiology. No fevers, leukocytosis. Cannot exclude SBP, however as pain persists, would start empiric antibiotic therapy Cefotaxime 2g Q12 h, ontain triple phase CT scan of the A/P, NPO except meds, obtain ID consult Diagnostic paracentesis for culture, Cell count w/ dif NPO except meds to to continued pain. Should not be on regular diet once able to eat. Should be 2g Na controlled. Daily weights, I's and O's Aldactone 100 mg daily, Lasix 40mg daily. change Lasix to IVP for now Will need Q6 Month hepatic US to screen for HCC Advised patient that she needs to take responsibility for her medical problems. She needs regular follow-up with her PMD, needs to completely abstain from alcohol and needs to have regular follow-up at a liver center. Her PMD is affiliated with [facility]. I advise that she follow-up with her to clarify her follow-up with the [facility] liver center. Code(s): R10.9 - UNSPECIFIED ABDOMINAL PAIN Qualifiers: Abdominal location: generalized Qualified Code(s): R10.84 - Generalized abdominal pain
[2019-12-10] MEDS ORDERED: DEXTROSE 5% IVPB SCH ×2 (15:25→17:00)
[2019-12-10] MEDS ORDERED: WATER IVPB SCH ×2 (15:25→17:00)
[2019-12-10] MEDS ORDERED: CEFOTAXIME SODIUM IVPB SCH ×2 (15:25→17:00)
[2019-12-10] MEDS: CEFTRIAXONE 1 GM in DEXTROSE 5%-WATER - 50 ML IVPB SCH (18:48)
[2019-12-10] MEDS ORDERED: MORPHINE SULFATE 2 MG/ML VIAL IVPUSH ONE (23:15)
[2019-12-11] MEDS: MORPHINE SULFATE 2 MG/ML VIAL IVPUSH PRN ×2 (03:48→10:35)
[2019-12-11] MEDS: CEFTRIAXONE 1 GM in DEXTROSE 5%-WATER - 50 ML IVPB SCH ×2 (05:06→17:13)
[2019-12-11] MEDS ORDERED: FUROSEMIDE 20 MG TABLET (FP) PO SCH (06:00)
[2019-12-11 08:10] LABS: BASO % 1.1 % (0-2.0); EOS % 0.9 % (0-4.5); HEMATOCRIT 29.9 % (32.4-45.2); HEMOGLOBIN 9.8 GM/dL (10.7-15.3); LYMPH % 37.7 % (8-40); MCH 27.8 pg (25.7-33.7); MCHC 32.9 g/dl (32.0-36.0); MEAN CELL VOLUME 84.6 fl (80-96); MEAN PLT VOLUME 8.8 fl (7.5-11.1); MONO % 6.7 % (3.8-10.2); NEUT % 53.6 % (42.8-82.8); PLATELET COUNT 106 K/MM3 (134-434); RBC 3.54 M/mm3 (3.60-5.2); WHITE BLOOD COUNT 5.7 K/mm3 (4.0-10.0)
[2019-12-11 08:35] LABS: BILIRUBIN,TOTAL 3.2 mg/dL (0.2-1); BLOOD UREA NITROGEN 8.6 mg/dL (7-18); CREATININE 0.8 mg/dL (0.55-1.3); POTASSIUM 3.4 mmol/L (3.5-5.1); TOT PROT 6.5 g/dl (6.4-8.2)
--- NOTE | 2019-12-11 10:11 | CON.ID ---
Consult Consult Specialty:: infectious diseases Referred by:: Reason for Consultation:: abd distension and tenderness - History of Present Illness Chief Complaint: abd pain History of Present Illness: 39 year old female with a significant past medical history of alcohol cirrhosis (on transplant list, paracentesis Q2 Months, last drained 10/05) who presents to the ED with 2 days of progressively worsening abdominal distention. Denies F/C. Denies N/V/constipation. Denies any significant pain but endorses discomfort from being so distended. according to the patient she was having distension and was tapped 2 days b ack--says again the fluid has filled up and the pain has been bad. denies fever,nausea or vomiting Was hospitalized here 11/04 for similar presentation but acalculous cholecystitis could not be substantiated. continues to have abd pain this morning no fevers - History Source History Provided By: Patient Limitations to Obtaining History: No Limitations - Past Medical History Gastrointestinal: Yes: Other (s/p gastric bypass 2012 [facility] with serial postop dilations) Hepatobiliary: Yes: Cirrhosis (Alcoholic cirrhosis with ascites on [facility] Liver Transplant List), Hepatitis B (status to be determined, has core antibody) ...LMP: 11/08/18 Infectious Disease: Yes: MRSA (history of) Psych: Yes: Addictions (alcohol) - Past Surgical History Past Surgical History: Yes: Appendectomy, Bariatric Surgery (laparoscopic gastric bypass 2012 [place]), , Tubal Ligation, Upper Endoscopy - Alcohol/Substance Use Hx Alcohol Use: Yes History of Substance Use: reports: None - Smoking History Smoking history: Never smoked Have you smoked in the past 12 months: No Aproximately how many cigarettes per day: 2 If you are a former smoker, when did you quit?: quit with alcohol 12/04 - Social History Usual Living Arrangement: With Significant Other ADL: Independent Occupation: disabled History of Recent Travel: No Home Medications - Allergies Allergies/Adverse Reactions: Allergies Allergy/AdvReac Type Severity Reaction Status Date / Time No Known Allergies Allergy Verified 12/08/19 16:53 - Home Medications Home Medications: Ambulatory Orders Mv-Mn/Iron/FA/Herbal/Digestive [ One Tablet] 1 tab PO DAILY 05/25/18 Furosemide [Lasix] 20 mg PO BID #60 tablet 07/28/19 Polyethylene Glycol 3350 [Miralax 119 gm Btl -] 17 gm PO BID bottle 07/28/19 Polyethylene Glycol 3350 [Miralax 119 gm Btl -] 17 gm PO DAILY #1 bottle 07/28/19 Spironolactone 100 gm MC DAILY #30 powder 07/28/19 Furosemide [Lasix -] 20 mg PO BID@0600,1400 #60 tablet 09/17/19 Spironolactone [Aldactone -] 100 mg PO DAILY #30 tablet 09/17/19 Review of Systems - Review of Systems Constitutional: reports: No Symptoms Eyes: reports: No Symptoms HENT: reports: No Symptoms Neck: reports: No Symptoms Cardiovascular: reports: No Symptoms Respiratory: reports: No Symptoms Gastrointestinal: reports: Abdominal Pain, Other Genitourinary: reports: No Symptoms Musculoskeletal: reports: No Symptoms Integumentary: reports: No Symptoms Neurological: reports: No Symptoms Endocrine: reports: No Symptoms, Unexplained Weight Gain Psychiatric: reports: No Symptoms Physical Exam Vital Signs: Vital Signs Temperature 97.6 F 12/11/19 09:00 Pulse Rate 61 12/11/19 09:00 Respiratory Rate 18 12/11/19 09:00 Blood Pressure 99/55 L 12/11/19 09:00 O2 Sat by Pulse Oximetry (%) 100 12/10/19 21:00 Constitutional: Yes: Well Nourished, Calm, Moderate Distress Eyes: Yes: Conjunctiva Clear HENT: Yes: Atraumatic, Normocephalic Neck: Yes: Supple, Trachea Midline Cardiovascular: Yes: Regular Rate and Rhythm Respiratory: Yes: Regular, CTA Bilaterally Gastrointestinal: Yes: Soft, Ascites, Distention, Tenderness Musculoskeletal: Yes: WNL Extremities: Yes: WNL Neurological: Yes: Alert, Oriented Psychiatric: Yes: Alert, Oriented Labs: CBC, BMP 12/11/19 07:45 12/11/19 07:45 Imaging - Results Cat Scan: Report Reviewed, Image Reviewed Assessment/Plan Problem List - Problems (1) Ascites Code(s): R18.8 - OTHER ASCITES Qualifiers: Ascites type: other type Qualified Code(s): R18.8 - Other ascites (2) Alcoholic cirrhosis Code(s): K70.30 - ALCOHOLIC CIRRHOSIS OF LIVER WITHOUT ASCITES Qualifiers: Ascites presence: with ascites Qualified Code(s): K70.31 - Alcoholic ci rrhosis of liver with ascites (3) Anemia Code(s): D64.9 - ANEMIA, UNSPECIFIED (4) Hyperbilirubinemia Code(s): E80.6 - OTHER DISORDERS OF BILIRUBIN METABOLISM (5) S/P gastric bypass Code(s): Z98.84 - BARIATRIC SURGERY STATUS patient has been started on ceftriaxone we will continue that pain mgmt will need repeat tapping and recx of fluid monitor for fevers or increased wbc
[2019-12-11] MEDS: FUROSEMIDE 40 MG/4 ML INJECTABLE VIAL IVPUSH SCH (10:32)
[2019-12-11] MEDS: SPIRONOLACTONE 25 MG TABLET PO SCH (10:32)
[2019-12-11] MEDS: HEPARIN NA (PORCINE) 5,000 UNITS/ML 1ML VIAL SQ SCH ×2 (10:33→22:01)
[2019-12-11] MEDS: POLYETHYLENE GLYCOL 3350 119 GM BTL PO SCH ×2 (10:43→22:01)
[2019-12-11] MEDS ORDERED: POTASSIUM CHLORIDE TABS 20 MEQ TABLET.ER (FP) PO ONE (13:17)
[2019-12-11] MEDS ORDERED: POTASSIUM CHLORIDE ORAL LIQUID 20 MEQ/15 ML PO ONE (13:39)
--- NOTE | 2019-12-11 13:45 | PN.GI ---
GI Progress Note Subjective: GI NOte ( covering Dr Pace): Pain is improved. Discussed the need to avoid salt to control her ascites and propensity to SBP which is causing her pain. If diuretics fail she may be candidate for TIPS. She tells me that she has abstained from alcohol since 12/03. - Objective Vital Signs: Vital Signs Temperature 97.6 F 12/11/19 10:00 Pulse Rate 61 12/11/19 10:00 Respiratory Rate 18 12/11/19 10:00 Blood Pressure 99/55 L 12/11/19 10:00 O2 Sat by Pulse Oximetry (%) 99 12/11/19 10:00 Constitutional: Anxious Eyes: Yes: Sclera Icterus ...Auscultate: Yes: Normoactive Bowel Sounds ...Palpate: Yes: Soft, Other (nontender) Labs: CBC, BMP 12/11/19 07:45 12/11/19 07:45 INR, PTT INR 1.46 (0.83-1.09) H 12/08/19 18:37 Assessment/Plan Impression: - Receiving antibiotics for SBP and awaiting diagnostic paracentesis - Alcoholic cirrhosis with ascites - Alcohol abstention since 12/03 ? Plan: -- Continue antibiotics -- Full liquids. Advance diet as tolerated -- Morphine stopped. Oxycodone prn -- Continue spironolactone and lasix Problem List - Problems (1) Spontaneous bacterial peritonitis Code(s): K65.2 - SPONTANEOUS BACTERIAL PERITONITIS (2) Abdominal pain Code(s): R10.9 - UNSPECIFIED ABDOMINAL PAIN Qualifiers: Abdominal location: generalized Qualified Code(s): R10.84 - Generalized abdominal pain (3) Ascites Code(s): R18.8 - OTHER ASCITES Qualifiers: Ascites type: due to alcoholic hepatitis Qualified Code(s): K70.11 - Alcoholic hepatitis with ascites (4) Alcoholic cirrhosis Code(s): K70.30 - ALCOHOLIC CIRRHOSIS OF LIVER WITHOUT ASCITES Qualifiers: Ascites presence: with ascites Qualified Code(s): K70.31 - Alcoholic cirrhosis of liver with ascites (5) Jaundice, hepatocellular Code(s): K76.89 - OTHER SPECIFIED DISEASES OF LIVER (6) S/P gastric bypass Code(s): Z98.84 - BARIATRIC SURGERY STATUS (7) Anemia Code(s): D64.9 - ANEMIA, UNSPECIFIED
--- NOTE | 2019-12-11 13:50 | PN.GI ---
GI Progress Note - Objective Vital Signs: Vital Signs Temperature 97.6 F 12/11/19 10:00 Pulse Rate 61 12/11/19 10:00 Respiratory Rate 18 12/11/19 10:00 Blood Pressure 99/55 L 12/11/19 10:00 O2 Sat by Pulse Oximetry (%) 99 12/11/19 10:00 Laboratory Tests 11/12/18 11/16/18 11/16/18 19:40 07:06 10:08 Plt Count PT with INR Potassium Ferritin 256.4 Total Bilirubin AST ALT Alkaline Phosphatase ARNIE Screen Negative [employer] 14 COVID-19 (HUY) Hep A IgM Ab Confirm Negative Hepatitis A Ab Total Negative Hep Bs Antigen Negative Hep Bs Antibody Non-reactive Hep B Core Total Ab Positive H Hep B Core IgM Ab Negative Hep B DNA (Units/mL) Hepatitis Be Antibody Negative Hepatitis Be Antigen Negative Hep C Ab Diagnostic <0.1 07/25/19 12/08/19 12/08/19 07:18 18:37 18:37 Plt Count PT with INR 17.30 H Potassium Ferritin Total Bilirubin 5.2 H AST 81 H ALT 26 Alkaline Phosphatase 160 H ARNIE Screen [employer] COVID-19 ([facility]) Hep A IgM Ab Confirm Hepatitis A Ab Total Hep Bs Antigen Hep Bs Antibody Hep B Core Total Ab Hep B Core IgM Ab Hep B DNA (Units/mL) Hbv dna not detected Hepatitis Be Antibody Hepatitis Be Antigen Hep C Ab Diagnostic 12/08/19 12/11/19 12/11/19 18:37 07:45 07:45 Plt Count 106 L PT with INR Potassium 3.4 L Ferritin Total Bilirubin 3.2 H AST 73 H ALT 22 Alkaline Phosphatase 138 H ARNIE Screen [employer] COVID-19 (HUY) Not detected Hep A IgM Ab Confirm Hepatitis A Ab Total Hep Bs Antigen Hep Bs Antibody Hep B Core Total Ab Hep B Core IgM Ab Hep B DNA (Units/mL) Hepatitis Be Antibody Hepatitis Be Antigen Hep C Ab Diagnostic Constitutional: Anxious Eyes: Yes: Sclera Icterus Gastrointestinal Inspection: Yes: Distention ...Auscultate: Yes: Hypoactive Bowel Sounds ...Palpate: Yes: Soft, Other (nontender) Labs: CBC, BMP 12/11/19 07:45 12/11/19 07:45 INR, PTT INR 1.46 (0.83-1.09) H 12/08/19 18:37 Assessment/Plan Impression: - Receiving antibiotics for SBP and awaiting diagnostic paracentesis - Alcoholic cirrhosis with ascites - Alcohol abstension since 12/03 ? Problem List - Problems (1) Spontaneous bacterial peritonitis Code(s): K65.2 - SPONTANEOUS BACTERIAL PERITONITIS (2) Abdominal pain Code(s): R10.9 - UNSPECIFIED ABDOMINAL PAIN Qualifiers: Abdominal location: generalized Qualified Code(s): R10.84 - Generalized abdominal pain (3) Ascites Code(s): R18.8 - OTHER ASCITES Qualifiers: Ascites type: due to alcoholic hepatitis Qualified Code(s): K70.11 - Alcoholic hepatitis with ascites (4) Alcoholic cirrhosis Code(s): K70.30 - ALCOHOLIC CIRRHOSIS OF LIVER WITHOUT ASCITES Qualifiers: Ascites presence: with ascites Qualified Code(s): K70.31 - Alcoholic cirrhosis of liver with ascites (5) Jaundice, hepatocellular Code(s): K76.89 - OTHER SPECIFIED DISEASES OF LIVER (6) Microcytic hypochromic anemia Code(s): D50.9 - IRON DEFICIENCY ANEMIA, UNSPECIFIED (7) S/P gastric bypass Code(s): Z98.84 - BARIATRIC SURGERY STATUS
[2019-12-11] MEDS ORDERED: DOCUSATE SODIUM 100 MG CAPSULE (FP) PO SCH (14:00)
[2019-12-11] MEDS: oxyCODONE HCL 5 MG TABLET PO PRN ×2 (14:29→20:30)
--- NOTE | 2019-12-11 22:49 | PN ---
Progress Note, Physician History of Present Illness: No still w/ some abdominal discomfort - Current Medication List Current Medications: Active Medications Furosemide (Lasix Injection -) 40 mg IVPUSH DAILY [facility] Last Admin: 12/11/19 10:32 Dose: 40 mg Documented by: Heparin Sodium (Porcine) (Heparin -) 5,000 unit SQ BID [facility] Last Admin: 12/11/19 22:01 Dose: 5,000 unit Documented by: Ceftriaxone Sodium 1 gm/ (Dextrose) 50 mls @ 100 mls/hr IVPB Q12H [facility] Last Admin: 12/11/19 17:13 Dose: 100 mls/hr Documented by: Oxycodone HCl (Roxicodone -) 10 mg PO Q6H PRN PRN Reason: PAIN LEVEL 4 - 6 Last Admin: 12/11/19 20:30 Dose: 10 mg Documented by: Polyethylene Glycol (Miralax (For Daily Use) -) 17 gm PO BID [facility] Last Admin: 12/11/19 22:01 Dose: 17 gm Documented by: Spironolactone (Aldactone -) 100 mg PO DAILY [facility] Last Admin: 12/11/19 10:32 Dose: 100 mg Documented by: - Objective Vital Signs: Vital Signs Temperature 98.0 F 12/11/19 18:34 Pulse Rate 84 12/11/19 18:34 Respiratory Rate 17 12/11/19 18:34 Blood Pressure 107/62 12/11/19 18:34 O2 Sat by Pulse Oximetry (%) 100 12/11/19 18:34 Cardiovascular: Yes: WNL, Regular Rate and Rhythm Respiratory: Yes: WNL, Regular, CTA Bilaterally Gastrointestinal: Yes: Normal Bowel Sounds, Soft, Abdomen, Obese, Ascites Labs: CBC, BMP 12/11/19 07:45 12/11/19 07:45 INR, PTT INR 1.46 (0.83-1.09) H 12/08/19 18:37 Problem List - Problems (1) Ascites Assessment/Plan: Due to cirrhosis Repeat US guided paracentesis Cont IV lasix/spironolactone Monitor electrolytes Cont IV ceftriaxone to r/o SBP Code(s): R18.8 - OTHER ASCITES Qualifiers: Ascites type: other type Qualified Code(s): R18.8 - Other ascites (2) Alcoholic cirrhosis Code(s): K70.30 - ALCOHOLIC CIRRHOSIS OF LIVER WITHOUT ASCITES Qualifiers: Ascites presence: with ascites Qualified Code(s): K70.31 - Alcoholic cirrhosis of liver with ascites (3) Anemia Code(s): D64.9 - ANEMIA, UNSPECIFIED (4) Hyperbilirubinemia Code(s): E80.6 - OTHER DISORDERS OF BILIRUBIN METABOLISM (5) S/P gastric bypass Code(s): Z98.84 - BARIATRIC SURGERY STATUS
[2019-12-11] MEDS ORDERED: MELATONIN 5 MG TABLETS PO ONE (23:48)
[2019-12-12] MEDS: oxyCODONE HCL 5 MG TABLET PO PRN ×4 (02:30→20:36)
[2019-12-12] MEDS: CEFTRIAXONE 1 GM in DEXTROSE 5%-WATER - 50 ML IVPB SCH ×2 (05:45→18:29)
[2019-12-12 07:53] LABS: EOS % 0.7 % (0-4.5); HEMATOCRIT 31.2 % (32.4-45.2); HEMOGLOBIN 10.2 GM/dL (10.7-15.3); LYMPH % 35.1 % (8-40); MCH 28.4 pg (25.7-33.7); MCHC 32.8 g/dl (32.0-36.0); MEAN CELL VOLUME 86.4 fl (80-96); MEAN PLT VOLUME 9.1 fl (7.5-11.1); MONO % 5.5 % (3.8-10.2); NEUT % 57.7 % (42.8-82.8); PLATELET COUNT 117 K/MM3 (134-434); RBC 3.61 M/mm3 (3.60-5.2); RDW 27.1 % (11.6-15.6); WHITE BLOOD COUNT 6.9 K/mm3 (4.0-10.0)
[2019-12-12 07:58] LABS: ALBUMIN 2.2 g/dl (3.4-5.0); ALBUMIN 2.3 g/dl (3.4-5.0); BILIRUBIN,DIRECT 1.8 mg/dL (0.0-0.2); BLOOD UREA NITROGEN 13.4 mg/dL (7-18); CALCIUM 8.2 mg/dL (8.5-10.1); POTASSIUM 3.6 mmol/L (3.5-5.1); TOT PROT 7.7 g/dl (6.4-8.2)
[2019-12-12 08:11] LABS: BILIRUBIN,TOTAL 2.8 mg/dL (0.2-1); TOT PROT 7.5 g/dl (6.4-8.2)
[2019-12-12] MEDS: FUROSEMIDE 40 MG/4 ML INJECTABLE VIAL IVPUSH SCH (09:17)
[2019-12-12] MEDS: HEPARIN NA (PORCINE) 5,000 UNITS/ML 1ML VIAL SQ SCH ×2 (09:17→21:10)
[2019-12-12] MEDS: SPIRONOLACTONE 25 MG TABLET PO SCH (09:17)
[2019-12-12] MEDS: POLYETHYLENE GLYCOL 3350 119 GM BTL PO SCH ×2 (09:23→21:09)
[2019-12-12 09:48] LABS: ANISOCYTOSIS 2+; MACROCYTOSIS 1+; PLATELET ESTIMATE DECREASED
--- NOTE | 2019-12-12 15:31 | PN.GI ---
GI Progress Note Subjective: GI NOte ( covering Dr Pace): Tolerating soft diet but wants more selection so will advance to regular with sodium restriction. No pain - Objective Vital Signs: Vital Signs Temperature 98.1 F 12/12/19 09:33 Pulse Rate 71 12/12/19 09:33 Respiratory Rate 15 12/12/19 09:33 Blood Pressure 97/58 L 12/12/19 09:33 O2 Sat by Pulse Oximetry (%) 100 12/12/19 09:33 CBC,CMP WBC 6.9 K/mm3 (4.0-10.0) 12/12/19 06:30 RBC 3.61 M/mm3 (3.60-5.2) 12/12/19 06:30 Hgb 10.2 GM/dL (10.7-15.3) L 12/12/19 06:30 Hct 31.2 % (32.4-45.2) L 12/12/19 06:30 MCV 86.4 fl (80-96) 12/12/19 06:30 MCH 28.4 pg (25.7-33.7) 12/12/19 06:30 MCHC 32.8 g/dl (32.0-36.0) 12/12/19 06:30 RDW 27.1 % (11.6-15.6) H 12/12/19 06:30 Plt Count 117 K/MM3 (134-434) L 12/12/19 06:30 MPV 9.1 fl (7.5-11.1) 12/12/19 06:30 Absolute Neuts (auto) 4.0 K/mm3 (1.5-8.0) 12/12/19 06:30 Neutrophils % 57.7 % (42.8-82.8) 12/12/19 06:30 Lymphocytes % 35.1 % (8-40) 12/12/19 06:30 Monocytes % 5.5 % (3.8-10.2) 12/12/19 06:30 Eosinophils % 0.7 % (0-4.5) 12/12/19 06:30 Basophils % 1.0 % (0-2.0) 12/12/19 06:30 Nucleated RBC % 0 % (0-0) 12/12/19 06:30 Hypochromia 0 12/12/19 06:30 Platelet Estimate Decreased 12/12/19 06:30 Polychromasia 0 12/12/19 06:30 Poikilocytosis 0 12/12/19 06:30 Anisocytosis 2+ 12/12/19 06:30 Microcytosis 0 12/12/19 06:30 Macrocytosis 1+ 12/12/19 06:30 Rouleaux 2+ 12/08/19 18:37 Retic Count 1.18 % (0.5-1.5) D 12/12/19 06:30 Sodium 136 mmol/L (136-145) 12/12/19 06:30 Potassium 3.6 mmol/L (3.5-5.1) 12/12/19 06:30 Chloride 100 mmol/L (98-107) 12/12/19 06:30 Carbon Dioxide 31 mmol/L (21-32) 12/12/19 06:30 Anion Gap 5 MMOL/L (8-16) L 12/12/19 06:30 BUN 13.4 mg/dL (7-18) 12/12/19 06:30 Creatinine 1.0 mg/dL (0.55-1.3) 12/12/19 06:30 Est GFR (CKD-EPI)AfAm 81.61 12/12/19 06:30 Est GFR (CKD-EPI)NonAf 70.41 12/12/19 06:30 Random Glucose 77 mg/dL (74-106) 12/12/19 06:30 Calcium 8.2 mg/dL (8.5-10.1) L 12/12/19 06:30 Total Bilirubin 2.8 mg/dL (0.2-1) H 12/12/19 06:30 Total Bilirubin 3.0 mg/dL (0.2-1) H 12/12/19 06:30 Direct Bilirubin 1.8 mg/dL (0.0-0.2) H 12/12/19 06:30 AST 76 U/L (15-37) H 12/12/19 06:30 AST 77 U/L (15-37) H 12/12/19 06:30 ALT 26 U/L (13-61) 12/12/19 06:30 ALT 26 U/L (13-61) 12/12/19 06:30 Alkaline Phosphatase 161 U/L (45-117) H 12/12/19 06:30 Alkaline Phosphatase 163 U/L (45-117) H 12/12/19 06:30 Total Protein 7.5 g/dl (6.4-8.2) 12/12/19 06:30 Total Protein 7.7 g/dl (6.4-8.2) 12/12/19 06:30 Albumin 2.2 g/dl (3.4-5.0) L 12/12/19 06:30 Albumin 2.3 g/dl (3.4-5.0) L 12/12/19 06:30 Total Amylase 141 U/L (25-115) H 12/12/19 06:30 Lipase 488 U/L (73-393) H 12/12/19 06:30 Vitamin B12 948 pg/ml (193-986) 12/12/19 06:30 Serum Folate 7 ng/mL (3.1-17.5) 12/12/19 06:30 Constitutional: Calm Gastrointestinal Inspection: Yes: Distention, Other (palpable lymph node vs lipoma just superior to the umbilicus ? Sister Teressa Eric node) ...Auscultate: Yes: Normoactive Bowel Sounds ...Palpate: Yes: Soft, Other (nontender) ...Percussion: Yes: Tympanitic Labs: CBC, BMP 12/12/19 06:30 12/12/19 06:30 INR, PTT INR 1.46 (0.83-1.09) H 12/08/19 18:37 Assessment/Plan Impression: - SBP responding to antibiotics - Supraumbilical node in the setting of cirrhosis and new liver masses is worrisome. AFP is pending. I have asked Junie to bring this mass to Dr Lopez's attention when having her paracentesis to determine whether or not to biopsy it . This would be safer than a liver biopsy Plan: -- Regular sodum restricted diet -- Paracentesis and perhaps a biopsy of supraumbilical node. Will give Vitamin K Problem List - Problems (1) Abdominal wall mass of periumbilical region Code(s): R19.05 - PERIUMBILIC SWELLING, MASS OR LUMP (2) Spontaneous bacterial peritonitis Code(s): K65.2 - SPONTANEOUS BACTERIAL PERITONITIS (3) Abdominal pain Code(s): R10.9 - UNSPECIFIED ABDOMINAL PAIN Qualifiers: Abdominal location: generalized Qualified Code(s): R10.84 - Generalized abdominal pain (4) Ascites Code(s): R18.8 - OTHER ASCITES Qualifiers: Ascites type: due to alcoholic hepatitis Qualified Code(s): K70.11 - Alcoholic hepatitis with ascites (5) Alcoholic cirrhosis Code(s): K70.30 - ALCOHOLIC CIRRHOSIS OF LIVER WITHOUT ASCITES Qualifiers: Ascites presence: with ascites Qualified Code(s): K70.31 - Alcoholic cirrhosis of liver with ascites (6) Jaundice, hepatocellular Code(s): K76.89 - OTHER SPECIFIED DISEASES OF LIVER (7) S/P gastric bypass Code(s): Z98.84 - BARIATRIC SURGERY STATUS (8) Anemia Code(s): D64.9 - ANEMIA, UNSPECIFIED (9) Liver masses Code(s): R16.0 - HEPATOMEGALY, NOT ELSEWHERE CLASSIFIED
[2019-12-12] MEDS ORDERED: PHYTONADIONE 10 MG/1 ML AMP IVPB ONE (15:33)
[2019-12-12] MEDS ORDERED: diphenhydrAMINE HCL 25 MG CAPSULE (FP) PO ONE (22:00)
--- NOTE | 2019-12-12 22:25 | PN ---
Progress Note, Physician History of Present Illness: Pt feels abdomen slightly more distended - Current Medication List Current Medications: Active Medications Furosemide (Lasix Injection -) 40 mg IVPUSH DAILY [facility] Last Admin: 12/12/19 09:17 Dose: 40 mg Documented by: Heparin Sodium (Porcine) (Heparin -) 5,000 unit SQ BID [facility] Last Admin: 12/12/19 21:10 Dose: 5,000 unit Documented by: Ceftriaxone Sodium 1 gm/ (Dextrose) 50 mls @ 100 mls/hr IVPB Q12H [facility] Last Admin: 12/12/19 18:29 Dose: 100 mls/hr Documented by: Oxycodone HCl (Roxicodone -) 10 mg PO Q6H PRN PRN Reason: PAIN LEVEL 4 - 6 Last Admin: 12/12/19 20:36 Dose: 10 mg Documented by: Polyethylene Glycol (Miralax (For Daily Use) -) 17 gm PO BID [facility] Last Admin: 12/12/19 21:09 Dose: 17 gm Documented by: Spironolactone (Aldactone -) 100 mg PO DAILY [facility] Last Admin: 12/12/19 09:17 Dose: 100 mg Documented by: - Objective Vital Signs: Vital Signs Temperature 98.1 F 12/12/19 22:00 Pulse Rate 85 12/12/19 22:00 Respiratory Rate 18 12/12/19 22:00 Blood Pressure 107/64 12/12/19 22:00 O2 Sat by Pulse Oximetry (%) 100 12/12/19 22:00 Cardiovascular: Yes: WNL, Regular Rate and Rhythm Respiratory: Yes: WNL, Regular, CTA Bilaterally Gastrointestinal: Yes: Normal Bowel Sounds, Soft, Abdomen, Obese, Ascites Labs: CBC, BMP 12/12/19 06:30 12/12/19 06:30 INR, PTT INR 1.46 (0.83-1.09) H 12/08/19 18:37 Problem List - Problems (1) Ascites Assessment/Plan: Due to cirrhosis Repeat US guided paracentesis in am Cont IV lasix/spironolactone Monitor electrolytes Cont IV ceftriaxone to r/o SBP Code(s): R18.8 - OTHER ASCITES Qualifiers: Ascites type: other type Qualified Code(s): R18.8 - Other ascites (2) Alcoholic cirrhosis Assessment/Plan: Long d/w pt about need for close f/u. Pt states that she is followed at [facility] however it is unclear if she is on a transplant list? Code(s): K70.30 - ALCOHOLIC CIRRHOSIS OF LIVER WITHOUT ASCITES Qualifiers: Ascites presence: with ascites Qualified Code(s): K70.31 - Alcoholic cirrhosis of liver with ascites (3) Anemia Code(s): D64.9 - ANEMIA, UNSPECIFIED (4) Hyperbilirubinemia Code(s): E80.6 - OTHER DISORDERS OF BILIRUBIN METABOLISM (5) S/P gastric bypass Code(s): Z98.84 - BARIATRIC SURGERY STATUS
[2019-12-13] MEDS: oxyCODONE HCL 5 MG TABLET PO PRN ×3 (02:35→13:58)
[2019-12-13] MEDS: CEFTRIAXONE 1 GM in DEXTROSE 5%-WATER - 50 ML IVPB SCH ×2 (05:06→18:30)
[2019-12-13 07:43] LABS: BASO % 1.3 % (0-2.0); EOS % 1.1 % (0-4.5); HEMATOCRIT 27.6 % (32.4-45.2); HEMOGLOBIN 9.2 GM/dL (10.7-15.3); LYMPH % 43.5 % (8-40); MCH 28.6 pg (25.7-33.7); MCHC 33.4 g/dl (32.0-36.0); MEAN CELL VOLUME 85.7 fl (80-96); MEAN PLT VOLUME 9.1 fl (7.5-11.1); MONO % 6.7 % (3.8-10.2); NEUT % 47.4 % (42.8-82.8); PLATELET COUNT 97 K/MM3 (134-434); RBC 3.23 M/mm3 (3.60-5.2); RDW 26.9 % (11.6-15.6); WHITE BLOOD COUNT 5.4 K/mm3 (4.0-10.0)
[2019-12-13 07:56] LABS: INR 1.3 (0.83-1.09); PROTHROMBIN TIME (PATIENT) 15.4 SEC (9.7-13.0)
[2019-12-13 08:01] LABS: BLOOD UREA NITROGEN 14.3 mg/dL (7-18); CREATININE 1.1 mg/dL (0.55-1.3); TOT PROT 6.5 g/dl (6.4-8.2)
[2019-12-13] MEDS: HEPARIN NA (PORCINE) 5,000 UNITS/ML 1ML VIAL SQ SCH (09:45)
[2019-12-13] MEDS: POLYETHYLENE GLYCOL 3350 119 GM BTL PO SCH (09:45)
--- NOTE | 2019-12-13 10:24 | PN ---
Progress Note, Physician History of Present Illness: stable still with abd pain - Current Medication List Current Medications: Active Medications Furosemide (Lasix Injection -) 40 mg IVPUSH DAILY [facility] Last Admin: 12/12/19 09:17 Dose: 40 mg Documented by: Heparin Sodium (Porcine) (Heparin -) 5,000 unit SQ BID [facility] Last Admin: 12/13/19 09:45 Dose: Not Given Documented by: Ceftriaxone Sodium 1 gm/ (Dextrose) 50 mls @ 100 mls/hr IVPB Q12H [facility] Last Admin: 12/13/19 05:06 Dose: 100 mls/hr Documented by: Oxycodone HCl (Roxicodone -) 10 mg PO Q6H PRN PRN Reason: PAIN LEVEL 4 - 6 Last Admin: 12/13/19 08:35 Dose: 10 mg Documented by: Polyethylene Glycol (Miralax (For Daily Use) -) 17 gm PO BID [facility] Last Admin: 12/13/19 09:45 Dose: Not Given Documented by: Spironolactone (Aldactone -) 100 mg PO DAILY [facility] Last Admin: 12/12/19 09:17 Dose: 100 mg Documented by: - Objective Vital Signs: Vital Signs Temperature 98.2 F 12/13/19 08:41 Pulse Rate 71 12/13/19 08:41 Respiratory Rate 18 12/13/19 08:41 Blood Pressure 94/57 L 12/13/19 08:41 O2 Sat by Pulse Oximetry (%) 99 12/13/19 08:41 Constitutional: Yes: No Distress, Calm Cardiovascular: Yes: S1, S2 Respiratory: Yes: Regular, CTA Bilaterally Gastrointestinal: Yes: Ascites, Distention, Other Musculoskeletal: Yes: WNL Extremities: Yes: WNL Psychiatric: Yes: Alert, Oriented Labs: CBC, BMP 12/13/19 06:56 12/13/19 06:56 INR, PTT INR 1.30 (0.83-1.09) H 12/13/19 06:56 Assessment/Plan Problem List - Problems (1) Ascites Code(s): R18.8 - OTHER ASCITES Qualifiers: Ascites type: other type Qualified Code(s): R18.8 - Other ascites (2) Alcoholic cirrhosis Code(s): K70.30 - ALCOHOLIC CIRRHOSIS OF LIVER WITHOUT ASCITES Qualifiers: Ascites presence: with ascites Qualified Code(s): K70.31 - Alcoholic ci rrhosis of liver with ascites (3) Anemia Code(s): D64.9 - ANEMIA, UNSPECIFIED (4) Hyperbilirubinemia Code(s): E80.6 - OTHER DISORDERS OF BILIRUBIN METABOLISM (5) S/P gastric bypass Code(s): Z98.84 - BARIATRIC SURGERY STATUS continue current mgmt abx rest as per the team
[2019-12-13] MEDS: SPIRONOLACTONE 25 MG TABLET PO SCH (10:37)
[2019-12-13] MEDS: FUROSEMIDE 40 MG/4 ML INJECTABLE VIAL IVPUSH SCH (10:37)
--- NOTE | 2019-12-13 10:56 | PN.GI ---
GI Progress Note Subjective: CT scan findings noted: + hepatic masses, ascites, ? periumbilical nodule (?cyst/hernia/node) Abdominal pain improved - Objective Vital Signs: Vital Signs Temperature 98.2 F 12/13/19 08:41 Pulse Rate 82 12/13/19 10:00 Respiratory Rate 18 12/13/19 10:00 Blood Pressure 106/72 12/13/19 10:00 O2 Sat by Pulse Oximetry (%) 99 12/13/19 08:41 Constitutional: Calm Eyes: No: Sclera Icterus Cardiovascular: Yes: Regular Rate and Rhythm Respiratory: Yes: CTA Bilaterally Gastrointestinal Inspection: Yes: Distention ...Auscultate: Yes: Normoactive Bowel Sounds ...Palpate: Yes: Soft, Tenderness (Mild TTP mid abdomen). No: Other ...Percussion: No: Tympanitic Edema: No (No LE edema) Neurological: Yes: Alert Labs: CBC, BMP 12/13/19 06:56 12/13/19 06:56 INR, PTT INR 1.30 (0.83-1.09) H 12/13/19 06:56 Problem List - Problems (1) Abdominal pain Assessment/Plan: [place] diagnostic paracentesis today. Asked nurse to include cytology to the orders as it cannot be ordered via computer Discussed findings with Ms. Ornelas and potential diagnosis of cancer. Agreeable to transfer to [facility] for further evaluation Discussed case with transplant attending at [facility] Dr. Valente Armstrong. Accepted Ms. Ornelas for transfer Code(s): R10.9 - UNSPECIFIED ABDOMINAL PAIN Qualifiers: Abdominal location: generalized Qualified Code(s): R10.84 - Generalized abdominal pain
--- NOTE | 2019-12-13 12:19 | PN ---
Progress Note (short form) - Note Progress Note: Patient needs updated COVID-19 testing prior to transfer per Dr. Armstrong from [facility]. Ordered repeat test for today. Otherwise continued medical management until transfer is feasible, await diagnostic paracentesis, cytology Problem List - Problems (1) Abdominal pain Code(s): R10.9 - UNSPECIFIED ABDOMINAL PAIN Qualifiers: Abdominal location: generalized Qualified Code(s): R10.84 - Generalized abdominal pain
[2019-12-13 14:05] VITALS: BP 148/91; PULSE 68; TEMP 97.8
[2019-12-13] MEDS ORDERED: diphenhydrAMINE HCL 25 MG CAPSULE (FP) PO PRN (14:12)
[2019-12-13 15:52] LABS: BF WBC & OTHER NUCLEATED CELLS 124 /mm3
[2019-12-13 17:55] LABS: BODY FLUID MESOTHELIAL 82 %
[2019-12-13] MEDS ORDERED: cefTRIAXone SODIUM 1 GM VIAL ONE (18:11)
[2019-12-13] MEDS ORDERED: DEXTROSE 5%-WATER - 50 ML IVPB ONE (18:11)
[2019-12-14 13:09] LABS: BODY FLUID ALBUMIN 0.8 g/dL (Not Estab.)
--- NOTE | 2019-12-14 18:07 | PATH ---
Cytology Non-Gynecological Report Patient Name: PHOEBE STARK [facility]. Rec. #: [id number] /Age/Gender: 1980 (Age: 39) / F Account: [id number] Location: [address] [place] [address]/[facility] Taken: 12/13/2019 Received: 12/13/2019 Reported: 12/14/2019 Physicians: Janae Khan M.D. Specimen(s) Received A: PERITONEAL FLUID IN ALCOHOL B: PERITONEAL FLUID FRESH Clinical History Ascites Final Diagnosis A&B: ABDOMINAL FLUID, PARACENTESIS: SATISFACTORY FOR EVALUATION. NEGATIVE FOR MALIGNANCY. MESOTHELIAL CELLS, MACROPHAGES, AND LYMPHOCYTES PRESENT. Electronically Signed Delmer Murrieta M.D. Gross Description A. Approximately 60cc of yellow fluid received fixed in 50% alcohol. One cytospin and one cellblock prepared. B. Approximately 01046sw of yellow fluid received fresh. One cytospin and one cellblock prepared.
== END 2019-12-13 18:56 | disposition short-term general hospital (02) | DRG 432 ==
LOC: JER 16:45 → JERBED 18:15 → J6WEST-2 12-09 03:18 → J6S 12-13 11:30
PROVIDERS: ADMIT Internal Medicine; ATTEND Internal Medicine
PROC: 0W9G3ZX Drainage of Peritoneal Cavity, Percutaneous Approach, Diagnostic (ICD-10-PCS; principal; 2019-12-09)
PROC: 0W9G3ZX Drainage of Peritoneal Cavity, Percutaneous Approach, Diagnostic (ICD-10-PCS; 2019-12-13)
DX: K70.31 Alcoholic cirrhosis of liver with ascites (principal); K65.2 Spontaneous bacterial peritonitis; K64.9 Unspecified hemorrhoids; E80.6 Other disorders of bilirubin metabolism; Z98.84 Bariatric surgery status; R16.0 Hepatomegaly, not elsewhere classified; B95.2 Enterococcus as the cause of diseases classified elsewhere; F10.20 Alcohol dependence, uncomplicated; R10.84 Generalized abdominal pain; E87.6 Hypokalemia
CPT/HCPCS: 36415; 49083; 74178-TC; 76705-TC; 76942-TC; 80053; 80076; 81003; 82042; 82105; 82150; 82607; 82746; 82945; 83615; 83690; 83986; 84155; 84157; 84165; 84703; 85025; 85044; 85610; 85730; 86140; 87070; 87075; 87102; 87116; 87186; 87205; 87206; 87210; 88108; 88305-TC; 93005; 93010; 99285-25; J1644; Q9967; U0003